=== PATIENT | female | born 1980 | race African-American/Black ===

== ENCOUNTER 2021-04-28 18:25 | Emergency (ER) | payer SELFPAY ==
[~2021-04-28] VITALS: Ht 170.1 cm; Wt 74.8 kg
[2021-04-28] MEDS ORDERED: LORazepam INJ 2 MG/ML (ATIVAN) VIAL IVP ONE (19:00)
[2021-04-28] MEDS ORDERED: ONDANSETRON 4 MG/2 ML (SDV) Z0FRAN IVP ONE (19:00)
[2021-04-28] MEDS ORDERED: LACTATED RINGERS 1,000 ML IV SCH (19:00)
[2021-04-28 19:06] LABS: BASOPHILS % (AUTO) 0 % (0-10); EOSINOPHILS % (AUTO) 0 % (0-10); HEMATOCRIT 36 % (35-52); HEMOGLOBIN 11.4 g/dL (11.5-16.0); LYMPHOCYTES # (AUTO) 1.5 10^3/uL (1.0-4.0); LYMPHOCYTES % (AUTO) 24 % (12-44); MEAN CORPUSCULAR HEMOGLOBIN 26 pg (25-34); MEAN CORPUSCULAR HGB CONC 32 g/dL (32-36); MEAN CORPUSCULAR VOLUME 81 fL (80-99); MEAN PLATELET VOLUME 10.2 fL (9.0-12.2); MONOCYTES # (AUTO) 0.5 10^3/uL (0.0-1.0); MONOCYTES % (AUTO) 7 % (0-12); NEUTROPHILS # (AUTO) 4.4 10^3/uL (1.8-7.8); NEUTROPHILS % (AUTO) 68 % (42-75); PLATELET COUNT 180 10^3/uL (130-400); WHITE BLOOD COUNT 6.5 10^3/uL (4.3-11.0)
--- NOTE | 2021-04-28 19:07 | ED General ---
General Chief Complaint: General Problems/Pain Stated Complaint: POTASSIUM LEVELS ARE LOW Source of Information: Patient Exam Limitations: No Limitations History of Present Illness Date Seen by Provider: Apr 28, 2021 Time Seen by Provider: 19:05 Initial Comments To ER with reports of low potassium at 2.7. She was seen at [facility] and had blood drawn yesterday and was called today with results and referred to the emergency room. She is also nauseated and jittery and anxious. She typically drinks 1/2 pint to a pint of frederick daily. She was seen at [facility] yesterday and diagnosed with urinary tract infection and given an antibiotic. Because of that she quit drinking alcohol yesterday. Timing/Duration: 1-2 Days Severity: Moderate Associated Systoms: Nausea/Vomiting Allergies and Home Medications Allergies Coded Allergies: No Known Drug Allergies (Unverified , 04/28/21) Patient Home Medication List Home Medication List Reviewed: Yes Review of Systems Review of Systems Constitutional: see HPI EENTM: see HPI Respiratory: no symptoms reported Cardiovascular: no symptoms reported Genitourinary: no symptoms reported Musculoskeletal: no symptoms reported Skin: no symptoms reported Psychiatric/Neurological: No Symptoms Reported Hematologic/Lymphatic: No Symptoms Reported Physical Exam Vital Signs Capillary Refill : Height, Weight, BMI Height: '" Weight: lbs. oz. kg; BMI Method: General Appearance: No Apparent Distress, WD/WN, Anxious Eyes: Bilateral Eye Normal Inspection, Bilateral Eye PERRL, Bilateral Eye EOMI Neck: Full Range of Motion, Normal Inspection Respiratory: No Accessory Muscle Use, No Respiratory Distress Cardiovascular: Normal Peripheral Pulses, Tachycardia Gastrointestinal: Normal Bowel Sounds, Non Tender, Soft Extremity: Normal Capillary Refill, Normal Inspection Neurologic/Psychiatric: Alert, Oriented x3 Skin: Normal Color, Warm/Dry Progress/Results/Core Measures Suspected Sepsis SIRS Temperature: Pulse: Respiratory Rate: Laboratory Tests 04/28/21 18:55: White Blood Count 6.5 Blood Pressure / Mean: Laboratory Tests 04/28/21 18:55: Creatinine 0.69, Platelet Count 180, Total Bilirubin 0.9 Results/Orders Lab Results Laboratory Tests Test 04/28/21 18:55 Range/Units White Blood Count 6.5 4.3-11.0 10^3/uL Red Blood Count 4.41 3.80-5.11 10^6/uL Hemoglobin 11.4 L 11.5-16.0 g/dL Hematocrit 36 35-52 % Mean Corpuscular Volume 81 80-99 fL Mean Corpuscular Hemoglobin 26 25-34 pg Mean Corpuscular Hemoglobin Concent 32 32-36 g/dL Red Cell Distribution Width 19.7 H 10.0-14.5 % Platelet Count 180 130-400 10^3/uL Mean Platelet Volume 10.2 9.0-12.2 fL Immature Granulocyte % (Auto) 1 % Neutrophils (%) (Auto) 68 42-75 % Lymphocytes (%) (Auto) 24 12-44 % Monocytes (%) (Auto) 7 0-12 % Eosinophils (%) (Auto) 0 0-10 % Basophils (%) (Auto) 0 0-10 % Neutrophils # (Auto) 4.4 1.8-7.8 10^3/uL Lymphocytes # (Auto) 1.5 1.0-4.0 10^3/uL Monocytes # (Auto) 0.5 0.0-1.0 10^3/uL Eosinophils # (Auto) 0.0 0.0-0.3 10^3/uL Basophils # (Auto) 0.0 0.0-0.1 10^3/uL Immature Granulocyte # (Auto) 0.0 0.0-0.1 10^3/uL Sodium Level 138 135-145 MMOL/L Potassium Level 2.7 L 3.6-5.0 MMOL/L Chloride Level 99 98-107 MMOL/L Carbon Dioxide Level 26 21-32 MMOL/L Anion Gap 13 5-14 MMOL/L Blood Urea Nitrogen 4 L 7-18 MG/DL Creatinine 0.69 0.60-1.30 MG/DL Estimat Glomerular Filtration Rate 113 BUN/Creatinine Ratio 6 Glucose Level 104 70-105 MG/DL Calcium Level 8.6 8.5-10.1 MG/DL Corrected Calcium 8.8 8.5-10.1 MG/DL Total Bilirubin 0.9 0.1-1.0 MG/DL Aspartate Amino Transf (AST/SGOT) 154 H 5-34 U/L Alanine Aminotransferase (ALT/SGPT) 63 H 0-55 U/L Alkaline Phosphatase 104 40-136 U/L Total Protein 7.8 6.4-8.2 GM/DL Albumin 3.8 3.2-4.5 GM/DL Serum Alcohol < 10 <10 MG/DL My Orders Orders - ELISABET MENDOZA APRN Cbc With Automated Diff (04/28/21 18:59) Comprehensive Metabolic Panel (04/28/21 18:59) Alcohol (04/28/21 18:59) Ed Iv/Invasive Line Start (04/28/21 18:59) Lactated Ringers (Lr 1000 Ml Iv Solution (04/28/21 19:00) Lorazepam Injection (Ativan Injection) (04/28/21 19:00) Ondansetron Injection (Zofran Injectio (04/28/21 19:00) Ekg Tracing (04/28/21 19:08) Potassium Cl 10meq/50ml Ivpb (Kcl 10 Meq (04/28/21 19:45) Potassium Chloride (Tablet) (Klor Con Ta (04/28/21 19:45) Ns (Ivpb) (Sodium Chloride 0.9%) (04/28/21 20:30) Medications Given in ED Current Medications Medications Dose Ordered Sig/Beti Route Start Time Stop Time Status Last Admin Dose Admin Lorazepam 2 mg ONCE ONCE IVP 04/28/21 19:00 04/28/21 19:01 DC 04/28/21 19:22 2 MG Ondansetron HCl 4 mg ONCE ONCE IVP 04/28/21 19:00 04/28/21 19:01 DC 04/28/21 19:21 4 MG Vital Signs/I&O Capillary Refill : Departure Communication (Admissions) 2030-feeling better, states that she is ready to quit drinking. I will pr escribe some Librium to help with that. Impression Primary Impression: Hypokalemia Additional Impression: Alcohol use disorder Disposition: HOME, SELF-CARE Condition: Stable Departure-Patient Inst. Decision time for Depature: 20:31 Patient Instructions: Alcohol Use Disorder ED, Hypokalemia (DC) Add. Discharge Instructions: 1. Medication as directed 2. Follow-up with your doctor next week. All discharge instructions reviewed with patient and/or family. Voiced understanding. Scripts Chlordiazepoxide HCl (Chlordiazepoxide HCl) 25 Mg Capsule 25 MG PO UD, #10 CAP Day one, 1 tablet every 6 hours Day two, 1 tablet every 8 hours Day three, 1 tablet every 12 hours Day four, 1 tablet at bedtime Prov: ELISABET MENDOZA APRN 04/28/21 Potassium Chloride (Potassium Chloride) 20 Meq Tablet.er 20 MEQ PO BID, #6 TAB Prov: ELISABET MENDOZA APRN 04/28/21 Work/School Note: Work Release Form Date Seen in the Emergency Department: Apr 28, 2021 Return to Work: May 01, 2021 LEISABET MENDOZA APRN Apr 28, 2021 19:07
[2021-04-28 19:24] LABS: ALANINE AMINOTRANSFERASE 63 U/L (0-55); ALBUMIN 3.8 GM/DL (3.2-4.5); ALKALINE PHOSPHATASE 104 U/L (40-136); BILIRUBIN,TOTAL 0.9 MG/DL (0.1-1.0); BUN/CREATININE RATIO 6; CALCIUM 8.6 MG/DL (8.5-10.1); CARBON DIOXIDE 26 MMOL/L (21-32); CHLORIDE 99 MMOL/L (98-107); CREATININE SERUM 0.69 MG/DL (0.60-1.30); GFR ESTIMATED 113; GLUCOSE 104 MG/DL (70-105); POTASSIUM 2.7 MMOL/L (3.6-5.0); SODIUM 138 MMOL/L (135-145); TOTAL PROTEIN 7.8 GM/DL (6.4-8.2)
[2021-04-28] MEDS ORDERED: POTASSIUM CL 10MEQ/50ML IVPB 50 ML IV ONE (19:45)
[2021-04-28] MEDS ORDERED: KCL 10 MEQ TAB (MICRO K) PO ONE (19:45)
[2021-04-28] MEDS ORDERED: NS (IVPB) 250 ML IV ONE (20:30)
[2021-04-28] MEDS ORDERED: CHLO25CA10 PO (20:34)
[2021-04-28] MEDS ORDERED: POTA-51 PO (20:34)
[2021-04-28] MEDS ORDERED: meTOprolol 5 MG/5 ML (LOPRESSOR) VIAL IV ONE (21:00)
[2021-04-28 21:48] VITALS: BP 149/117
== END 2021-04-28 21:49 | disposition home or self-care (01) ==
LOC: ER 18:30 → EDSEX 18:30 → ER 21:49
DX: E87.6 Hypokalemia (principal); F10.10 Alcohol abuse, uncomplicated
CPT/HCPCS: 80053; 85025; 93005; 99284; G0480; 36415; 80320

== ENCOUNTER 2021-05-01 11:21 | Observation (INO) | payer SELFPAY ==
[~2021-05-01] VITALS: Ht 170.2 cm; Wt 72.4 kg
[~2021-05-01 11:21] MED LIST: CHLO25CA10 PO; POTA-51 PO
--- NOTE | 2021-05-01 12:42 | ED General ---
General Chief Complaint: General Problems/Pain Stated Complaint: LOW K LEVELS Nursing Triage Note: PT AMBULATE TO TRIAGE WITH C/O LOW POTASSIUM. PT STATES THAT SHE HAD BLOOD DRAWN AT HER PCP AND WAS CONTACTED AND TOLD THAT HER POTASSIUM LEVEL WAS LOW AND THAT SHE NEEDED TO COME TO THE ED. PT REPORTS BEING SEEN IN THIS ED ON THURSDAY FOR SAME C/O. PT REPORTS BEING PRESCRIBED KCL PO AND HAS BEEN TAKING PRESCRIBED. PT REPORTS N/V. PT STATES THAT SHE DRINKS ETOH AND THAT SHE HAS ABSTAINED WHILE TAKING ABX FOR A UTI AND THAT SHE IS HAVING WITHDRAWL SYMPTOMS. Source of Information: Patient Exam Limitations: No Limitations History of Present Illness Date Seen by Provider: May 01, 2021 Time Seen by Provider: 12:40 Initial Comments To ER with low potassium. She had labs drawn by primary care told her potassium was 2.6 and that she should come to the emergency room. She has nausea. She was a daily drinker of about 1 pint of bourbon daily until a few days ago when she started an antibiotic for a bladder infection. I saw her in the emergency room at that time, we replaced some potassium orally and gave her a prescription for Librium for withdrawal symptoms. She states that the pharmacy was out of Librium. She has not yet filled it. She has taken the potassium. Timing/Duration: 1-2 Days Allergies and Home Medications Allergies Coded Allergies: No Known Drug Allergies (Unverified , 04/28/21) Home Medications Chlordiazepoxide HCl 25 Mg Capsule, 25 MG PO UD Day one, 1 tablet every 6 hours Day two, 1 tablet every 8 hours Day three, 1 tablet every 12 hours Day four, 1 tablet at bedtime Prescribed by: ELISABET MENDOZA on 04/28/212034 Potassium Chloride 20 Meq Tablet.er, 20 MEQ PO BID Prescribed by: ELISABET MENDOZA on 04/28/212033 Patient Home Medication List Home Medication List Reviewed: Yes Review of Systems Review of Systems Constitutional: see HPI EENTM: see HPI Respiratory: no symptoms reported Cardiovascular: no symptoms reported Genitourinary: no symptoms reported Musculoskeletal: no symptoms reported Skin: no symptoms reported Psychiatric/Neurological: No Symptoms Reported Hematologic/Lymphatic: No Symptoms Reported Past Updixpz-[id number] Hx Patient Social History Tobacco Use?: Yes Tobacco type used: Cigarettes Smoking Status: Current Everyday Smoker Substance use?: No Alcohol Use?: Yes Alcohol type: Hard Liquor Alcohol Frequency: Daily Pt feels they are or have been: No Immunizations Up To Date First/Initial COVID19 Vaccinat: DECEMBER 2020 Second COVID19 Vaccination Ramakrishna: JANUARY 2021 COVID19 Vaccine Manager Training And Development: EMMANUEL Physical Exam Vital Signs Vital Signs - First Documented 05/01/21 12:26 Temp 36.9 Pulse 108 Resp 17 B/P (MAP) 146/99 (115) O2 Delivery Room Air Capillary Refill : Less Than 3 Seconds Height, Weight, BMI Height: '" Weight: lbs. oz. kg; 25.00 BMI Method: General Appearance: No Apparent Distress, WD/WN Eyes: Bilateral Eye Normal Inspection, Bilateral Eye PERRL, Bilateral Eye EOMI Neck: Full Range of Motion, Normal Inspection Respiratory: No Accessory Muscle Use, No Respiratory Distress Cardiovascular: Regular Rate, Rhythm, Normal Peripheral Pulses Gastrointestinal: Normal Bowel Sounds, Non Tender, Soft Neurologic/Psychiatric: Alert, Oriented x3 Skin: Normal Color, Warm/Dry Progress/Results/Core Measures Suspected Sepsis SIRS Temperature: Pulse: 108 Respiratory Rate: 17 Laboratory Tests 05/01/21 12:46: White Blood Count 10.5 Blood Pressure 146 /99 Mean: 115 Laboratory Tests 05/01/21 12:46: Creatinine 0.69, Platelet Count 194 Results/Orders Lab Results Laboratory Tests Test 05/01/21 12:46 Range/Units White Blood Count 10.5 4.3-11.0 10^3/uL Red Blood Count 4.40 3.80-5.11 10^6/uL Hemoglobin 11.4 L 11.5-16.0 g/dL Hematocrit 36 35-52 % Mean Corpuscular Volume 82 80-99 fL Mean Corpuscular Hemoglobin 26 25-34 pg Mean Corpuscular Hemoglobin Concent 32 32-36 g/dL Red Cell Distribution Width 19.9 H 10.0-14.5 % Platelet Count 194 130-400 10^3/uL Mean Platelet Volume 10.6 9.0-12.2 fL Immature Granulocyte % (Auto) 0 % Neutrophils (%) (Auto) 74 42-75 % Lymphocytes (%) (Auto) 19 12-44 % Monocytes (%) (Auto) 6 0-12 % Eosinophils (%) (Auto) 0 0-10 % Basophils (%) (Auto) 0 0-10 % Neutrophils # (Auto) 7.8 1.8-7.8 10^3/uL Lymphocytes # (Auto) 2.0 1.0-4.0 10^3/uL Monocytes # (Auto) 0.6 0.0-1.0 10^3/uL Eosinophils # (Auto) 0.0 0.0-0.3 10^3/uL Basophils # (Auto) 0.0 0.0-0.1 10^3/uL Immature Granulocyte # (Auto) 0.0 0.0-0.1 10^3/uL Sodium Level 137 135-145 MMOL/L Potassium Level 2.6 L 3.6-5.0 MMOL/L Chloride Level 98 98-107 MMOL/L Carbon Dioxide Level 27 21-32 MMOL/L Anion Gap 12 5-14 MMOL/L Blood Urea Nitrogen 11 7-18 MG/DL Creatinine 0.69 0.60-1.30 MG/DL Estimat Glomerular Filtration Rate 113 BUN/Creatinine Ratio 16 Glucose Level 109 H 70-105 MG/DL Calcium Level 8.8 8.5-10.1 MG/DL Magnesium Level 1.3 L 1.6-2.4 MG/DL Serum Alcohol < 10 <10 MG/DL My Orders Orders - ELISABET MENDOZA APRN Alcohol (05/01/21 12:21) Cbc With Automated Diff (05/01/21 12:21) Basic Metabolic Panel (05/01/21 12:21) Ed Iv/Invasive Line Start (05/01/21 12:21) Lorazepam Injection (Ativan Injection) (05/01/21 12:45) Ns Iv 1000 Ml (Sodium Chloride 0.9%) (05/01/21 12:45) Ua Culture If Indicated (05/01/21 12:39) Magnesium (05/01/21 12:39) Ondansetron Injection (Zofran Injectio (05/01/21 12:45) Potassium Chloride (Tablet) (K Dur Table (05/01/21 12:45) Potassium Cl 10meq/50ml Ivpb (Kcl 10 Meq (05/01/21 12:45) Magnesium 1 Gm/100 Ml Ivpb (Magnesium Martin (05/01/21 13:45) Medications Given in ED Current Medications Medications Dose Ordered Sig/Beti Route Start Time Stop Time Status Last Admin Dose Admin Lorazepam 2 mg ONCE ONCE IVP 05/01/21 12:45 05/01/21 12:46 DC 05/01/21 13:04 2 MG Ondansetron HCl 8 mg ONCE ONCE IVP 05/01/21 12:45 05/01/21 12:46 DC 05/01/21 13:04 8 MG Potassium Chloride 40 meq ONCE ONCE PO 05/01/21 12:45 05/01/21 12:46 DC 05/01/21 13:04 40 MEQ Vital Signs/I&O 05/01/21 12:26 Temp 36.9 Pulse 108 Resp 17 B/P (MAP) 146/99 (115) O2 Delivery Room Air Capillary Refill : Less Than 3 Seconds Blood Pressure Mean: 115 Departure Impression Primary Impression: Hypokalemia Additional Impression: Hypomagnesemia Disposition: 01 HOME, SELF-CARE Condition: Stable Departure-Patient Inst. Decision time for Depature: 13:33 Referrals: [facility] (PCP) Primary Care Physician GIA DEMARCO (Family) Primary Care Physician Patient Instructions: Low Magnesium Level, Hypokalemia ELISABET MENDOZA BRAKE LINING FINISHER May 01, 2021 12:42
[2021-05-01] MEDS ORDERED: NS IV 1000 ML 1,000 ML IV SCH (12:45)
[2021-05-01] MEDS ORDERED: ONDANSETRON 4 MG/2 ML (SDV) Z0FRAN IVP ONE (12:45)
[2021-05-01] MEDS ORDERED: LORazepam INJ 2 MG/ML (ATIVAN) VIAL IVP ONE (12:45)
[2021-05-01] MEDS ORDERED: KCL 20 MEQ TAB (K-DUR) PO ONE (12:45)
[2021-05-01 12:51] LABS: BASOPHILS % (AUTO) 0 % (0-10); EOSINOPHILS % (AUTO) 0 % (0-10); HEMATOCRIT 36 % (35-52); HEMOGLOBIN 11.4 g/dL (11.5-16.0); LYMPHOCYTES % (AUTO) 19 % (12-44); MEAN CORPUSCULAR HEMOGLOBIN 26 pg (25-34); MEAN CORPUSCULAR HGB CONC 32 g/dL (32-36); MEAN CORPUSCULAR VOLUME 82 fL (80-99); MEAN PLATELET VOLUME 10.6 fL (9.0-12.2); MONOCYTES # (AUTO) 0.6 10^3/uL (0.0-1.0); MONOCYTES % (AUTO) 6 % (0-12); NEUTROPHILS # (AUTO) 7.8 10^3/uL (1.8-7.8); NEUTROPHILS % (AUTO) 74 % (42-75); PLATELET COUNT 194 10^3/uL (130-400); WHITE BLOOD COUNT 10.5 10^3/uL (4.3-11.0)
[2021-05-01] MEDS: POTASSIUM CL 10MEQ/50ML IVPB 50 ML IV SCH ×2 (13:03→22:03)
[2021-05-01 13:04] LABS: CHLORIDE 98 MMOL/L (98-107); POTASSIUM 2.6 MMOL/L (3.6-5.0); SODIUM 137 MMOL/L (135-145)
[2021-05-01 13:05] LABS: CALCIUM 8.8 MG/DL (8.5-10.1); GLUCOSE 109 MG/DL (70-105)
[2021-05-01 13:07] LABS: CARBON DIOXIDE 27 MMOL/L (21-32)
[2021-05-01 13:09] LABS: CREATININE SERUM 0.69 MG/DL (0.60-1.30); GFR ESTIMATED 113
[2021-05-01 13:10] LABS: BUN/CREATININE RATIO 16
[2021-05-01 13:12] LABS: MAGNESIUM 1.3 MG/DL (1.6-2.4)
[2021-05-01] MEDS: MAGNESIUM 1 GM/100 ML IVPB 100 ML IV SCH ×4 (15:14→18:32)
[2021-05-01 16:00] VITALS: BP 126/87
[2021-05-01] MEDS ORDERED: RT-ALBUINH IH (16:04)
[2021-05-01] MEDS ORDERED: NITR-65 PO (16:04)
[2021-05-01] MEDS ORDERED: AMLO-251 PO (16:04)
[2021-05-01] MEDS ORDERED: PANT40TA52 PO (16:04)
[2021-05-01] MEDS ORDERED: POTA-51 PO (16:04)
[2021-05-01] MEDS ORDERED: ONDA8TAB15 PO (16:04)
[2021-05-01] MEDS ORDERED: ONDANSETRON 4 MG (ZOFRAN) ORAL DISSOLVE TAB SL PRN (16:15)
[2021-05-01] MEDS ORDERED: LORazepam 1 MG (ATIVAN) TAB PO PRN (16:15)
[2021-05-01] MEDS ORDERED: 1/2 NS IV SOLUTION 1,000 ML IV PRN (16:15)
[2021-05-01] MEDS ORDERED: LORazepam INJ 2 MG/ML (ATIVAN) VIAL IM/IV PRN (16:15)
[2021-05-01] MEDS ORDERED: D5 1/2 NS 1000 ML IV SOLUTION 1,000 ML IV PRN (16:15)
[2021-05-01] MEDS ORDERED: SENNA W/DOCUSATE (SENOKOT S) TABLET PO PRN (16:15)
[2021-05-01] MEDS ORDERED: ANTACID SUSP 30 ML UDC (MYLANTA) PO PRN (16:15)
[2021-05-01] MEDS ORDERED: LORazepam INJ 2 MG/ML (ATIVAN) VIAL IV PRN (16:15)
[2021-05-01] MEDS ORDERED: ONDANSETRON 4 MG/2 ML (SDV) Z0FRAN IV PRN ×2 (16:15→17:15)
[2021-05-01] MEDS: KCL 20 MEQ TAB (K-DUR) PO SCH (17:17)
[2021-05-01 17:45] LABS: BILIRUBIN,URINE NEGATIVE (NEGATIVE); CLARITY,URINE CLEAR; COLOR,URINE YELLOW; GLUCOSE, URINE (UA) NEGATIVE (NEGATIVE); KETONES,URINE 2+ (NEGATIVE); LEUKOCYTE ESTERASE ,URINE NEGATIVE (NEGATIVE); NITRITE,URINE NEGATIVE (NEGATIVE); PH,URINE 6.5 (5-9); PROTEIN,URINE TRACE (NEGATIVE)
[2021-05-01] MEDS: NS IV 1000 ML 1,000 ML IV SCH (17:48)
[2021-05-01 17:57] LABS: BACTERIA,URINE NEGATIVE /HPF
[2021-05-01 17:59] LABS: ALBUMIN 3.9 GM/DL (3.2-4.5)
[2021-05-01 18:02] LABS: TOTAL PROTEIN 7.9 GM/DL (6.4-8.2)
[2021-05-01 18:04] LABS: BILIRUBIN,TOTAL 0.7 MG/DL (0.1-1.0)
[2021-05-01 18:08] LABS: BILIRUBIN,DIRECT 0.4 MG/DL (0.0-0.3); BILIRUBIN,INDIRECT 0.3 MG/DL
[2021-05-01 20:00] VITALS: BP 122/84
[2021-05-01] MEDS: POTASSIUM CL 10 MEQ/50 ML IVPB (PRE-MIX) IV SCH ×2 (20:14→21:13)
[2021-05-01] MEDS: MAGNESIUM OXIDE (MAG-OX)400 MG TAB PO SCH (21:13)
[2021-05-01 23:43] VITALS: BP 127/87
[2021-05-02 03:19] VITALS: BP 139/100
[2021-05-02 06:08] LABS: BASOPHILS % (AUTO) 0 % (0-10); EOSINOPHILS # (AUTO) 0.1 10^3/uL (0.0-0.3); EOSINOPHILS % (AUTO) 1 % (0-10); HEMATOCRIT 32 % (35-52); LYMPHOCYTES % (AUTO) 37 % (12-44); MEAN CORPUSCULAR HEMOGLOBIN 26 pg (25-34); MEAN CORPUSCULAR HGB CONC 31 g/dL (32-36); MEAN CORPUSCULAR VOLUME 84 fL (80-99); MEAN PLATELET VOLUME 10.7 fL (9.0-12.2); MONOCYTES # (AUTO) 0.4 10^3/uL (0.0-1.0); MONOCYTES % (AUTO) 8 % (0-12); NEUTROPHILS % (AUTO) 54 % (42-75); PLATELET COUNT 159 10^3/uL (130-400); WHITE BLOOD COUNT 5.6 10^3/uL (4.3-11.0)
[2021-05-02 06:27] LABS: ALBUMIN 3.3 GM/DL (3.2-4.5); CHLORIDE 105 MMOL/L (98-107); POTASSIUM 3.1 MMOL/L (3.6-5.0); SODIUM 138 MMOL/L (135-145)
[2021-05-02 06:28] LABS: CALCIUM 8.2 MG/DL (8.5-10.1)
[2021-05-02 06:29] LABS: GLUCOSE 92 MG/DL (70-105); TOTAL PROTEIN 6.5 GM/DL (6.4-8.2)
[2021-05-02 06:30] LABS: CARBON DIOXIDE 25 MMOL/L (21-32); INR 0.9 (0.8-1.4)
[2021-05-02 06:31] LABS: BILIRUBIN,TOTAL 0.7 MG/DL (0.1-1.0)
[2021-05-02 06:33] LABS: ALKALINE PHOSPHATASE 79 U/L (40-136); CREATININE SERUM 0.64 MG/DL (0.60-1.30); GFR ESTIMATED 123
[2021-05-02 06:34] LABS: BUN/CREATININE RATIO 9
[2021-05-02 06:35] LABS: MAGNESIUM 1.9 MG/DL (1.6-2.4)
[2021-05-02 06:36] LABS: ALANINE AMINOTRANSFERASE 48 U/L (0-55)
[2021-05-02] MEDS ORDERED: MULTIVIT W/MINERALS TAB (THERAGRAN M) PO SCH (07:00)
[2021-05-02] MEDS ORDERED: THIAMINE 100 MG (VITAMIN B-1) TAB PO SCH (07:00)
[2021-05-02 08:00] VITALS: BP 135/99
[2021-05-02] MEDS: NS IV 1000 ML 1,000 ML IV SCH (08:09)
[2021-05-02] MEDS: KCL 20 MEQ TAB (K-DUR) PO SCH ×2 (08:17→12:30)
[2021-05-02] MEDS: MAGNESIUM OXIDE (MAG-OX)400 MG TAB PO SCH (08:17)
[2021-05-02] MEDS ORDERED: FOLIC ACID 1 MG TAB PO SCH (09:00)
[2021-05-02] MEDS ORDERED: NICOTINE 21 MG (NICODERM) PATCH TD SCH (10:55)
[2021-05-02 11:16] VITALS: BP 127/86
--- NOTE | 2021-05-02 12:08 | Short Stay Summary-Hospitalist ---
REBECCA GUPTA MED STUDENT 05/02/21 1208: History of Present Illness HPI/Chief Complaint Felisha Lala is a 40 year old female who presented to the ED yesterday after being directed to do so by her PCP at [facility] for hypokalemia. She had been having extensive nausea and vomiting for 3-4 days prior to having labs drawn. The nausea has persisted but the vomiting has resolved. She had labs done approximately one week ago and was found to be hypokalemic, at that time she was directed to the ED on April 28 and received oral potassium supplements and a sc ript for librium. She again had repeat lab work and was found to be hypokalemic and was told to present to the ED yesterday. She states she was taking her potassium as prescribed but never filled her script for the librium at the pharmacy claiming they didn't have it in stock. She stopped drinking alcohol approximately 6-7 days ago as well as she was started on an antibiotic for a UTI at that time. She states she has been taking the antibiotic as prescribed but cannot recall any details of the medication in question. PMH is significant for alcohol use disorder, tobacoissm, HTN, and GERD. She has been drinking 1/2 to 1 pint of frederick a day for years. She has never had a alcohol withdrawal seizure. She has been fully vaccinated against COVID-19 but cannot recall which vaccine received. Currently she denies nausea, vomiting, diarrhea, fevers, chills, chest pain, and SOB. Denies abdominal pain. States is ready to go home and "doesn't want to take any more medicines." Source: patient, EMS notes reviewed Exam Limitations: no limitations Date Seen 05/02/21 Time Seen by a Provider: 08:00 Attending Physician Siri Carey DO [facility] Referring Physician Date of Admission May 01, 2021 at 13:38 Home Medications & Allergies Home Medications Reviewed patient Home Medication Reconciliation performed by pharmacy medication reconciliations hvac service technician and/or nursing. Patients Allergies have been reviewed. Allergies Allergies Coded Allergies No Known Drug Allergies (Unverified04/28/21) Past Medical/Social/Family Hx Patient Social History Marrital Status: single Employed/Student: employed Tobacco Use?: Yes Tobacco type used: Cigarettes Smoking Status: Current Everyday Smoker Use of E-Cig and/or Vaping dev: No E-Cig and/or Vaping Freq: Never a User Substance use?: No Substance frequency: Daily Alcohol Use?: Yes Alcohol type: Hard Liquor (1/2 to 1 pint frederick/day) Alcohol Frequency: Daily Pt stated abuse/neglect: No Immunizations Up To Date Influenza Vaccine Up-to-Date: No; Not Current First/Initial COVID19 Vaccinat: DECEMBER 2020 Second COVID19 Vaccination Ramakrishna: JANUARY 2021 Tetanus Booster (TDap): Unknown Hepatitis A: Yes Hepatitis B: Yes TB Skin Test: Negative Current Status status: No status: No Advance Directives: No Communicates: Verbally Primary Language: Faroese Preferred Spoken Language: Faroese Is interpretation needed?: No Sensory deficits: Vision impairment Implanted or Applied Medical D: None Past Medical History HTN GERD Alcohol Use Disorder Tobaccoism Review of Systems Constitutional: no symptoms reported; No chills, No diaphoresis, No fever, No malaise, No weight loss EENTM: No hearing loss, No blurred vision, No double vision, No vision loss Respiratory: No cough, No dyspnea on exertion, No hemoptysis, No short of breath Cardiovascular: No chest pain, No edema, No palpitations, No syncope Gastrointestinal: no symptoms reported; No abdominal pain, No constipation, No diarrhea; heartburn (chronic), nausea (Improved); No vomiting Genitourinary: No decreased output, No dysuria, No frequency, No hematuria, No hesitancy : No Musculoskeletal: No back pain, No joint pain, No muscle pain, No muscle stiffness, No muscle cramps Skin: No change in color, No change in hair/nails, No dryness, No lesions Psychiatric/Neurological: No Symptoms Reported; Denies Anxiety, Denies Depressed, Denies Headache, Denies Seizure, Denies Weakness All Other Systems Reviewed Negative Unless Noted: Yes Physical Exam Physical Exam Vital Signs Vital Signs - First Documented 05/01/21 05/01/21 12:26 15:34 Temp 36.9 Pulse 108 Resp 17 B/P (MAP) 146/99 (115) Pulse Ox 97 O2 Delivery Room Air Capillary Refill : Less Than 3 Seconds Height, Weight, BMI Height: '" Weight: lbs. oz. kg; 24.99 BMI Method: General Appearance: No Apparent Distress, WD/WN Eyes: Bilateral Eye Normal Inspection, Bilateral Eye PERRL, Bilateral Eye EOMI HEENT: PERRL/EOMI, Pharynx Normal, Moist Mucous Membranes Neck: Full Range of Motion, Normal Inspection, Non Tender, Supple Respiratory: Chest Non Tender, Lungs Clear, Normal Breath Sounds, No Accessory Muscle Use, No Respiratory Distress Cardiovascular: Regular Rate, Rhythm, No Edema, Normal Peripheral Pulses Gastrointestinal: Normal Bowel Sounds, Non Tender, Soft Rectal: Deferred Back: Normal Inspection, No CVA Tenderness, No Vertebral Tenderness Extremity: Normal Capillary Refill, Normal Inspection, Normal Range of Motion, Non Tender, No Calf Tenderness, No Pedal Edema Neurologic/Psychiatric: Alert, Oriented x3, No Motor/Sensory Deficits, Normal Mood/Affect Skin: Normal Color, Warm/Dry Lymphatic: No Adenopathy Results Results/Procedures Labs Laboratory Tests 05/01/21 12:46 05/02/21 05:48 Patient resulted labs reviewed. Short Stay Diagnosis Discharge Diagnosis-Short Stay Admission Diagnosis Nausea/vomiting Hypokalemia Hypomagnesemia Final Discharge Diagnosis Nausea/Vomiting Hypokalemia Hypomagnesemia Elevated LFT's Alcohol Use Disorder Tobaccoism Conclusion Plan Send patient home with script of oral potassium Encourage cessation of alcohol Encourage cessation of tobacco use Followup with PCP in 1-2 weeks Return to ED/Urgent care for worsening or recurrence of symptoms SIRI CAREY DO 05/03/21 0511: History of Present Illness HPI/Chief Complaint CC: Electrolyte abnormality HPI: This is a 40yo female who has a PMH of alcoholism, who presented to the ER with dry-heaves and severe hypokalemia at 2.6. She was admitted, placed on IV fluids, corrected the electrolyte abnormalities and currently she is doing much better. Source: patient Exam Limitations: no limitations Past Medical/Social/Family Hx Patient Social History Marrital Status: single Employed/Student: employed Substance frequency: Daily Alcohol type: Hard Liquor (1/2 to 1 pint frederick/day) Review of Systems Constitutional: see HPI, weakness Physical Exam Physical Exam General Appearance: No Apparent Distress, WD/WN, Chronically ill Respiratory: Lungs Clear, Normal Breath Sounds Cardiovascular: Regular Rate, Rhythm Neurologic/Psychiatric: Alert, Oriented x3 Short Stay Diagnosis Discharge Diagnosis-Short Stay Admission Diagnosis Nausea and vomiting Alcohol withdrawal Alcoholism Hypomagnesemia Final Discharge Diagnosis Nausea and vomiting Alcohol withdrawal Alcoholism Hypomagnesemia Conclusion Plan Discharge home Supervisory-Addendum Brief Verification & Attestation Participated in pt care: history, MDM, physical Personally performed: exam, history, MDM, supervision of care Care discussed with: Medical Student Procedures: n/a Results interpretation: Verified all documentation Verification and Attestation of Medical Student E/M Service A medical student performed and documented this service in my presence. I reviewed and verified all information documented by the medical student and made modifications to such information, when appropriate. I personally performed the physical exam and medical decision making. Siri Carey, May 03, 2021,05:09 REBECCA GUPTA MED STUDENT May 02, 2021 12:08 SIRI CAREY DO May 03, 2021 05:11
[2021-05-02 12:27] VITALS: BP 127/86
[2021-05-03] MEDS ORDERED: NICOTINE PATCH REMOVAL TP SCH (08:59)
== END 2021-05-02 12:03 | disposition home or self-care (01) ==
LOC: EDUNIT# 11:21 → ER 11:23 → UNDOADMOB 13:38 → 4TH 13:38 → UNDODISOB 05-02 12:37
PROVIDERS: ADMIT Internal Medicine; ATTEND Internal Medicine
DX: E87.6 Hypokalemia (principal); E83.42 Hypomagnesemia; F17.210 Nicotine dependence, cigarettes, uncomplicated; I10 Essential (primary) hypertension; K21.9 Gastro-esophageal reflux disease without esophagitis; F10.10 Alcohol abuse, uncomplicated; R79.89 Other specified abnormal findings of blood chemistry; Z79.899 Other long term (current) drug therapy
CPT/HCPCS: 80048; 80053; 80076; 81000; 82947 ×2; 83735 ×2; 85025 ×2; 85610; 85730; 86703; 87636; 99284; G0378; G0480 ×2; 36415; 80320

== ENCOUNTER 2021-08-01 17:38 | Inpatient (IN) | payer SELFPAY ==
[~2021-08-01] VITALS: Ht 170 cm; Wt 67.4 kg
[~2021-08-01 17:38] MED LIST changes: +AMLO-251 PO; +NITR-65 PO; +ONDA-106 PO; +PANT40TA52 PO; +RT-ALBUINH IH
--- NOTE | 2021-08-01 17:48 | ED Abdominal Pain ---
General Chief Complaint: Abdominal/GI Problems Stated Complaint: DEHYDRATED, VOMITING Source of Information: Patient Exam Limitations: No Limitations History of Present Illness Date Seen by Provider: Aug 01, 2021 Time Seen by Provider: 17:48 Initial Comments This is a 40-year-old female who presented to the ER via POV with complaints of nausea/vomiting x1 week. States that she attempted to get into see her primary care provider however was not able to make an appointment. States that this is happened in the past and she usually ends up hypokalemic with low magnesium. She admits to daily alcohol consumption however states that her last alcoholic drink was 2 days ago. No fever, chills, cough, shortness of breath, dysuria, or hematuria. Did not receive COVID vaccine. Has taken Zofran 4mg at home with no relief of symptoms. Allergies and Home Medications Allergies Coded Allergies: No Known Drug Allergies (Unverified , 04/28/21) Patient Home Medication List Home Medication List Reviewed: Yes Albuterol Sulfate (Proair Hfa) 1 Puff Puff, 2 PUFF IH Q4H PRN for SHORTNESS OF BREATH, (Reported) Entered as Reported by: IRMA MOORE on 05/01/21 160 Amlodipine Besylate (Amlodipine Besylate) 10 Mg Tablet, 10 MG PO DAILY, (Reported) Entered as Reported by: IRMA MOORE on 05/01/21 160 Nitrofurantoin Monohyd/M-Cryst (Macrobid 100 mg Capsule) 100 Mg Capsule, 1 TAB PO Q12H, (Reported) Entered as Reported by: IRMA MOORE on 05/01/21 160 Ondansetron HCl (Ondansetron HCl) 8 Mg Tablet, 8 MG PO Q8H PRN for NAUSEA/VOMITING-1ST LINE, (Reported) Entered as Reported by: IRMA MOORE on 05/01/21 160 Pantoprazole Sodium (Pantoprazole Sodium) 40 Mg Tablet.dr, 40 MG PO DAILY, (Reported) Entered as Reported by: IRMA MOORE on 05/01/21 160 Potassium Chloride (Potassium Chloride) 20 Meq Tablet.er, 20 MEQ PO DAILY, (Reported) Entered as Reported by: IRMA MOORE on 05/01/21 160 Review of Systems Review of Systems Constitutional: see HPI EENTM: No Symptoms Reported Respiratory: No Symptoms Reported Cardiovascular: No Symptoms Reported Gastrointestinal: See HPI; Denies Constipated, Denies Diarrhea; Nausea, Poor Fluid Intake, Vomiting Genitourinary: No Symptoms Reported Musculoskeletal: no symptoms reported Skin: no symptoms reported Psychiatric/Neurological: No Symptoms Reported Endocrine: No Symptoms Reported Hematologic/Lymphatic: No Symptoms Reported Physical Exam Vital Signs Vital Signs - First Documented 08/01/21 17:40 Temp 36.1 Pulse 125 Resp 20 B/P (MAP) 139/88 (105) Pulse Ox 98 O2 Delivery Room Air Capillary Refill : Height/Weight/BMI Height: '" Weight: lbs. oz. kg; 24.99 BMI Method: General Appearance: WD/WN, no apparent distress HEENT: PERRL/EOMI, normal ENT inspection, pharynx normal Neck: full range of motion, normal inspection Respiratory: lungs clear, normal breath sounds, no respiratory distress, no accessory muscle use Cardiovascular: regular rate, rhythm, no murmur Peripheral Pulses: 2+ Radial Pulses (R), 2+ Radial Pulses (L) Gastrointestinal: normal bowel sounds, soft, distended, tenderness (generalized upper abdominal tenderness. ) Extremities: normal range of motion, normal inspection, no pedal edema Back: normal inspection Neurologic/Psychiatric: no motor/sensory deficits, alert, normal mood/affect, oriented x 3 Progress/Results/Core Measures Results/Orders Lab Results Laboratory Tests Test 08/01/21 17:55 08/01/21 18:13 Range/Units White Blood Count 7.4 4.3-11.0 10^3/uL Red Blood Count 4.16 3.80-5.11 10^6/uL Hemoglobin 12.3 11.5-16.0 g/dL Hematocrit 37 35-52 % Mean Corpuscular Volume 88 80-99 fL Mean Corpuscular Hemoglobin 30 25-34 pg Mean Corpuscular Hemoglobin Concent 34 32-36 g/dL Red Cell Distribution Width 20.7 H 10.0-14.5 % Platelet Count 197 130-400 10^3/uL Mean Platelet Volume 11.5 9.0-12.2 fL Immature Granulocyte % (Auto) 1 % Neutrophils (%) (Auto) 76 H 42-75 % Lymphocytes (%) (Auto) 15 12-44 % Monocytes (%) (Auto) 6 0-12 % Eosinophils (%) (Auto) 2 0-10 % Basophils (%) (Auto) 0 0-10 % Neutrophils # (Auto) 5.6 1.8-7.8 10^3/uL Lymphocytes # (Auto) 1.1 1.0-4.0 10^3/uL Monocytes # (Auto) 0.4 0.0-1.0 10^3/uL Eosinophils # (Auto) 0.2 0.0-0.3 10^3/uL Basophils # (Auto) 0.0 0.0-0.1 10^3/uL Immature Granulocyte # (Auto) 0.1 0.0-0.1 10^3/uL Sodium Level 135 135-145 MMOL/L Potassium Level 2.7 L 3.6-5.0 MMOL/L Chloride Level 84 L 98-107 MMOL/L Carbon Dioxide Level 22 21-32 MMOL/L Anion Gap 29 H 5-14 MMOL/L Blood Urea Nitrogen 10 7-18 MG/DL Creatinine 0.80 0.60-1.30 MG/DL Estimat Glomerular Filtration Rate 95 BUN/Creatinine Ratio 13 Glucose Level 145 H 70-105 MG/DL Calcium Level 8.5 8.5-10.1 MG/DL Corrected Calcium 8.7 8.5-10.1 MG/DL Magnesium Level 1.8 1.6-2.4 MG/DL Total Bilirubin 2.4 H 0.1-1.0 MG/DL Aspartate Amino Transf (AST/SGOT) 324 H 5-34 U/L Alanine Aminotransferase (ALT/SGPT) 77 H 0-55 U/L Alkaline Phosphatase 202 H 40-136 U/L Total Protein 8.1 6.4-8.2 GM/DL Albumin 3.8 3.2-4.5 GM/DL Lipase 189 H 8-78 U/L Serum Alcohol 162 H <10 MG/DL Influenza Type A (RT-PCR) Not Detected Not Detecte Influenza Type B (RT-PCR) Not Detected Not Detecte SARS-CoV-2 RNA (RT-PCR) Not Detected Not Detecte Urine Color STANLEY H Urine Clarity CLOUDY Urine pH 6.0 5-9 Urine Specific [place] >=1.030 1.016-1.022 Urine Protein 1+ H NEGATIVE Urine Glucose (UA) TRACE H NEGATIVE Urine Ketones 1+ H NEGATIVE Urine Nitrite NEGATIVE NEGATIVE Urine Bilirubin 2+ H NEGATIVE Urine Urobilinogen 4.0 < = 1.0 MG/DL Urine Leukocyte Esterase 1+ H NEGATIVE Urine RBC (Auto) TRACE-I H NEGATIVE Urine RBC 0-2 /HPF Urine WBC 10-25 H /HPF Urine Squamous Epithelial Cells 5-10 /HPF Urine Crystals NONE /LPF Urine Bacteria LARGE H /HPF Urine Casts NONE /LPF Urine Mucus NEGATIVE /LPF Urine Culture Indicated YES Urine Opiates Screen NEGATIVE NEGATIVE Urine Oxycodone Screen NEGATIVE NEGATIVE Urine Methadone Screen NEGATIVE NEGATIVE Urine Propoxyphene Screen NEGATIVE NEGATIVE Urine Barbiturates Screen NEGATIVE NEGATIVE Ur Tricyclic Antidepressants Screen NN NEGATIVE Urine Phencyclidine Screen NEGATIVE NEGATIVE Urine Amphetamines Screen NEGATIVE NEGATIVE Urine Methamphetamines Screen NEGATIVE NEGATIVE Urine Benzodiazepines Screen NEGATIVE NEGATIVE Urine Cocaine Screen NEGATIVE NEGATIVE Urine Cannabinoids Screen NEGATIVE NEGATIVE My Orders Orders - TARA ACUNA ENGLISH COMPOSITION TEACHER Ua Culture If Indicated (08/01/21 17:47) Cbc With Automated Diff (08/01/21 17:47) Comprehensive Metabolic Panel (08/01/21 17:47) Lipase (08/01/21 17:47) Magnesium (08/01/21 17:50) Alcohol (08/01/21 17:50) Drug Screen Stat (Urine) (08/01/21 17:50) Ekg Tracing (08/01/21 17:58) Covid 19 Inhouse Test (08/01/21 17:58) Influenza A And B By Pcr (08/01/21 17:58) Ns Iv 1000 Ml (Sodium Chloride 0.9%) (08/01/21 18:00) Chest 1 View, Ap/Pa Only (08/01/21 17:59) Prochlorperazine Injection (Compazine In (08/01/21 18:00) Ketorolac Injection (Toradol Injection) (08/01/21 18:00) Ct Abdomen/Pelvis W (08/01/21 18:36) Urine Culture (08/01/21 18:13) Potassium Cl 10meq/50ml Ivpb (Kcl 10 Meq (08/01/21 18:45) Iohexol Injection (Omnipaque 350 Mg/Ml 1 (08/01/21 18:45) Received Contrast (Hold Metformin- Contr (08/01/21 18:45) Sodium Chloride Flush (Catheter Flush Sy (08/01/21 18:45) Ns (Ivpb) (Sodium Chloride 0.9% Ivpb Bag (08/01/21 18:45) Medications Given in ED Current Medications Medications Dose Ordered Sig/Beti Route Start Time Stop Time Status Last Admin Dose Admin Iohexol 100 ml ONCE ONCE IV 08/01/21 18:45 08/01/21 18:46 DC 08/01/21 19:36 92 ML Ketorolac Tromethamine 15 mg ONCE ONCE IVP 08/01/21 18:00 08/01/21 18:03 DC 08/01/21 18:21 15 MG Potassium Chloride 50 ml @ 50 mls/hr ONCE ONCE IV 08/01/21 18:45 08/01/21 21:19 DC 08/01/21 19:08 50 MLS/HR Prochlorperazine Edisylate 10 mg ONCE ONCE IV 08/01/21 18:00 08/01/21 18:03 DC 08/01/21 18:21 10 MG Sodium Chloride 10 ml NEEDED PRN IV 08/01/21 18:45 08/01/21 19:36 10 ML Sodium Chloride 100 ml ONCE ONCE IV 08/01/21 18:45 08/01/21 18:46 DC 08/01/21 19:36 80 ML Sodium Chloride 1,000 ml @ 999 mls/hr ONCE ONCE IV 08/01/21 18:00 08/01/21 19:00 DC 08/01/21 18:21 999 MLS/HR Vital Signs/I&O 08/01/21 08/01/21 08/01/21 08/01/21 17:40 19:53 20:10 20:22 Temp 36.1 Pulse 125 96 105 105 Resp 20 18 18 18 B/P (MAP) 139/88 (105) 128/93 138/94 128/100 Pulse Ox 98 95 97 97 O2 Delivery Room Air Room Air Room Air 08/01/21 20:31 Pulse 116 Resp 18 B/P (MAP) 126/100 Pulse Ox 98 O2 Delivery Room Air Progress Progress Note : Progress Note Patient examined and in no acute distress. She is tachycardic with a heart rate of 120s at this time. RN initiated IV access will give Zofran 4 mg IV push for nausea and a liter of saline for dehydration. Orders placed for basic labs, UA, chest x-ray. Diagnostic Imaging Diagonstic Imaging: Xray Plain Films/CT/US/NM/MRI: chest Comments [facility] [place], [place] NAME: CALVIN ESQUIVEL [facility] REC#: [id number] PT STATUS: REG ER : 1980 PHYSICIAN: TARA ACUNA APRN ADMIT DATE: 08/01/21/ER Signed Date of Exam:08/01/21 CHEST 1 VIEW, AP/PA ONLY HISTORY: Cough. COMPARISON: None. TECHNIQUE: Frontal view of the chest. FINDINGS: Lung volumes are normal. There is mild airspace opacity in the medial right lung base. There is no pleural effusion or pneumothorax. The cardiac silhouette is normal in size. IMPRESSION: Mild airspace opacity in the medial right lung base, may represent infection in the appropriate clinical setting. Dictated by: Dictated on workstation # [id number] Dict: 08/01/211916 Trans: 08/01/211945 [facility] [id number] Interpreted by: SOUTH HUNT MD Electronically signed by: SOUTH HUNT MD 08/01/211945 Reviewed: Reviewed by Md Diagonstic Imaging: CT Comments [facility] [employer] [place] NAME: CALVIN SEQUIVEL [facility] REC#: [id number] PT STATUS: REG ER : 1980 PHYSICIAN: TARA ACUNA APRN ADMIT DATE: 08/01/21/ER Signed Date of Exam:08/01/21 CT ABDOMEN/PELVIS W PROCEDURE: CT abdomen and pelvis with contrast. TECHNIQUE: Multiple contiguous axial images were obtained through the abdomen and pelvis after administration of intravenous contrast. Auto Exposure Controls were utilized during the CT exam to meet ALARA standards for radiation dose reduction. All CT scans use one or more of the following dose optimizing techniques: automated exposure control, MA and/or KvP adjustment based on patient size and exam type or iterative reconstruction. INDICATION: Abdominal pain, nausea and vomiting, elevated liver enzymes. COMPARISON: None. FINDINGS: Lung bases are clear. The heart is normal in size. There is a moderate hiatal hernia. There is marked fatty infiltration of the liver and the liver is markedly enlarged, measuring up to 22.3 cm in length. No focal hepatic lesion is seen. The spleen appears normal. The pancreas is normal. The adrenal glands appear normal. The kidneys are unremarkable. The bowel loops are nondistended without obstruction. The appendix is normal. There are diverticuli in the proximal colon without findings of diverticulitis. There are clips noted in the pelvis, bilaterally. The aorta demonstrates mild atherosclerosis but appears normal in caliber. No lymphadenopathy is seen. No acute osseous abnormality is seen. IMPRESSION: 1. Marked hepatic steatosis with hepatomegaly. No focal lesion is seen. 2. Moderate size hiatal hernia. There are multiple phleboliths. Dictated by: Dictated on workstation # [id number] Dict: 08/01/211937 Trans: 08/01/211945 [facility] [id number] Interpreted by: SOUTH HUNT MD Electronically signed by: SOUTH HUNT MD 08/01/211945 Departure Communication (Admissions) Time/Spoke to Admitting Phy: 19:[address] Garcia, accepted patient admission to medical unit. Impression Primary Impression: Hypokalemia Additional Impressions: Urinary tract infection Elevated LFTs Alcohol abuse Disposition: ADMITTED INPATIENT Condition: Stable Admissions Decision to Admit Reason: Admit from ER (General) Decision to Admit/Date: Aug 01, 2021 Time/Decision to Admit Time: 20:09 Departure-Patient Inst. Referrals: [facility] (PCP) Primary Care Physician GIA DEMARCO (Family) Primary Care Physician TARA ACUNA ENGLISH COMPOSITION TEACHER Aug 01, 2021 17:48
[2021-08-01] MEDS ORDERED: PROCHLORPERAZINE 10 MG/2ML INJ (COMPAZINE) IV ONE (18:00)
[2021-08-01] MEDS ORDERED: KETOROLAC 30 MG/ML VIAL IVP ONE (18:00)
[2021-08-01] MEDS ORDERED: NS IV 1000 ML 1,000 ML IV ONE (18:00)
[2021-08-01 18:09] LABS: BASOPHILS % (AUTO) 0 % (0-10); EOSINOPHILS # (AUTO) 0.2 10^3/uL (0.0-0.3); EOSINOPHILS % (AUTO) 2 % (0-10); HEMATOCRIT 37 % (35-52); HEMOGLOBIN 12.3 g/dL (11.5-16.0); LYMPHOCYTES # (AUTO) 1.1 10^3/uL (1.0-4.0); LYMPHOCYTES % (AUTO) 15 % (12-44); MEAN CORPUSCULAR HEMOGLOBIN 30 pg (25-34); MEAN CORPUSCULAR HGB CONC 34 g/dL (32-36); MEAN CORPUSCULAR VOLUME 88 fL (80-99); MEAN PLATELET VOLUME 11.5 fL (9.0-12.2); MONOCYTES # (AUTO) 0.4 10^3/uL (0.0-1.0); MONOCYTES % (AUTO) 6 % (0-12); NEUTROPHILS # (AUTO) 5.6 10^3/uL (1.8-7.8); NEUTROPHILS % (AUTO) 76 % (42-75); PLATELET COUNT 197 10^3/uL (130-400); WHITE BLOOD COUNT 7.4 10^3/uL (4.3-11.0)
[2021-08-01 18:20] LABS: BILIRUBIN,URINE 2+ (NEGATIVE); CLARITY,URINE CLOUDY; COLOR,URINE AMBER; GLUCOSE, URINE (UA) TRACE (NEGATIVE); KETONES,URINE 1+ (NEGATIVE); LEUKOCYTE ESTERASE ,URINE 1+ (NEGATIVE); NITRITE,URINE NEGATIVE (NEGATIVE); PROTEIN,URINE 1+ (NEGATIVE)
[2021-08-01 18:26] LABS: ALBUMIN 3.8 GM/DL (3.2-4.5); POTASSIUM 2.7 MMOL/L (3.6-5.0)
[2021-08-01 18:27] LABS: CALCIUM 8.5 MG/DL (8.5-10.1)
[2021-08-01 18:29] LABS: TOTAL PROTEIN 8.1 GM/DL (6.4-8.2)
[2021-08-01 18:30] LABS: BILIRUBIN,TOTAL 2.4 MG/DL (0.1-1.0)
[2021-08-01 18:32] LABS: CREATININE SERUM 0.8 MG/DL (0.60-1.30)
[2021-08-01 18:33] LABS: AMPHETAMINE SCREEN, URINE NEGATIVE (NEGATIVE); BARBITURATE SCREEN URINE NEGATIVE (NEGATIVE); BENZODIAZEPINES SCREEN URINE NEGATIVE (NEGATIVE); CANNABINOID SCREEN, URINE NEGATIVE (NEGATIVE); COCAINE SCREEN URINE NEGATIVE (NEGATIVE); METHADONE STAT NEGATIVE (NEGATIVE); METHAMPHETAMINE SCREEN URINE S NEGATIVE (NEGATIVE); OPIATE SCREEN URINE NEGATIVE (NEGATIVE); OXYCODONE STAT NEGATIVE (NEGATIVE); PROPOXYPHENE STAT NEGATIVE (NEGATIVE); TRICYCLIC ANTIDEPRESSANTS SCRE NN (NEGATIVE)
[2021-08-01 18:35] LABS: MAGNESIUM 1.8 MG/DL (1.6-2.4)
[2021-08-01 18:36] LABS: BACTERIA,URINE LARGE /HPF; RBC,URINE 0-2 /HPF
[2021-08-01] MEDS ORDERED: NS 100 ML (IVPB) BAG IV ONE (18:45)
[2021-08-01] MEDS ORDERED: POTASSIUM CL 10MEQ/50ML IVPB 50 ML IV ONE ×2 (18:45→19:04)
[2021-08-01] MEDS ORDERED: IOHEXOL 350 MG/ML 100 ML (OMNIPAQUE 350) VIAL IV ONE (18:45)
[2021-08-01] MEDS ORDERED: HOLD METFORMIN - RECEIVED CONTRAST 20 ML VIAL IV SCH (18:45)
[2021-08-01] MEDS ORDERED: CATHETER FLUSH 10 ML SYR IV PRN (18:45)
--- NOTE | 2021-08-01 19:21 | Diagnostic Imaging Report ---
HISTORY: Cough. COMPARISON: None. TECHNIQUE: Frontal view of the chest. FINDINGS: Lung volumes are normal. There is mild airspace opacity in the medial right lung base. There is no pleural effusion or pneumothorax. The cardiac silhouette is normal in size. IMPRESSION: Mild airspace opacity in the medial right lung base, may represent infection in the appropriate clinical setting. Dictated by: Dictated on workstation # [id number]
--- NOTE | 2021-08-01 19:42 | Diagnostic Imaging Report ---
PROCEDURE: CT abdomen and pelvis with contrast. TECHNIQUE: Multiple contiguous axial images were obtained through the abdomen and pelvis after administration of intravenous contrast. Auto Exposure Controls were utilized during the CT exam to meet ALARA standards for radiation dose reduction. All CT scans use one or more of the following dose optimizing techniques: automated exposure control, MA and/or KvP adjustment based on patient size and exam type or iterative reconstruction. INDICATION: Abdominal pain, nausea and vomiting, elevated liver enzymes. COMPARISON: None. FINDINGS: Lung bases are clear. The heart is normal in size. There is a moderate hiatal hernia. There is marked fatty infiltration of the liver and the liver is markedly enlarged, measuring up to 22.3 cm in length. No focal hepatic lesion is seen. The spleen appears normal. The pancreas is normal. The adrenal glands appear normal. The kidneys are unremarkable. The bowel loops are nondistended without obstruction. The appendix is normal. There are diverticuli in the proximal colon without findings of diverticulitis. There are clips noted in the pelvis, bilaterally. The aorta demonstrates mild atherosclerosis but appears normal in caliber. No lymphadenopathy is seen. No acute osseous abnormality is seen. IMPRESSION: 1. Marked hepatic steatosis with hepatomegaly. No focal lesion is seen. 2. Moderate size hiatal hernia. There are multiple phleboliths. Dictated by: Dictated on workstation # [id number]
[2021-08-01] MEDS ORDERED: fentaNYL INJ 100 MCG/2 ML AMP IV PRN (22:45)
[2021-08-01] MEDS ORDERED: D5 1/2 NS 1000 ML IV SOLUTION 1,000 ML IV PRN (22:45)
[2021-08-01 22:47] VITALS: BP 139/88
[2021-08-01 22:49] VITALS: BP 139/88
[2021-08-01] MEDS: NS W/KCL 20 MEQ/L 1,000 ML IV SCH (22:58)
[2021-08-01] MEDS: ONDANSETRON 4 MG/2 ML (SDV) Z0FRAN IV PRN (22:58)
[2021-08-01] MEDS ORDERED: RT-ALBUTEROL SULF 2.5 MG/3 ML PRE-MIX VIAL INH PRN (23:15)
[2021-08-01] MEDS: LORazepam 1 MG (ATIVAN) TAB PO PRN (23:16)
[2021-08-01] MEDS: cefTRIAXone 1 GM/50 ML (PRE-MIX) IV SCH (23:16)
[2021-08-02] VITALS (7 sets, daily range): BP systolic 113–137; BP diastolic 73–91
[2021-08-02] MEDS: LORazepam INJ 2 MG/ML (ATIVAN) VIAL IM/IV PRN ×2 (03:01→20:54)
[2021-08-02 05:41] LABS: BASOPHILS % (AUTO) 0 % (0-10); EOSINOPHILS % (AUTO) 0 % (0-10); HEMATOCRIT 30 % (35-52); HEMOGLOBIN 10.1 g/dL (11.5-16.0); LYMPHOCYTES # (AUTO) 1.8 10^3/uL (1.0-4.0); LYMPHOCYTES % (AUTO) 21 % (12-44); MEAN CORPUSCULAR HEMOGLOBIN 30 pg (25-34); MEAN CORPUSCULAR HGB CONC 34 g/dL (32-36); MEAN CORPUSCULAR VOLUME 88 fL (80-99); MEAN PLATELET VOLUME 11.4 fL (9.0-12.2); MONOCYTES # (AUTO) 0.5 10^3/uL (0.0-1.0); MONOCYTES % (AUTO) 6 % (0-12); NEUTROPHILS % (AUTO) 72 % (42-75); PLATELET COUNT 139 10^3/uL (130-400); WHITE BLOOD COUNT 8.4 10^3/uL (4.3-11.0)
[2021-08-02 05:49] LABS: CALCIUM 7.7 MG/DL (8.5-10.1)
[2021-08-02 05:51] LABS: POTASSIUM 2.5 MMOL/L (3.6-5.0)
[2021-08-02 05:53] LABS: CREATININE SERUM 0.81 MG/DL (0.60-1.30)
[2021-08-02] MEDS ORDERED: KCL 20 MEQ TAB (K-DUR) PO ONE (06:15)
[2021-08-02] MEDS: ONDANSETRON 4 MG/2 ML (SDV) Z0FRAN IV PRN ×2 (06:58→15:40)
[2021-08-02] MEDS: POTASSIUM CL 10MEQ/50ML IVPB 50 ML IV SCH ×5 (06:59→15:39)
[2021-08-02] MEDS: LORazepam INJ 2 MG/ML (ATIVAN) VIAL IV PRN ×3 (07:59→18:32)
--- NOTE | 2021-08-02 09:14 | Diagnostic Imaging Report ---
EXAMINATION: US Abdomen limited. TECHNIQUE: Multiple real-time grayscale images were obtained over the right upper quadrant in various projections. HISTORY: Abdominal pain, elevated LFTs COMPARISON: CT 08/01/2021 FINDINGS: Pancreas: The visualized portions of the pancreas are normal. Liver: Increased echogenicity of the liver and normal contour which can be seen with hepatic steatosis. No focal lesions are seen. The portal vein is patent with hepatopetal flow. Gallbladder and biliary tree: Gallbladder is normal without wall thickening, pericholecystic fluid, or sonographic Yusuf sign. There is no intrahepatic biliary ductal dilation. The common duct measures 0.8 cm. Right kidney: The right kidney is normal without hydronephrosis. Aorta and IVC: The visualized aorta and inferior vena cava are normal. Fluid: No ascites is seen. IMPRESSION: 1. Hepatic steatosis. 2. Mild dilatation of the common bile duct measuring up to 0.8 cm. Dictated by: Dictated on workstation # [id number]
--- NOTE | 2021-08-02 09:34 | History & Physical ---
HPI History of Present Illness: Nausea, vomiting for a month or so, worsening. Last week has only kept down ice. Having loose bowel movements that she wouldn't call diarrhea, but is unexpected and has had accidents. No blood in vomit or stool. When she first go sick, she was put on antibiotics about a month ago and stopped drinking then, but has been drinking every day again recently, states it is the only thing that settles her. Drinks about a pint of frederick per day. Last drink was the day before yesterday. She has never had seizures with alcohol withdrawal or been hospitalized for withdrawal. Denies history of liver problems. Source: patient Exam Limitations: clinical condition Date seen by provider: Aug 02, 2021 Time Seen by Provider: 09:30 Attending Physician Lit Garcia MD [facility] Consult Date of Admission Aug 01, 2021 at 20:43 Home Medications Home Medications Reviewed patient Home Medication Reconciliation performed by pharmacy medication reconciliations template reproduction technician and/or nursing. Patients Allergies have been reviewed. Allergies Coded Allergies: No Known Drug Allergies (Unverified , 04/28/21) JAG-Midhuz-Lcvpea Hx Patient Social History Smoking Status: Current Everyday Smoker Alcohol Use?: Yes (pint per day) Tobacco type used: Cigarettes Have you traveled recently?: No Past Medical History PMHx: HTN GERD Alcohol Use Disorder Tobaccoism SurgHx: Denies Review of Systems ([facility]) Constitutional: No fever Gastrointestinal: abdominal pain Psychiatric/Neurological: Anxiety, Depressed Reviewed Test Results Reviewed Test Results Lab Laboratory Tests Test 08/01/21 17:55 08/01/21 18:13 08/02/21 05:17 Range/Units White Blood Count 7.4 8.4 4.3-11.0 10^3/uL Red Blood Count 4.16 3.37 L 3.80-5.11 10^6/uL Hemoglobin 12.3 10.1 L 11.5-16.0 g/dL Hematocrit 37 30 L 35-52 % Mean Corpuscular Volume 88 88 80-99 fL Mean Corpuscular Hemoglobin 30 30 25-34 pg Mean Corpuscular Hemoglobin Concent 34 34 32-36 g/dL Red Cell Distribution Width 20.7 H 20.8 H 10.0-14.5 % Platelet Count 197 139 130-400 10^3/uL Mean Platelet Volume 11.5 11.4 9.0-12.2 fL Immature Granulocyte % (Auto) 1 1 % Neutrophils (%) (Auto) 76 H 72 42-75 % Lymphocytes (%) (Auto) 15 21 12-44 % Monocytes (%) (Auto) 6 6 0-12 % Eosinophils (%) (Auto) 2 0 0-10 % Basophils (%) (Auto) 0 0 0-10 % Neutrophils # (Auto) 5.6 6.0 1.8-7.8 10^3/uL Lymphocytes # (Auto) 1.1 1.8 1.0-4.0 10^3/uL Monocytes # (Auto) 0.4 0.5 0.0-1.0 10^3/uL Eosinophils # (Auto) 0.2 0.0 0.0-0.3 10^3/uL Basophils # (Auto) 0.0 0.0 0.0-0.1 10^3/uL Immature Granulocyte # (Auto) 0.1 0.1 0.0-0.1 10^3/uL Sodium Level 135 135 135-145 MMOL/L Potassium Level 2.7 L 2.5 *L 3.6-5.0 MMOL/L Chloride Level 84 L 91 L 98-107 MMOL/L Carbon Dioxide Level 22 22 21-32 MMOL/L Anion Gap 29 H 22 H 5-14 MMOL/L Blood Urea Nitrogen 10 9 7-18 MG/DL Creatinine 0.80 0.81 0.60-1.30 MG/DL Estimat Glomerular Filtration Rate 95 94 BUN/Creatinine Ratio 13 11 Glucose Level 145 H 81 70-105 MG/DL Calcium Level 8.5 7.7 L 8.5-10.1 MG/DL Corrected Calcium 8.7 8.5-10.1 MG/DL Magnesium Level 1.8 1.6-2.4 MG/DL Total Bilirubin 2.4 H 0.1-1.0 MG/DL Aspartate Amino Transf (AST/SGOT) 324 H 5-34 U/L Alanine Aminotransferase (ALT/SGPT) 77 H 0-55 U/L Alkaline Phosphatase 202 H 40-136 U/L Total Protein 8.1 6.4-8.2 GM/DL Albumin 3.8 3.2-4.5 GM/DL Lipase 189 H 8-78 U/L Serum Alcohol 162 H <10 MG/DL Influenza Type A (RT-PCR) Not Detected Not Detecte Influenza Type B (RT-PCR) Not Detected Not Detecte SARS-CoV-2 RNA (RT-PCR) Not Detected Not Detecte Urine Color STANLEY H Urine Clarity CLOUDY Urine pH 6.0 5-9 Urine Specific [place] >=1.030 1.016-1.022 Urine Protein 1+ H NEGATIVE Urine Glucose (UA) TRACE H NEGATIVE Urine Ketones 1+ H NEGATIVE Urine Nitrite NEGATIVE NEGATIVE Urine Bilirubin 2+ H NEGATIVE Urine Urobilinogen 4.0 < = 1.0 MG/DL Urine Leukocyte Esterase 1+ H NEGATIVE Urine RBC (Auto) TRACE-I H NEGATIVE Urine RBC 0-2 /HPF Urine WBC 10-25 H /HPF Urine Squamous Epithelial Cells 5-10 /HPF Urine Crystals NONE /LPF Urine Bacteria LARGE H /HPF Urine Casts NONE /LPF Urine Mucus NEGATIVE /LPF Urine Culture Indicated YES Urine Opiates Screen NEGATIVE NEGATIVE Urine Oxycodone Screen NEGATIVE NEGATIVE Urine Methadone Screen NEGATIVE NEGATIVE Urine Propoxyphene Screen NEGATIVE NEGATIVE Urine Barbiturates Screen NEGATIVE NEGATIVE Ur Tricyclic Antidepressants Screen NN NEGATIVE Urine Phencyclidine Screen NEGATIVE NEGATIVE Urine Amphetamines Screen NEGATIVE NEGATIVE Urine Methamphetamines Screen NEGATIVE NEGATIVE Urine Benzodiazepines Screen NEGATIVE NEGATIVE Urine Cocaine Screen NEGATIVE NEGATIVE Urine Cannabinoids Screen NEGATIVE NEGATIVE Radiology CXR 08/01: IMPRESSION: Mild airspace opacity in the medial right lung base, may represent infection in the appropriate clinical setting. CT abd/pelvis 08/01: IMPRESSION: 1. Marked hepatic steatosis with hepatomegaly. No focal lesion is seen. 2. Moderate size hiatal hernia. There are multiple phleboliths. Physical Exam-([facility]) Physical Exam Vital Signs VS - Last 72 Hours, by Label 08/01/21 08/01/21 08/01/21 08/01/21 17:40 19:53 20:10 20:22 Temp 36.1 Pulse 125 96 105 105 Resp 20 18 18 18 B/P (MAP) 139/88 (105) 128/93 138/94 128/100 Pulse Ox 98 95 97 97 O2 Delivery Room Air Room Air Room Air 08/01/21 08/01/21 08/01/21 08/02/21 20:31 22:47 22:49 00:01 Temp 36.1 36.1 37.0 Pulse 116 125 125 102 Resp 18 18 B/P (MAP) 126/100 132/91 (105) Pulse Ox 98 98 98 96 O2 Delivery Room Air Room Air FiO2 21 08/02/21 08/02/21 08/02/21 08/02/21 00:05 00:38 01:00 03:05 Temp 37.2 Pulse 100 124 132 Resp 18 B/P (MAP) 137/88 (104) Pulse Ox 96 O2 Delivery Room Air Room Air 08/02/21 08/02/21 08/02/21 08/02/21 07:00 07:59 08:00 08:04 Temp 37.1 37.2 Pulse 120 125 123 Resp 20 B/P (MAP) 135/84 (101) Pulse Ox 94 96 94 O2 Delivery Room Air Room Air FiO2 21 08/02/21 08:30 O2 Delivery Room Air Capillary Refill : General Appearance: WD/WN, no apparent distress Respiratory: lungs clear, normal breath sounds Cardiovascular: no edema, no murmur, tachycardia Gastrointestinal: normal bowel sounds, distended, tenderness Extremities: no pedal edema Neurologic/Psychiatric: alert, other (flat affect) Skin: normal color, warm/dry Assessment/Plan Assessment/Plan Admission Status: Observation (1) Alcohol use disorder Status: Chronic Assessment & Plan: CIWA, lorazepam per protocol. Desiring to quit, social work consulted. (2) Nausea & vomiting Status: Acute Assessment & Plan: Uncertain etiology, particularly given prolonged episode. Consider acute alcoholic hepatitis, repeat liver enzymes and hep panel pending. Lipase mildly elevated but no CT findings of pancreatitis. Supportive care with IVF and anti-emetics. (3) Hypomagnesemia Status: Acute Assessment & Plan: Replace and follow. (4) Hypokalemia Status: Acute Assessment & Plan: Replace and follow (5) Urinary tract infection Status: Acute Assessment & Plan: Ceftriaxone (6) Elevated LFTs Status: Acute Assessment & Plan: Check hepatitis panel and follow LFTs, consider acute alcoholic hepatitis. Liver US with no focal lesion and GB okay. (7) DVT prophylaxis Status: Acute Assessment & Plan: Enoxaparin LIT GARCIA MD Aug 02, 2021 09:34
[2021-08-02 09:58] LABS: ALBUMIN 3.1 GM/DL (3.2-4.5); BILIRUBIN,DIRECT 2.1 MG/DL (0.0-0.3); BILIRUBIN,INDIRECT 0.7 MG/DL; BILIRUBIN,TOTAL 2.8 MG/DL (0.1-1.0); TOTAL PROTEIN 6.3 GM/DL (6.4-8.2)
[2021-08-02 10:20] LABS: PROTHROMBIN TIME PATIENT 13.6 SEC (12.2-14.7)
[2021-08-02] MEDS: RT-ALBUTEROL SULF 2.5 MG/3 ML PRE-MIX VIAL INH SCH ×4 (10:39→21:33)
[2021-08-02] MEDS ORDERED: PANTOPRAZOLE 40 MG (PROTONIX) VIAL IV ONE (10:45)
[2021-08-02] MEDS ORDERED: POTA99TA18 PO (11:40)
[2021-08-02] MEDS ORDERED: RT-ALBUTEROL SULF 2.5 MG/3 ML PRE-MIX VIAL INH PRN (12:00)
[2021-08-02] MEDS: ENOXAPARIN 40 MG/0.4 ML (LOVENOX) SYR SC SCH (12:25)
[2021-08-02] MEDS: FAMOTIDINE 20 MG (PEPCID) TABLET PO SCH ×2 (12:26→20:54)
[2021-08-02] MEDS ORDERED: KCL 20 MEQ TAB (K-DUR) PO NR (12:45)
[2021-08-02] MEDS: NS W/KCL 20 MEQ/L 1,000 ML IV SCH ×3 (14:01→20:55)
[2021-08-02 16:19] LABS: POTASSIUM 2.8 MMOL/L (3.6-5.0)
[2021-08-02 16:20] LABS: CALCIUM 7.9 MG/DL (8.5-10.1)
[2021-08-02 16:24] LABS: CREATININE SERUM 0.84 MG/DL (0.60-1.30)
[2021-08-02 16:49] LABS: MAGNESIUM 1.1 MG/DL (1.6-2.4)
[2021-08-02] MEDS: NICOTINE 21 MG (NICODERM) PATCH TD SCH (20:54)
[2021-08-02] MEDS: cefTRIAXone 1 GM/50 ML (PRE-MIX) IV SCH (20:55)
[2021-08-02] MEDS: MAGNESIUM 1 GM/100 ML IVPB 100 ML IV SCH ×2 (20:55→22:17)
[2021-08-02 21:30] LABS: HEPATITIS C ANTIBODY C Non-Reactive (Non-Reactive)
[2021-08-03] VITALS (7 sets, daily range): BP systolic 113–130; BP diastolic 76–97
[2021-08-03] MEDS: RT-ALBUTEROL SULF 2.5 MG/3 ML PRE-MIX VIAL INH SCH ×6 (02:45→22:27)
[2021-08-03] MEDS: NS W/KCL 20 MEQ/L 1,000 ML IV SCH ×4 (04:36→23:03)
[2021-08-03 06:32] LABS: HEMOGLOBIN 10.1 g/dL (11.5-16.0); MEAN PLATELET VOLUME 11.3 fL (9.0-12.2); WHITE BLOOD COUNT 8.9 10^3/uL (4.3-11.0)
[2021-08-03 06:44] LABS: ALBUMIN 3.1 GM/DL (3.2-4.5)
--- NOTE | 2021-08-03 06:45 | Progress Note - Hospitalist ---
Subjective HPI/CC On Admission Date Seen by Provider: Aug 03, 2021 Time Seen by Provider: 10:30 Subjective/Events-last exam Patient seen and examined Patient complaining of abdominal pain Pain medication will be ordered Check meds and labs Potassium supplement required Significant other at the bedside Nausea and vomiting noted Review of Systems General: Fatigue, Malaise Gastrointestinal: Nausea, Vomiting, Abdominal Pain Objective Exam Vital Signs Vital Signs Date Time Temp Pulse Resp B/P (MAP) Pulse Ox O2 Delivery O2 Flow Rate FiO2 08/04/21 04:07 36.6 107 18 123/91 (102) 96 Room Air 08/02/21 08:04 21 Capillary Refill : General Appearance: WD/WN, Anxious, Chronically ill, Mild Distress Respiratory: No Accessory Muscle Use, No Respiratory Distress, Decreased Breath Sounds Cardiovascular: Tachycardia Neurologic/Psychiatric: Alert, Oriented x3, No Motor/Sensory Deficits, Normal Mood/Affect Results/Procedures Lab Laboratory Tests 08/03/21 06:24 08/04/21 05:23 Patient resulted labs reviewed. Assessment/Plan Assessment and Plan Assess & Plan/Chief Complaint Assessment: Profound dehydration Alcohol withdrawal acute Hypokalemia UTI Alcoholism Nausea vomiting Plan: IV fluids Potassium supplement Monitor magnesium Antibiotic Await urine culture KARLI GIRARD DO Aug 03, 2021 06:45
[2021-08-03 06:46] LABS: CALCIUM 7.8 MG/DL (8.5-10.1)
[2021-08-03 06:47] LABS: TOTAL PROTEIN 6.3 GM/DL (6.4-8.2)
[2021-08-03 06:49] LABS: BILIRUBIN,TOTAL 4.1 MG/DL (0.1-1.0)
[2021-08-03 06:50] LABS: CREATININE SERUM 0.81 MG/DL (0.60-1.30)
[2021-08-03 06:53] LABS: MAGNESIUM 2.6 MG/DL (1.6-2.4)
[2021-08-03] MEDS: ENOXAPARIN 40 MG/0.4 ML (LOVENOX) SYR SC SCH (08:23)
[2021-08-03] MEDS: FAMOTIDINE 20 MG (PEPCID) TABLET PO SCH ×2 (08:23→20:56)
[2021-08-03] MEDS: ACETAMINOPHEN 325 MG TABLET PO PRN (08:24)
[2021-08-03] MEDS: PANTOPRAZOLE 40 MG (PROTONIX) TAB PO SCH (08:24)
[2021-08-03] MEDS: NICOTINE 21 MG (NICODERM) PATCH TD SCH (08:24)
[2021-08-03] MEDS: NICOTINE PATCH REMOVAL TP SCH (08:24)
[2021-08-03] MEDS: ONDANSETRON 4 MG/2 ML (SDV) Z0FRAN IV PRN ×2 (09:36→15:49)
[2021-08-03] MEDS: LORazepam 1 MG (ATIVAN) TAB PO PRN (12:39)
[2021-08-03] MEDS ORDERED: morphine INJ 10 MG/ML 1ML (SYR OR VIAL) IVP PRN (13:00)
[2021-08-03] MEDS: cefTRIAXone 1 GM/50 ML (PRE-MIX) IV SCH (20:57)
[2021-08-03] MEDS: LORazepam INJ 2 MG/ML (ATIVAN) VIAL IM/IV PRN (21:06)
[2021-08-04] MEDS: RT-ALBUTEROL SULF 2.5 MG/3 ML PRE-MIX VIAL INH SCH ×5 (02:35→21:06)
[2021-08-04 04:07] VITALS: BP 123/91
[2021-08-04 05:35] LABS: BASOPHILS % (AUTO) 0 % (0-10); EOSINOPHILS % (AUTO) 0 % (0-10); HEMATOCRIT 27 % (35-52); HEMOGLOBIN 8.8 g/dL (11.5-16.0); LYMPHOCYTES # (AUTO) 1.6 10^3/uL (1.0-4.0); LYMPHOCYTES % (AUTO) 22 % (12-44); MEAN CORPUSCULAR HEMOGLOBIN 30 pg (25-34); MEAN CORPUSCULAR HGB CONC 33 g/dL (32-36); MEAN CORPUSCULAR VOLUME 92 fL (80-99); MEAN PLATELET VOLUME 11.5 fL (9.0-12.2); MONOCYTES # (AUTO) 0.4 10^3/uL (0.0-1.0); MONOCYTES % (AUTO) 5 % (0-12); NEUTROPHILS # (AUTO) 5.4 10^3/uL (1.8-7.8); NEUTROPHILS % (AUTO) 72 % (42-75); PLATELET COUNT 133 10^3/uL (130-400); WHITE BLOOD COUNT 7.5 10^3/uL (4.3-11.0)
[2021-08-04] MEDS: NS W/KCL 20 MEQ/L 1,000 ML IV SCH ×3 (05:43→19:48)
[2021-08-04 05:45] LABS: ALBUMIN 2.6 GM/DL (3.2-4.5)
[2021-08-04 05:46] LABS: CHLORIDE 103 MMOL/L (98-107); POTASSIUM 3.1 MMOL/L (3.6-5.0); SODIUM 135 MMOL/L (135-145)
[2021-08-04 05:47] LABS: CALCIUM 7.3 MG/DL (8.5-10.1)
[2021-08-04 05:48] LABS: GLUCOSE 97 MG/DL (70-105); TOTAL PROTEIN 5.2 GM/DL (6.4-8.2)
[2021-08-04 05:49] LABS: CARBON DIOXIDE 18 MMOL/L (21-32)
[2021-08-04 05:50] LABS: BILIRUBIN,TOTAL 3.8 MG/DL (0.1-1.0)
[2021-08-04 05:51] LABS: ALKALINE PHOSPHATASE 147 U/L (40-136)
[2021-08-04 05:52] LABS: CREATININE SERUM 0.69 MG/DL (0.60-1.30); GFR ESTIMATED 113
[2021-08-04 05:53] LABS: BUN/CREATININE RATIO 3
[2021-08-04 05:54] LABS: ALANINE AMINOTRANSFERASE 61 U/L (0-55); MAGNESIUM 1.9 MG/DL (1.6-2.4)
[2021-08-04] MEDS: POTASSIUM CL 10MEQ/50ML IVPB 50 ML IV SCH ×8 (06:49→18:22)
[2021-08-04 08:00] VITALS: BP 138/94
[2021-08-04] MEDS: ENOXAPARIN 40 MG/0.4 ML (LOVENOX) SYR SC SCH (08:29)
[2021-08-04] MEDS: NICOTINE PATCH REMOVAL TP SCH (08:29)
[2021-08-04] MEDS: NICOTINE 21 MG (NICODERM) PATCH TD SCH (08:29)
[2021-08-04] MEDS: FAMOTIDINE 20 MG (PEPCID) TABLET PO SCH ×2 (08:29→20:33)
[2021-08-04] MEDS: ACETAMINOPHEN 325 MG TABLET PO PRN (08:29)
[2021-08-04] MEDS: PANTOPRAZOLE 40 MG (PROTONIX) TAB PO SCH (08:29)
[2021-08-04 12:00] VITALS: BP 126/97
--- NOTE | 2021-08-04 12:24 | Progress Note - Hospitalist ---
Subjective HPI/CC On Admission Date Seen by Provider: Aug 04, 2021 Time Seen by Provider: 12:20 Subjective/Events-last exam Patient doing a little better Less abdominal pain Able to eat a little bit Partner at the bedside IV fluids continue Review of Systems Gastrointestinal: Nausea, Vomiting, Abdominal Pain Objective Exam Vital Signs Vital Signs Date Time Temp Pulse Resp B/P (MAP) Pulse Ox O2 Delivery O2 Flow Rate FiO2 08/05/21 04:00 37.0 109 20 117/85 (96) 96 Room Air 08/04/21 13:33 21 Capillary Refill : General Appearance: No Apparent Distress, WD/WN, Chronically ill Respiratory: Lungs Clear, Normal Breath Sounds Cardiovascular: Regular Rate, Rhythm Neurologic/Psychiatric: Alert, Oriented x3, No Motor/Sensory Deficits, Normal Mood/Affect Results/Procedures Lab Patient resulted labs reviewed. Assessment/Plan Assessment and Plan Assess & Plan/Chief Complaint Assessment: Profound dehydration Alcohol withdrawal acute Hypokalemia UTI Alcoholism Nausea vomiting Plan: IV fluids Potassium supplement Monitor magnesium Antibiotic Await urine culture 08/04/2021: Continue supportive care Slow recovery Lovenox for DVT prophylaxis Supplement potassium KARLI GIRARD DO Aug 04, 2021 12:24
[2021-08-04 15:46] VITALS: BP 124/78
[2021-08-04 19:36] VITALS: BP 118/81
[2021-08-04] MEDS: cefTRIAXone 1 GM/50 ML (PRE-MIX) IV SCH (20:32)
[2021-08-05 00:20] VITALS: BP 132/95
[2021-08-05] MEDS: RT-ALBUTEROL SULF 2.5 MG/3 ML PRE-MIX VIAL INH SCH ×4 (03:09→21:09)
[2021-08-05 04:00] VITALS: BP 117/85
[2021-08-05] MEDS: NS W/KCL 20 MEQ/L 1,000 ML IV SCH ×2 (06:22→18:03)
[2021-08-05 06:30] LABS: BASOPHILS % (AUTO) 0 % (0-10); EOSINOPHILS % (AUTO) 1 % (0-10); HEMATOCRIT 28 % (35-52); HEMOGLOBIN 9.1 g/dL (11.5-16.0); LYMPHOCYTES # (AUTO) 1.6 10^3/uL (1.0-4.0); LYMPHOCYTES % (AUTO) 20 % (12-44); MEAN CORPUSCULAR HEMOGLOBIN 30 pg (25-34); MEAN CORPUSCULAR HGB CONC 33 g/dL (32-36); MEAN CORPUSCULAR VOLUME 91 fL (80-99); MEAN PLATELET VOLUME 11.5 fL (9.0-12.2); MONOCYTES # (AUTO) 0.5 10^3/uL (0.0-1.0); MONOCYTES % (AUTO) 6 % (0-12); NEUTROPHILS # (AUTO) 5.8 10^3/uL (1.8-7.8); NEUTROPHILS % (AUTO) 71 % (42-75); PLATELET COUNT 154 10^3/uL (130-400); WHITE BLOOD COUNT 8.2 10^3/uL (4.3-11.0)
[2021-08-05 06:49] LABS: ALANINE AMINOTRANSFERASE 65 U/L (0-55); ALBUMIN 2.6 GM/DL (3.2-4.5); ALKALINE PHOSPHATASE 154 U/L (40-136); BILIRUBIN,TOTAL 4.2 MG/DL (0.1-1.0); BUN/CREATININE RATIO 3; CALCIUM 7.8 MG/DL (8.5-10.1); CARBON DIOXIDE 17 MMOL/L (21-32); CHLORIDE 107 MMOL/L (98-107); CREATININE SERUM 0.68 MG/DL (0.60-1.30); GFR ESTIMATED 115; GLUCOSE 96 MG/DL (70-105); MAGNESIUM 1.6 MG/DL (1.6-2.4); POTASSIUM 4.5 MMOL/L (3.6-5.0); SODIUM 134 MMOL/L (135-145); TOTAL PROTEIN 5.6 GM/DL (6.4-8.2)
[2021-08-05 08:00] VITALS: BP 110/78
[2021-08-05] MEDS: NICOTINE 21 MG (NICODERM) PATCH TD SCH (08:53)
[2021-08-05] MEDS: FAMOTIDINE 20 MG (PEPCID) TABLET PO SCH ×2 (08:53→20:26)
[2021-08-05] MEDS: PANTOPRAZOLE 40 MG (PROTONIX) TAB PO SCH (08:53)
[2021-08-05] MEDS: ENOXAPARIN 40 MG/0.4 ML (LOVENOX) SYR SC SCH (08:54)
[2021-08-05] MEDS: ONDANSETRON 4 MG/2 ML (SDV) Z0FRAN IV PRN (08:56)
[2021-08-05] MEDS: NICOTINE PATCH REMOVAL TP SCH (09:00)
--- NOTE | 2021-08-05 11:15 | Progress Note - Hospitalist ---
BALAJI YOUNG 08/05/21 1115: Subjective HPI/CC On Admission Date Seen by Provider: Aug 05, 2021 Time Seen by Provider: 08:01 CC: Elevated LFTs, UTI, hypokalemia, alcohol abuse Subjective/Events-last exam Ms. Lala reports a large amount of coughing, vomiting, abdominal pain, and rib pain overnight. She reports she was not able to get any rest d/t her symptoms. She also reports being very anxious this morning. She reports that oxycodone is too strong and makes her feel disoriented and tylenol is not strong enough so she asked for something in between for the pain. She has been walking around on the floor. Her UTI symptoms are still present. Review of Systems General: No Chills; Fatigue Pulmonary: No Dyspnea; Cough Cardiovascular: Chest Pain (Patient reports pain in her chest 2/2 her cough, not cardiac in nature), Palpitations Gastrointestinal: Nausea, Vomiting, Abdominal Pain Genitourinary: No Dysuria; Frequency Focused Exam Capillary Refill: Less Than 3 Seconds Peripheral Pulses: 2+ Radial Pulses (R), 2+ Radial Pulses (L) Objective Exam Vital Signs Vital Signs Date Time Temp Pulse Resp B/P (MAP) Pulse Ox O2 Delivery O2 Flow Rate FiO2 08/05/21 09:01 98 Room Air 08/05/21 08:00 36.5 101 20 110/78 (89) 08/04/21 13:33 21 Capillary Refill : General Appearance: WD/WN, Anxious HEENT: PERRL/EOMI, Moist Mucous Membranes, Scleral Icterus (L), Scleral Icterus (R) Neck: Normal Inspection, Non Tender; No Lymphadenopathy (L), No Lymphadenopathy (R) Respiratory: Chest Non Tender, No Accessory Muscle Use, No Respiratory Distress, Wheezing (Minor B/L wheezes) Cardiovascular: No Murmur, Normal Peripheral Pulses, Tachycardia Gastrointestinal: Normal Bowel Sounds, Soft, Tenderness (Diffuse) Extremity: Normal Capillary Refill, Normal Inspection, Pedal Edema (Minor B/L) Neurologic/Psychiatric: Alert, Oriented x3, No Motor/Sensory Deficits, Normal Mood/Affect, supervisor powder and primer canning II-XII Norm as Tested Skin: Normal Color, Warm/Dry Lymphatic: No Adenopathy (Head and neck) Results/Procedures Lab Laboratory Tests 08/05/21 06:10 Patient resulted labs reviewed. Assessment/Plan Assessment and Plan Assess & Plan/Chief Complaint Assessment Alcohol withdrawal Hypokalemia - Corrected UTI - Symptoms still present - E. coli Alcohol use disorder Nause and vomiting Dehydration Plan IV fluids and IV ceftriaxone for UTI Monitor potassium and magnesium Encourage ambulation Order PT Change oxycodone to hydrocodone for pain PRN SIRI GIRARD DO 08/06/21 0542: Subjective Subjective/Events-last exam Pt has slow recovery Decreasing IV fluid Oxycodone is too much for her so will do Hydrocodone one to two Still vomiting Walking around a little bit Urine culture shows E.coli sensitive to Rocephin Now in alcohol withdrawal Review of Systems General: Fatigue Objective Exam General Appearance: No Apparent Distress, WD/WN, Anxious, Chronically ill Respiratory: Lungs Clear Cardiovascular: Regular Rate, Rhythm Assessment/Plan Assessment and Plan Assess & Plan/Chief Complaint PT and OT IV fluid decrease Supervisory-Addendum Brief Verification & Attestation Participated in pt care: history, MDM, physical Personally performed: exam, history, MDM, supervision of care Care discussed with: Medical Student Procedures: n/a Results interpretation: Verified all documentation Verification and Attestation of Medical Student E/M Service A medical student performed and documented this service in my presence. I reviewed and verified all information documented by the medical student and made modifications to such information, when appropriate. I personally performed the physical exam and medical decision making. Siri Girard, Aug 06, 2021,05:40 BALAJI YOUNG Aug 05, 2021 11:15 SIRI GIRARD DO Aug 06, 2021 05:42
--- NOTE | 2021-08-05 11:41 | Physical Therapy Evaluation ---
PT Evaluation-General Medical Diagnosis Admission Date Aug 01, 2021 at 20:43 Medical Diagnosis: elevated LFT, UTI/hypokalemia/alcohol abuse Onset Date: Aug 01, 2021 Therapy Diagnosis Therapy Diagnosis: debility Precautions Precautions/Isolations: Standard Precautions Referral Physician: Aurelio Reason for Referral: Evaluation/Treatment Medical History Pertinent Medical History: Alcoholism Current History ER secondary to N&V x 1 week Reviewed History: Yes Social History Home: Single Level Current Living Status: Other Family Prior Prior Level of Function SCALE: Activities may be completed with or without assistive devices. 1-Lymtscvadl-trnwchc completes the activity by him/herself with no assistance from a helper. 5-Set-up or Clean-up Assistance-helper sets up or cleans up; patient completes activity. [place] assists only prior to or following the activity. 4-Supervision or Touching Assistance-helper provides verbal cues and/or touching/steadying and/or contact guard assistance as patient completes a ctivity. Assistance may be provided throughout the activity or intermittently. 3-Partial/Moderate Assistance-helper does LESS THAN HALF the effort. [place] lifts, holds or supports trunk or limbs, but provides less than half the effort. 2-Substantial/Maximal Assistance-helper does MORE THAN HALF the effort. [place] lifts or holds trunk or limbs and provides more than half the effort. 6-Nhbgxsjdf-nkosnc does ALL the effort. Patient does none of the effort to complete the activity. Or, the assistance of 2 or more helpers is required for the patient to complete the activity. If activity was not attempted, code reason: 7-Patient Refused. 9-Not Applicable-not attempted and the patient did not perform the activity before the current illness, exacerbation or injury. 10-Not Attempted due to Environmental Limitations-(lack of equipment, weather restraints, etc.). 88-Not Attempted due to Medical Conditions or Safety Concerns. Bed Mobility: 6 Transfers (B,C,W/C): 6 Gait: 6 Stairs: 6 Indoor Mobility (Ambulation): Independent Stairs: Independent Prior Devices Use: None PT Evaluation-Current Subjective Patient agrees to PT. Objective Patient Orientation: Normal For Age Attachments: IV ROM/Strength ROM Lower Extremities bilateral LE WFL Strength Lower Extremities 4/5 grossly bilateral LE Integumentary/Posture Bowel Incontinence: No Bladder Incontinence: No Posture WFL Neuromuscular (Tone, Coordination, Reflexes) grossly intact Sensory Vision: Wears Glasses Hearing: Functional Transfers Roll Left to Right (QC): 6 Sit to Lying (QC): 6 Lying to Sitting/Side of Bed(Q: 6 Sit to Stand (QC): 6 Gait Does the Patient Walk?: Yes Mode of Locomotion: Walk Anticipated Mode of Locomotion: Walk Walk 10 feet (QC): 6 Walk 50 ft with 2 Turns(QC): 6 Walk 150 ft (QC): 6 Distance: 500' Gait Assistive Device: None Comments/Gait Description safe and functional with no deviation Balance Sitting Static: Normal Sitting Dynamic: Normal Standing Static: Normal Standing Dynamic: Normal Picking up an Object (QC): 6 Assessment/Needs 40 y.o. female, is currently at [facility] with all gross motor skills safely and does not require skilled PT intervention. Rehab Potential: Fair PT Plan Treatment/Plan Treatment Plan: Discontinue PT, goals met Treatment Duration: Aug 05, 2021 Frequency: 1 time per week Estimated Hrs Per Day: .25 hour per day Patient and/or Family Agrees t: Yes Time/GCodes Time In: 1104 Time Out: 1113 Total Billed Treatment Time: 9 Total Billed Treatment 1 visit EVLowC 9 min PETER MAHAJAN PT Aug 05, 2021 11:41
[2021-08-05 12:00] VITALS: BP 130/91
[2021-08-05] MEDS: HYDROcodone/APAP 5 MG/325 MG (LORTAB) TAB PO PRN (13:09)
[2021-08-05] MEDS: PROMETHAZINE INJ 25 MG/ML (PHENERGAN) AMP IM PRN (13:14)
[2021-08-05 16:04] VITALS: BP 117/83
[2021-08-05 19:55] VITALS: BP 130/95
[2021-08-05] MEDS ORDERED: CHLORASEPTIC LOZENGE MM PRN (20:15)
[2021-08-05] MEDS: cefTRIAXone 1 GM/50 ML (PRE-MIX) IV SCH (20:27)
[2021-08-06 00:28] VITALS: BP 127/87
[2021-08-06] MEDS: RT-ALBUTEROL SULF 2.5 MG/3 ML PRE-MIX VIAL INH SCH ×2 (02:17→09:08)
[2021-08-06 04:32] VITALS: BP 131/92
[2021-08-06 06:08] LABS: BASOPHILS % (AUTO) 0 % (0-10); EOSINOPHILS # (AUTO) 0.1 10^3/uL (0.0-0.3); EOSINOPHILS % (AUTO) 1 % (0-10); HEMATOCRIT 29 % (35-52); HEMOGLOBIN 9.8 g/dL (11.5-16.0); LYMPHOCYTES # (AUTO) 2.1 10^3/uL (1.0-4.0); LYMPHOCYTES % (AUTO) 19 % (12-44); MEAN CORPUSCULAR HEMOGLOBIN 31 pg (25-34); MEAN CORPUSCULAR HGB CONC 34 g/dL (32-36); MEAN CORPUSCULAR VOLUME 92 fL (80-99); MEAN PLATELET VOLUME 10.9 fL (9.0-12.2); MONOCYTES # (AUTO) 0.8 10^3/uL (0.0-1.0); MONOCYTES % (AUTO) 8 % (0-12); NEUTROPHILS # (AUTO) 7.4 10^3/uL (1.8-7.8); NEUTROPHILS % (AUTO) 69 % (42-75); PLATELET COUNT 184 10^3/uL (130-400); WHITE BLOOD COUNT 10.7 10^3/uL (4.3-11.0)
[2021-08-06 06:23] LABS: ALBUMIN 2.7 GM/DL (3.2-4.5); CHLORIDE 107 MMOL/L (98-107); POTASSIUM 4.4 MMOL/L (3.6-5.0); SODIUM 134 MMOL/L (135-145)
[2021-08-06 06:25] LABS: GLUCOSE 99 MG/DL (70-105); TOTAL PROTEIN 5.7 GM/DL (6.4-8.2)
[2021-08-06 06:26] LABS: CARBON DIOXIDE 18 MMOL/L (21-32)
[2021-08-06 06:27] LABS: BILIRUBIN,TOTAL 4.3 MG/DL (0.1-1.0)
[2021-08-06 06:29] LABS: ALKALINE PHOSPHATASE 161 U/L (40-136); CREATININE SERUM 0.67 MG/DL (0.60-1.30); GFR ESTIMATED 117
[2021-08-06 06:30] LABS: BUN/CREATININE RATIO 3
[2021-08-06 06:32] LABS: ALANINE AMINOTRANSFERASE 65 U/L (0-55)
--- NOTE | 2021-08-06 07:00 | Progress Note - Hospitalist ---
Subjective HPI/CC On Admission Date Seen by Provider: Aug 06, 2021 Time Seen by Provider: 10:30 CC: Elevated LFTs, UTI, hypokalemia, alcohol abuse Subjective/Events-last exam Decision was made to discharge Objective Exam Vital Signs Vital Signs Date Time Temp Pulse Resp B/P (MAP) Pulse Ox O2 Delivery O2 Flow Rate FiO2 08/06/21 12:27 36.6 105 20 114/90 100 Room Air 08/04/21 13:33 21 Capillary Refill : Less Than 3 Seconds General Appearance: No Apparent Distress, WD/WN, Chronically ill Results/Procedures Lab Laboratory Tests 08/06/21 05:58 Patient resulted labs reviewed. Assessment/Plan Assessment and Plan Assess & Plan/Chief Complaint PT and OT IV fluid decrease Discharge KARLI GIRARD DO Aug 06, 2021 07:00
[2021-08-06] MEDS: NICOTINE 21 MG (NICODERM) PATCH TD SCH (08:27)
[2021-08-06] MEDS: ENOXAPARIN 40 MG/0.4 ML (LOVENOX) SYR SC SCH (08:27)
[2021-08-06] MEDS: NICOTINE PATCH REMOVAL TP SCH (08:27)
[2021-08-06] MEDS: PANTOPRAZOLE 40 MG (PROTONIX) TAB PO SCH (08:28)
[2021-08-06] MEDS: FAMOTIDINE 20 MG (PEPCID) TABLET PO SCH (08:28)
[2021-08-06] MEDS: HYDROcodone/APAP 5 MG/325 MG (LORTAB) TAB PO PRN (08:28)
[2021-08-06] MEDS: PROMETHAZINE INJ 25 MG/ML (PHENERGAN) AMP IM PRN (08:35)
[2021-08-06 08:48] VITALS: BP 123/89
[2021-08-06] MEDS ORDERED: ACHD5005 PO (10:46)
--- NOTE | 2021-08-06 10:48 | Discharge Summary ---
Discharge Summary Hospital Course Was the Problem List Reviewed?: Yes Problems/Dx: (1) Alcohol use disorder Status: Chronic (2) Urinary tract infection Status: Acute (3) Hypokalemia Status: Acute (4) Hypomagnesemia Status: Acute (5) Nausea & vomiting Status: Acute (6) DVT prophylaxis Status: Acute Hospital Course Date of Admission: Aug 05, 2021 at 14:20 Admission Diagnosis : Family Physician/Provider: Wilson Pozo Date of Discharge: 08/06/21 Discharge Diagnosis: Profound dehydration, acute kidney injury, UTI, alcohol withdrawal, alcoholism Hospital Course: Hospital course: Pt had a lengthy hospital course after she was admitted for alcohol withdrawal and profound dehydration with acute kidney injury. Pt was given aggressive IV fluids along with the alcohol withdrawal protocol and Pt ultimately returned back to normal, was able to eat and drink and had progressed passed the alcohol withdrawal status so she was deemed stable for discharge. She was up Ad-Adela and eating and drinking. Labs and Pending Lab Test: Laboratory Tests 08/06/21 05:58: White Blood Count 10.7, Red Blood Count 3.16L, Hemoglobin 9.8L, Hematocrit 29L, Mean Corpuscular Volume 92, Mean Corpuscular Hemoglobin 31, Mean Corpuscular Hemoglobin Concent 34, Red Cell Distribution Width 22.7H, Platelet Count 184, Mean Platelet Volume 10.9, Immature Granulocyte % (Auto) 3, Neutrophils (%) (Auto) 69, Lymphocytes (%) (Auto) 19, Monocytes (%) (Auto) 8, Eosinophils (%) (Auto) 1, Basophils (%) (Auto) 0, Neutrophils # (Auto) 7.4, Lymphocytes # (Auto) 2.1, Monocytes # (Auto) 0.8, Eosinophils # (Auto) 0.1, Basophils # (Auto) 0.0, Immature Granulocyte # (Auto) 0.4H, Sodium Level 134L, Potassium Level 4.4, Chloride Level 107, Carbon Dioxide Level 18L, Anion Gap 9, Blood Urea Nitrogen < 2L, Creatinine 0.67, Estimat Glomerular Filtration Rate 117, BUN/Creatinine Ratio 3, Glucose Level 99, Calcium Level 8.0L, Corrected Calcium 9.0, Total Bilirubin 4.3H, Aspartate Amino Transf (AST/SGOT) 208H, Alanine Aminotransferase (ALT/SGPT) 65H, Alkaline Phosphatase 161H, Total Protein 5.7L, Albumin 2.7L Microbiology 08/01/21 Urine Culture - Final, Complete Escherichia coli Mixed Bacterial Inna Home Meds Active Reported Potassium Gluconate 99 Mg Tablet.er 99 Mg PO DAILY LAST FILLED 05-09-2021 # DAY SUPPLY Amlodipine Besylate 10 Mg Tablet 10 Mg PO DAILY LAST FILLED 03-13-2021 # DAY SUPPLY Pantoprazole Sodium 40 Mg Tablet.dr 40 Mg PO DAILY LAST FILLED 03-13-2021 # DAY SUPPLY Proair Hfa (Albuterol Sulfate) 1 Puff Puff 2 Puff IH Q4H PRN Ondansetron HCl 8 Mg Tablet 8 Mg PO Q8H PRN Assessment/Pt Instructions PCP in 1 week Discharge Planning: <30 minutes discharge planning Discharge Instructions Discharge Diet: No Restrictions Discharge Physical Examination Vital Signs Vital Signs Date Time Temp Pulse Resp B/P (MAP) Pulse Ox O2 Delivery O2 Flow Rate FiO2 08/06/21 09:08 99 Room Air 08/06/21 08:48 37.0 109 18 123/89 (100) 08/04/21 13:33 21 General Appearance: No Apparent Distress, WD/WN, Chronically ill Allergies: Coded Allergies: No Known Drug Allergies (Unverified , 04/28/21) Discharge Summary Date of Admission Aug 05, 2021 at 14:20 Date of Discharge Discharge Date: Aug 06, 2021 Discharge Diagnosis PT and OT IV fluid decrease KARLI GIRARD DO Aug 06, 2021 10:48
[2021-08-06 12:08] VITALS: BP 114/90
[2021-08-06 12:27] VITALS: BP 114/90
== END 2021-08-06 12:38 | disposition home or self-care (01) | DRG 683 ==
LOC: EDUNIT# 17:38 → ER 17:40 → 4TH 20:43 → OBSVTOIN 08-05 14:20
PROVIDERS: ADMIT Family Medicine; ATTEND Internal Medicine
DX: N17.9 Acute kidney failure, unspecified (principal); F10.239 Alcohol dependence with withdrawal, unspecified; N39.0 Urinary tract infection, site not specified; E86.0 Dehydration; E87.6 Hypokalemia; R79.89 Other specified abnormal findings of blood chemistry; E83.42 Hypomagnesemia; F17.210 Nicotine dependence, cigarettes, uncomplicated; I10 Essential (primary) hypertension; K21.9 Gastro-esophageal reflux disease without esophagitis; B96.20 Unspecified Escherichia coli [E. coli] as the cause of diseases classified elsewhere; Z20.822 Contact with and (suspected) exposure to COVID-19; Z79.899 Other long term (current) drug therapy
CPT/HCPCS: 36415; 71045; 74177; 76705; 80048; 80053; 80074; 80076; 80306; 80320; 81000; 82728; 83540; 83550; 83690; 83735; 85025; 85027; 85610; 87077; 87088; 87186; 87636; 93005; 94640; 94760; G0378

== ENCOUNTER 2021-08-08 05:33 | Emergency (ER) | payer SELFPAY ==
[~2021-08-08] VITALS: Ht 170 cm; Wt 72.6 kg
[~2021-08-08 05:33] MED LIST changes: +ACHD5005 PO; +POTA99TA18 PO
[2021-08-08] MEDS ORDERED: FAMOTIDINE 20MG/2ML IV (PEPCID) IV STA (06:01)
[2021-08-08 06:15] LABS: BASOPHILS # (AUTO) 0.1 10^3/uL (0.0-0.1); BASOPHILS % (AUTO) 1 % (0-10); EOSINOPHILS # (AUTO) 0.1 10^3/uL (0.0-0.3); EOSINOPHILS % (AUTO) 0 % (0-10); HEMATOCRIT 32 % (35-52); HEMOGLOBIN 10.9 g/dL (11.5-16.0); LYMPHOCYTES # (AUTO) 2.7 10^3/uL (1.0-4.0); LYMPHOCYTES % (AUTO) 24 % (12-44); MEAN CORPUSCULAR HEMOGLOBIN 31 pg (25-34); MEAN CORPUSCULAR HGB CONC 34 g/dL (32-36); MEAN CORPUSCULAR VOLUME 93 fL (80-99); MEAN PLATELET VOLUME 11.2 fL (9.0-12.2); MONOCYTES # (AUTO) 1.2 10^3/uL (0.0-1.0); MONOCYTES % (AUTO) 11 % (0-12); NEUTROPHILS # (AUTO) 6.5 10^3/uL (1.8-7.8); NEUTROPHILS % (AUTO) 57 % (42-75); PLATELET COUNT 262 10^3/uL (130-400); WHITE BLOOD COUNT 11.3 10^3/uL (4.3-11.0)
[2021-08-08] MEDS ORDERED: ANTACID SUSP 30 ML UDC (MYLANTA) PO ONE (06:15)
[2021-08-08] MEDS ORDERED: ONDANSETRON 4 MG/2 ML (SDV) Z0FRAN IVP ONE (06:15)
[2021-08-08] MEDS ORDERED: LIDOCAINE 2% VISCOUS 15 ML UDC PO ONE (06:15)
[2021-08-08] MEDS ORDERED: LACTATED RINGERS 1,000 ML IV ONE (06:15)
--- NOTE | 2021-08-08 06:23 | ED GI ---
General Stated Complaint: NAUSEA,VOMITING Source of Information: Patient Exam Limitations: No Limitations History of Present Illness Date Seen by Provider: Aug 08, 2021 Time Seen by Provider: 05:55 Initial Comments 40yoF with PMH of GERD and chronic nausea and vomiting coming in from home due to continued vomiting. The patient was admitted to the hospital for similar episode just last week. The vomiting is constant, severe, nothing seems to make it better or worse, and ongoing for months. She chronically has low potassium and now has been taking potassium supplementation. She says she unrelenting when he vomits starting in the morning and continues throughout the day. This is been ongoing for months. She saw GI doctor in 2018 for chronic abdominal issues such as bowel changes, had an upper and lower GI scope, and she says the only thing they saw were some polyps. She does have alcohol use disorder, but has not had alcohol now in a couple weeks she says. She denies any type of m arijuana use or THC. She is having bowel movements and passing flatus. Otherwise denying any cough, fever, chest pain, shortness of breath, focal weakness or numbness, rash, diarrhea, dysuria, headache, vision changes, or any other concerns. Of note, she has had a tubal ligation. Allergies and Home Medications Allergies Coded Allergies: No Known Drug Allergies (Unverified , 04/28/21) Patient Home Medication List Home Medication List Reviewed: Yes Albuterol Sulfate (Proair Hfa) 1 Puff Puff, 2 PUFF IH Q4H PRN for SHORTNESS OF B REATH, (Reported) Entered as Reported by: IRMA MOORE on 05/01/21 1604 Hydrocodone Bit/Acetaminophen (HYDROcodone/APAP 5 MG/325 MG TAB) 1 Tab Tab, 1-2 EA PO Q4H PRN for PAIN-MODERATE (5-7) Prescribed by: KARLI GIRARD on 08/06/21 1047 Ondansetron HCl (Ondansetron HCl) 8 Mg Tablet, 8 MG PO Q8H PRN for NAUSEA/VO MITING-1ST LINE, (Reported) Entered as Reported by: IRMA MOORE on 05/01/21 1604 Pantoprazole Sodium (Pantoprazole Sodium) 40 Mg Tablet.dr, 40 MG PO DAILY, (Reported) Entered as Reported by: IRMA MOORE on 05/01/21 1604 Potassium Gluconate (Potassium Gluconate) 99 Mg Tablet.er, 99 MG PO DAILY, (Reported) Entered as Reported by: IRMA MOORE on 08/02/21 1140 Discontinued Medications Amlodipine Besylate (Amlodipine Besylate) 10 Mg Tablet, 10 MG PO DAILY, (Reported) Entered as Reported by: IRMA MOORE on 05/01/21 160 Nitrofurantoin Monohyd/M-Cryst (Macrobid 100 mg Capsule) 100 Mg Capsule, 1 TAB PO Q12H, (Reported) Entered as Reported by: IRMA MOORE on 05/01/21 160 Potassium Chloride (Potassium Chloride) 20 Meq Tablet.er, 20 MEQ PO DAILY, (Reported) Discontinued Reason: Duplicate Order Entered as Reported by: IRMA MOORE on 05/01/211603 Review of Systems Review of Systems Constitutional: No chills, No fever EENTM: No Blurred Vision Respiratory: Denies Cough, Denies Shortness of Air Cardiovascular: Denies Chest Pain Gastrointestinal: Denies Abdominal Pain, Denies Diarrhea; Nausea, Vomiting Genitourinary: Denies Burning Musculoskeletal: No back pain Skin: no symptoms reported Psychiatric/Neurological: No Symptoms Reported Endocrine: No Symptoms Reported Hematologic/Lymphatic: No Symptoms Reported All Other Systems Reviewed Negative Unless Noted: Yes Past Jbwlngt-Mtvxfm-Tadibj Hx Patient Social History Tobacco Use?: Yes Substance use?: No Alcohol Use?: Yes Alcohol Frequency: Daily (but has not had now in couple weeks) Immunizations Up To Date First/Initial COVID19 Vaccinat: february 2021 Second COVID19 Vaccination Ramakrishna: march 2021 Past Medical History Surgeries: Yes Tubal Ligation Physical Exam Vital Signs Vital Signs - First Documented 08/08/21 05:43 Temp 36.1 Pulse 110 Resp 16 B/P (MAP) 121/99 (106) Pulse Ox 100 O2 Delivery Room Air Capillary Refill : Height/Weight/BMI Height: '" Weight: lbs. oz. kg; 23.32 BMI Method: General Appearance: WD/WN, no apparent distress HEENT: PERRL/EOMI, normal ENT inspection, pharynx normal Neck: non-tender, full range of motion, supple, normal inspection Respiratory: chest non-tender, lungs clear, normal breath sounds, no respiratory distress, no accessory muscle use Cardiovascular: regular rate, rhythm, no edema, no murmur Gastrointestinal: normal bowel sounds, non tender, soft; No distended, No guarding, No rebound Extremities: normal range of motion, non-tender, normal inspection, no pedal edema, no calf tenderness, normal capillary refill Back: normal inspection, no CVA tenderness, no vertebral tenderness Neurologic/Psychiatric: no motor/sensory deficits, alert, normal mood/affect Skin: normal color, warm/dry Lymphatic: no adenopathy Progress/Results/Core Measures Results/Orders Lab Results Laboratory Tests Test 08/08/21 06:05 Range/Units White Blood Count 11.3 H 4.3-11.0 10^3/uL Red Blood Count 3.49 L 3.80-5.11 10^6/uL Hemoglobin 10.9 L 11.5-16.0 g/dL Hematocrit 32 L 35-52 % Mean Corpuscular Volume 93 80-99 fL Mean Corpuscular Hemoglobin 31 25-34 pg Mean Corpuscular Hemoglobin Concent 34 32-36 g/dL Red Cell Distribution Width 23.4 H 10.0-14.5 % Platelet Count 262 130-400 10^3/uL Mean Platelet Volume 11.2 9.0-12.2 fL Immature Granulocyte % (Auto) 7 % Neutrophils (%) (Auto) 57 42-75 % Lymphocytes (%) (Auto) 24 12-44 % Monocytes (%) (Auto) 11 0-12 % Eosinophils (%) (Auto) 0 0-10 % Basophils (%) (Auto) 1 0-10 % Neutrophils # (Auto) 6.5 1.8-7.8 10^3/uL Lymphocytes # (Auto) 2.7 1.0-4.0 10^3/uL Monocytes # (Auto) 1.2 H 0.0-1.0 10^3/uL Eosinophils # (Auto) 0.1 0.0-0.3 10^3/uL Basophils # (Auto) 0.1 0.0-0.1 10^3/uL Immature Granulocyte # (Auto) 0.8 H 0.0-0.1 10^3/uL Prothrombin Time 13.6 12.2-14.7 SEC INR Comment 1.0 0.8-1.4 Sodium Level 134 L 135-145 MMOL/L Potassium Level 3.8 3.6-5.0 MMOL/L Chloride Level 101 98-107 MMOL/L Carbon Dioxide Level 17 L 21-32 MMOL/L Anion Gap 16 H 5-14 MMOL/L Blood Urea Nitrogen 3 L 7-18 MG/DL Creatinine 0.62 0.60-1.30 MG/DL Estimat Glomerular Filtration Rate 128 BUN/Creatinine Ratio 5 Glucose Level 82 70-105 MG/DL Calcium Level 8.4 L 8.5-10.1 MG/DL Corrected Calcium 9.1 8.5-10.1 MG/DL Magnesium Level 1.7 1.6-2.4 MG/DL Total Bilirubin 4.8 H 0.1-1.0 MG/DL Aspartate Amino Transf (AST/SGOT) 204 H 5-34 U/L Alanine Aminotransferase (ALT/SGPT) 63 H 0-55 U/L Alkaline Phosphatase 195 H 40-136 U/L C-Reactive Protein High Sensitivity 5.82 H 0.00-0.50 MG/DL Total Protein 6.7 6.4-8.2 GM/DL Albumin 3.1 L 3.2-4.5 GM/DL Lipase 96 H 8-78 U/L My Orders Orders - KYLE ROMERO MD Protime With Inr (08/08/21 06:17) Medications Given in ED Current Medications Medications Dose Ordered Sig/Beti Route Start Time Stop Time Status Last Admin Dose Admin Al Hydrox/Mg Hydrox/Simethicone 30 ml ONCE ONCE PO 08/08/21 06:15 08/08/21 06:16 DC 08/08/21 06:16 30 ML Lactated Ringer's 1,000 ml @ 0 mls/hr Q0M ONCE IV 08/08/21 06:15 08/08/21 06:16 DC 08/08/21 06:16 0 MLS/HR Lidocaine HCl 15 ml ONCE ONCE PO 08/08/21 06:15 08/08/21 06:16 DC 08/08/21 06:17 15 ML Ondansetron HCl 8 mg ONCE ONCE IVP 08/08/21 06:15 08/08/21 06:16 DC 08/08/21 06:17 8 MG Vital Signs/I&O 08/08/21 05:43 Temp 36.1 Pulse 110 Resp 16 B/P (MAP) 121/99 (106) Pulse Ox 100 O2 Delivery Room Air Progress Progress Note : Progress Note 40yoF with above history coming in due to vomiting. ABCs intact and VSS on presentation although mildly tachycardic. An IV was placed and she was given zofran for nausea and 1 L of IV fluids. Basic labs obtained including LFTs were significant for a white blood cell count of 11 which is similar to her was a couple days ago, sodium 134, creatinine 0.62, total bilirubin 4.8, AST and ALT elevated but near her baseline, INR 1. I reviewed the CT scan and abdominal ultrasound from last week, and she does have marked hepatic steatosis, no gallstones or any type of obstruction. Her bilirubin continues to just slowly trend up. I suspect this is primary liver disease from her alcohol use. Review of the chart shows negative Hepatitis A, B, C, and HIV labs from about a week ago. At this point she does need to follow- up with a manufacturing engineering manager. MELD score is 17 today. Potassium is 3.8 which is significantly better than she typically is when she comes in, and likely due to her now starting potassium supplementation. On reassessment, the patient says she feels better, and has not vomited since being in the emergency department. She is tolerating water. Overall, I believe she is stable for discharge with outpatient follow-up. She was sent home with strict return precautions. Departure Impression Primary Impression: Nausea and vomiting Qualified Codes: R11.2 - Nausea with vomiting, unspecified Additional Impressions: Hyperbilirubinemia Hepatic steatosis Disposition: HOME, SELF-CARE Condition: Stable Departure-Patient Inst. Decision time for Depature: 07:21 [address]errals: [facility] (PCP) Primary Care Physician GIA DEMARCO (Family) Primary Care Physician Patient Instructions: Alcohol Use Disorder ED, Nausea and Vomiting, Adult ED Add. Discharge Instructions: You were seen in the emergency department for chronic vomiting. Your labs are more reassuring today and that your potassium is normal and your kidney function is normal. However, your bilirubin is elevated at 4.8 and your other liver enzymes are also elevated showing you have an inflamed liver. I want you to follow-up with a liver specialist called a manufacturing engineering manager. You can either google and find one that you would like to go to, or you can call the numbers listed below to try to get an appointment. This most certainly is because from your alcohol use, and if you can continue to stop drinking alcohol, that would only benefit you. I sent nausea medicines to the pharmacy, but if you have vomiting that will not stop, or you have any concerns then please call your doctor or come back to the ER. I do recommend you continue to take your potassium supplement but also add in a magnesium supplement that you can buy [id number]. Magnesium can cause loose stools, just so you know. [facility] specialist- number [phone] [facility]- [address], [address]. Number [phone] Scripts Ondansetron (Ondansetron Odt) 4 Mg Tab.rapdis 4 MG PO Q6H PRN for NAUSEA/VOMITING-1ST LINE for 10 Days, #40 TAB Prov: KYLE ROMERO MD 08/08/21 KYLE ROMERO MD Aug 08, 2021 06:23
[2021-08-08 06:32] LABS: ALBUMIN 3.1 GM/DL (3.2-4.5); POTASSIUM 3.8 MMOL/L (3.6-5.0)
[2021-08-08 06:34] LABS: CALCIUM 8.4 MG/DL (8.5-10.1)
[2021-08-08 06:35] LABS: TOTAL PROTEIN 6.7 GM/DL (6.4-8.2)
[2021-08-08 06:37] LABS: BILIRUBIN,TOTAL 4.8 MG/DL (0.1-1.0)
[2021-08-08 06:38] LABS: CREATININE SERUM 0.62 MG/DL (0.60-1.30)
[2021-08-08 06:41] LABS: MAGNESIUM 1.7 MG/DL (1.6-2.4)
[2021-08-08 06:43] LABS: PROTHROMBIN TIME PATIENT 13.6 SEC (12.2-14.7)
[2021-08-08] MEDS ORDERED: ONDA4TAB11 PO (07:24)
[2021-08-08 07:34] VITALS: BP 135/101
== END 2021-08-08 07:34 | disposition home or self-care (01) ==
LOC: EDUNIT# 05:33 → ER 05:36
DX: E80.6 Other disorders of bilirubin metabolism (principal); K76.0 Fatty (change of) liver, not elsewhere classified; Z72.0 Tobacco use
CPT/HCPCS: 36415; 80053; 83690; 83735; 85025; 85027; 85610; 86141; 99283

== ENCOUNTER 2022-12-12 06:00 | Inpatient (IN) | payer MEDICAID ==
[~2022-12-12] VITALS: Ht 170.2 cm; Wt 68.0 kg
[~2022-12-12 06:00] MED LIST changes: +ALBU8.5H6 IH; +ONDA4TAB11 PO; -RT-ALBUINH IH
[2022-12-12] MEDS ORDERED: AMLO-251 PO (06:21)
--- NOTE | 2022-12-12 06:25 | ED General ---
General Chief Complaint: Detox Stated Complaint: NAUSEA,VOMITING,CABRERA,BODY ACHE,DEHYDRATED Source of Information: Patient, Family () Exam Limitations: No Limitations History of Present Illness Date Seen by Provider: Dec 12, 2022 Time Seen by Provider: 06:12 Initial Comments 42-year-old female presents to the emergency department today for what she believes to be alcohol withdrawal. She states symptoms started yesterday. She is unsure when she had her last drink of alcohol but states she did not have anything to drink yesterday. She has a longstanding history of alcohol use disorder, drinking frederick. She drinks up to 1 pint daily. She has had several detox attempts that have yet to be successful. She states about a month ago she was in a detox facility and discharged to a couple of AA meetings but stopped going. She denies any fevers or chills. Emesis is nonbloody nonbilious. She does not really have any abdominal pain, just nausea. She had diarrhea a couple of days ago but states her stools are normal now. No vaginal symptoms and denies that she could be . All other systems reviewed and negative except documented per HPI. Voice recognition software was used to help create this chart Allergies and Home Medications Allergies Coded Allergies: No Known Drug Allergies (Unverified , 04/28/21) Patient Home Medication List Home Medication List Reviewed: Yes Amlodipine Besylate (Amlodipine Besylate) 10 Mg Tablet, (Reported) Entered as Reported by: CHEO OCHOA on 12/12/22 0621 Last Action: New Order Discontinued Medications Albuterol Sulfate (Ventolin Hfa) 1 Puff Puff, 2 PUFF IH Q4H PRN for SHORTNESS OF BREATH, (Reported) Discontinued Reason: No Longer Taking Entered as Reported by: IRMA MOORE on 05/01/21 1604 Last Action: Discontinued Hydrocodone Bit/Acetaminophen (HYDROcodone/APAP 5 MG/325 MG TAB) 1 Tab Tab, 1-2 EA PO Q4H PRN for PAIN-MODERATE (5-7) Discontinued Reason: No Longer Taking Prescribed by: KARLI GIRARD on 08/06/21 1047 Last Action: Discontinued Ondansetron (Ondansetron Odt) 4 Mg Tab.rapdis, 4 MG PO Q6H PRN for NAUSEA/VOMITING-1ST LINE Discontinued Reason: No Longer Taking Prescribed by: KYLE ROMERO on 08/08/21 0724 Last Action: Discontinued Ondansetron HCl (Ondansetron HCl) 8 Mg Tablet, 8 MG PO Q8H PRN for NAUSEA/VOMITING-1ST LINE, (Reported) Discontinued Reason: No Longer Taking Entered as Reported by: IRMA MOORE on 05/01/21 1604 Last Action: Discontinued Pantoprazole Sodium (Pantoprazole Sodium) 40 Mg Tablet.dr, 40 MG PO DAILY, (Reported) Discontinued Reason: No Longer Taking Entered as Reported by: IRMA MOORE on 05/01/21 1604 Last Action: Discontinued Potassium Gluconate (Potassium Gluconate) 99 Mg Tablet.er, 99 MG PO DAILY, (Reported) Discontinued Reason: No Longer Taking Entered as Reported by: IRMA MOORE on 08/02/21 1140 Last Action: Discontinued Review of Systems Review of Systems Constitutional: see HPI Past Ezjhvef-Unzchu-Szxznv Hx Immunizations Up To Date First/Initial COVID19 Vaccinat: FEBRUARY 2021 Second COVID19 Vaccination Ramakrishna: MARCH 2021 Past Medical History Surgery/Hospitalization HX: Hypertension, alcohol use disorder Surgeries: Yes Tubal Ligation Family Medical History Reviewed Nursing Family Hx No Pertinent Family Hx Physical Exam Vital Signs Vital Signs - First Documented 12/12/22 06:12 Temp 37.3 Pulse 153 Resp 18 B/P (MAP) 128/104 (112) Pulse Ox 99 O2 Delivery Room Air Capillary Refill : Height, Weight, BMI Height: '" Weight: lbs. oz. kg; 25.00 BMI Method: General Appearance: No Apparent Distress, WD/WN Eyes: Bilateral Eye Normal Inspection, Bilateral Eye PERRL, Bilateral Eye EOMI HEENT: Normal ENT Inspection, Pharynx Normal Neck: Normal Inspection, Non Tender, Supple Respiratory: Chest Non Tender, Lungs Clear, Normal Breath Sounds, No Accessory Muscle Use, No Respiratory Distress Cardiovascular: Tachycardia Gastrointestinal: Normal Bowel Sounds, No Organomegaly, No Pulsatile Mass, Non Tender, Soft Back: Normal Inspection, No Vertebral Tenderness Extremity: Normal Capillary Refill, Normal Inspection, Normal Range of Motion, Non Tender, No Calf Tenderness Skin: Normal Color, Warm/Dry Lymphatic: No Adenopathy Focused Exam Lactate Level 12/12/22 07:20: Lactic Acid Level Laboratory Tests Test 12/12/22 07:20 Progress/Results/Core Measures Suspected Sepsis SIRS Temperature: Pulse: Respiratory Rate: Laboratory Tests 12/12/22 06:30: White Blood Count 8.7 Blood Pressure / Mean: 12/12/22 07:20: Laboratory Tests 12/12/22 06:30: Creatinine 0.77, Platelet Count 149, Total Bilirubin 0.6 Results/Orders Lab Results Laboratory Tests Test 12/12/22 06:25 12/12/22 06:30 12/12/22 07:20 Range/Units Urine Color YELLOW Urine Clarity TURBID Urine pH 7.0 5-9 Urine Specific Wrights 1.020 1.016-1.022 Urine Protein 2+ H NEGATIVE Urine Glucose (UA) NEGATIVE NEGATIVE Urine Ketones 1+ H NEGATIVE Urine Nitrite POSITIVE H NEGATIVE Urine Bilirubin NEGATIVE NEGATIVE Urine Urobilinogen 1.0 < = 1.0 MG/DL Urine Leukocyte Esterase 1+ H NEGATIVE Urine RBC (Auto) 1+ H NEGATIVE Urine RBC 2-5 H /HPF Urine WBC 10-25 H /HPF Urine Squamous Epithelial Cells 5-10 /HPF Urine Crystals NONE /LPF Urine Bacteria LARGE H /HPF Urine Casts NONE /LPF Urine Mucus SMALL H /LPF Urine Culture Indicated YES White Blood Count 8.7 4.3-11.0 10^3/uL Red Blood Count 4.35 3.80-5.11 10^6/uL Hemoglobin 13.5 11.5-16.0 g/dL Hematocrit 38 35-52 % Mean Corpuscular Volume 88 80-99 fL Mean Corpuscular Hemoglobin 31 25-34 pg Mean Corpuscular Hemoglobin Concent 35 32-36 g/dL Red Cell Distribution Width 20.8 H 10.0-14.5 % Platelet Count 149 130-400 10^3/uL Mean Platelet Volume 10.6 9.0-12.2 fL Immature Granulocyte % (Auto) 1 % Neutrophils (%) (Auto) 62 42-75 % Lymphocytes (%) (Auto) 26 12-44 % Monocytes (%) (Auto) 11 0-12 % Eosinophils (%) (Auto) 0 0-10 % Basophils (%) (Auto) 1 0-10 % Neutrophils # (Auto) 5.4 1.8-7.8 10^3/uL Lymphocytes # (Auto) 2.2 1.0-4.0 10^3/uL Monocytes # (Auto) 1.0 0.0-1.0 10^3/uL Eosinophils # (Auto) 0.0 0.0-0.3 10^3/uL Basophils # (Auto) 0.0 0.0-0.1 10^3/uL Immature Granulocyte # (Auto) 0.0 0.0-0.1 10^3/uL Sodium Level 140 135-145 MMOL/L Potassium Level 2.7 L 3.6-5.0 MMOL/L Chloride Level 93 L 98-107 MMOL/L Carbon Dioxide Level 21 21-32 MMOL/L Anion Gap 26 H 5-14 MMOL/L Blood Urea Nitrogen 7 7-18 MG/DL Creatinine 0.77 0.60-1.30 MG/DL Estimat Glomerular Filtration Rate 97 BUN/Creatinine Ratio 9 Glucose Level 136 H 70-105 MG/DL Calcium Level 8.2 L 8.5-10.1 MG/DL Corrected Calcium 8.4 L 8.5-10.1 MG/DL Magnesium Level 1.4 L 1.6-2.4 MG/DL Total Bilirubin 0.6 0.1-1.0 MG/DL Aspartate Amino Transf (AST/SGOT) 130 H 5-34 U/L Alanine Aminotransferase (ALT/SGPT) 47 0-55 U/L Alkaline Phosphatase 141 H 40-136 U/L Total Protein 8.3 H 6.4-8.2 GM/DL Albumin 3.8 3.2-4.5 GM/DL Lipase 162 H 8-78 U/L My Orders Orders - TIMOTEOLATA DO Lipase (12/12/22 06:20) Comprehensive Metabolic Panel (12/12/22 06:20) Cbc With Automated Diff (12/12/22 06:20) Urine Bedside (12/12/22 06:20) Ua Culture If Indicated (12/12/22 06:20) Ns Iv 1000 Ml (Sodium Chloride 0.9%) (12/12/22 06:30) Ondansetron Injection (Zofran Injectio (12/12/22 06:30) Diphenhydramine Injection (Benadryl Inje (12/12/22 06:30) Acetaminophen Tablet (Tylenol Tablet) (12/12/22 06:30) Iv/Invasive Line Insertion .IV INSERT (12/12/22 06:22) Ekg Tracing (12/12/22 06:21) Magnesium (12/12/22 06:21) Urine Culture (12/12/22 06:25) Ceftriaxone 1 Gm Pre-Mix (Rocephin 1 Gm (12/12/22 07:15) Lactic Acid Analyzer (12/12/22 07:14) Blood Culture (12/12/22 07:14) Vital Signs Adult Sepsis Patie Q15M (12/12/22 07:14) Potassium Cl 10meq/50ml Ivpb (Kcl 10 Meq (12/12/22 07:15) Ed Admission (Communication) (12/12/22 07:26) Medications Given in ED Current Medications Medications Dose Ordered Sig/Beti Route Start Time Stop Time Status Last Admin Dose Admin Acetaminophen 1,000 mg ONCE ONCE PO 12/12/22 06:30 12/12/22 06:31 DC 12/12/22 06:32 1,000 MG Diphenhydramine HCl 50 mg ONCE ONCE IVP 12/12/22 06:30 12/12/22 06:31 DC 12/12/22 06:32 50 MG Ondansetron HCl 8 mg ONCE ONCE IVP 12/12/22 06:30 12/12/22 06:31 DC 12/12/22 06:32 8 MG Vital Signs/I&O 12/12/22 12/12/22 06:12 06:32 Temp 37.3 37.3 Pulse 153 Resp 18 B/P (MAP) 128/104 (112) Pulse Ox 99 O2 Delivery Room Air Capillary Refill : ECG Comment EKG shows sinus rhythm with a rate of 137 bpm. Normal intervals. Normal axis. No ST or T wave abnormalities. No ectopy. Departure Communication (Admissions) Patient is tachycardic with some active vomiting in the room. Patient is likely related to alcohol withdrawal. She is afebrile and has no other acute symptoms out of those associated with withdrawal. She has had this happen several times "tried to withdrawal." I do not think an infectious work-up is necessary at this time. She does have a history of profound hypokalemia and SAMMY with alcohol withdrawal and vomiting. We will go ahead and check CBC CMP, lipase. I will give her IV fluids, Benadryl and Zofran as well as some Tylenol as she is complaining of diffuse headache. She will be placed on telemetry and EKG obtained due to her history of hypokalemia and current tachycardia. Patient does have a urinary tract infection. Given her tachycardia, had no other lactate and blood cultures once this identified however I doubt that there is an infectious source for her tachycardia I think this is more related to alcohol withdrawal and a urinary tract infection as an incidental finding. Regardless her blood pressures are stable. No evidence for septic type infection. I spoke to Dr. Girard who agrees to admit the patient. Request observation to the fourth floor. She will write acute care orders. Impression Primary Impression: Alcohol use disorder Additional Impressions: Nausea & vomiting Qualified Codes: R11.2 - Nausea with vomiting, unspecified Hypokalemia UTI (urinary tract infection) Qualified Codes: N30.00 - Acute cystitis without hematuria Disposition: ADMITTED INPATIENT Condition: Stable Departure-Patient Inst. Referrals: [facility] (PCP) Primary Care Physician GIA DEMARCO (Family) Primary Care Physician LATA MAHMOOD DO Dec 12, 2022 06:25
[2022-12-12] MEDS ORDERED: ACETAMINOPHEN 500 MG TAB (TYLENOL) PO ONE (06:30)
[2022-12-12] MEDS ORDERED: diphenhydrAMINE 50 MG/ML INJ (BENADRYL) IVP ONE (06:30)
[2022-12-12] MEDS ORDERED: ONDANSETRON 4 MG/2 ML (SDV) Z0FRAN IVP ONE (06:30)
[2022-12-12] MEDS ORDERED: NS IV 1000 ML 1,000 ML IV SCH ×2 (06:30→07:30)
[2022-12-12 06:43] LABS: BILIRUBIN,URINE NEGATIVE (NEGATIVE); CLARITY,URINE TURBID; COLOR,URINE YELLOW; GLUCOSE, URINE (UA) NEGATIVE (NEGATIVE); KETONES,URINE 1+ (NEGATIVE); LEUKOCYTE ESTERASE ,URINE 1+ (NEGATIVE); NITRITE,URINE POSITIVE (NEGATIVE); PROTEIN,URINE 2+ (NEGATIVE)
[2022-12-12 06:47] LABS: BASOPHILS % (AUTO) 1 % (0-10); EOSINOPHILS % (AUTO) 0 % (0-10); HEMATOCRIT 38 % (35-52); HEMOGLOBIN 13.5 g/dL (11.5-16.0); LYMPHOCYTES # (AUTO) 2.2 10^3/uL (1.0-4.0); LYMPHOCYTES % (AUTO) 26 % (12-44); MEAN CORPUSCULAR HEMOGLOBIN 31 pg (25-34); MEAN CORPUSCULAR HGB CONC 35 g/dL (32-36); MEAN CORPUSCULAR VOLUME 88 fL (80-99); MEAN PLATELET VOLUME 10.6 fL (9.0-12.2); MONOCYTES % (AUTO) 11 % (0-12); NEUTROPHILS # (AUTO) 5.4 10^3/uL (1.8-7.8); NEUTROPHILS % (AUTO) 62 % (42-75); PLATELET COUNT 149 10^3/uL (130-400); WHITE BLOOD COUNT 8.7 10^3/uL (4.3-11.0)
[2022-12-12 06:52] LABS: BACTERIA,URINE LARGE /HPF
[2022-12-12 06:57] LABS: ALBUMIN 3.8 GM/DL (3.2-4.5); POTASSIUM 2.7 MMOL/L (3.6-5.0)
[2022-12-12 06:58] LABS: CALCIUM 8.2 MG/DL (8.5-10.1)
[2022-12-12 07:00] LABS: TOTAL PROTEIN 8.3 GM/DL (6.4-8.2)
[2022-12-12 07:01] LABS: BILIRUBIN,TOTAL 0.6 MG/DL (0.1-1.0)
[2022-12-12 07:03] LABS: CREATININE SERUM 0.77 MG/DL (0.60-1.30)
[2022-12-12 07:07] LABS: MAGNESIUM 1.4 MG/DL (1.6-2.4)
[2022-12-12] MEDS ORDERED: cefTRIAXone PRE-MIX 50 ML IV ONE (07:15)
[2022-12-12] MEDS: POTASSIUM CL 10MEQ/50ML IVPB 50 ML IV SCH ×7 (07:38→15:35)
[2022-12-12 08:30] VITALS: BP 118/86
[2022-12-12] MEDS ORDERED: diphenhydrAMINE 50 MG/ML INJ (BENADRYL) IVP PRN (09:15)
[2022-12-12] MEDS ORDERED: SENNA W/DOCUSATE (SENOKOT S) TABLET PO PRN (09:15)
[2022-12-12] MEDS ORDERED: polyethylene glycoL POWDER 17 GM (MIRALAX) PACK PO PRN (09:15)
[2022-12-12] MEDS ORDERED: HYDROmorphone 2 MG/ML VIAL (DILAUDID) IV PRN (09:15)
[2022-12-12] MEDS ORDERED: D5 1/2 NS 1000 ML IV SOLUTION 1,000 ML IV PRN (09:15)
[2022-12-12] MEDS ORDERED: ONDANSETRON 4 MG (ZOFRAN) ORAL DISSOLVE TAB PO PRN (09:15)
[2022-12-12] MEDS ORDERED: MILK OF MAGNESIA 400 MG/5 ML 30 ML UDC PO PRN (09:15)
[2022-12-12] MEDS ORDERED: ONDANSETRON 4 MG (ZOFRAN) ORAL DISSOLVE TAB SL PRN (09:15)
[2022-12-12] MEDS ORDERED: 1/2 NS IV SOLUTION 1,000 ML IV PRN (09:15)
[2022-12-12] MEDS ORDERED: BISACODYL 10 MG SUPP (DULCOLAX) PR PRN (09:15)
[2022-12-12] MEDS ORDERED: ONDANSETRON 4 MG/2 ML (SDV) Z0FRAN IV PRN ×2 (09:15)
[2022-12-12] MEDS ORDERED: CALCIUM CARBONATE 500 MG (TUMS) TAB.CHEW PO PRN (09:15)
[2022-12-12] MEDS ORDERED: LACTULOSE SYRUP 10GM/15ML (ENULOSE) 30ML UDC PO PRN (09:15)
[2022-12-12] MEDS ORDERED: diphenhydrAMINE 25 MG TAB (BENADRYL) PO PRN (09:15)
[2022-12-12] MEDS ORDERED: ANTACID SUSP 30 ML UDC (MYLANTA) PO PRN ×2 (09:15)
[2022-12-12] MEDS ORDERED: LORazepam INJ 2 MG/ML (ATIVAN) VIAL IM/IV PRN (09:15)
[2022-12-12] MEDS: NS IV 1000 ML 1,000 ML IV SCH ×2 (09:45→17:35)
[2022-12-12] MEDS: MAGNESIUM 1 GM/100 ML IVPB 100 ML IV SCH ×2 (09:45→11:47)
[2022-12-12] MEDS: THIAMINE INJECTION 100 MG, FOLIC ACID INJECTION 1 MG, MAGNESIUM SULFATE 2 GM, VITAMIN M... IV SCH ×5 (10:32)
--- NOTE | 2022-12-12 11:00 | History & Physical-Hospitalist ---
History of Present Illness HPI/Chief Complaint CC: Alcohol withdrawal HPI: This is a 42yoWWF w/h/o alcoholism who presented to the ER with alcohol withdrawal and dx with UTI. When I assessed her she was in major tremors so I moved her urgently to ICU. Ativan ordered per protocol and may need Precedex. Partner concerned about her level of "fatty liver" which I believe is alcoholic liver disease so will need to stabilize before evaluating that component. Source: patient, family Exam Limitations: clinical condition Date Seen 12/12/22 Time Seen by a Provider: 11:00 Attending Physician [place] PCP Admitting Physician: Siri Carey DO Attending Physician: Siri Carey DO Referring Physician Date of Admission Dec 12, 2022 at 08:51 Home Medications & Allergies Home Medications Reviewed patient Home Medication Reconciliation performed by pharmacy medication reconciliations tool repair technician and/or nursing. Patients Allergies have been reviewed. Allergies Allergies Coded Allergies No Known Drug Allergies (Unverified04/28/21) Past Jviptlr-Zrfcwa-Rpsocf Hx Patient Social History Marrital Status: cohabiting Employed/Student: unemployed Tobacco Use?: Yes Tobacco type used: Cigarettes Smoking Status: Current Everyday Smoker Use of E-Cig and/or Vaping dev: No Substance use?: No Alcohol Use?: Yes Alcohol type: Hard Liquor Alcohol Frequency: Daily Pt feels they are or have been: No Immunizations Up To Date First/Initial COVID19 Vaccinat: x1 Second COVID19 Vaccination Ramakrishna: MARCH 2021 Tetanus Booster (TDap): Less Than 5 Years Hepatitis A: Yes Hepatitis B: Yes Current Status status: No status: No Advance Directives: No Communicates: Verbally Primary Language: Burkinan Preferred Spoken Language: Burkinan Is interpretation needed?: No Sensory deficits: Vision impairment Implanted or Applied Medical D: None Past Medical History Surgeries: Tubal Ligation PMHx: HTN GERD Alcohol Use Disorder Tobaccoism SurgHx: Denies Family Medical History Reviewed Nursing Family Hx No Pertinent Family Hx Review of Systems Constitutional: see HPI Psychiatric/Neurological: Tremors Physical Exam Physical Exam Vital Signs Vital Signs - First Documented 12/12/22 06:12 Temp 37.3 Pulse 153 Resp 18 B/P (MAP) 128/104 (112) Pulse Ox 99 O2 Delivery Room Air Capillary Refill : Less Than 3 Seconds Height, Weight, BMI Height: '" Weight: lbs. oz. kg; 22.30 BMI Method: General Appearance: Anxious, Chronically ill, Moderate Distress Respiratory: Lungs Clear, Normal Breath Sounds Cardiovascular: Tachycardia Neurologic/Psychiatric: Alert, Oriented x3 Results Results/Procedures Labs Laboratory Tests 12/12/22 06:30 12/12/22 19:22 12/13/22 04:07 Patient resulted labs reviewed. Assessment/Plan Admission Diagnosis Assessment: Alcohol withdrawal with severe tremors requiring ICU transfer since increased seizure risk Alcoholic liver disease Elevated lactic acid not due to sepsis but from liver disease Smoker Plan: ICU transfer [facility] IV Monitor for seizures Admission Status: Observation SIRI CAREY DO Dec 12, 2022 11:00
--- NOTE | 2022-12-12 11:01 | Consultation - Surgery ---
WERNER SANDOVAL 12/12/22 1101: History of Present Illness History of Present Illness Patient Consulted On(kari/time) 12/12/22 10:50 Date Seen by Provider: Dec 12, 2022 Time Seen by Provider: 10:45 Reason for Visit: Nausea, Vomiting History of Present Illness This is a 42yo female with PMH of alcoholism that presented to the ER with CC of alcohol withdrawal, nausea, vomiting. She started vomiting yesterday and has had several episodes since then that have been a mixture of bilious and coffee-ground emesis, she has not seen any bright red blood. She claimed this has happened to her in the past, the last occurrence was 2 or 3 years ago. She underwent an EGD and colonoscopy in [place], she could not remember if they found anything. She endorses diffuse abdominal pain worse in epigastrium and RUQ rated 8/10. Nothing has helped with the abdominal pain or nausea. Additionally she has had diarrhea over the past couple of weeks, some of which she noticed may have been darker than normal for her or black. She has not had a BM in several days. Allergies and Home Medications Allergies Coded Allergies: No Known Drug Allergies (Unverified , 04/28/21) Patient Home Medication List Amlodipine Besylate (Amlodipine Besylate) 10 Mg Tablet, 10 MG PO DAILY, (Reported) Entered as Reported by: CHEO OCHOA on 12/12/22 0621 Last Action: Reviewed Mirtazapine (Mirtazapine) 15 Mg Tablet, 15 MG PO HS, (Reported) Entered as Reported by: IRMA MOORE on 12/12/22 1555 Last Action: Reviewed Discontinued Medications Albuterol Sulfate (Ventolin Hfa) 1 Puff Puff, 2 PUFF IH Q4H PRN for SHORTNESS OF BREATH, (Reported) Discontinued Reason: No Longer Taking Entered as Reported by: IRMA MOORE on 05/01/21 1604 Last Action: Discontinued Hydrocodone Bit/Acetaminophen (HYDROcodone/APAP 5 MG/325 MG TAB) 1 Tab Tab, 1-2 EA PO Q4H PRN for PAIN-MODERATE (5-7) Discontinued Reason: No Longer Taking Prescribed by: KARLI GIRARD on 08/06/21 1047 Last Action: Discontinued Ondansetron (Ondansetron Odt) 4 Mg Tab.rapdis, 4 MG PO Q6H PRN for NAUSEA/VOMITING-1ST LINE Discontinued Reason: No Longer Taking Prescribed by: KYLE ROMERO on 08/08/21 0724 Last Action: Discontinued Ondansetron HCl (Ondansetron HCl) 8 Mg Tablet, 8 MG PO Q8H PRN for NAUSEA/VOMITING-1ST LINE, (Reported) Discontinued Reason: No Longer Taking Entered as Reported by: IRMA MOORE on 05/01/21 1604 Last Action: Discontinued Pantoprazole Sodium (Pantoprazole Sodium) 40 Mg Tablet.dr, 40 MG PO DAILY, (Reported) Discontinued Reason: No Longer Taking Entered as Reported by: IRMA MOORE on 05/01/21 1604 Last Action: Discontinued Potassium Gluconate (Potassium Gluconate) 99 Mg Tablet.er, 99 MG PO DAILY, (Reported) Discontinued Reason: No Longer Taking Entered as Reported by: IRMA MOORE on 08/02/21 1140 Last Action: Discontinued Past Cksgwvn-Fzhtgm-Gpzjyj Hx Patient Social History Smoking Status: Current Everyday Smoker Alcohol Use?: Yes Have you traveled recently?: No Surgeries History of Surgeries: Yes Surgeries: Tubal Ligation Cardiovascular Cardiac Disorders: Hypertension Gastrointestinal Gastrointestinal Disorders: Liver Disease/Jaundice (fatty liver) Review of Systems-General Constitutional: chills, diaphoresis, fever (subjective), malaise EENTM: throat pain (from vomiting); No blurred vision, No double vision Respiratory: No cough; dyspnea on exertion; No hemoptysis Cardiovascular: No chest pain, No palpitations Gastrointestinal: abdominal pain (diffuse, worse in epigastrium and RUQ), nausea, vomiting Genitourinary: No dysuria, No frequency, No hematuria, No pain Musculoskeletal: No back pain, No joint pain, No muscle pain, No muscle cramps Skin: No pruritus, No rash Psychiatric/Neurological: Headache, Tremors Physical Exam-General Problems Physical Exam Vital Signs Vital Signs - First Documented 12/12/22 06:12 Temp 37.3 Pulse 153 Resp 18 B/P (MAP) 128/104 (112) Pulse Ox 99 O2 Delivery Room Air Capillary Refill : Less Than 3 Seconds General Appearance: mild distress, thin, other (chronically ill) HEENT: PERRL/EOMI, pharynx normal Neck: non-tender, supple Respiratory: lungs clear, normal breath sounds, no respiratory distress, no accessory muscle use Cardiovascular: regular rate, rhythm, no murmur Gastrointestinal: normal bowel sounds, soft, guarding (voluntary guarding upon palpation to RUQ and epigastrium), tenderness (diffuse, constant) Back: no CVA tenderness, no vertebral tenderness Extremities: non-tender, no calf tenderness, normal capillary refill Neurologic/Psychiatric: alert, oriented x 3 Skin: normal color, warm/dry Lymphatic: no adenopathy Data Review Labs Laboratory Tests 12/12/22 06:25: Urine Color YELLOW, Urine Clarity TURBID, Urine pH 7.0, Urine Specific [place] 1.020, Urine Protein 2+H, Urine Glucose (UA) NEGATIVE, Urine Ketones 1+H, Urine Nitrite POSITIVEH, Urine Bilirubin NEGATIVE, Urine Urobilinogen 1.0, Urine Leukocyte Esterase 1+H, Urine RBC (Auto) 1+H, Urine RBC 2-5H, Urine WBC 10-25H, Urine Squamous Epithelial Cells 5-10, Urine Crystals NONE, Urine Bacteria LARGEH , Urine Casts NONE, Urine Mucus SMALLH, Urine Culture Indicated YES 12/12/22 06:30: White Blood Count 8.7, Red Blood Count 4.35, Hemoglobin 13.5, Hematocrit 38, Mean Corpuscular Volume 88, Mean Corpuscular Hemoglobin 31, Mean Corpuscular Hemoglobin Concent 35, Red Cell Distribution Width 20.8H, Platelet Count 149, Mean Platelet Volume 10.6, Immature Granulocyte % (Auto) 1, Neutrophils (%) (Auto) 62, Lymphocytes (%) (Auto) 26, Monocytes (%) (Auto) 11, Eosinophils (%) (Auto) 0, Basophils (%) (Auto) 1, Neutrophils # (Auto) 5.4, Lymphocytes # (Auto) 2.2, Monocytes # (Auto) 1.0, Eosinophils # (Auto) 0.0, Basophils # (Auto) 0.0, Immature Granulocyte # (Auto) 0.0, Sodium Level 140, Potassium Level 2.7L, Chloride Level 93L, Carbon Dioxide Level 21, Anion Gap 26H, Blood Urea Nitrogen 7, Creatinine 0.77, Estimat Glomerular Filtration Rate 97, BUN/Creatinine Ratio 9, Glucose Level 136H, Calcium Level 8.2L, Corrected Calcium 8.4L, Magnesium Level 1.4L, Total Bilirubin 0.6, Aspartate Amino Transf (AST/SGOT) 130H, Alanine Aminotransferase (ALT/SGPT) 47, Alkaline Phosphatase 141H, Total Protein 8.3H, Albumin 3.8, Lipase 162H, Serum Test, Qualitative NEGATIVE 12/12/22 07:20: Lactic Acid Level 5.02*H 12/12/22 09:35: Lactic Acid Level 3.65*H Assessment/Plan Assessment/Plan Assessment/Plan Abdominal Pain Nausea Vomiting coffee-ground emesis Elevated AST, ALP, Lipase Alcohol withdrawal Zofran and reglan for nausea Octreotide and protonix for GI bleed prophylaxis Pain control Monitor LFTs and lipase with routine labs Keep patient NPO, will likely do EGD and colonoscopy this admission to rule out upper and lower GI bleed Hgb currently 13.5, will monitor with AM labs Electrolyte abnormalities, alcohol withdrawal, UTI being managed by MARIE Arnold DO 12/12/22 2100: History of Present Illness History of Present Illness History of Present Illness Consult requested by Dr. Girard for coffee ground emesis. Patient is a 42 year old female who started vomiting yesterday. Multiple episodes of coffee-ground appearing emesis. Not seen any bright red blood. Having epigastric/ruq abdominal pain. No radiation. Moderate type pain that rates at 8/10. She admits to drinking a pint of Yue a day. She did quid for a short period of time. SHe was being seen previously at where she had an EGD and colonoscopy when she had previous episode 2-3 years ago. Patient family member at bedside. She had Ct scan showing 1. Marked hepatic steatosis with hepatomegaly. No focal lesion is seen. 2. Moderate size hiatal hernia. There are multiple phleboliths. U/s demonstrates: 1. Hepatic steatosis. 2. Mild dilatation of the common bile duct measuring up to 0.8 cm. Allergies and Home Medications Allergies Coded Allergies: No Known Drug Allergies (Unverified , 04/28/21) Patient Home Medication List Home Medication List Reviewed: Yes Amlodipine Besylate (Amlodipine Besylate) 10 Mg Tablet, 10 MG PO DAILY, (Reported) Entered as Reported by: CHEO OCHOA on 12/12/22 0621 Last Action: Reviewed Mirtazapine (Mirtazapine) 15 Mg Tablet, 15 MG PO HS, (Reported) Entered as Reported by: IRMA MOORE on 12/12/22 1555 Last Action: Reviewed Discontinued Medications Albuterol Sulfate (Ventolin Hfa) 1 Puff Puff, 2 PUFF IH Q4H PRN for SHORTNESS OF BREATH, (Reported) Discontinued Reason: No Longer Taking Entered as Reported by: IRMA MOORE on 05/01/21 1604 Last Action: Discontinued Hydrocodone Bit/Acetaminophen (HYDROcodone/APAP 5 MG/325 MG TAB) 1 Tab Tab, 1-2 EA PO Q4H PRN for PAIN-MODERATE (5-7) Discontinued Reason: No Longer Taking Prescribed by: KARLI GIRARD on 08/06/21 1047 Last Action: Discontinued Ondansetron (Ondansetron Odt) 4 Mg Tab.rapdis, 4 MG PO Q6H PRN for N AUSEA/VOMITING-1ST LINE Discontinued Reason: No Longer Taking Prescribed by: KYLE ROMERO on 08/08/21 0724 Last Action: Discontinued Ondansetron HCl (Ondansetron HCl) 8 Mg Tablet, 8 MG PO Q8H PRN for NAUSEA/VOM ITING-1ST LINE, (Reported) Discontinued Reason: No Longer Taking Entered as Reported by: IRMA MOORE on 05/01/21 160 Last Action: Discontinued Pantoprazole Sodium (Pantoprazole Sodium) 40 Mg Tablet.dr, 40 MG PO DAILY, (Reported) Discontinued Reason: No Longer Taking Entered as Reported by: IRMA MOORE on 05/01/21 1604 Last Action: Discontinued Potassium Gluconate (Potassium Gluconate) 99 Mg Tablet.er, 99 MG PO DAILY, (Reported) Discontinued Reason: No Longer Taking Entered as Reported by: IRMA MOORE on 08/02/21 1140 Last Action: Discontinued Past Zmnvrkj-Kjusez-Wdhkzb Hx Surgeries History of Surgeries: Yes (tubal ligation) Respiratory History of Respiratory Disorde: No Cardiovascular History of Cardiac Disorders: Yes Cardiac Disorders: Hypertension Neurological History of Neurological Disord: No Genitourinary History of Genitourinary Disor: No Gastrointestinal Gastrointestinal Disorders: Liver Disease/Jaundice (fatty liver) Musculoskeletal History of Musculoskeletal Dis: No Endocrine History of Endocrine Disorders: No HEENT History of HEENT Disorders: No Cancer History of Cancer: No Psychosocial History of Psychiatric Problem: No Integumentary History of Skin or Integumenta: No Reviewed Nursing Assessment Reviewed/Agree w Nursing PMH: Yes Family Medical History Significant Family History: No Pertinent Family Hx Review of Systems-General Constitutional: chills, diaphoresis, fever (subjective), malaise EENTM: throat pain (from vomiting); No blurred vision, No double vision Respiratory: No cough; dyspnea on exertion; No hemoptysis Gastrointestinal: abdominal pain (RUQ), nausea, vomiting Genitourinary: No dysuria, No frequency, No hematuria, No pain Musculoskeletal: No back pain, No joint pain, No muscle pain, No muscle cramps Skin: No pruritus, No rash Psychiatric/Neurological: Headache, Tremors All Other Systems Reviewed Negative Unless Noted: Yes (Negative excepted noted.) Physical Exam-General Problems Physical Exam General Appearance: mild distress, thin, other (chronically ill) HEENT: PERRL/EOMI, normal ENT inspection Neck: non-tender, supple Respiratory: chest non-tender, no respiratory distress, no accessory muscle use Cardiovascular: no JVD, tachycardia Gastrointestinal: soft, guarding (voluntary guarding upon palpation to RUQ and epigastrium), tenderness (epigastric ruq) Rectal: deferred Back: no CVA tenderness, no vertebral tenderness Extremities: non-tender, no calf tenderness Neurologic/Psychiatric: alert, oriented x 3 Skin: normal color, warm/dry Lymphatic: no adenopathy Assessment/Plan Assessment/Plan Assessment/Plan Abdominal Pain-ruq/epigastric Nausea/Vomiting coffee-ground emesis (upper gi bleed) Elevated AST, ALP, Lipase, Alcohol withdrawal Hepatic steatosis Hiatal hernia Zofran and reglan for nausea protonix for GI bleed prophylaxis Pain control Monitor LFTs and lipase, Lactic with routine labs Clear liquids as tolerates. EGD if hgb doesn't stabilize Hgb currently 13.5, will monitor with evening and AM labs Electrolyte abnormalities, alcohol withdrawal, UTI being managed by medicine Supervisory-Addendum Brief Verification & Attestation Participated in pt care: history, MDM, physical Personally performed: exam, history, MDM, supervision of care Care discussed with: Medical Student Procedures: n/a Results interpretation: Verified all documentation Verification and Attestation of Medical Student E/M Service A medical student performed and documented this service in my presence. I reviewed and verified all information documented by the medical student and made modifications to such information, when appropriate. I personally performed the physical exam and medical decision making. Marie Worrell Dec 12, 2022,21:07 WERNER SANDOVAL Dec 12, 2022 11:01 MARIE WORRELL DO Dec 12, 2022 21:00
[2022-12-12] MEDS ORDERED: NS IV 500 ML 500 ML IV PRN (11:15)
[2022-12-12] MEDS ORDERED: DexMEDEtomidine 250 ML DRIP 250 ML IV SCH (11:15)
[2022-12-12] MEDS: cefTRIAXone PRE-MIX 50 ML IV SCH (11:31)
[2022-12-12] MEDS ORDERED: PANTOPRAZOLE 40 MG (PROTONIX) VIAL IV NR (12:15)
[2022-12-12] MEDS: LORazepam INJ 2 MG/ML (ATIVAN) VIAL IV PRN ×3 (12:30→17:35)
[2022-12-12] MEDS: ENOXAPARIN 40 MG/0.4 ML (LOVENOX) SYR SC SCH (13:08)
[2022-12-12] MEDS ORDERED: MIRT-68 PO (15:55)
--- NOTE | 2022-12-12 17:20 | Tele-ICU Consult ---
History of Present Illness History of Present Illness Date Seen by Provider: Dec 12, 2022 Time Seen by Provider: 13:21 Reason for Visit: Nausea, Vomiting History of Present Illness (Tele-ICU Physician , consultation as per request of PCP Service provided via interactive audio and video telecommunVidtel E-CARE system to a patient admitted to ICU bed in [facility]. Available chart/ vitals / labs / Images reviewed H&P is from ER notes Patient's information available about PMH, Shx, Fhx allergy reviewed inEMR. ROS as per chart and RN report Now in ICU, hemodynamically stable Video assessment done using teleICU camera, rest of exam as per RN Discussed with RN. Hospital course: A/P ETOH withdrawal - CIWA , prn precedex - vitamins monitor for sx , monitor lytes Possible UGIB ( coffee-ground emesis) with Hb 13 - PPI IV - sx consulted Syspected UTI - cx pending , abx started Abdominal Pain N/V - elev lipase - ? pancreatiits vs cholesystitis - as per sx assessment Elevated LFTs - eton related most likley Alcohol withdrawal - longstanding history of alcohol use disorder, drinking 1 pint [place] daily -CIWA , thiamine/folate Elevated lactate - etiology [place] , ? ETON related sz? -Type-B ? ( liver disease, thiamine deficiency ? ) - witth abd pain one might be conserned for ischemic bowels - as per sx assessment Lines : , (Central Line Necessity Reviewed) Hill: OG: Nutrition: Analgesia: Anxiety/ delirium VTE Prophylaxis: rosy 40 Stress Ulcer Prophylaxis: ppi Glycemic Control: Plans in collaboration with bedside consultants and IM MDs. Discussed with RN to reach out if any questions or concerns A total of 25 minutes of critical care time was devoted to this patient today, required to treat and/or prevent further deterioration of critical care condition ( as above ) . I am remotely monitoring this patient from another state. I am unable to do the bedside exam, and history/physical and pertinent information is taken from other notes in the computer and bedside staff. . Allergies and Home Medications Allergies Coded Allergies: No Known Drug Allergies (Unverified , 04/28/21) Home Medications Amlodipine Besylate 10 Mg Tablet, 10 MG PO DAILY, (Reported) LAST FILLED 06-30-2022 #90/90 DAY SUPPLY Mirtazapine 15 Mg Tablet, 15 MG PO HS, (Reported) LAST FILLED 09-29-2022 #30/30 DAY SUPPLY Past Medical/Social/Family Hx Patient Social History Tobacco Use?: Yes Tobacco type used: Cigarettes Smoking Status: Current Everyday Smoker Use of E-Cig and/or Vaping dev: No Substance use?: No Alcohol Use?: Yes Alcohol type: Hard Liquor Alcohol Frequency: Daily Pt stated abuse/neglect: No Immunizations Up To Date Influenza Vaccine Up-to-Date: No; Not Current First/Initial COVID19 Vaccinat: x1 Second COVID19 Vaccination Ramakrishna: MARCH 2021 Tetanus Booster (TDap): Less Than 5 Years Hepatitis A: Yes Hepatitis B: Yes TB Skin Test: None Current Status status: No status: No Advance Directives: No Communicates: Verbally Primary Language: Kyrgyz Preferred Spoken Language: Kyrgyz Is interpretation needed?: No Sensory deficits: Vision impairment Implanted or Applied Medical D: None Past Medical History PMHx: HTN GERD Alcohol Use Disorder Tobaccoism SurgHx: Denies Review of Systems Constitutional: see HPI Focused Exam Lactate Level 12/12/22 09:35: Lactic Acid Level 3.65*H 12/12/22 11:40: Lactic Acid Level 4.12*H 12/12/22 13:50: Lactic Acid Level 2.39*H Height, Weight, BMI Height: '" Weight: lbs. oz. kg; 22.30 BMI Method: Lactic Acid Level Laboratory Tests Test 12/12/22 13:50 Lactic Acid Level 2.39 MMOL/L (0.50-2.00) *H Exam Exam Patient acknowledged, consented, and participated in this virtual visit which was conducted using real time audio/video Vital Signs Date Time Temp Pulse Resp B/P (MAP) Pulse Ox O2 Delivery O2 Flow Rate FiO2 12/12/22 15:00 128 24 122/87 (96) 100 Room Air 12/12/22 14:00 124 21 128/84 (100) 100 Room Air 12/12/22 13:58 121 12/12/22 13:00 116 38 128/86 (100) 100 Room Air 12/12/22 12:45 116 25 118/91 (103) 99 Room Air 12/12/22 09:54 Room Air 12/12/22 08:30 36.8 128 14 118/86 (97) 95 Room Air 12/12/22 06:32 37.3 12/12/22 06:12 37.3 153 18 128/104 (112) 99 Room Air Height & Weight Height: '" Weight: lbs. oz. kg; 22.30 BMI Method: General Appearance: No Apparent Distress, WD/WN, Other HEENT: Normal ENT Inspection, Pharynx Normal Neck: Normal Inspection, Non Tender, Supple Respiratory: Chest Non Tender, Lungs Clear, Normal Breath Sounds, No Accessory Muscle Use, No Respiratory Distress Cardiovascular: Tachycardia Capillary Refill: Less Than 3 Seconds Gastrointestinal: normal bowel sounds, soft, guarding (voluntary guarding upon palpation to RUQ and epigastrium), tenderness (diffuse, constant) Extremity: Normal Capillary Refill, Normal Inspection, Normal Range of Motion, Non Tender, No Calf Tenderness Skin: Normal Color, Warm/Dry Lymphatic: No Adenopathy Results Lab Laboratory Tests 12/12/22 06:30 Assessment/Plan Assessment/Plan (Tele-ICU Physician , consultation as per request of PCP Service provided via interactive audio and video telecommunications E-CARE system to a patient admitted to ICU bed in [facility]. Available chart/ vitals / labs / Images reviewed H&P is from ER notes Patient's information available about PMH, Shx, Fhx allergy reviewed inEMR. ROS as per chart and RN report Now in ICU, hemodynamically stable Video assessment done using teleICU camera, rest of exam as per RN Discussed with RN. Hospital course: A/P ETOH withdrawal - CIWA , prn precedex - vitamins monitor for sx , monitor lytes Possible UGIB ( coffee-ground emesis) with Hb 13 - PPI IV - sx consulted Syspected UTI - cx pending , abx started Abdominal Pain N/V - elev lipase - ? pancreatiits vs cholesystitis - as per sx assessment Elevated LFTs - eton related most likley Alcohol withdrawal - longstanding history of alcohol use disorder, drinking 1 pint [place] daily -CIWA , thiamine/folate Elevated lactate - etiology [place] , ? ETON related sz? -Type-B ? ( liver disease, thiamine deficiency ? ) - witth abd pain one might be conserned for ischemic bowels - as per sx assessment Lines : , (Central Line Necessity Reviewed) Hill: OG: Nutrition: Analgesia: Anxiety/ delirium VTE Prophylaxis: rosy 40 Stress Ulcer Prophylaxis: ppi Glycemic Control: Plans in collaboration with bedside consultants and IM MDs. Discussed with RN to reach out if any questions or concerns A total of 25 minutes of critical care time was devoted to this patient today, required to treat and/or prevent further deterioration of critical care condition ( as above ) . I am remotely monitoring this patient from another state. I am unable to do the bedside exam, and history/physical and pertinent information is taken from other notes in the computer and bedside staff. . NAIDA MCDONOUGH MD Dec 12, 2022 17:20
[2022-12-12 19:37] LABS: HEMOGLOBIN 10.3 g/dL (11.5-16.0)
[2022-12-12 19:39] LABS: WHITE BLOOD COUNT 8.7 10^3/uL (4.3-11.0)
[2022-12-12] MEDS: SENNOSIDES 8.6 MG (SENOKOT) TAB PO SCH (21:00)
[2022-12-12] MEDS: DOCUSATE SODIUM 100 MG (COLACE) CAP PO SCH (21:00)
[2022-12-12] MEDS: LORazepam 1 MG (ATIVAN) TAB PO PRN (22:18)
[2022-12-13] MEDS: NS IV 1000 ML 1,000 ML IV SCH ×2 (01:39→09:22)
[2022-12-13] MEDS: LORazepam 1 MG (ATIVAN) TAB PO PRN ×3 (01:46→20:28)
[2022-12-13] MEDS: ACETAMINOPHEN 325 MG TABLET PO PRN (04:07)
[2022-12-13 04:48] LABS: BASOPHILS % (AUTO) 0 % (0-10); EOSINOPHILS % (AUTO) 0 % (0-10); NEUTROPHILS % (AUTO) 52 % (42-75); PLATELET COUNT 93 10^3/uL (130-400)
[2022-12-13 04:50] LABS: HEMATOCRIT 28 % (35-52); HEMOGLOBIN 9.8 g/dL (11.5-16.0); LYMPHOCYTES # (AUTO) 2.4 10^3/uL (1.0-4.0); LYMPHOCYTES % (AUTO) 36 % (12-44); MEAN CORPUSCULAR HEMOGLOBIN 31 pg (25-34); MEAN CORPUSCULAR HGB CONC 35 g/dL (32-36); MEAN CORPUSCULAR VOLUME 90 fL (80-99); MEAN PLATELET VOLUME 11.5 fL (9.0-12.2); MONOCYTES # (AUTO) 0.7 10^3/uL (0.0-1.0); MONOCYTES % (AUTO) 11 % (0-12); NEUTROPHILS # (AUTO) 3.4 10^3/uL (1.8-7.8); WHITE BLOOD COUNT 6.5 10^3/uL (4.3-11.0)
[2022-12-13 05:07] LABS: ALBUMIN 2.7 GM/DL (3.2-4.5); CALCIUM 6.9 MG/DL (8.5-10.1); CREATININE SERUM 0.64 MG/DL (0.60-1.30); MAGNESIUM 1.5 MG/DL (1.6-2.4); POTASSIUM 2.6 MMOL/L (3.6-5.0)
[2022-12-13 05:11] LABS: PHOSPHORUS 0.9 MG/DL (2.3-4.7)
[2022-12-13] MEDS ORDERED: KCL 20 MEQ TAB (K-DUR) PO SCH (06:00)
[2022-12-13] MEDS ORDERED: POTASSIUM CL 10MEQ/50ML IVPB 50 ML IV SCH (06:00)
[2022-12-13] MEDS ORDERED: MAGNESIUM 1 GM/100 ML IVPB 100 ML IV SCH (06:00)
[2022-12-13] MEDS: POTASSIUM CL 10MEQ/50ML IVPB 50 ML IV SCH ×5 (06:26→12:12)
[2022-12-13] MEDS ORDERED: POTASSIUM PHOSPHATE INJ 30 MM in NS (IVPB) 250 ML IV ONE (07:00)
--- NOTE | 2022-12-13 07:22 | Progress Note - Hospitalist ---
Subjective HPI/CC On Admission Date Seen by Provider: Dec 13, 2022 Time Seen by Provider: 11:00 CC: Alcohol withdrawal HPI: This is a 42yoWWF w/h/o alcoholism who presented to the ER with alcohol withdrawal and dx with UTI. When I assessed her she was in major tremors so I moved her urgently to ICU. Ativan ordered per protocol and may need Precedex. Partner concerned about her level of "fatty liver" which I believe is alcoholic liver disease so will need to stabilize before evaluating that component. Subjective/Events-last exam Much improved status Moving to 4th floor Monitoring closely Review of Systems General: Fatigue, Malaise Focused Exam Lactate Level 12/12/22 09:35: Lactic Acid Level 3.65*H 12/12/22 11:40: Lactic Acid Level 4.12*H 12/12/22 13:50: Lactic Acid Level 2.39*H Objective Exam Vital Signs Vital Signs Date Time Temp Pulse Resp B/P (MAP) Pulse Ox O2 Delivery O2 Flow Rate FiO2 12/13/22 20:01 111 12/13/22 11:56 36.7 12/13/22 11:00 115/91 (100) Room Air 12/13/22 09:00 100 12/13/22 08:00 24 Capillary Refill : Less Than 3 Seconds General Appearance: No Apparent Distress, WD/WN, Chronically ill Respiratory: Lungs Clear, Normal Breath Sounds Cardiovascular: Regular Rate, Rhythm Neurologic/Psychiatric: Alert, Oriented x3 Results/Procedures Lab Laboratory Tests 12/13/22 04:07 Patient resulted labs reviewed. Assessment/Plan Assessment and Plan Assess & Plan/Chief Complaint Assessment: Alcohol withdrawal Alcoholic liver disease Plan: Move to 4th floor KARLI GIRARD DO Dec 13, 2022 07:22
--- NOTE | 2022-12-13 07:32 | Diagnostic Imaging Report ---
PATIENT HISTORY: Dyspnea. TECHNIQUE: Frontal view of the chest. COMPARISON: 08/01/2021 FINDINGS: The lung volumes are normal. No focal consolidation is seen. No large pleural effusion or pneumothorax is seen. The cardiomediastinal silhouette is normal in size and contour. No acute osseous abnormality is seen. IMPRESSION: No acute pulmonary abnormality seen. Dictated by: Dictated on workstation # [id number]
--- NOTE | 2022-12-13 07:36 | Progress Note - Surgery ---
WERNER SANDOVAL 12/13/22 0736: Subjective Date Seen by a Provider: Dec 13, 2022 Time Seen by a Provider: 07:00 Subjective/Events-last exam Patient claims she feels about the same as yesterday. Abdominal pain remains at an 7-8/10 at rest and with palpation. She has not had an episode of emesis since yesterday on the floor. She has not had a BM, she is not ambulating. Tolerating clears well. Her main complaint now is that she cannot seem to get warm and has constant chills. Review of Systems General: Chills, Night Sweats, Fatigue, Malaise HEENT: Head Aches, Sore Throat Pulmonary: No Dyspnea, No Cough Cardiovascular: Lt Headedness; No: Chest Pain, Palpitations Gastrointestinal: Nausea (improved), Abdominal Pain (epigastric, RUQ); No: Vomiting Genitourinary: No Dysuria, No Frequency Focused Exam Lactate Level 12/12/22 09:35: Lactic Acid Level 3.65*H 12/12/22 11:40: Lactic Acid Level 4.12*H 12/12/22 13:50: Lactic Acid Level 2.39*H Objective Exam Vital Signs Date Time Temp Pulse Resp B/P (MAP) Pulse Ox O2 Delivery O2 Flow Rate FiO2 12/13/22 06:00 107 19 134/96 (109) 97 Room Air 12/13/22 05:29 36.2 12/13/22 05:00 114 25 129/93 (105) 98 Room Air 12/13/22 04:27 36.6 12/13/22 04:00 Room Air 12/13/22 04:00 111 28 133/97 (109) 97 Room Air 12/13/22 03:30 37.1 12/13/22 03:00 114 28 130/93 (105) 99 Room Air 12/13/22 02:00 114 25 134/96 (109) 99 Room Air 12/13/22 01:00 115 12/13/22 01:00 104 28 133/97 (109) 96 Room Air 12/13/22 00:00 Room Air 12/13/22 00:00 113 21 124/102 (109) 97 Room Air 12/12/22 23:38 37.1 12/12/22 23:00 108 29 124/95 (105) 97 Room Air 12/12/22 22:00 110 27 127/85 (99) 99 Room Air 12/12/22 21:00 112 27 119/83 (95) 98 Room Air 12/12/22 20:00 114 15 128/81 (97) 99 Room Air 12/12/22 20:00 Room Air 12/12/22 19:00 123 20 110/93 (99) 99 Room Air 12/12/22 19:00 123 12/12/22 18:00 128 18 115/87 (96) 96 Room Air 12/12/22 17:00 123 19 128/98 (109) 100 Room Air 12/12/22 16:00 123 18 131/88 (100) 96 Room Air 12/12/22 16:00 Room Air 12/12/22 15:00 128 24 122/87 (96) 100 Room Air 12/12/22 14:00 124 21 128/84 (100) 100 Room Air 12/12/22 13:58 121 12/12/22 13:00 116 38 128/86 (100) 100 Room Air 12/12/22 12:45 116 25 118/91 (103) 99 Room Air 12/12/22 09:54 Room Air 12/12/22 08:30 36.8 128 14 118/86 (97) 95 Room Air I & O 12/13/22 06:59 Intake Total 4875 ml Output Total 250 ml Balance 4625 ml Capillary Refill : Less Than 3 Seconds General Appearance: Anxious, Chronically ill, Moderate Distress HEENT: Pharynx Normal, Other (dry mucous membranes) Neck: Non Tender, Supple Respiratory: Lungs Clear, Normal Breath Sounds Cardiovascular: No Murmur, Tachycardia Gastrointestinal: soft, distended, guarding (voluntary guarding upon palpation to RUQ and epigastrium), tenderness (epigastric ruq) Extremity: Normal Capillary Refill, Non Tender, No Calf Tenderness, No Pedal Edema Neurologic/Psychiatric: Alert, Oriented x3 Skin: Normal Color, Warm/Dry Lymphatic: No Adenopathy Results Lab Laboratory Tests 12/12/22 09:35: Lactic Acid Level 3.65*H 12/12/22 11:40: Lactic Acid Level 4.12*H 12/12/22 13:50: Lactic Acid Level 2.39*H 12/12/22 19:22: White Blood Count 8.7, Red Blood Count 3.37L, Hemoglobin 10.3#L, Hematocrit 30L, Mean Corpuscular Volume 89, Mean Corpuscular Hemoglobin 31, Mean Corpuscular Hemoglobin Concent 34, Red Cell Distribution Width 20.7H, Platelet Count 103L, Mean Platelet Volume 11.0, Percent Immature Platelet Fraction 7.6 12/13/22 04:07: White Blood Count 6.5, Red Blood Count 3.13L, Hemoglobin 9.8L, Hematocrit 28L, Mean Corpuscular Volume 90, Mean Corpuscular Hemoglobin 31, Mean Corpuscular Hemoglobin Concent 35, Red Cell Distribution Width 20.8H, Platelet Count 93L, Mean Platelet Volume 11.5, Immature Granulocyte % (Auto) 1, Neutrophils (%) (Auto) 52, Lymphocytes (%) (Auto) 36, Monocytes (%) (Auto) 11, Eosinophils (%) (Auto) 0, Basophils (%) (Auto) 0, Neutrophils # (Auto) 3.4, Lymphocytes # (Auto) 2.4, Monocytes # (Auto) 0.7, Eosinophils # (Auto) 0.0, Basophils # (Auto) 0.0, Immature Granulocyte # (Auto) 0.0, Percent Immature Platelet Fraction 8.6H, Sodium Level 135, Potassium Level 2.6L, Chloride Level 99, Carbon Dioxide Level 24, Anion Gap 12, Blood Urea Nitrogen 5L, Creatinine 0.64, Estimat Glomerular Filtration Rate 112, BUN/Creatinine Ratio 8, Glucose Level 90, Calcium Level 6.9L, Corrected Calcium 7.9L, Phosphorus Level 0.9*L, Magnesium Level 1.5L, Total Bilirubin 1.0, Aspartate Amino Transf (AST/SGOT) 95H, Alanine Aminotransferase (ALT/SGPT) 32, Alkaline Phosphatase 107, Total Protein 6.0L, Albumin 2.7L Assessment/Plan Assessment/Plan Assessment/Plan Abdominal Pain-ruq/epigastric Nausea/Vomiting coffee-ground emesis (upper gi bleed) Elevated AST, ALP, Lipase, Alcohol withdrawal Hepatic steatosis Hiatal hernia Zofran and reglan for nausea protonix for GI bleed prophylaxis Pain control Monitor LFTs and lipase, Lactic with routine labs- LFTs and lactate improved Clear liquids as tolerates. EGD if hgb doesn't stabilize Hgb currently 9.8 from 13.5 on admission, will monitor with evening and AM labs Electrolyte abnormalities, alcohol withdrawal, UTI being managed by medicine MARIE PICKARD DO 12/13/22 1335: Subjective Subjective/Events-last exam Feels the same as yesterday. Not had any further coffee ground emesis. Still with epigastric pain about the same as yesterday. Hgb slightly down from last night. Tolerating clears. Lactic decreasing. Having chills. Denies fever sweats, shortness of breath or chest pain. Objective Exam General Appearance: Anxious, Chronically ill HEENT: PERRL/EOMI, Other (dry mucous membranes) Neck: Non Tender, Supple Respiratory: Chest Non Tender, No Accessory Muscle Use, No Respiratory Distress Cardiovascular: No JVD, Tachycardia Gastrointestinal: soft, guarding (voluntary guarding upon palpation to RUQ and epigastrium), tenderness (epigastric ruq) Extremity: Normal Capillary Refill, Non Tender, No Calf Tenderness Neurologic/Psychiatric: Alert, Oriented x3 Skin: Normal Color, Warm/Dry Assessment/Plan Assessment/Plan Assessment/Plan Abdominal Pain-ruq/epigastric Nausea/Vomiting coffee-ground emesis (upper gi bleed) Elevated AST, ALP, Lipase, Alcohol withdrawal Hepatic steatosis Hiatal hernia Zofran and reglan for nausea protonix for GI bleed Pain control Monitor LFTs and lipase, Lactic with routine labs- LFTs and lactate improved Clear liquids as tolerates. EGD if hgb doesn't stabilize Hgb currently 9.8 from 13.5 on admission continue to follow Electrolyte abnormalities, alcohol withdrawal, UTI being managed by medicine Supervisory-Addendum Brief Verification & Attestation Participated in pt care: history, MDM, physical Personally performed: exam, history, MDM, supervision of care Care discussed with: Medical Student Procedures: n/a Results interpretation: Verified all documentation Verification and Attestation of Medical Student E/M Service A medical student performed and documented this service in my presence. I reviewed and verified all information documented by the medical student and made modifications to such information, when appropriate. I personally performed the physical exam and medical decision making. Marie Pickard, Dec 13, 2022,13:35 WERNER SANDOVAL Dec 13, 2022 07:36 MARIE PICKARD DO Dec 13, 2022 13:35
[2022-12-13] MEDS: THIAMINE INJECTION 100 MG, FOLIC ACID INJECTION 1 MG, MAGNESIUM SULFATE 2 GM, VITAMIN M... IV SCH ×5 (09:03)
[2022-12-13] MEDS: SENNOSIDES 8.6 MG (SENOKOT) TAB PO SCH ×2 (09:05→20:19)
[2022-12-13] MEDS: PANTOPRAZOLE 40 MG (PROTONIX) VIAL IV SCH (09:05)
[2022-12-13] MEDS: DOCUSATE SODIUM 100 MG (COLACE) CAP PO SCH ×2 (09:05→20:19)
--- NOTE | 2022-12-13 09:48 | Tele-ICU Progress Note ---
Progress Note 42 y/o female admitted with ETOH withdrawl On predex, CIWA and thiamine PE: sleeping comfortably, not aggitated Pulse: - 100s BP: 122/103 IMP: ETOH withdrawl Hemodynamically normal except mild tavhy PLAN: continue thiamine and CIWA and precedex ! am remotely monitoring this patient from another state. I am unable to do the bedside exam, and history/physical and pertinent information is taken from other notes in the computer and bedside staff. Time spent in eval: 15 min Focused Exam Lactate Level 12/12/22 09:35: Lactic Acid Level 3.65*H 12/12/22 11:40: Lactic Acid Level 4.12*H 12/12/22 13:50: Lactic Acid Level 2.39*H Height, Weight, BMI Height: '" Weight: lbs. oz. kg; 23.71 BMI Method: Labs Laboratory Tests 12/12/22 19:22 12/13/22 04:07 Results Results/Procedures Labs Laboratory Tests 12/12/22 06:30 12/12/22 19:22 12/13/22 04:07 Patient resulted labs reviewed. Results Labs Labs Laboratory Tests 12/12/22 11:40: Lactic Acid Level 4.12*H 12/12/22 13:50: Lactic Acid Level 2.39*H 12/12/22 19:22: White Blood Count 8.7, Red Blood Count 3.37L, Hemoglobin 10.3#L, Hematocrit 30L, Mean Corpuscular Volume 89, Mean Corpuscular Hemoglobin 31, Mean Corpuscular H emoglobin Concent 34, Red Cell Distribution Width 20.7H, Platelet Count 103L, Mean Platelet Volume 11.0, Percent Immature Platelet Fraction 7.6 12/13/22 04:07: White Blood Count 6.5, Red Blood Count 3.13L, Hemoglobin 9.8L, Hematocrit 28L, Mean Corpuscular Volume 90, Mean Corpuscular Hemoglobin 31, Mean Corpuscular Hemoglobin Concent 35, Red Cell Distribution Width 20.8H, Platelet Count 93L, Mean Platelet Volume 11.5, Percent Immature Platelet Fraction 8.6H, Immature Granulocyte % (Auto) 1, Neutrophils (%) (Auto) 52, Lymphocytes (%) (Auto) 36, Monocytes (%) (Auto) 11, Eosinophils (%) (Auto) 0, Basophils (%) (Auto) 0, Neutrophils # (Auto) 3.4, Lymphocytes # (Auto) 2.4, Monocytes # (Auto) 0.7, Eosinophils # (Auto) 0.0, Basophils # (Auto) 0.0, Immature Granulocyte # (Auto) 0.0, Sodium Level 135, Potassium Level 2.6L, Chloride Level 99, Carbon Dioxide Level 24, Anion Gap 12, Blood Urea Nitrogen 5L, Creatinine 0.64, Estimat Glomerular Filtration Rate 112, BUN/Creatinine Ratio 8, Glucose Level 90, Calcium Level 6.9L, Corrected Calcium 7.9L, Phosphorus Level 0.9*L, Magnesium Level 1.5L, Total Bilirubin 1.0, Aspartate Amino Transf (AST/SGOT) 95H, Alanine Aminotransferase (ALT/SGPT) 32, Alkaline Phosphatase 107, Total Protein 6.0L, Albumin 2.7L Microbiology 12/12/22 Urine Culture - Preliminary, Resulted Gram Negative Bacillus 1 Mixed Bacterial Inna SEBAS ANAYA MD Dec 13, 2022 09:48
--- NOTE | 2022-12-13 09:56 | Tele-ICU Progress Note ---
Progress Note 42 y/o female admited for pyschosis RN reports to me that she is refusing her BP and most meds and to put a gown on. Occ yells out, but otherwise sedated and restful PE:lying bed sleeping, no gown on Pulse 60 NSR BP n/a IMP: non commbative pyschosis currently stable refusing meds and treatment PLAN: continue supportive care I am remotely monitoring this patient from another state. I am unable to do the bedside exam, and history/physical and pertinent information is taken from other notes in the computer and bedside staff. . Time spent in eval 15 min Focused Exam Lactate Level 12/12/22 09:35: Lactic Acid Level 3.65*H 12/12/22 11:40: Lactic Acid Level 4.12*H 12/12/22 13:50: Lactic Acid Level 2.39*H Height, Weight, BMI Height: '" Weight: lbs. oz. kg; 23.71 BMI Method: Labs Laboratory Tests 12/12/22 19:22 12/13/22 04:07 Results Results/Procedures Lab Laboratory Tests 12/12/22 06:30 12/12/22 19:22 12/13/22 04:07 Results Labs Labs Laboratory Tests 12/12/22 11:40: Lactic Acid Level 4.12*H 12/12/22 13:50: Lactic Acid Level 2.39*H 12/12/22 19:22: White Blood Count 8.7, Red Blood Count 3.37L, Hemoglobin 10.3#L, Hematocrit 30L, Mean Corpuscular Volume 89, Mean Corpuscular Hemoglobin 31, Mean Corpuscular Hemoglobin Concent 34, Red Cell Distribution Width 20.7H, Platelet Count 103L, Mean Platelet Volume 11.0, Percent Immature Platelet Fraction 7.6 12/13/22 04:07: White Blood Count 6.5, Red Blood Count 3.13L, Hemoglobin 9.8L, Hematocrit 28L, Mean Corpuscular Volume 90, Mean Corpuscular Hemoglobin 31, Mean Corpuscular Hemoglobin Concent 35, Red Cell Distribution Width 20.8H, Platelet Count 93L, Mean Platelet Volume 11.5, Percent Immature Platelet Fraction 8.6H, Immature Granulocyte % (Auto) 1, Neutrophils (%) (Auto) 52, Lymphocytes (%) (Auto) 36, Monocytes (%) (Auto) 11, Eosinophils (%) (Auto) 0, Basophils (%) (Auto) 0, Neutrophils # (Auto) 3.4, Lymphocytes # (Auto) 2.4, Monocytes # (Auto) 0.7, Eosinophils # (Auto) 0.0, Basophils # (Auto) 0.0, Immature Granulocyte # (Auto) 0.0, Sodium Level 135, Potassium Level 2.6L, Chloride Level 99, Carbon Dioxide Level 24, Anion Gap 12, Blood Urea Nitrogen 5L, Creatinine 0.64, Estimat Glom erular Filtration Rate 112, BUN/Creatinine Ratio 8, Glucose Level 90, Calcium Level 6.9L, Corrected Calcium 7.9L, Phosphorus Level 0.9*L, Magnesium Level 1.5L , Total Bilirubin 1.0, Aspartate Amino Transf (AST/SGOT) 95H, Alanine Aminotransferase (ALT/SGPT) 32, Alkaline Phosphatase 107, Total Protein 6.0L, Albumin 2.7L Microbiology 12/12/22 Urine Culture - Preliminary, Resulted Gram Negative Bacillus 1 Mixed Bacterial Inna SEBAS ANAYA MD Dec 13, 2022 09:56
[2022-12-13] MEDS: cefTRIAXone PRE-MIX 50 ML IV SCH (12:12)
[2022-12-13] MEDS: ENOXAPARIN 40 MG/0.4 ML (LOVENOX) SYR SC SCH (12:34)
[2022-12-13] MEDS: MIRTAZAPINE 15 MG (REMERON) TAB PO SCH (20:21)
[2022-12-13] MEDS: MELATONIN 3 MG TABLET PO PRN (20:28)
[2022-12-14 00:13] VITALS: BP 128/88
[2022-12-14 04:00] VITALS: BP 134/87
[2022-12-14 05:58] LABS: EOSINOPHILS # (AUTO) 0.1 10^3/uL (0.0-0.3); EOSINOPHILS % (AUTO) 1 % (0-10); HEMOGLOBIN 9.8 g/dL (11.5-16.0)
[2022-12-14 06:00] LABS: ALBUMIN 2.8 GM/DL (3.2-4.5); BASOPHILS % (AUTO) 0 % (0-10); CHLORIDE 106 MMOL/L (98-107); HEMATOCRIT 29 % (35-52); LYMPHOCYTES # (AUTO) 2.6 10^3/uL (1.0-4.0); LYMPHOCYTES % (AUTO) 46 % (12-44); MEAN CORPUSCULAR HEMOGLOBIN 31 pg (25-34); MEAN CORPUSCULAR HGB CONC 34 g/dL (32-36); MEAN CORPUSCULAR VOLUME 92 fL (80-99); MONOCYTES # (AUTO) 0.4 10^3/uL (0.0-1.0); MONOCYTES % (AUTO) 7 % (0-12); NEUTROPHILS # (AUTO) 2.6 10^3/uL (1.8-7.8); NEUTROPHILS % (AUTO) 46 % (42-75); PLATELET COUNT 103 10^3/uL (130-400); POTASSIUM 3.2 MMOL/L (3.6-5.0); SODIUM 141 MMOL/L (135-145); WHITE BLOOD COUNT 5.6 10^3/uL (4.3-11.0)
[2022-12-14 06:02] LABS: CALCIUM 7.2 MG/DL (8.5-10.1)
[2022-12-14 06:03] LABS: GLUCOSE 75 MG/DL (70-105); TOTAL PROTEIN 6.1 GM/DL (6.4-8.2)
--- NOTE | 2022-12-14 06:03 | Progress Note - Hospitalist ---
Subjective HPI/CC On Admission Date Seen by Provider: Dec 14, 2022 Time Seen by Provider: 09:00 CC: Alcohol withdrawal HPI: This is a 42yoWWF w/h/o alcoholism who presented to the ER with alcohol withdrawal and dx with UTI. When I assessed her she was in major tremors so I moved her urgently to ICU. Ativan ordered per protocol and may need Precedex. Partner concerned about her level of "fatty liver" which I believe is alcoholic liver disease so will need to stabilize before evaluating that component. Subjective/Events-last exam Improved overall Weak Ambulate in halls today Partner at bedside Labs reviewed Review of Systems General: Fatigue, Malaise Focused Exam Lactate Level 12/12/22 09:35: Lactic Acid Level 3.65*H 12/12/22 11:40: Lactic Acid Level 4.12*H 12/12/22 13:50: Lactic Acid Level 2.39*H Objective Exam Vital Signs Vital Signs Date Time Temp Pulse Resp B/P (MAP) Pulse Ox O2 Delivery O2 Flow Rate FiO2 12/14/22 13:00 102 12/14/22 11:28 36.5 20 120/87 (98) 96 Room Air Capillary Refill : Less Than 3 Seconds General Appearance: No Apparent Distress, WD/WN, Chronically ill Respiratory: Lungs Clear, Normal Breath Sounds Cardiovascular: Regular Rate, Rhythm Neurologic/Psychiatric: Alert, Oriented x3, No Motor/Sensory Deficits, Normal Mood/Affect Results/Procedures Lab Laboratory Tests 12/14/22 05:45 Patient resulted labs reviewed. Assessment/Plan Assessment and Plan Assess & Plan/Chief Complaint ]Assessment: Alcohol withdrawal Alcoholic liver disease Elevated LA due to liver disease UTI Plan: Move to 4th floor Ambulate KARLI GIRARD DO Dec 14, 2022 06:03
[2022-12-14 06:04] LABS: CARBON DIOXIDE 25 MMOL/L (21-32)
[2022-12-14 06:06] LABS: ALKALINE PHOSPHATASE 106 U/L (40-136); CREATININE SERUM 0.63 MG/DL (0.60-1.30); GFR ESTIMATED 112
[2022-12-14 06:07] LABS: BUN/CREATININE RATIO 3
[2022-12-14 06:09] LABS: ALANINE AMINOTRANSFERASE 42 U/L (0-55); MAGNESIUM 1.6 MG/DL (1.6-2.4)
--- NOTE | 2022-12-14 07:47 | Progress Note - Surgery ---
ZOHREHALEXEISARAH Heart 12/14/22 0747: Subjective Date Seen by a Provider: Dec 14, 2022 Time Seen by a Provider: 07:10 Subjective/Events-last exam Pt is sleeping comfortably in bed. Pt reports no pain today. Has been tolerating diet without issue. Pt denies BM but has been voiding but notes that she has had trouble making it to the bedside commode in time due to her feeling unsteady on her feet and wet the bed last night. Pt also states that she has not been ambulating due to unsteadiness and states that she feels shaky on her feet. Pt notes some increased anxiety overnight, nurse states that pt was given 1mg Ativan which seemed to help. Pt has no other complaints at this time. Pt denies nausea, vomiting, CP, SOB, change in cough, abd pain, chills, and sweats. Review of Systems General: No Chills, No Night Sweats HEENT: No Head Aches, No Eye Pain Pulmonary: No Dyspnea; Cough (chronic;unchanged) Cardiovascular: No: Chest Pain, Palpitations Gastrointestinal: No: Nausea, Vomiting, Abdominal Pain Genitourinary: No Dysuria, No Hematuria Musculoskeletal: No: neck pain, shoulder pain Neurological: No: Weakness, Numbness Focused Exam Lactate Level 12/12/22 09:35: Lactic Acid Level 3.65*H 12/12/22 11:40: Lactic Acid Level 4.12*H 12/12/22 13:50: Lactic Acid Level 2.39*H Objective Exam Vital Signs Date Time Temp Pulse Resp B/P (MAP) Pulse Ox O2 Delivery O2 Flow Rate FiO2 12/14/22 04:00 36.2 69 18 134/87 (103) 97 Room Air 12/14/22 01:22 110 12/14/22 00:13 36.2 68 18 128/88 (101) 97 Room Air 12/13/22 20:01 111 12/13/22 20:00 Room Air 12/13/22 13:00 117 12/13/22 11:56 36.7 12/13/22 11:00 103 115/91 (100) Room Air 12/13/22 10:00 101 139/109 (120) Room Air 12/13/22 09:00 123 122/103 (110) 100 Room Air 12/13/22 08:00 107 24 127/106 (113) 100 Room Air 12/13/22 08:00 Room Air 12/13/22 08:00 36.9 I & O 12/14/22 07:00 Intake Total 1140 ml Output Total 300 ml Balance 840 ml Capillary Refill : Less Than 3 Seconds General Appearance: No Apparent Distress, WD/WN, Chronically ill HEENT: PERRL/EOMI, Moist Mucous Membranes, Other (dry mucous membranes) Neck: Non Tender, Supple Respiratory: Lungs Clear, Normal Breath Sounds, No Accessory Muscle Use, No Respiratory Distress Cardiovascular: Regular Rate, Rhythm, No Gallop, No Murmur Peripheral Pulses: 2+ Dorsalis Pedis (R), 2+ Left Dors-Pedis (L) Gastrointestinal: soft, tenderness (epigastric ruq) Extremity: Non Tender, No Calf Tenderness Neurologic/Psychiatric: Alert, Oriented x3 Skin: Normal Color, Warm/Dry Lymphatic: No Adenopathy Results Lab Laboratory Tests 12/14/22 05:45: White Blood Count 5.6, Red Blood Count 3.17L, Hemoglobin 9.8L, Hematocrit 29L, Mean Corpuscular Volume 92, Mean Corpuscular Hemoglobin 31, Mean Corpuscular Hemoglobin Concent 34, Red Cell Distribution Width 20.9H, Platelet Count 103L, Mean Platelet Volume 12.0, Immature Granulocyte % (Auto) 1, Neutrophils (%) (A uto) 46, Lymphocytes (%) (Auto) 46H, Monocytes (%) (Auto) 7, Eosinophils (%) (Auto) 1, Basophils (%) (Auto) 0, Neutrophils # (Auto) 2.6, Lymphocytes # (Auto) 2.6, Monocytes # (Auto) 0.4, Eosinophils # (Auto) 0.1, Basophils # (Auto) 0.0, Immature Granulocyte # (Auto) 0.0, Percent Immature Platelet Fraction 11.0H, Sodium Level 141, Potassium Level 3.2L, Chloride Level 106, Carbon Dioxide Level 25, Anion Gap 10, Blood Urea Nitrogen < 2L, Creatinine 0.63, Estimat Glomerular Filtration Rate 112, BUN/Creatinine Ratio 3, Glucose Level 75, Calcium Level 7.2L, Corrected Calcium 8.2L, Magnesium Level 1.6, Total Bilirubin 1.0, Asparta te Amino Transf (AST/SGOT) 168H, Alanine Aminotransferase (ALT/SGPT) 42, Alkaline Phosphatase 106, Total Protein 6.1L, Albumin 2.8L Microbiology 12/12/22 Blood Culture - Preliminary, Resulted No growth 12/12/22 Urine Culture - Preliminary, Resulted Escherichia coli Mixed Bacterial Inna Assessment/Plan Assessment/Plan Assessment/Plan Abdominal Pain-ruq/epigastric Nausea/Vomiting coffee-ground emesis (upper gi bleed)-resolved Elevated AST, ALP, Lipase - improved Alcohol withdrawal Hepatic steatosis Hiatal hernia Zofran for nausea prn protonix for GI bleed Pain control Anxiolytics prn ALP increased from yesterday at 168 from 95. Continue to monitor LFTs Hgb continues to be stable at 9.8, no indication for inpatient EGD at this time. Continue to monitor Hgb, transfuse <7 Progress to regular diet Electrolyte abnormalities, alcohol withdrawal, UTI being managed by medicine PT/OT MARIE PICKARD DO 12/14/223: Subjective Subjective/Events-last exam Patient resting better. Tolerating clears, wanting more food. Hgb stable. Hoping to go home soon. Still with epigastric pain but improving. Denies n/v fever sweats chills shortness of breath or chest pain at this time. Objective Exam General Appearance: WD/WN, Chronically ill HEENT: PERRL/EOMI, Moist Mucous Membranes Neck: Non Tender, Supple Respiratory: Chest Non Tender, No Accessory Muscle Use, No Respiratory Distress Cardiovascular: Regular Rate, Rhythm, No JVD Gastrointestinal: soft, tenderness (epigastric ruq- slightly improved from yesterday) Extremity: Non Tender, No Calf Tenderness Neurologic/Psychiatric: Alert, Oriented x3 Skin: Normal Color, Warm/Dry Lymphatic: No Adenopathy Assessment/Plan Assessment/Plan Assessment/Plan Abdominal Pain-ruq/epigastric Nausea/Vomiting coffee-ground emesis (upper gi bleed) Elevated AST, ALP, Lipase Alcohol withdrawal Hepatic steatosis Hiatal hernia Zofran for nausea prn protonix for GI bleed Pain control Anxiolytics prn Hgb continues to be stable at 9.8, no indication for inpatient EGD at this time. Continue to monitor Hgb, transfuse <7 Progress to regular diet Electrolyte abnormalities, alcohol withdrawal, UTI being managed by medicine PT/OT Supervisory-Addendum Brief Verification & Attestation Participated in pt care: history, MDM, physical Personally performed: exam, history, MDM, supervision of care Care discussed with: Medical Student Procedures: n/a Results interpretation: Verified all documentation Verification and Attestation of Medical Student E/M Service A medical student performed and documented this service in my presence. I reviewed and verified all information documented by the medical student and made modifications to such information, when appropriate. I personally performed the physical exam and medical decision making. Marie Pickard, Dec 14, 2022,22:33 SARAH DOYLE Dec 14, 2022 07:47 MARIE PICKARD DO Dec 14, 2022 22:33
[2022-12-14 08:16] VITALS: BP 131/84
[2022-12-14] MEDS: PANTOPRAZOLE 40 MG (PROTONIX) VIAL IV SCH (08:53)
[2022-12-14] MEDS: amLODIPine 10 MG (NORVASC) TAB PO SCH (08:53)
[2022-12-14] MEDS: cefTRIAXone PRE-MIX 50 ML IV SCH (08:53)
[2022-12-14] MEDS: DOCUSATE SODIUM 100 MG (COLACE) CAP PO SCH ×2 (08:54→20:36)
[2022-12-14] MEDS: THIAMINE INJECTION 100 MG, FOLIC ACID INJECTION 1 MG, MAGNESIUM SULFATE 2 GM, VITAMIN M... IV SCH ×5 (09:31)
[2022-12-14] MEDS: SENNOSIDES 8.6 MG (SENOKOT) TAB PO SCH ×2 (09:34→20:36)
[2022-12-14] MEDS: ENOXAPARIN 40 MG/0.4 ML (LOVENOX) SYR SC SCH (11:19)
[2022-12-14 11:28] VITALS: BP 120/87
[2022-12-14] MEDS: LORazepam 1 MG (ATIVAN) TAB PO PRN ×2 (14:52→18:56)
[2022-12-14] MEDS: ACETAMINOPHEN 325 MG TABLET PO PRN (14:53)
[2022-12-14 16:50] VITALS: BP 147/95
[2022-12-14] MEDS ORDERED: OXYMETAZOLINE (AFRIN) 0.05% NA 30 ML BTL ONE (17:29)
[2022-12-14] MEDS ORDERED: SALINE NASAL SPRAY (OCEAN) 45 ML BTL PRN (19:00)
--- NOTE | 2022-12-14 19:01 | Progress Note ---
Standard Progress Note Progress Notes/Assess & Plan Date Seen by a Provider: Dec 14, 2022 Time Seen by a Provider: 19:00 Progress/Assessment & Plan ENT-Rai Called to see patietn with ongoing nosebleed stqarted earlier this af ternoon and has been persistent most recently treated with afrin and nose clamp initially started onthe left side anteriorly but then became bilateral and both anterior and posterior in for alc detox and GI bleed HGB has gone from 13 to 9.8-no Gi bleeding today-Platelet count at around 100 no prior history of nosebleeds Exam Nose-old blood suctioned form the left side of nose-long term back on the left side in the midseptal region there was a bleeding site seen Nose anesthestized with afrin and 4% xylocaine on a cotton pledget two sticks of siver nitrate was used to cauterize thye area. A small piece of surgicel soaked in afrin was then p-laced. Patient observed with no further bleeding seen IMP: Left Epistaxis Rec: 1. Nose cauterized as above. ocean nasal spray to bedside used multipel times /day to keep moist 2. RT to place cool mist face t esnt either room air or 1 liter/minute- whichever is possible 3. No nose blowing sneeze with mouth open 4. Please call if she has further significant bleeding 5. Yuridia want ot consider a PT/PTT given her significant alcohol and probably liver issues Final Diagnosis Left Epistaxis Focused Exam Lactate Level 12/12/22 09:35: Lactic Acid Level 3.65*H 12/12/22 11:40: Lactic Acid Level 4.12*H 12/12/22 13:50: Lactic Acid Level 2.39*H BLADIMIR BARLOW MD Dec 14, 2022 19:01
[2022-12-14 20:05] VITALS: BP 131/96
[2022-12-14] MEDS: MIRTAZAPINE 15 MG (REMERON) TAB PO SCH (20:30)
[2022-12-14] MEDS: OXYMETAZOLINE (AFRIN) 0.05% NA 30 ML BTL SCH (21:14)
[2022-12-15] VITALS (7 sets, daily range): BP systolic 124–148; BP diastolic 62–99
[2022-12-15 05:48] LABS: BASOPHILS % (AUTO) 0 % (0-10); MEAN CORPUSCULAR HEMOGLOBIN 31 pg (25-34)
[2022-12-15 05:50] LABS: EOSINOPHILS # (AUTO) 0.1 10^3/uL (0.0-0.3); EOSINOPHILS % (AUTO) 1 % (0-10); HEMATOCRIT 27 % (35-52); HEMOGLOBIN 9.2 g/dL (11.5-16.0); LYMPHOCYTES % (AUTO) 45 % (12-44); MEAN CORPUSCULAR HGB CONC 34 g/dL (32-36); MEAN CORPUSCULAR VOLUME 92 fL (80-99); MEAN PLATELET VOLUME 11.7 fL (9.0-12.2); MONOCYTES # (AUTO) 0.4 10^3/uL (0.0-1.0); MONOCYTES % (AUTO) 6 % (0-12); NEUTROPHILS # (AUTO) 3.1 10^3/uL (1.8-7.8); NEUTROPHILS % (AUTO) 48 % (42-75); PLATELET COUNT 125 10^3/uL (130-400); WHITE BLOOD COUNT 6.6 10^3/uL (4.3-11.0)
[2022-12-15 06:07] LABS: ALBUMIN 2.8 GM/DL (3.2-4.5)
[2022-12-15 06:08] LABS: POTASSIUM 2.9 MMOL/L (3.6-5.0)
[2022-12-15 06:09] LABS: CALCIUM 7.8 MG/DL (8.5-10.1)
[2022-12-15 06:10] LABS: TOTAL PROTEIN 6.2 GM/DL (6.4-8.2)
[2022-12-15 06:12] LABS: BILIRUBIN,TOTAL 0.7 MG/DL (0.1-1.0)
[2022-12-15 06:14] LABS: CREATININE SERUM 0.61 MG/DL (0.60-1.30)
[2022-12-15 06:16] LABS: MAGNESIUM 1.4 MG/DL (1.6-2.4)
[2022-12-15 06:34] LABS: SMEAR SCAN COMMENT YES
--- NOTE | 2022-12-15 07:15 | Progress Note - Surgery ---
WERNER SANDOVAL 12/15/22 0715: Subjective Date Seen by a Provider: Dec 15, 2022 Time Seen by a Provider: 07:05 Subjective/Events-last exam Patient says she is feeling better today. Her nausea has improved, her abdominal pain has improved and she rates it 5-6/10 in the epigastrium and RUQ. She had a BM yesterday afternoon and she is passing gas, she is voiding by herself with no issues. She has not vomited in two days. She had a nose bleed yesterday that lasted for over an hour, this has never happened to her before. She is ambulating independently to use the restroom. She tolerated her normal diet well. Review of Systems General: No Chills, No Night Sweats HEENT: Head Aches; No Visual Changes Pulmonary: No Dyspnea, No Cough Cardiovascular: Lt Headedness (on standing); No: Chest Pain, Palpitations Gastrointestinal: Nausea, Abdominal Pain; No: Vomiting, Diarrhea, Melena, Hematochezia Genitourinary: No Dysuria, No Incontinence, No Hematuria Musculoskeletal: back pain, leg pain (her left leg was in pain yesterday when she flexed her hip) Neurological: No: Change in speech, Confusion Focused Exam Lactate Level 12/12/22 09:35: Lactic Acid Level 3.65*H 12/12/22 11:40: Lactic Acid Level 4.12*H 12/12/22 13:50: Lactic Acid Level 2.39*H Objective Exam Vital Signs Date Time Temp Pulse Resp B/P (MAP) Pulse Ox O2 Delivery O2 Flow Rate FiO2 12/15/22 04:15 36.5 106 20 134/96 (109) 97 Room Air 12/15/22 00:40 36.9 105 18 148/99 (115) 96 Room Air 12/15/22 00:36 97 12/14/22 21:00 Room Air 12/14/22 20:05 36.9 115 18 131/96 (108) 96 OxyMask 7.00 12/14/22 19:00 124 12/14/22 16:50 37.3 104 18 147/95 (112) 92 Room Air 12/14/22 13:00 102 12/14/22 11:28 36.5 101 20 120/87 (98) 96 Room Air 12/14/22 08:16 36.7 97 20 131/84 (100) 96 Room Air 12/14/22 08:00 Room Air I & O 12/15/22 07:00 Intake Total 2232 ml Balance 2232 ml Capillary Refill : Less Than 3 Seconds General Appearance: WD/WN, Chronically ill HEENT: PERRL/EOMI, Moist Mucous Membranes Neck: Non Tender, Supple Respiratory: Lungs Clear, Normal Breath Sounds, No Accessory Muscle Use, No Respiratory Distress Cardiovascular: No Murmur, Normal Peripheral Pulses, Tachycardia Peripheral Pulses: 2+ Dorsalis Pedis (R), 2+ Left Dors-Pedis (L) Gastrointestinal: soft, tenderness (epigastric ruq- slightly improved from yesterday) Extremity: Non Tender, No Calf Tenderness, No Pedal Edema, Other (no discrepency in calf size) Neurologic/Psychiatric: Alert, Oriented x3 Skin: Normal Color, Warm/Dry Lymphatic: No Adenopathy Results Lab Laboratory Tests 12/15/22 05:38: White Blood Count 6.6, Red Blood Count 2.97L, Hemoglobin 9.2L, Hematocrit 27L, Mean Corpuscular Volume 92, Mean Corpuscular Hemoglobin 31, Mean Corpuscular Hemoglobin Concent 34, Red Cell Distribution Width 21.2H, Platelet Count 125L, Mean Platelet Volume 11.7, Immature Granulocyte % (Auto) 1, Neutrophils (%) (Auto) 48, Lymphocytes (%) (Auto) 45H, Monocytes (%) (Auto) 6, Eosinophils (%) (Auto) 1, Basophils (%) (Auto) 0, Neutrophils # (Auto) 3.1, Lymphocytes # (Auto) 3.0, Monocytes # (Auto) 0.4, Eosinophils # (Auto) 0.1, Basophils # (Auto) 0.0, Immature Granulocyte # (Auto) 0.0, Percent Immature Platelet Fraction 10.2H, Sodium Level 139, Potassium Level 2.9L, Chloride Level 103, Carbon Dioxide Level 26, Anion Gap 10, Blood Urea Nitrogen 4L, Creatinine 0.61, Estimat Glomerular Filtration Rate 113, BUN/Creatinine Ratio 7, Glucose Level 91, Calcium Level 7.8L, Corrected Calcium 8.8, Magnesium Level 1.4L, Total Bilirubin 0.7, Aspartate Amino Transf (AST/SGOT) 155H, Alanine Aminotransferase (ALT/SGPT) 47, Alkaline Phosphatase 102, Total Protein 6.2L, Albumin 2.8L, Smear Scan YES Microbiology 12/12/22 Blood Culture - Preliminary, Resulted No growth 12/12/22 Urine Culture - Final, Complete Escherichia coli Mixed Bacterial Inna Assessment/Plan Assessment/Plan Assessment/Plan Abdominal Pain-ruq/epigastric Nausea/Vomiting coffee-ground emesis (upper gi bleed) Elevated AST, ALP, Lipase Alcohol withdrawal Hepatic steatosis Hiatal hernia Zofran for nausea prn protonix for GI bleed Pain control Anxiolytics prn Hgb continues to be stable at 9.2, no indication for inpatient EGD at this time. Continue to monitor Hgb, transfuse <7 Continue regular diet Electrolyte abnormalities, alcohol withdrawal, UTI being managed by medicine PT/OT MARIE PICKARD DO 12/15/22 0904: Subjective Subjective/Events-last exam Patient with nose bleed last night. Abdominal pain improving still no 5/10 in the epigastric region. No nausea or emesis. Hgb minimal drop. Denies fever sweats chills shortness of breath or chest pain. Objective Exam General Appearance: No Apparent Distress, WD/WN, Chronically ill HEENT: PERRL/EOMI, Normal ENT Inspection Neck: Non Tender, Supple Respiratory: Chest Non Tender, No Accessory Muscle Use, No Respiratory Distress Cardiovascular: No JVD, Tachycardia Gastrointestinal: soft, tenderness (epigastric ruq-) Extremity: Non Tender, No Calf Tenderness Neurologic/Psychiatric: Alert, Oriented x3 Skin: Normal Color, Warm/Dry Lymphatic: No Adenopathy Assessment/Plan Assessment/Plan Assessment/Plan Abdominal Pain-ruq/epigastric Nausea/Vomiting coffee-ground emesis (upper gi bleed) Elevated AST, ALP, Lipase Alcohol withdrawal Hepatic steatosis Hiatal hernia Nose bleed Zofran for nausea prn protonix for GI bleed Pain control Anxiolytics prn Hgb continues to be stable at 9.2, no indication for inpatient EGD at this time. Continue to monitor Hgb, transfuse <7 Continue regular diet Electrolyte abnormalities, alcohol withdrawal, UTI being managed by medicine PT/OT Nose cauterized by Dr. Atwood. Supervisory-Addendum Brief Verification & Attestation Participated in pt care: history, MDM, physical Personally performed: exam, history, MDM, supervision of care Care discussed with: Medical Student Procedures: n/a Results interpretation: Verified all documentation Verification and Attestation of Medical Student E/M Service A medical student performed and documented this service in my presence. I reviewed and verified all information documented by the medical student and made modifications to such information, when appropriate. I personally performed the physical exam and medical decision making. Marie Pickard, Dec 15, 2022,09:04 WERNER SANDOVAL Dec 15, 2022 07:15 MARIE PICKARD DO Dec 15, 2022 09:04
[2022-12-15] MEDS: PANTOPRAZOLE 40 MG (PROTONIX) VIAL IV SCH (08:24)
[2022-12-15] MEDS: amLODIPine 10 MG (NORVASC) TAB PO SCH (08:25)
[2022-12-15] MEDS: SENNOSIDES 8.6 MG (SENOKOT) TAB PO SCH ×2 (08:26→20:33)
[2022-12-15] MEDS: DOCUSATE SODIUM 100 MG (COLACE) CAP PO SCH ×2 (08:26→20:33)
[2022-12-15] MEDS: OXYMETAZOLINE (AFRIN) 0.05% NA 30 ML BTL SCH ×2 (08:26→20:33)
[2022-12-15] MEDS: cefTRIAXone PRE-MIX 50 ML IV SCH (08:26)
--- NOTE | 2022-12-15 15:34 | Progress Note ---
Subjective Subjective/Events-last exam Patient states that she is feeling better. unsteady on her feet and would desire at walker to use when in the hospital. ON had a nose bleed that required cauterization. Tolerating PO diet and ambulation Review of Systems General: Fatigue Pulmonary: No Dyspnea, No Cough Cardiovascular: No: Chest Pain, Palpitations, Edema Gastrointestinal: No: Nausea, Vomiting, Abdominal Pain, Diarrhea, Constipation Neurological: Weakness Objective Exam Last Set of Vital Signs Vital Signs Date Time Temp Pulse Resp B/P (MAP) Pulse Ox O2 Delivery O2 Flow Rate FiO2 12/15/22 15:23 37.0 104 18 132/94 (107) 96 Room Air 12/14/22 20:05 7.00 Capillary Refill : Less Than 3 Seconds I&O Intake and Output 12/15/22 00:00 Intake Total 2032 ml Balance 2032 ml Intake Oral 2032 ml # Voids 11 # Bowel Movements 1 General: Alert, Oriented X3, No Acute Distress Lungs: Clear to Auscultation, Normal Air Movement Heart: Regular Rate, No Murmurs Abdomen: Soft, No Tenderness Neuro: Normal Speech Psych/Mental Status: Mental Status NL, Mood NL Results/Procedures Lab Laboratory Tests 12/15/22 05:38: White Blood Count 6.6, Red Blood Count 2.97L, Hemoglobin 9.2L, Hematocrit 27L, Mean Corpuscular Volume 92, Mean Corpuscular Hemoglobin 31, Mean Corpuscular Hem oglobin Concent 34, Red Cell Distribution Width 21.2H, Platelet Count 125L, Mean Platelet Volume 11.7, Immature Granulocyte % (Auto) 1, Neutrophils (%) (Auto) 48, Lymphocytes (%) (Auto) 45H, Monocytes (%) (Auto) 6, Eosinophils (%) (Auto) 1, Basophils (%) (Auto) 0, Neutrophils # (Auto) 3.1, Lymphocytes # (Auto) 3.0, Monocytes # (Auto) 0.4, Eosinophils # (Auto) 0.1, Basophils # (Auto) 0.0, Immature Granulocyte # (Auto) 0.0, Percent Immature Platelet Fraction 10.2H, Sodium Level 139, Potassium Level 2.9L, Chloride Level 103, Carbon Dioxide Level 26, Anion Gap 10, Blood Urea Nitrogen 4L, Creatinine 0.61, Estimat Glomerular Filtration Rate 113, BUN/Creatinine Ratio 7, Glucose Level 91, Calcium Level 7.8L, Corrected Calcium 8.8, Magnesium Level 1.4L, Total Bilirubin 0.7, Aspartate Amino Transf (AST/SGOT) 155H, Alanine Aminotransferase (ALT/SGPT) 47, Alkaline Phosphatase 102, Total Protein 6.2L, Albumin 2.8L, Smear Scan YES Microbiology 12/12/22 Blood Culture - Preliminary, Resulted No growth 12/12/22 Urine Culture - Final, Complete Escherichia coli Mixed Bacterial Inna Assessment/Plan Assessment/Plan (1) Alcohol abuse with withdrawal Status: Acute Assessment & Plan: 12/15: Much improved, stable on PO, CIWS scoring, discussed outpatient f.u and treatment plans (2) UTI (urinary tract infection) Status: Acute Assessment & Plan: 12/15: Should complete antibiotics tomorrow Qualifiers: Qualified Codes: N30.00 - Acute cystitis without hematuria (3) Alcoholic liver disease Status: Chronic (4) Normocytic anemia Status: Acute Assessment & Plan: 12/15: anemia of acute blood loss 2/2 to nose bleed (5) Hemorrhage from nose Status: Acute Assessment & Plan: 12/15: Dr Atwood consulted [place] for cauterization (6) Hypokalemia Status: Acute Assessment & Plan: 12/15: Replaced and repeat level in AM KURTIS ASHTON MD Dec 15, 2022 15:34
[2022-12-15] MEDS: KCL 20 MEQ TAB (K-DUR) PO SCH ×2 (15:47→17:00)
[2022-12-15] MEDS: MIRTAZAPINE 15 MG (REMERON) TAB PO SCH (20:32)
[2022-12-15] MEDS: MELATONIN 3 MG TABLET PO PRN (20:32)
[2022-12-16 04:07] VITALS: BP 124/84
[2022-12-16 05:43] LABS: BASOPHILS % (AUTO) 0 % (0-10); EOSINOPHILS # (AUTO) 0.1 10^3/uL (0.0-0.3); EOSINOPHILS % (AUTO) 1 % (0-10); HEMATOCRIT 26 % (35-52); HEMOGLOBIN 8.9 g/dL (11.5-16.0); LYMPHOCYTES # (AUTO) 2.7 10^3/uL (1.0-4.0); LYMPHOCYTES % (AUTO) 38 % (12-44); MEAN CORPUSCULAR HEMOGLOBIN 31 pg (25-34); MEAN CORPUSCULAR HGB CONC 34 g/dL (32-36); MEAN CORPUSCULAR VOLUME 92 fL (80-99); MEAN PLATELET VOLUME 11.4 fL (9.0-12.2); MONOCYTES # (AUTO) 0.6 10^3/uL (0.0-1.0); MONOCYTES % (AUTO) 8 % (0-12); NEUTROPHILS # (AUTO) 3.7 10^3/uL (1.8-7.8); NEUTROPHILS % (AUTO) 52 % (42-75); PLATELET COUNT 152 10^3/uL (130-400); WHITE BLOOD COUNT 7.2 10^3/uL (4.3-11.0)
[2022-12-16 05:58] LABS: ALBUMIN 2.9 GM/DL (3.2-4.5)
[2022-12-16 05:59] LABS: POTASSIUM 2.8 MMOL/L (3.6-5.0)
[2022-12-16 06:00] LABS: CALCIUM 8.4 MG/DL (8.5-10.1)
[2022-12-16 06:01] LABS: TOTAL PROTEIN 6.2 GM/DL (6.4-8.2)
[2022-12-16 06:03] LABS: BILIRUBIN,TOTAL 0.7 MG/DL (0.1-1.0)
[2022-12-16 06:05] LABS: CREATININE SERUM 0.6 MG/DL (0.60-1.30)
[2022-12-16 06:18] LABS: MAGNESIUM 1.1 MG/DL (1.6-2.4)
[2022-12-16] MEDS: MAGNESIUM 1 GM/100 ML IVPB 100 ML IV SCH ×2 (06:42→06:43)
[2022-12-16] MEDS: DOCUSATE SODIUM 100 MG (COLACE) CAP PO SCH (07:33)
[2022-12-16] MEDS: SENNOSIDES 8.6 MG (SENOKOT) TAB PO SCH (07:33)
--- NOTE | 2022-12-16 07:47 | Progress Note - Surgery ---
WERNER SANDOVAL 12/16/22 0747: Subjective Date Seen by a Provider: Dec 16, 2022 Time Seen by a Provider: 07:30 Subjective/Events-last exam Patient is feeling better today. Her abdominal pain is rated 2/10 and is much improved. She is ambulating to use the restroom, voiding normally and had a BM yesterday. She has no nausea, she has not vomited in several days. She is tolerating her diet well. Hgb took a small drop from 9.2 to 8.9 today. Review of Systems General: Fatigue, Malaise HEENT: Head Aches; No Visual Changes; Dysphasia, Sore Throat Pulmonary: No Dyspnea, No Cough Cardiovascular: Lt Headedness (upon standing); No: Chest Pain, Palpitations Gastrointestinal: Abdominal Pain; No: Nausea, Vomiting, Melena, Hematochezia Genitourinary: No Dysuria, No Frequency, No Incontinence, No Hematuria Musculoskeletal: back pain Neurological: No: Numbness, Change in speech Objective Exam Vital Signs Date Time Temp Pulse Resp B/P (MAP) Pulse Ox O2 Delivery O2 Flow Rate FiO2 12/16/22 04:07 37.0 95 18 124/84 (97) 96 Room Air 12/16/22 01:00 92 12/15/22 23:34 36.9 102 18 142/98 (113) 98 Room Air 12/15/22 20:35 Room Air 12/15/22 20:19 103 12/15/22 19:13 36.6 111 18 128/62 (84) 97 Room Air 12/15/22 19:00 131 12/15/22 15:23 37.0 104 18 132/94 (107) 96 Room Air 12/15/22 13:53 107 12/15/22 11:39 36.2 111 20 124/82 (96) 96 Room Air 12/15/22 08:04 36.7 111 20 143/97 (112) 98 Room Air 12/15/22 08:00 Room Air I & O 12/16/22 07:00 Intake Total 2100 ml Output Total 1 ml Balance 2099 ml Capillary Refill : Less Than 3 Seconds General Appearance: No Apparent Distress, Chronically ill HEENT: PERRL/EOMI, Moist Mucous Membranes Neck: Non Tender, Supple Respiratory: Lungs Clear, Normal Breath Sounds, No Accessory Muscle Use, No Respiratory Distress Cardiovascular: No Murmur, Normal Peripheral Pulses, Tachycardia Peripheral Pulses: 2+ Dorsalis Pedis (R), 2+ Left Dors-Pedis (L) Gastrointestinal: normal bowel sounds, soft, tenderness (epigastric ruq, much improved) Extremity: Non Tender, No Calf Tenderness, No Pedal Edema Neurologic/Psychiatric: Alert, Oriented x3 Skin: Normal Color, Warm/Dry Lymphatic: No Adenopathy Results Lab Laboratory Tests 12/16/22 05:30: White Blood Count 7.2, Red Blood Count 2.85L, Hemoglobin 8.9L, Hematocrit 26L, Mean Corpuscular Volume 92, Mean Corpuscular Hemoglobin 31, Mean Corpuscular Hemoglobin Concent 34, Red Cell Distribution Width 22.1H, Platelet Count 152, Mean Platelet Volume 11.4, Immature Granulocyte % (Auto) 1, Neutrophils (%) (Auto) 52, Lymphocytes (%) (Auto) 38, Monocytes (%) (Auto) 8, Eosinophils (%) (Auto) 1, Basophils (%) (Auto) 0, Neutrophils # (Auto) 3.7, Lymphocytes # (Auto) 2.7, Monocytes # (Auto) 0.6, Eosinophils # (Auto) 0.1, Basophils # (Auto) 0.0, Immature Granulocyte # (Auto) 0.1, Sodium Level 138, Potassium Level 2.8L, Chloride Level 102, Carbon Dioxide Level 25, Anion Gap 11, Blood Urea Nitrogen 3L, Creatinine 0.60, Estimat Glomerular Filtration Rate 113, BUN/Creatinine Ratio 5, Glucose Level 97, Calcium Level 8.4L, Corrected Calcium 9.3, Magnesium Level 1.1*L, Total Bilirubin 0.7, Aspartate Amino Transf (AST/SGOT) 129H, Alanine Aminotransferase (ALT/SGPT) 46, Alkaline Phosphatase 92, Total Protein 6.2L, Albumin 2.9L Microbiology 12/12/22 Blood Culture - Preliminary, Resulted No growth 12/12/22 Urine Culture - Final, Complete Escherichia coli Mixed Bacterial Inna Assessment/Plan Assessment/Plan Assessment/Plan Abdominal Pain-ruq/epigastric Nausea/Vomiting coffee-ground emesis (upper gi bleed) Elevated AST, ALP, Lipase Alcohol withdrawal Hepatic steatosis Hiatal hernia Nose bleed Zofran for nausea prn protonix for GI bleed Pain control Anxiolytics prn Hgb continues to be stable at 8.9, no indication for inpatient EGD at this time. Continue to monitor Hgb, transfuse <7 Continue regular diet Electrolyte abnormalities, alcohol withdrawal, UTI being managed by medicine PT/OT Nose cauterized by Dr. Atwood. MARIE WORRELL DO 12/18/22 1431: Supervisory-Addendum Brief Verification & Attestation Participated in pt care: other (Patient discharged prior to me seeing.) Personally performed: other (Patient discharged prior to me seeing.) Care discussed with: other (Patient discharged prior to me seeing.) Procedures: other (Patient discharged prior to me seeing.) Patient discharged prior to me seeing. WERNER SANDOVAL Dec 16, 2022 07:47 MARIE WORRELL DO Dec 18, 2022 14:31
[2022-12-16 08:04] VITALS: BP 121/94
[2022-12-16] MEDS: KCL 20 MEQ TAB (K-DUR) PO SCH (08:52)
[2022-12-16] MEDS: amLODIPine 10 MG (NORVASC) TAB PO SCH (08:52)
[2022-12-16] MEDS: PANTOPRAZOLE 40 MG (PROTONIX) VIAL IV SCH (08:52)
[2022-12-16] MEDS: OXYMETAZOLINE (AFRIN) 0.05% NA 30 ML BTL SCH (08:52)
[2022-12-16] MEDS: cefTRIAXone PRE-MIX 50 ML IV SCH (08:52)
[2022-12-16] MEDS ORDERED: KCL 20 MEQ TAB (K-DUR) PO NR (09:00)
--- NOTE | 2022-12-16 11:33 | Discharge Summary ---
Diagnosis/Chief Complaint Date of Admission Dec 12, 2022 at 14:45 Date of Discharge Discharge Diagnosis Problems/Diagnosis: (1) Alcohol abuse with withdrawal Assessment & Plan: 12/15: Much improved, stable on PO, CIWS scoring, discussed outpatient f.u and treatment plans Status: Acute (2) UTI (urinary tract infection) Assessment & Plan: 12/15: Should complete antibiotics tomorrow Qualifiers: Qualified Codes: N30.00 - Acute cystitis without hematuria Status: Acute (3) Alcoholic liver disease Status: Chronic (4) Normocytic anemia Assessment & Plan: 12/15: anemia of acute blood loss 2/2 to nose bleed Status: Acute (5) Hemorrhage from nose Assessment & Plan: 12/15: Dr Atwood consulted [place] for cauterization Status: Acute (6) Hypokalemia Assessment & Plan: 12/15: Replaced and repeat level in AM Status: Acute Discharge Summary-Simple/Stand Consultations Discharge Physical Examination Allergies: Coded Allergies: No Known Drug Allergies (Unverified , 04/28/21) Vitals & I&Os Vital Sign - Last 12Hours Date Time Temp Pulse Resp B/P (MAP) Pulse Ox O2 Delivery O2 Flow Rate FiO2 12/16/22 08:04 36.7 108 18 121/94 (103) 97 Room Air 12/14/22 20:05 7.00 Intake and Output 12/15/22 23:59 Intake Total 1800 ml Output Total 1 ml Balance 1799 ml Hospital Course See final discharge diagnosis. Discharge Instructions to patient/family Please see electronic discharge instructions given to patient. Discharge Medications Reviewed and agree with Discharge Medication list on patient's Discharge Instruction sheet KURTIS ASHTON MD Dec 16, 2022 11:33
[2022-12-16] MEDS ORDERED: POTA-169 PO (11:38)
--- NOTE | 2022-12-16 11:39 | Discharge Summary ---
Discharge [facility] Reconcile Patient Problems Problems Reviewed?: Yes Discharge Medications New, Converted or Re-Newed RX: Transmitted to Pharmacy New Medications: Potassium Chloride (Klor-Con M20) 20 Meq Tab.er.prt 20 MEQ PO BID WITH MEALS, #14 Continued Medications: Amlodipine Besylate (Amlodipine Besylate) 10 Mg Tablet 10 MG PO DAILY, TAB LAST FILLED 06-30-2022 #90/ DAY SUPPLY Mirtazapine (Mirtazapine) 15 Mg Tablet 15 MG PO HS, TAB LAST FILLED 09-29-2022 #30/ DAY SUPPLY Patient Instructions Goal/Follow Up Appt: F.u Thursday with ATS Activity & Diet Discharge Diet: No Restrictions Activity as Tolerated: Yes Orders-Post D/C & Referrals - Will need outpatient Liver US if not already completed KURTIS ASHTON MD Dec 16, 2022 11:39
[2022-12-16 11:55] VITALS: BP 117/69
[2022-12-16 13:10] VITALS: BP 117/69
== END 2022-12-16 13:10 | disposition home or self-care (01) | DRG 897 ==
LOC: EDUNIT# 06:00 → ER 06:04 → 4TH 08:51 → ICU 12:02 → OBSVTOIN 14:45 → 4TH 12-13 13:13
PROVIDERS: ADMIT Internal Medicine; ATTEND Family Medicine
PROC: 093K7ZZ Control Bleeding in Nasal Mucosa and Soft Tissue, Via Natural or Artificial Opening (ICD-10-PCS; principal; 2022-12-14)
PROC: HZ2ZZZZ Detoxification Services for Substance Abuse Treatment (ICD-10-PCS; 2022-12-14)
DX: F10.239 Alcohol dependence with withdrawal, unspecified (principal); N39.0 Urinary tract infection, site not specified; K92.2 Gastrointestinal hemorrhage, unspecified; E87.6 Hypokalemia; K70.9 Alcoholic liver disease, unspecified; R04.0 Epistaxis; F17.210 Nicotine dependence, cigarettes, uncomplicated; I10 Essential (primary) hypertension; K21.9 Gastro-esophageal reflux disease without esophagitis; K76.0 Fatty (change of) liver, not elsewhere classified; K44.9 Diaphragmatic hernia without obstruction or gangrene; D64.9 Anemia, unspecified
CPT/HCPCS: 36415; 71045; 80053; 81000; 83605; 83690; 83735; 84100; 84703; 85025; 85027; 87040; 87077; 87088; 87186; 93005; G0378

== ENCOUNTER 2023-01-09 08:23 | Inpatient (IN) | payer MEDICAID, OTHER ==
[~2023-01-09] VITALS: Ht 170.2 cm; Wt 67.5 kg
[~2023-01-09 08:23] MED LIST changes: +MIRT-68 PO; +POTA-169 PO
[2023-01-09] MEDS ORDERED: ONDANSETRON 4 MG/2 ML (SDV) Z0FRAN IVP ONE (08:45)
[2023-01-09] MEDS ORDERED: fentaNYL INJ 100 MCG/2 ML AMP IVP ONE (08:45)
[2023-01-09] MEDS ORDERED: LACTATED RINGERS 1,000 ML IV ONE (08:45)
[2023-01-09] MEDS ORDERED: PANTOPRAZOLE 40 MG (PROTONIX) VIAL IV ONE (08:45)
[2023-01-09] MEDS ORDERED: LORazepam INJ 2 MG/ML (ATIVAN) VIAL IVP ONE ×2 (08:45→09:30)
--- NOTE | 2023-01-09 08:47 | ED Abdominal Pain ---
General Chief Complaint: Abdominal/GI Problems Stated Complaint: NAUSEA | VOMITING | COUGH Nursing Triage Note: ARRIVED VIA AMB TO ROOM 07 WITH COMPLAINTS OF N/V AND UPPER ABD PAIN STARTING YESTERDAY. PT STATES SHE DRINKS REGULARY AND HAS NOT DRANK FOR TWO DAYS. Source of Information: Patient, Old Records Exam Limitations: No Limitations History of Present Illness Date Seen by Provider: January 09, 2023 Time Seen by Provider: 08:30 Initial Comments This 42-year-old woman presents to the emergency room with complaints of nausea, vomiting, and upper abdominal pain since last night. She also has a cough. She drinks a pint of frederick daily but has not had any alcohol yet today. She has signs of withdrawal including tachycardia, hypertension, and tremors. She has tenderness across her upper abdomen. She denies fever, constipation, or diarrhea. She denies any drug use. She is begging for a drink of water, ice, or a popsicle. Her primary care is provided at [facility]. Patient reports having problems with anxiety and insomnia but she is not compliant with the medications prescribed for those conditions. She was admitted to the ICU about 1 month ago for alcohol withdrawal, UTI, and hypokalemia. Allergies and Home Medications Allergies Coded Allergies: No Known Drug Allergies (Unverified , 04/28/21) Patient Home Medication List Home Medication List Reviewed: Yes Amlodipine Besylate (Amlodipine Besylate) 10 Mg Tablet, 10 MG PO DAILY, (Reported) Entered as Reported by: CHEO OCHOA on 12/12/22 0621 Last Action: Last Taken Edited Mirtazapine (Mirtazapine) 15 Mg Tablet, 15 MG PO HS, (Reported) Entered as Reported by: IRMA MOORE on 12/12/22 1555 Last Action: Last Taken Edited Potassium Chloride (Klor-Con M20) 20 Meq Tab.er.prt, 20 MEQ PO BID WITH MEALS Prescribed by: KURTIS ASHTON on 12/16/22 1138 Review of Systems Review of Systems Constitutional: see HPI EENTM: No Symptoms Reported Respiratory: No Symptoms Reported Cardiovascular: See HPI Gastrointestinal: See HPI Genitourinary: No Symptoms Reported Musculoskeletal: no symptoms reported Skin: no symptoms reported Psychiatric/Neurological: See HPI Endocrine: No Symptoms Reported Hematologic/Lymphatic: No Symptoms Reported Past Mxedvhd-Ieomwg-Iqlxgs Hx Patient Social History Tobacco Use?: Yes Tobacco type used: Cigarettes Smoking Status: Current Everyday Smoker Substance use?: No Alcohol Use?: Yes Alcohol type: Hard Liquor Alcohol Frequency: Daily Immunizations Up To Date First/Initial COVID19 Vaccinat: x1 Second COVID19 Vaccination Ramakrishna: MARCH 2021 Past Medical History Surgery/Hospitalization HX: TUBES TIED; HTN Surgeries: Yes (tubal ligation) Tubal Ligation Respiratory: No Cardiac: Yes Hypertension Neurological: No : No Last Menstrual Period: January 08, 2023 Genitourinary: No Gastrointestinal: Yes Liver Disease/Jaundice Musculoskeletal: No Endocrine: No HEENT: No Cancer: No Psychosocial: Yes (Alcohol dependence) Anxiety Integumentary: No Family Medical History No Pertinent Family Hx Physical Exam Vital Signs Vital Signs - First Documented 01/09/23 08:25 Temp 36.4 Pulse 148 Resp 16 B/P (MAP) 146/113 (124) Pulse Ox 99 O2 Delivery Room Air Capillary Refill : Less Than 3 Seconds Height/Weight/BMI Height: '" Weight: lbs. oz. kg; 23.00 BMI Method: General Appearance: WD/WN, moderate distress HEENT: PERRL/EOMI, normal ENT inspection, other (Oropharynx dry) Neck: normal inspection Respiratory: lungs clear, normal breath sounds, no respiratory distress Cardiovascular: no edema, no murmur, tachycardia Gastrointestinal: normal bowel sounds, soft, tenderness (Across the upper abdomen) Extremities: normal inspection, no pedal edema Neurologic/Psychiatric: no motor/sensory deficits, alert, oriented x 3, other (Anxious, tremor) Skin: normal color, warm/dry Focused Exam Lactate Level 01/09/23 09:30: Lactic Acid Level 5.71*H 01/09/23 11:33: Lactic Acid Level 2.38*H Lactic Acid Level Laboratory Tests Test 01/09/23 09:30 01/09/23 11:33 Lactic Acid Level 5.71 MMOL/L (0.50-2.00) *H 2.38 MMOL/L (0.50-2.00) *H Progress/Results/Core Measures Results/Orders Lab Results Laboratory Tests Test 01/09/23 08:36 01/09/23 08:42 01/09/23 08:48 01/09/23 09:30 Range/Units White Blood Count 5.2 4.3-11.0 10^3/uL Red Blood Count 3.96 3.80-5.11 10^6/uL Hemoglobin 12.2 11.5-16.0 g/dL Hematocrit 36 35-52 % Mean Corpuscular Volume 90 80-99 fL Mean Corpuscular Hemoglobin 31 25-34 pg Mean Corpuscular Hemoglobin Concent 34 32-36 g/dL Red Cell Distribution Width 20.9 H 10.0-14.5 % Platelet Count 126 L 130-400 10^3/uL Mean Platelet Volume 10.3 9.0-12.2 fL Immature Granulocyte % (Auto) 0 % Neutrophils (%) (Auto) 49 42-75 % Lymphocytes (%) (Auto) 42 12-44 % Monocytes (%) (Auto) 8 0-12 % Eosinophils (%) (Auto) 1 0-10 % Basophils (%) (Auto) 1 0-10 % Neutrophils # (Auto) 2.5 1.8-7.8 10^3/uL Lymphocytes # (Auto) 2.2 1.0-4.0 10^3/uL Monocytes # (Auto) 0.4 0.0-1.0 10^3/uL Eosinophils # (Auto) 0.0 0.0-0.3 10^3/uL Basophils # (Auto) 0.0 0.0-0.1 10^3/uL Immature Granulocyte # (Auto) 0.0 0.0-0.1 10^3/uL Percent Immature Platelet Fraction 4.8 0.0-7.6 % Prothrombin Time 14.0 12.2-14.7 SEC INR Comment 1.0 0.8-1.4 Activated Partial Thromboplast Time 30 24-35 SEC Sodium Level 143 135-145 MMOL/L Potassium Level 2.8 L 3.6-5.0 MMOL/L Chloride Level 99 98-107 MMOL/L Carbon Dioxide Level 24 21-32 MMOL/L Anion Gap 20 H 5-14 MMOL/L Blood Urea Nitrogen 6 L 7-18 MG/DL Creatinine 0.81 0.60-1.30 MG/DL Estimat Glomerular Filtration Rate 92 BUN/Creatinine Ratio 7 Glucose Level 165 H 70-105 MG/DL Calcium Level 8.3 L 8.5-10.1 MG/DL Corrected Calcium 8.4 L 8.5-10.1 MG/DL Magnesium Level 1.3 L 1.6-2.4 MG/DL Total Bilirubin 0.6 0.1-1.0 MG/DL Aspartate Amino Transf (AST/SGOT) 136 H 5-34 U/L Alanine Aminotransferase (ALT/SGPT) 34 0-55 U/L Alkaline Phosphatase 137 H 40-136 U/L C-Reactive Protein High Sensitivity 0.28 0.00-0.50 MG/DL Total Protein 9.3 H 6.4-8.2 GM/DL Albumin 3.9 3.2-4.5 GM/DL Lipase 151 H 8-78 U/L Serum Test, Qualitative NEGATIVE NEGATIVE Serum Alcohol 70 H <10 MG/DL Smear Scan YES Influenza Type A (RT-PCR) Not Detected Not Detecte Influenza Type B (RT-PCR) Not Detected Not Detecte SARS-CoV-2 RNA (RT-PCR) Not Detected Not Detecte Urine Color YELLOW Urine Clarity CLEAR Urine pH 6.0 5-9 Urine Specific [place] >=1.030 1.016-1.022 Urine Protein 2+ H NEGATIVE Urine Glucose (UA) NEGATIVE NEGATIVE Urine Ketones NEGATIVE NEGATIVE Urine Nitrite POSITIVE H NEGATIVE Urine Bilirubin 1+ H NEGATIVE Urine Urobilinogen 2.0 < = 1.0 MG/DL Urine Leukocyte Esterase TRACE H NEGATIVE Urine RBC (Auto) 3+ H NEGATIVE Urine RBC 50-100 H /HPF Urine WBC 25-50 H /HPF Urine Squamous Epithelial Cells 5-10 /HPF Urine Crystals NONE /LPF Urine Bacteria LARGE H /HPF Urine Casts NONE /LPF Urine Mucus NEGATIVE /LPF Urine Culture Indicated YES Urine Opiates Screen NEGATIVE NEGATIVE Urine Oxycodone Screen NEGATIVE NEGATIVE Urine Methadone Screen NEGATIVE NEGATIVE Urine Propoxyphene Screen NEGATIVE NEGATIVE Urine Barbiturates Screen NEGATIVE NEGATIVE Ur Tricyclic Antidepressants Screen NEGATIVE NEGATIVE Urine Phencyclidine Screen NEGATIVE NEGATIVE Urine Amphetamines Screen NEGATIVE NEGATIVE Urine Methamphetamines Screen NEGATIVE NEGATIVE Urine Benzodiazepines Screen NEGATIVE NEGATIVE Urine Cocaine Screen NEGATIVE NEGATIVE Urine Cannabinoids Screen POSITIVE H NEGATIVE Lactic Acid Level 5.71 *H 0.50-2.00 MMOL/L Test 01/09/23 11:33 Range/Units Lactic Acid Level 2.38 *H 0.50-2.00 MMOL/L Micro Results Microbiology 01/09/23 Blood Culture - Preliminary, Resulted No growth 01/09/23 Blood Culture - Preliminary, Resulted No growth My Orders Orders - BRANDIE MACKENZIE MD Covid 19 Inhouse Test (01/09/23 08:31) Influenza A And B By Pcr (01/09/23 08:31) Lorazepam Injection (Ativan Injection) (01/09/23 08:45) Pantoprazole Injection (Protonix Injecti (01/09/23 08:45) Fentanyl Inj (Sublimaze Injection) (01/09/23 08:45) Ondansetron Injection (Zofran Injectio (01/09/23 08:45) Ed Iv/Invasive Line Start (01/09/23 08:39) Lactated Ringers (Lr 1000 Ml Iv Solution (01/09/23 08:45) Alcohol (01/09/23 08:40) Cbc With Automated Diff (01/09/23 08:40) Comprehensive Metabolic Panel (01/09/23 08:40) Hs C Reactive Protein (01/09/23 08:40) Drug Screen Stat (Urine) (01/09/23 08:40) Hcg,Qualitative Serum (01/09/23 08:40) Lipase (01/09/23 08:40) Magnesium (01/09/23 08:40) Ua Culture If Indicated (01/09/23 08:40) Urine Culture (01/09/23 08:48) Blood Culture (01/09/23 09:11) Protime With Inr (01/09/23 09:11) Partial Thromboplastin Time (01/09/23 09:11) Chest 1 View, Ap/Pa Only (01/09/23 09:11) Ekg Tracing (01/09/23 09:11) Vital Signs Adult Sepsis Patie Q15M (01/09/23 09:11) Remove Rings In Anticipation O (01/09/23 09:11) Lactic Acid Analyzer (01/09/23 09:11) Ceftriaxone Iv/Im (Rocephin Iv/Im) (01/09/23 09:11) Potassium Cl 10meq/50ml Ivpb (Kcl 10 Meq (01/09/23 09:15) Magnesium 1 Gm/100 Ml Ivpb (Magnesium Martin (01/09/23 09:15) Ns Iv 1000 Ml (Sodium Chloride 0.9%) (01/09/23 09:15) Ct Abdomen/Pelvis W (01/09/23 09:14) Lorazepam Injection (Ativan Injection) (01/09/23 09:30) Iohexol Injection (Omnipaque 350 Mg/Ml 1 (01/09/23 09:30) Ns (Ivpb) (Sodium Chloride 0.9% Ivpb Bag (01/09/23 09:30) Ns Iv 500 Ml (Sodium Chloride 0.9%) (01/09/23 11:00) Lorazepam Tablet (Ativan Tablet) (01/09/23 10:59) Ed Admission (Communication) (01/09/23 12:05) Medications Given in ED Vital Signs/I&O 01/09/23 01/09/23 08:25 11:45 Temp 36.4 Pulse 148 109 Resp 16 16 B/P (MAP) 146/113 (124) 145/108 Pulse Ox 99 96 O2 Delivery Room Air Room Air Blood Pressure Mean: 124 Progress Progress Note #1: Time: 08:45 Progress Note Patient was promptly interviewed and examined. She is being treated with Zofran for nausea, Protonix for GI prophylaxis, fentanyl for pain, and Ativan for anxiety and probable alcohol withdrawal. She is being hydrated with a LR 1 L bolus. Labs including CBC, CMP, alcohol, lipase, drug screen, urinalysis, and serum test are all pending. Influenza and COVID swab will be obtained due to the cough. Further work-up and treatment will be based on results of these tests and her response to treatment. Progress Note #2: Time: 09:31 Progress Note After treatment, patient is feeling much improved in regards to abdominal pain and nausea. She still has significant tremors and appears to continue having withdrawal symptoms. An additional Ativan 1 mg IV has been ordered. Labs have been reviewed and interpreted by me in their entirety including CBC, CMP, lipase, CRP, magnesium, urinalysis, alcohol, urine toxicology screen, and serum test. Additionally influenza and COVID swabs were obtained and were negative. CBC was unremarkable except for mild thrombocytopenia. CMP was remarkable for hypokalemia of 2.8 and hypomagnesemia of 1.3. Lipase was also mildly elevated indicating some degree of pancreatitis. Renal function was normal based on creatinine and BUN. Toxicology screen was positive for alcohol of 70 and cannabinoids. EKG was obtained due to the tachycardia and electrolyte abnormalities. Heart rate has improved significantly but there is a QT prolongation. No further Zofran will be given until this corrects. We will use alternative antiemetics if necessary. Blood cultures are being obtained, and Rocephin is being given for initial treatment of UTI. Urine cultures from prior visit were reviewed. Urine culture grew an E. coli strain broadly sensitive to antibiotics including Rocephin. Admission is anticipated but further evaluation with CT of the abdomen and pelvis will be obtained first. Chest x-ray is also pending. I have discussed these results with the patient and advised her to anticipate admission. Progress Note #3: Time: 10:[address] scan was viewed by me. By my interpretation steatosis was observed without any acute inflammatory processes. Radiologist's report was also reviewed as noted below. Chest x-ray was viewed by me and no acute abnormalities were appreciated on my interpretation. Radiologist's report was also reviewed as below. Patient had a markedly elevated lactic acid greater than 5. We will provide further IV fluids with another 500 mL normal saline bolus. This will exceed 30 mL/kg in boluses sufficient for initial high-volume fluid treatment for possible severe sepsis. Patient will be admitted for further treatment. Initial ECG Impression Date: January 09, 2023 Initial ECG Impression Time: 09:22 Initial ECG Rate: 84 Initial ECG Rhythm: Normal Sinus Initial ECG Intervals QTc prolonged at 561 ms. Comment Sinus rhythm with no ST elevation or depression. No significant axis deviation. QTc prolongation noted. Diagnostic Imaging Diagonstic Imaging: CT Plain Films/CT/US/NM/MRI: abdomen, pelvis Comments CT abdomen pelvis viewed by me and report reviewed. See report below: NAME: [facility] REC#: [id number] PT STATUS: REG ER : 1980 PHYSICIAN: BRANDIE AMCKENZIE MD ADMIT DATE: 01/09/23/ER Draft Date of Exam:01/09/23 CT ABDOMEN/PELVIS W PROCEDURE: CT abdomen and pelvis with contrast. TECHNIQUE: Multiple contiguous axial images were obtained through the abdomen and pelvis after administration of intravenous contrast. Auto Exposure Controls were utilized during the CT exam to meet ALARA standards for radiation dose reduction. All CT scans use one or more of the following dose optimizing techniques: automated exposure control, MA and/or KvP adjustment based on patient size and exam type or iterative reconstruction. INDICATION: Nausea. Abdominal pain. Pancreatitis. COMPARISON: 08/01/2021 FINDINGS: Included portions lung bases are clear. Note is made of mild hiatal hernia, which appears to be paraesophageal. CT ABDOMEN: Normal appendix is identified. Small bowel loops are nondilated. Liver is diffusely hypodense on this postcontrast exam consistent with hepatic steatosis. Liver is also enlarged. It measures 21 cm in length. Punctate enhancing appearing focus is noted near the junction of segments 5 and 6 and measures 6 mm on (image 67, series 2). Although incompletely characterized on this exam, this is stable compared to 08/01/2021. No other suspicious hepatic masses are identified. The kidneys, adrenal glands, spleen, and pancreas have a normal CT appearance. There is no loculated fluid collection, free fluid or free air within the abdomen. No abnormal mesenteric or retroperitoneal adenopathy is seen. Osseous structures show no acute abnormalities. Note is made of mild scattered calcified and noncalcified aortic atherosclerosis. CT PELVIS: Urinary bladder is unopacified. No calculi are seen within the urinary bladder. There is bladder wall thickening. Bladder wall measures 8 mm. Bladder is only mildly distended. Left adnexal cystic lesion measures 3.4 x 3.8 cm. This is new when compared to prior exam and is presumed ovarian. There is no loculated fluid collection, free fluid, nor free air. No abnormal pelvic adenopathy is seen. Osseous structures show no acute abnormalities. IMPRESSION: 1. Mildly thickened appearance of the urinary bladder wall. This may be exaggerated by under distention, but may also be seen with cystitis. Clinical correlation is advised. 2. Left adnexal cyst; presumably ovarian. 3. Hepatic steatosis with hepatomegaly. 4. Mild paraesophageal hiatal hernia. Dictated on workstation # [id number] Dict: 01/09/23 1000 Trans: 01/09/[address] [place] [address] [id number] Interpreted by: MONICA MARKS MD Diagonstic Imaging: Xray Plain Films/CT/US/NM/MRI: chest Comments Chest x-ray viewed by me and report reviewed. See report below: NAME: [facility] REC#: [id number] PT STATUS: REG ER : 1980 PHYSICIAN: BRANDIE MACKENZIE MD ADMIT DATE: 01/09/23/ER Draft Date of Exam:01/09/23 CHEST 1 VIEW, AP/PA ONLY INDICATION: Nausea, vomiting, upper abdominal pain. EXAMINATION: Chest 01/09/2023 COMPARISON: 12/13/2022 FINDINGS: The cardiomediastinal silhouette is unremarkable. The pulmonary vasculature is within normal limits. The lungs and pleural spaces are clear. IMPRESSION: No evidence of an acute cardiopulmonary process. Dictated on workstation # [id number] Dict: 01/09/23 0954 Trans: 01/09/23 0958 [facility] [id number] Interpreted by: MAURO CULLEN MD Departure Communication (Admissions) Time/Spoke to Admitting Phy: 12:06 Dr. Carey Impression Primary Impression: Alcohol abuse with withdrawal Additional Impressions: UTI (urinary tract infection) Qualified Codes: N39.0 - Urinary tract infection, site not specified; R31.9 - Hematuria, unspecified Hypokalemia Hypomagnesemia Alcohol dependence Qualified Codes: F10.29 - Alcohol dependence with unspecified alcohol- induced disorder Upper abdominal pain Pancreatitis Qualified Codes: K85.20 - Alcohol induced acute pancreatitis without necrosis or infection Vomiting Qualified Codes: R11.2 - Nausea with vomiting, unspecified Disposition: ADMITTED INPATIENT Condition: Improved Admissions Decision to Admit Reason: Admit from ER (General) Decision to Admit/Date: January 09, 2023 Time/Decision to Admit Time: 12:06 Departure-Patient Inst. Referrals: [facility] (PCP/Family) Primary Care Physician Copy Copies To 1: [facility]/BRANDIE PICHARDO MD January 09, 2023 08:47
[2023-01-09 08:56] LABS: CLARITY,URINE CLEAR; COLOR,URINE YELLOW; GLUCOSE, URINE (UA) NEGATIVE (NEGATIVE); KETONES,URINE NEGATIVE (NEGATIVE); LEUKOCYTE ESTERASE ,URINE TRACE (NEGATIVE); NITRITE,URINE POSITIVE (NEGATIVE); PROTEIN,URINE 2+ (NEGATIVE)
[2023-01-09 09:00] LABS: BASOPHILS % (AUTO) 1 % (0-10); HEMOGLOBIN 12.2 g/dL (11.5-16.0); PLATELET COUNT 126 10^3/uL (130-400)
[2023-01-09 09:02] LABS: EOSINOPHILS % (AUTO) 1 % (0-10); HEMATOCRIT 36 % (35-52); LYMPHOCYTES # (AUTO) 2.2 10^3/uL (1.0-4.0); LYMPHOCYTES % (AUTO) 42 % (12-44); MEAN CORPUSCULAR HEMOGLOBIN 31 pg (25-34); MEAN CORPUSCULAR HGB CONC 34 g/dL (32-36); MEAN CORPUSCULAR VOLUME 90 fL (80-99); MEAN PLATELET VOLUME 10.3 fL (9.0-12.2); MONOCYTES # (AUTO) 0.4 10^3/uL (0.0-1.0); MONOCYTES % (AUTO) 8 % (0-12); NEUTROPHILS # (AUTO) 2.5 10^3/uL (1.8-7.8); NEUTROPHILS % (AUTO) 49 % (42-75); WHITE BLOOD COUNT 5.2 10^3/uL (4.3-11.0)
[2023-01-09 09:04] LABS: SMEAR SCAN COMMENT YES
[2023-01-09 09:06] LABS: BACTERIA,URINE LARGE /HPF; BILIRUBIN,URINE 1+ (NEGATIVE); RBC,URINE 50-100 /HPF; WBC,URINE 25-50 /HPF
[2023-01-09 09:10] LABS: ALBUMIN 3.9 GM/DL (3.2-4.5); BILIRUBIN,TOTAL 0.6 MG/DL (0.1-1.0); CALCIUM 8.3 MG/DL (8.5-10.1); CREATININE SERUM 0.81 MG/DL (0.60-1.30); MAGNESIUM 1.3 MG/DL (1.6-2.4); POTASSIUM 2.8 MMOL/L (3.6-5.0); TOTAL PROTEIN 9.3 GM/DL (6.4-8.2)
[2023-01-09] MEDS ORDERED: cefTRIAXone IV/IM 1,000 MG in NS (IVPB) 50 ML IV STA (09:11)
[2023-01-09] MEDS ORDERED: POTASSIUM CL 10MEQ/50ML IVPB 50 ML IV ONE (09:15)
[2023-01-09] MEDS ORDERED: NS IV 1000 ML 1,000 ML IV SCH (09:15)
[2023-01-09] MEDS ORDERED: MAGNESIUM 1 GM/100 ML IVPB 100 ML IV ONE (09:15)
[2023-01-09 09:19] LABS: AMPHETAMINE SCREEN, URINE NEGATIVE (NEGATIVE); BARBITURATE SCREEN URINE NEGATIVE (NEGATIVE); BENZODIAZEPINES SCREEN URINE NEGATIVE (NEGATIVE); CANNABINOID SCREEN, URINE POSITIVE (NEGATIVE); COCAINE SCREEN URINE NEGATIVE (NEGATIVE); METHADONE STAT NEGATIVE (NEGATIVE); OPIATE SCREEN URINE NEGATIVE (NEGATIVE); OXYCODONE STAT NEGATIVE (NEGATIVE); PROPOXYPHENE STAT NEGATIVE (NEGATIVE); TRICYCLIC ANTIDEPRESSANTS SCRE NEGATIVE (NEGATIVE)
[2023-01-09] MEDS ORDERED: NS 100 ML (IVPB) BAG IV ONE (09:30)
[2023-01-09] MEDS ORDERED: IOHEXOL 350 MG/ML 100 ML (OMNIPAQUE 350) VIAL IV ONE (09:30)
--- NOTE | 2023-01-09 09:59 | Diagnostic Imaging Report ---
INDICATION: Nausea, vomiting, upper abdominal pain. EXAMINATION: Chest 01/09/2023 COMPARISON: 12/13/2022 FINDINGS: The cardiomediastinal silhouette is unremarkable. The pulmonary vasculature is within normal limits. The lungs and pleural spaces are clear. IMPRESSION: No evidence of an acute cardiopulmonary process. Dictated by: Dictated on workstation # [id number]
--- NOTE | 2023-01-09 10:09 | Diagnostic Imaging Report ---
PROCEDURE: CT abdomen and pelvis with contrast. TECHNIQUE: Multiple contiguous axial images were obtained through the abdomen and pelvis after administration of intravenous contrast. Auto Exposure Controls were utilized during the CT exam to meet ALARA standards for radiation dose reduction. All CT scans use one or more of the following dose optimizing techniques: automated exposure control, MA and/or KvP adjustment based on patient size and exam type or iterative reconstruction. INDICATION: Nausea. Abdominal pain. Pancreatitis. COMPARISON: 08/01/2021 FINDINGS: Included portions lung bases are clear. Note is made of mild hiatal hernia, which appears to be paraesophageal. CT ABDOMEN: Normal appendix is identified. Small bowel loops are nondilated. Liver is diffusely hypodense on this postcontrast exam consistent with hepatic steatosis. Liver is also enlarged. It measures 21 cm in length. Punctate enhancing appearing focus is noted near the junction of segments 5 and 6 and measures 6 mm on (image 67, series 2). Although incompletely characterized on this exam, this is stable compared to 08/01/2021. No other suspicious hepatic masses are identified. The kidneys, adrenal glands, spleen, and pancreas have a normal CT appearance. There is no loculated fluid collection, free fluid or free air within the abdomen. No abnormal mesenteric or retroperitoneal adenopathy is seen. Osseous structures show no acute abnormalities. Note is made of mild scattered calcified and noncalcified aortic atherosclerosis. CT PELVIS: Urinary bladder is unopacified. No calculi are seen within the urinary bladder. There is bladder wall thickening. Bladder wall measures 8 mm. Bladder is only mildly distended. Left adnexal cystic lesion measures 3.4 x 3.8 cm. This is new when compared to prior exam and is presumed ovarian. There is no loculated fluid collection, free fluid, nor free air. No abnormal pelvic adenopathy is seen. Osseous structures show no acute abnormalities. IMPRESSION: 1. Mildly thickened appearance of the urinary bladder wall. This may be exaggerated by under distention, but may also be seen with cystitis. Clinical correlation is advised. 2. Left adnexal cyst; presumably ovarian. 3. Hepatic steatosis with hepatomegaly. 4. Mild paraesophageal hiatal hernia. Dictated by: Dictated on workstation # [id number]
[2023-01-09] MEDS ORDERED: LORazepam 0.5 MG (ATIVAN) TABLET BC STA (10:59)
[2023-01-09] MEDS ORDERED: NS IV 500 ML 500 ML IV ONE (11:00)
--- NOTE | 2023-01-09 12:33 | History & Physical-Hospitalist ---
History of Present Illness HPI/Chief Complaint CC: Alcohol withdrawal with UTI HPI: This is a 42yoF of [facility] known to me from prior admit for the same above issues. Patient sleepy and declines to provide any other details. Alcohol withdrawal protocol started along with Rocephin. Source: patient, RN/MD, old records Exam Limitations: clinical condition Date Seen 01/09/23 Time Seen by a Provider: 18:00 Attending Physician [place]/[facility] PCP Admitting Physician: Attending Physician: Referring Physician Date of Admission Home Medications & Allergies Home Medications Reviewed patient Home Medication Reconciliation performed by pharmacy medication reconciliations industrial engineering technician and/or nursing. Patients Allergies have been reviewed. Allergies Allergies Coded Allergies No Known Drug Allergies (Unverified04/28/21) Past Tunujud-Hdqwbs-Glpryj Hx Patient Social History Marrital Status: single Employed/Student: unemployed Tobacco Use?: Yes Tobacco type used: Cigarettes Smoking Status: Current Everyday Smoker Substance use?: No Alcohol Use?: Yes Alcohol type: Hard Liquor Alcohol Frequency: Daily Immunizations Up To Date First/Initial COVID19 Vaccinat: x1 Second COVID19 Vaccination Ramakrishna: MARCH 2021 Tetanus Booster (TDap): Less Than 5 Years Hepatitis A: Yes Hepatitis B: Yes Current Status Advance Directives: No Primary Language: Citizen Of [place] Preferred Spoken Language: Citizen [place] Past Medical History Surgeries: Tubal Ligation Hypertension Bladder Infection Liver Disease/Jaundice Anxiety PMHx: HTN GERD Alcohol Use Disorder Tobaccoism SurgHx: Denies Family Medical History No Pertinent Family Hx Review of Systems Constitutional: see HPI Physical Exam Physical Exam Vital Signs Vital Signs - First Documented 01/09/23 08:25 Temp 36.4 Pulse 148 Resp 16 B/P (MAP) 146/113 (124) Pulse Ox 99 O2 Delivery Room Air Capillary Refill : Less Than 3 Seconds Height, Weight, BMI Height: '" Weight: lbs. oz. kg; 23.00 BMI Method: General Appearance: No Apparent Distress Respiratory: Chest Non Tender, Lungs Clear, Normal Breath Sounds, No Accessory Muscle Use, No Respiratory Distress Cardiovascular: Regular Rate, Rhythm, No Edema, No Gallop, No JVD, No Murmur, Normal Peripheral Pulses Neurologic/Psychiatric: Alert, Disoriented Results Results/Procedures Labs Laboratory Tests 01/09/23 08:36 01/09/23 14:05 01/10/23 03:53 Patient resulted labs reviewed. Assessment/Plan Admission Diagnosis (1) Alcohol abuse with withdrawal Status: Acute Assessment & Plan: 12/15: Much improved, stable on PO, CIWS scoring, discussed outpatient f.u and treatment plans (2) UTI (urinary tract infection) Status: Acute Assessment & Plan: 12/15: Should complete antibiotics tomorrow Qualifiers: Qualified Codes: N30.00 - Acute cystitis without hematuria (3) Alcoholic liver disease Admission Status: Inpatient Order (span 2 midnights) Reason for Inpatient Admission: alcohol withdrawal KARLI GIRARD DO January 09, 2023 12:33
[2023-01-09] MEDS ORDERED: NS IV 500 ML 500 ML IV PRN (13:30)
[2023-01-09] MEDS ORDERED: ANTACID SUSP 30 ML UDC (MYLANTA) PO PRN ×3 (13:30)
[2023-01-09] MEDS ORDERED: MELATONIN 3 MG TABLET PO PRN ×2 (13:30)
[2023-01-09] MEDS ORDERED: MILK OF MAGNESIA 400 MG/5 ML 30 ML UDC PO PRN ×2 (13:30)
[2023-01-09] MEDS ORDERED: SENNA W/DOCUSATE (SENOKOT S) TABLET PO PRN (13:30)
[2023-01-09] MEDS ORDERED: LACTULOSE SYRUP 10GM/15ML (ENULOSE) 30ML UDC PO PRN ×2 (13:30)
[2023-01-09] MEDS ORDERED: CALCIUM CARBONATE 500 MG (TUMS) TAB.CHEW PO PRN ×2 (13:30)
[2023-01-09] MEDS ORDERED: BISACODYL 10 MG SUPP (DULCOLAX) PR PRN ×2 (13:30)
[2023-01-09] MEDS ORDERED: diphenhydrAMINE 50 MG/ML INJ (BENADRYL) IVP PRN ×2 (13:30)
[2023-01-09] MEDS ORDERED: 1/2 NS IV SOLUTION 1,000 ML IV PRN (13:30)
[2023-01-09] MEDS ORDERED: diphenhydrAMINE 25 MG TAB (BENADRYL) PO PRN ×2 (13:30)
[2023-01-09] MEDS ORDERED: PROMETHAZINE INJ 25 MG/ML (PHENERGAN) AMP IM PRN (13:30)
[2023-01-09] MEDS ORDERED: ONDANSETRON 4 MG (ZOFRAN) ORAL DISSOLVE TAB PO PRN ×2 (13:30)
[2023-01-09] MEDS ORDERED: D5 1/2 NS 1000 ML IV SOLUTION 1,000 ML IV PRN (13:30)
[2023-01-09] MEDS ORDERED: polyethylene glycoL POWDER 17 GM (MIRALAX) PACK PO PRN ×2 (13:30)
[2023-01-09] MEDS ORDERED: ACETAMINOPHEN 325 MG TABLET PO PRN (13:30)
[2023-01-09] MEDS ORDERED: ONDANSETRON 4 MG/2 ML (SDV) Z0FRAN IV PRN (13:30)
[2023-01-09] MEDS ORDERED: LORazepam INJ 2 MG/ML (ATIVAN) VIAL IM/IV PRN (13:30)
[2023-01-09] MEDS ORDERED: NALOXONE 0.4 MG/ML 1 ML (NARCAN) VIAL IV PRN (13:30)
[2023-01-09 14:33] LABS: ALBUMIN 3.1 GM/DL (3.2-4.5); BILIRUBIN,TOTAL 0.6 MG/DL (0.1-1.0); CALCIUM 7.2 MG/DL (8.5-10.1); CREATININE SERUM 0.69 MG/DL (0.60-1.30); POTASSIUM 3.1 MMOL/L (3.6-5.0); TOTAL PROTEIN 7.4 GM/DL (6.4-8.2)
[2023-01-09] MEDS: MAGNESIUM 1 GM/100 ML IVPB 100 ML IV SCH ×2 (15:46→15:55)
[2023-01-09] MEDS: POTASSIUM CL 10MEQ/50ML IVPB 50 ML IV SCH ×2 (15:46→15:54)
[2023-01-09] MEDS: ENOXAPARIN 40 MG/0.4 ML (LOVENOX) SYR SC SCH ×2 (15:47→15:55)
[2023-01-09] MEDS: NS IV 1000 ML 1,000 ML IV SCH (15:54)
[2023-01-09] MEDS: ACETAMINOPHEN 325 MG TABLET PO PRN ×2 (16:02→20:53)
--- NOTE | 2023-01-09 18:26 | Tele-ICU Consult ---
History of Present Illness History of Present Illness Date Seen by Provider: January 09, 2023 Time Seen by Provider: 18:25 Date of Admission History of Present Illness (Tele-ICU Physician , consultation as per request of PCP Service provided via interactive audio and video telecommunications E-CARE system to a patient admitted to ICU bed in [facility]. Available chart/ vitals / labs / Images reviewed H&P is from ER notes Patient's information available about PMH, Shx, Fhx allergy reviewed inEMR. ROS as per chart and RN report Now in ICU, hemodynamically stable Video assessment done using teleICU camera, rest of exam as per RN Discussed with RN. Hospital course: (01/09) 42 y/o female with etoh withdrawal, UTI A/P ETOH abuse / intoxication / pending withdrawal syndrome - longstanding history of alcohol use disorder -No hallucinations. No seizures - monitor -Continue supportive care on CIWA protocol- cont benzo, prn precedex -monitor vitals -follow lytes -Thiamine and folate UTI - cx pending , abx started Abdominal Pain N/V - elev lipase - CHRONIC ? pancreatiits QTc PROLONGATION - monitor , Elevated LFTs - eton related most likley - BETTER then earlier admissions - CT with Hepatic steatosis with hepatomegaly. Elevated lactate - etiology [place] , ? ETON related sz? BUT WAS NOTED ON PREVIOUS ADMISSIONS , SAME W/UP DONE - WAS STILL ELEVATED DESPITE HYDRATIONS -Type-B ? ( liver disease, thiamine deficiency ? ) - ct - NO ischemic bowels Lines : , (Central Line Necessity Reviewed) Hill: OG: Nutrition: Analgesia: Anxiety/ delirium VTE Prophylaxis: rosy 40 Stress Ulcer Prophylaxis: Glycemic Control: Plans in collaboration with bedside consultants and IM MDs. Discussed with RN to reach out if any questions or concerns A total of 31 minutes of critical care time was devoted to this patient today, required to treat and/or prevent further deterioration of critical care condition ( as above ) . I am remotely monitoring this patient from another [place]. I am unable to do the bedside exam, and history/physical and pertinent information is taken from other notes in the computer and bedside staff. . Allergies and Home Medications Allergies Coded Allergies: No Known Drug Allergies (Unverified , 04/28/21) Home Medications Amlodipine Besylate 10 Mg Tablet, 10 MG PO DAILY, (Reported) LAST FILLED 06-30-2022 #90/90 DAY SUPPLY Mirtazapine 15 Mg Tablet, 15 MG PO HS, (Reported) LAST FILLED 09-29-2022 #30/30 DAY SUPPLY Potassium Chloride 20 Meq Tab.er.prt, 20 MEQ PO BID WITH MEALS Prescribed by: KURTIS ASHTON on 12/16/22 1138 Past Medical/Social/Family Hx Patient Social History Tobacco Use?: No Tobacco type used: Cigarettes Smoking Status: Never a Smoker Use of E-Cig and/or Vaping dev: No Substance use?: No Alcohol Use?: Yes Alcohol type: Other Alcohol Frequency: Daily Pt stated abuse/neglect: No Immunizations Up To Date Influenza Vaccine Up-to-Date: No; Not Current First/Initial COVID19 Vaccinat: x1 Second COVID19 Vaccination Ramakrishna: MARCH 2021 Tetanus Booster (TDap): Unknown Hepatitis A: No Hepatitis B: No TB Skin Test: None Current Status status: No status: No Advance Directives: No Advance Directive Location: Home Communicates: Verbally Primary Language: Lebanese Preferred Spoken Language: Lebanese Is interpretation needed?: No Sensory deficits: Vision impairment Additional sensory deficits: glasses Implanted or Applied Medical D: None Past Medical History PMHx: HTN GERD Alcohol Use Disorder Tobaccoism SurgHx: Denies Review of Systems Constitutional: see HPI Focused Exam Lactate Level 01/09/23 09:30: Lactic Acid Level 5.71*H 01/09/23 11:33: Lactic Acid Level 2.38*H 01/09/23 13:43: Lactic Acid Level 3.94*H Height, Weight, BMI Height: '" Weight: lbs. oz. kg; 7.83 BMI Method: Exam Exam Patient acknowledged, consented, and participated in this virtual visit which was conducted using real time audio/video Vital Signs Date Time Temp Pulse Resp B/P (MAP) Pulse Ox O2 Delivery O2 Flow Rate FiO2 01/09/23 18:00 98 27 132/93 (106) 99 Room Air 01/09/23 17:00 105 17 138/98 (111) 99 Room Air 01/09/23 15:45 36.6 01/09/23 15:00 99 16 142/101 (115) 97 Room Air 01/09/23 14:41 Room Air 01/09/23 14:00 37.4 104 16 130/100 (110) 97 Room Air 01/09/23 13:40 111 01/09/23 11:45 109 16 145/108 96 Room Air 01/09/23 08:25 36.4 148 16 146/113 (124) 99 Room Air Height & Weight Height: '" Weight: lbs. oz. kg; 7.83 BMI Method: General Appearance: Other Capillary Refill: Less Than 3 Seconds Gastrointestinal: normal bowel sounds, soft, tenderness (Across the upper a bdomen) Results Lab Laboratory Tests 01/09/23 08:36 01/09/23 14:05 Assessment/Plan Assessment/Plan 1 NAIDA MCDONOUGH MD January 09, 2023 18:26
[2023-01-09] MEDS ORDERED: DOCUSATE SODIUM 100 MG (COLACE) CAP PO SCH (21:00)
[2023-01-09] MEDS ORDERED: SENNOSIDES 8.6 MG (SENOKOT) TAB PO SCH (21:00)
[2023-01-09] MEDS: DOCUSATE SODIUM 100 MG (COLACE) CAP PO SCH (21:59)
[2023-01-09] MEDS: SENNOSIDES 8.6 MG (SENOKOT) TAB PO SCH (21:59)
[2023-01-09] MEDS: HYDROmorphone 2 MG/ML VIAL (DILAUDID) IV PRN (22:41)
[2023-01-10] MEDS: NS IV 1000 ML 1,000 ML IV SCH ×2 (00:01→10:21)
[2023-01-10 04:19] LABS: BASOPHILS % (AUTO) 0 % (0-10); EOSINOPHILS % (AUTO) 1 % (0-10); HEMATOCRIT 28 % (35-52); HEMOGLOBIN 9.2 g/dL (11.5-16.0); LYMPHOCYTES # (AUTO) 2.6 10^3/uL (1.0-4.0); LYMPHOCYTES % (AUTO) 35 % (12-44); MEAN CORPUSCULAR HEMOGLOBIN 30 pg (25-34); MEAN CORPUSCULAR HGB CONC 33 g/dL (32-36); MEAN CORPUSCULAR VOLUME 92 fL (80-99); MEAN PLATELET VOLUME 11.2 fL (9.0-12.2); MONOCYTES # (AUTO) 0.4 10^3/uL (0.0-1.0); MONOCYTES % (AUTO) 5 % (0-12); NEUTROPHILS # (AUTO) 4.3 10^3/uL (1.8-7.8); NEUTROPHILS % (AUTO) 59 % (42-75); PLATELET COUNT 82 10^3/uL (130-400); WHITE BLOOD COUNT 7.4 10^3/uL (4.3-11.0)
[2023-01-10] MEDS: POTASSIUM CL 10MEQ/50ML IVPB 50 ML IV SCH ×3 (04:28→06:00)
[2023-01-10 04:37] LABS: ALBUMIN 2.8 GM/DL (3.2-4.5); POTASSIUM 3.1 MMOL/L (3.6-5.0)
[2023-01-10 04:38] LABS: CALCIUM 6.9 MG/DL (8.5-10.1)
[2023-01-10 04:39] LABS: TOTAL PROTEIN 6.3 GM/DL (6.4-8.2)
[2023-01-10 04:41] LABS: BILIRUBIN,TOTAL 0.7 MG/DL (0.1-1.0)
[2023-01-10 04:42] LABS: PHOSPHORUS 2.4 MG/DL (2.3-4.7)
[2023-01-10 04:43] LABS: CREATININE SERUM 0.65 MG/DL (0.60-1.30)
[2023-01-10 04:46] LABS: MAGNESIUM 1.3 MG/DL (1.6-2.4)
[2023-01-10] MEDS: MAGNESIUM 1 GM/100 ML IVPB 100 ML IV SCH ×7 (06:00→11:28)
[2023-01-10] MEDS ORDERED: KCL 20 MEQ TAB (K-DUR) PO ONE ×2 (06:00→08:00)
[2023-01-10] MEDS: KCL 20 MEQ TAB (K-DUR) PO SCH (06:01)
[2023-01-10] MEDS ORDERED: MAGNESIUM 1 GM/100 ML IVPB 600 ML IV ONE (06:15)
[2023-01-10] MEDS: HYDROmorphone 2 MG/ML VIAL (DILAUDID) IV PRN (06:25)
--- NOTE | 2023-01-10 06:55 | Progress Note - Hospitalist ---
Subjective HPI/CC On Admission Date Seen by Provider: January 10, 2023 Time Seen by Provider: 11:00 CC: Alcohol withdrawal with UTI HPI: This is a 42yoF of [facility] known to me from prior admit for the same above issues. Patient sleepy and declines to provide any other details. Alcohol withdrawal protocol started along with Rocephin. Subjective/Events-last exam Overall improved No pain reported No nausea Moving to 4th Focused Exam Lactate Level 01/09/23 09:30: Lactic Acid Level 5.71*H 01/09/23 11:33: Lactic Acid Level 2.38*H 01/09/23 13:43: Lactic Acid Level 3.94*H Objective Exam Vital Signs Vital Signs Date Time Temp Pulse Resp B/P (MAP) Pulse Ox O2 Delivery O2 Flow Rate FiO2 01/10/23 11:52 36.2 01/10/23 11:00 82 9 Room Air 01/10/23 09:00 97 Capillary Refill : Less Than 3 Seconds General Appearance: No Apparent Distress, WD/WN Respiratory: Lungs Clear, Normal Breath Sounds Cardiovascular: Regular Rate, Rhythm Neurologic/Psychiatric: Alert, Oriented x3, Depressed Affect Results/Procedures Lab Laboratory Tests 01/10/23 03:53 Patient resulted labs reviewed. Assessment/Plan Assessment and Plan Assess & Plan/Chief Complaint Assessment: Alcohol withdrawal UTI Plan: IV abx Move to 4th KARLI GIRARD DO January 10, 2023 06:55
[2023-01-10] MEDS: LORazepam INJ 2 MG/ML (ATIVAN) VIAL IV PRN ×2 (08:09→20:21)
[2023-01-10] MEDS: PANTOPRAZOLE 40 MG (PROTONIX) VIAL IV SCH (08:09)
--- NOTE | 2023-01-10 08:24 | Diagnostic Imaging Report ---
EXAMINATION: Chest 1 view HISTORY: Hypoxia. COMPARISON: 01/09/2023. FINDINGS: The lung volumes are normal. No focal consolidation is seen. No large pleural effusion or pneumothorax is seen. The cardiomediastinal silhouette is normal in size and contour. No acute osseous abnormality is seen. IMPRESSION: 1. No acute pleuroparenchymal process. Dictated by: Dictated on workstation # [id number]
[2023-01-10] MEDS: DOCUSATE SODIUM 100 MG (COLACE) CAP PO SCH ×2 (09:27→20:20)
[2023-01-10] MEDS: SENNOSIDES 8.6 MG (SENOKOT) TAB PO SCH ×2 (09:27→20:20)
[2023-01-10] MEDS: THIAMINE INJECTION 100 MG, FOLIC ACID INJECTION 1 MG, MAGNESIUM SULFATE 2 GM, VITAMIN M... IV SCH ×5 (09:27)
[2023-01-10] MEDS: cefTRIAXone IV/IM 1,000 MG in NS (IVPB) 50 ML IV SCH (12:22)
[2023-01-10] MEDS: ACETAMINOPHEN 325 MG TABLET PO PRN ×2 (15:41→20:21)
[2023-01-10 16:12] VITALS: BP 117/85
[2023-01-10 19:49] VITALS: BP 134/99
[2023-01-10] MEDS: ONDANSETRON 4 MG/2 ML (SDV) Z0FRAN IV PRN (20:21)
[2023-01-11 00:35] VITALS: BP 137/88
[2023-01-11 04:17] VITALS: BP 143/87
[2023-01-11 05:19] LABS: EOSINOPHILS # (AUTO) 0.1 10^3/uL (0.0-0.3)
[2023-01-11 05:21] LABS: BASOPHILS % (AUTO) 1 % (0-10); EOSINOPHILS % (AUTO) 2 % (0-10); HEMATOCRIT 28 % (35-52); HEMOGLOBIN 9.4 g/dL (11.5-16.0); LYMPHOCYTES # (AUTO) 1.7 10^3/uL (1.0-4.0); LYMPHOCYTES % (AUTO) 41 % (12-44); MEAN CORPUSCULAR HEMOGLOBIN 31 pg (25-34); MEAN CORPUSCULAR HGB CONC 34 g/dL (32-36); MEAN CORPUSCULAR VOLUME 93 fL (80-99); MONOCYTES # (AUTO) 0.3 10^3/uL (0.0-1.0); MONOCYTES % (AUTO) 7 % (0-12); NEUTROPHILS # (AUTO) 2.1 10^3/uL (1.8-7.8); NEUTROPHILS % (AUTO) 50 % (42-75); PLATELET COUNT 76 10^3/uL (130-400); WHITE BLOOD COUNT 4.2 10^3/uL (4.3-11.0)
[2023-01-11 05:25] LABS: ALBUMIN 2.9 GM/DL (3.2-4.5)
[2023-01-11 05:26] LABS: CHLORIDE 108 MMOL/L (98-107); POTASSIUM 3.5 MMOL/L (3.6-5.0); SODIUM 139 MMOL/L (135-145)
[2023-01-11 05:27] LABS: CALCIUM 7.5 MG/DL (8.5-10.1)
[2023-01-11 05:28] LABS: GLUCOSE 83 MG/DL (70-105); TOTAL PROTEIN 6.5 GM/DL (6.4-8.2)
[2023-01-11 05:29] LABS: CARBON DIOXIDE 20 MMOL/L (21-32)
[2023-01-11 05:30] LABS: BILIRUBIN,TOTAL 0.7 MG/DL (0.1-1.0)
[2023-01-11 05:31] LABS: ALKALINE PHOSPHATASE 98 U/L (40-136)
[2023-01-11 05:32] LABS: CREATININE SERUM 0.65 MG/DL (0.60-1.30); GFR ESTIMATED 111
[2023-01-11 05:33] LABS: BUN/CREATININE RATIO 3
[2023-01-11 05:34] LABS: ALANINE AMINOTRANSFERASE 21 U/L (0-55)
[2023-01-11] MEDS: MAGNESIUM 1 GM/100 ML IVPB 100 ML IV SCH (06:00)
[2023-01-11] MEDS: KCL 20 MEQ TAB (K-DUR) PO SCH (06:01)
[2023-01-11] MEDS: POTASSIUM CL 10MEQ/50ML IVPB 50 ML IV SCH (06:01)
--- NOTE | 2023-01-11 07:02 | Progress Note - Hospitalist ---
Subjective HPI/CC On Admission Date Seen by Provider: January 11, 2023 Time Seen by Provider: 11:00 CC: Alcohol withdrawal with UTI HPI: This is a 42yoF of [facility] known to me from prior admit for the same above issues. Patient sleepy and declines to provide any other details. Alcohol withdrawal protocol started along with Rocephin. Subjective/Events-last exam No major issues Still very anxious from etoh withdrawal No pain reported UCx pending Review of Systems General: Fatigue, Malaise Focused Exam Lactate Level 01/09/23 09:30: Lactic Acid Level 5.71*H 01/09/23 11:33: Lactic Acid Level 2.38*H 01/09/23 13:43: Lactic Acid Level 3.94*H Objective Exam Vital Signs Vital Signs Date Time Temp Pulse Resp B/P (MAP) Pulse Ox O2 Delivery O2 Flow Rate FiO2 01/11/23 11:20 36.4 121 18 136/94 (108) 96 Room Air Capillary Refill : Less Than 3 Seconds General Appearance: No Apparent Distress, WD/WN, Chronically ill Respiratory: Lungs Clear, Normal Breath Sounds Cardiovascular: Regular Rate, Rhythm Neurologic/Psychiatric: Alert, Oriented x3 Results/Procedures Lab Laboratory Tests 01/11/23 05:12 Patient resulted labs reviewed. Assessment/Plan Assessment and Plan Assess & Plan/Chief Complaint Assessment: Alcohol withdrawal UTI Plan: IV abx Await Ucx KARLI GIRARD DO January 11, 2023 06:55
[2023-01-11 07:31] VITALS: BP 145/103
[2023-01-11] MEDS ORDERED: KCL 20 MEQ TAB (K-DUR) PO ONE (08:00)
[2023-01-11] MEDS: SENNOSIDES 8.6 MG (SENOKOT) TAB PO SCH ×2 (08:24→20:47)
[2023-01-11] MEDS: PANTOPRAZOLE 40 MG (PROTONIX) VIAL IV SCH (08:24)
[2023-01-11] MEDS: DOCUSATE SODIUM 100 MG (COLACE) CAP PO SCH ×2 (08:24→20:47)
[2023-01-11] MEDS: THIAMINE INJECTION 100 MG, FOLIC ACID INJECTION 1 MG, MAGNESIUM SULFATE 2 GM, VITAMIN M... IV SCH ×5 (11:13)
[2023-01-11] MEDS: cefTRIAXone IV/IM 1,000 MG in NS (IVPB) 50 ML IV SCH (11:13)
[2023-01-11] MEDS: LORazepam 1 MG (ATIVAN) TAB PO PRN (11:13)
[2023-01-11 11:20] VITALS: BP 136/94
[2023-01-11] MEDS: ACETAMINOPHEN 325 MG TABLET PO PRN (11:25)
[2023-01-11 16:10] VITALS: BP 148/98
[2023-01-11] MEDS: ENOXAPARIN 40 MG/0.4 ML (LOVENOX) SYR SC SCH (16:15)
[2023-01-11] MEDS: HYDROmorphone 2 MG/ML VIAL (DILAUDID) IV PRN (18:47)
[2023-01-11] MEDS: ONDANSETRON 4 MG/2 ML (SDV) Z0FRAN IV PRN (18:47)
[2023-01-11] MEDS: LORazepam INJ 2 MG/ML (ATIVAN) VIAL IV PRN ×2 (18:59→23:30)
[2023-01-11 20:48] VITALS: BP 140/98
[2023-01-12] VITALS (7 sets, daily range): BP systolic 129–164; BP diastolic 68–104
[2023-01-12] MEDS: LORazepam 1 MG (ATIVAN) TAB PO PRN ×4 (00:40→22:03)
[2023-01-12 05:50] LABS: BASOPHILS % (AUTO) 0 % (0-10); MEAN CORPUSCULAR HEMOGLOBIN 30 pg (25-34); MEAN CORPUSCULAR HGB CONC 33 g/dL (32-36); MEAN CORPUSCULAR VOLUME 94 fL (80-99); MEAN PLATELET VOLUME 12.2 fL (9.0-12.2)
[2023-01-12 05:52] LABS: EOSINOPHILS # (AUTO) 0.1 10^3/uL (0.0-0.3); EOSINOPHILS % (AUTO) 2 % (0-10); HEMATOCRIT 28 % (35-52); LYMPHOCYTES # (AUTO) 2.1 10^3/uL (1.0-4.0); LYMPHOCYTES % (AUTO) 42 % (12-44); MONOCYTES # (AUTO) 0.4 10^3/uL (0.0-1.0); MONOCYTES % (AUTO) 7 % (0-12); NEUTROPHILS # (AUTO) 2.4 10^3/uL (1.8-7.8); NEUTROPHILS % (AUTO) 49 % (42-75); PLATELET COUNT 94 10^3/uL (130-400)
[2023-01-12] MEDS: POTASSIUM CL 10MEQ/50ML IVPB 50 ML IV SCH (06:00)
[2023-01-12] MEDS: MAGNESIUM 1 GM/100 ML IVPB 100 ML IV SCH ×4 (06:00→09:03)
[2023-01-12] MEDS: KCL 20 MEQ TAB (K-DUR) PO SCH ×3 (06:00→10:35)
[2023-01-12 06:01] LABS: ALBUMIN 3.1 GM/DL (3.2-4.5)
[2023-01-12 06:02] LABS: POTASSIUM 3.2 MMOL/L (3.6-5.0)
[2023-01-12 06:03] LABS: CALCIUM 8.4 MG/DL (8.5-10.1)
[2023-01-12 06:04] LABS: TOTAL PROTEIN 6.9 GM/DL (6.4-8.2)
[2023-01-12 06:06] LABS: BILIRUBIN,TOTAL 0.5 MG/DL (0.1-1.0)
[2023-01-12 06:08] LABS: CREATININE SERUM 0.65 MG/DL (0.60-1.30)
[2023-01-12 06:11] LABS: MAGNESIUM 1.6 MG/DL (1.6-2.4)
[2023-01-12] MEDS: PANTOPRAZOLE 40 MG (PROTONIX) VIAL IV SCH (08:14)
[2023-01-12] MEDS: HYDROmorphone 2 MG/ML VIAL (DILAUDID) IV PRN ×3 (08:14→22:03)
[2023-01-12] MEDS: THIAMINE INJECTION 100 MG, FOLIC ACID INJECTION 1 MG, MAGNESIUM SULFATE 2 GM, VITAMIN M... IV SCH ×5 (08:14)
[2023-01-12] MEDS: SENNOSIDES 8.6 MG (SENOKOT) TAB PO SCH ×2 (08:19→19:45)
[2023-01-12] MEDS: DOCUSATE SODIUM 100 MG (COLACE) CAP PO SCH ×2 (08:19→19:45)
[2023-01-12] MEDS ORDERED: POTA99TA26 PO (09:47)
[2023-01-12] MEDS ORDERED: MAGN400T39 PO (09:47)
[2023-01-12] MEDS ORDERED: PANT40TA52 PO (09:48)
[2023-01-12] MEDS: cefTRIAXone IV/IM 1,000 MG in NS (IVPB) 50 ML IV SCH (10:35)
[2023-01-12] MEDS: ENOXAPARIN 40 MG/0.4 ML (LOVENOX) SYR SC SCH (14:49)
[2023-01-12] MEDS: lisINopril 10 MG (PRINIVIL) TABLET PO SCH (14:49)
--- NOTE | 2023-01-12 14:59 | Progress Note ---
Subjective Subjective/Events-last exam Patient states that she is feeling better. Tolerating PO diet. Ambulating around room. Review of Systems General: Fatigue Pulmonary: No Dyspnea, No Cough Cardiovascular: No: Chest Pain, Palpitations, Edema Gastrointestinal: No: Nausea, Vomiting, Abdominal Pain, Diarrhea, Constipation Genitourinary: Frequency Neurological: No: Weakness, Incoordination Objective Exam Last Set of Vital Signs Vital Signs Date Time Temp Pulse Resp B/P (MAP) Pulse Ox O2 Delivery O2 Flow Rate FiO2 01/12/23 11:22 36.4 98 18 153/103 (120) 98 Room Air Capillary Refill : Less Than 3 Seconds I&O Intake and Output 01/12/23 00:00 Intake Total 2320 ml Balance 2320 ml Intake Oral 2320 ml # Voids 10 # Bowel Movements 2 General: Alert, Oriented X3, No Acute Distress Lungs: Clear to Auscultation, Normal Air Movement Heart: Regular Rate, No Murmurs Abdomen: Normal Bowel Sounds, Soft, No Tenderness Extremities: No Edema, No Tenderness/Swelling Neuro: Normal Speech Results/Procedures Lab Laboratory Tests 01/12/23 05:18: White Blood Count 5.0, Red Blood Count 2.96L, Hemoglobin 9.0L, Hematocrit 28L, Mean Corpuscular Volume 94, Mean Corpuscular Hemoglobin 30, Mean Corpuscular Hemoglobin Concent 33, Red Cell Distribution Width 21.2H, Platelet Count 94L, Mean Platelet Volume 12.2, Immature Granulocyte % (Auto) 0, Neutrophils (%) (Auto) 49, Lymphocytes (%) (Auto) 42, Monocytes (%) (Auto) 7, Eosinophils (%) (Auto) 2, Basophils (%) (Auto) 0, Neutrophils # (Auto) 2.4, Lymphocytes # (Auto) 2.1, Monocytes # (Auto) 0.4, Eosinophils # (Auto) 0.1, Basophils # (Auto) 0.0, Immature Granulocyte # (Auto) 0.0, Percent Immature Platelet Fraction 11.2H, Sodium Level 137, Potassium Level 3.2L, Chloride Level 107, Carbon Dioxide Level 21, Anion Gap 9, Blood Urea Nitrogen 2L, Creatinine 0.65, Estimat Glomerular Filtration Rate 111, BUN/Creatinine Ratio 3, Glucose Level 82, Calcium Level 8.4L, Corrected Calcium 9.1, Magnesium Level 1.6, Total Bilirubin 0.5, Aspartate Amino Transf (AST/SGOT) 73H, Alanine Aminotransferase (ALT/SGPT) 21, Alkaline Phosphatase 94, Total Protein 6.9, Albumin 3.1L Microbiology 01/09/23 Blood Culture - Preliminary, Resulted No growth 01/09/23 Urine Culture - Final, Complete Mixed Bacterial Inna Escherichia coli Assessment/Plan Assessment/Plan (1) Alcohol abuse with withdrawal Status: Acute Assessment & Plan: 01/12: CIWS, ativan need is decreasing, patient states that she has intake appts coming up (2) Alcoholic liver disease Status: Chronic (3) UTI (urinary tract infection) Status: Acute Assessment & Plan: 01/12: Continue antibiotics Qualifiers: Qualified Codes: N39.0 - Urinary tract infection, site not specified; R31.9 - Hematuria, unspecified (4) Normocytic anemia Status: Acute (5) Hypokalemia Status: Acute Assessment & Plan: 01/12: Replace and repeat level in am KURTIS ASHTON MD January 12, 2023 14:59
[2023-01-12] MEDS ORDERED: KCL 20 MEQ TAB (K-DUR) PO NR (15:00)
[2023-01-13 04:55] VITALS: BP 129/82
[2023-01-13 05:30] LABS: HEMOGLOBIN 8.6 g/dL (11.5-16.0); MEAN CORPUSCULAR VOLUME 95 fL (80-99); MEAN PLATELET VOLUME 12.1 fL (9.0-12.2)
[2023-01-13 05:32] LABS: BASOPHILS % (AUTO) 0 % (0-10); EOSINOPHILS # (AUTO) 0.1 10^3/uL (0.0-0.3); EOSINOPHILS % (AUTO) 2 % (0-10); HEMATOCRIT 27 % (35-52); LYMPHOCYTES # (AUTO) 1.9 10^3/uL (1.0-4.0); LYMPHOCYTES % (AUTO) 38 % (12-44); MEAN CORPUSCULAR HEMOGLOBIN 31 pg (25-34); MEAN CORPUSCULAR HGB CONC 33 g/dL (32-36); MONOCYTES # (AUTO) 0.4 10^3/uL (0.0-1.0); MONOCYTES % (AUTO) 7 % (0-12); NEUTROPHILS # (AUTO) 2.6 10^3/uL (1.8-7.8); NEUTROPHILS % (AUTO) 52 % (42-75); PLATELET COUNT 104 10^3/uL (130-400)
[2023-01-13 05:41] LABS: ALBUMIN 2.9 GM/DL (3.2-4.5)
[2023-01-13 05:43] LABS: CALCIUM 8.2 MG/DL (8.5-10.1)
[2023-01-13 05:44] LABS: TOTAL PROTEIN 6.4 GM/DL (6.4-8.2)
[2023-01-13 05:46] LABS: BILIRUBIN,TOTAL 0.4 MG/DL (0.1-1.0)
[2023-01-13 05:48] LABS: CREATININE SERUM 0.65 MG/DL (0.60-1.30)
[2023-01-13 05:50] LABS: MAGNESIUM 1.6 MG/DL (1.6-2.4)
[2023-01-13] MEDS: POTASSIUM CL 10MEQ/50ML IVPB 50 ML IV SCH (05:52)
[2023-01-13] MEDS: KCL 20 MEQ TAB (K-DUR) PO SCH (05:52)
[2023-01-13] MEDS: MAGNESIUM 1 GM/100 ML IVPB 100 ML IV SCH ×5 (06:02→08:58)
[2023-01-13 08:00] VITALS: BP 149/81
[2023-01-13] MEDS: PANTOPRAZOLE 40 MG (PROTONIX) VIAL IV SCH (08:58)
[2023-01-13] MEDS: DOCUSATE SODIUM 100 MG (COLACE) CAP PO SCH (08:58)
[2023-01-13] MEDS: SENNOSIDES 8.6 MG (SENOKOT) TAB PO SCH (08:58)
[2023-01-13] MEDS: lisINopril 10 MG (PRINIVIL) TABLET PO SCH (08:58)
[2023-01-13] MEDS: HYDROmorphone 2 MG/ML VIAL (DILAUDID) IV PRN (08:59)
[2023-01-13] MEDS: LORazepam 1 MG (ATIVAN) TAB PO PRN (09:36)
[2023-01-13] MEDS: cefTRIAXone IV/IM 1,000 MG in NS (IVPB) 50 ML IV SCH (10:57)
[2023-01-13 12:00] VITALS: BP 140/92
--- NOTE | 2023-01-13 12:08 | Discharge Summary ---
Diagnosis/Chief Complaint Date of Admission January 09, 2023 at 12:45 Date of Discharge 01/13/23 Admission Diagnosis Admission Diagnosis See problem list Discharge Diagnosis See below Problems/Diagnosis: (1) Alcohol abuse with withdrawal Assessment & Plan: 01/12: FELIBERTO ativan need is decreasing, patient states that she has intake appts coming up Status: Acute (2) Alcoholic liver disease Status: Chronic (3) UTI (urinary tract infection) Assessment & Plan: 01/12: Continue antibiotics Qualifiers: Qualified Codes: N39.0 - Urinary tract infection, site not specified; R31.9 - Hematuria, unspecified Status: Acute (4) Normocytic anemia Status: Acute (5) Hypokalemia Assessment & Plan: 01/12: Replace and repeat level in am Status: Acute Discharge Summary-Simple/Stand Consultations Discharge Physical Examination Allergies: Coded Allergies: No Known Drug Allergies (Unverified , 04/28/21) Vitals & I&Os Vital Sign - Last 12Hours Date Time Temp Pulse Resp B/P (MAP) Pulse Ox O2 Delivery O2 Flow Rate FiO2 01/13/23 12:00 35.8 71 18 140/92 (108) 98 Room Air Intake and Output 01/13/23 00:00 Intake Total 2965.2 ml Balance 2965.2 ml Hospital Course See final discharge diagnosis. Discharge Instructions to patient/family Please see electronic discharge instructions given to patient. Discharge Medications Reviewed and agree with Discharge Medication list on patient's Discharge Instruction sheet KURTIS ASHTON MD January 13, 2023 12:08
[2023-01-13] MEDS ORDERED: POTA-169 PO (12:11)
[2023-01-13] MEDS ORDERED: CEFD300C3 PO (12:11)
--- NOTE | 2023-01-13 12:11 | Discharge Summary ---
Discharge [facility] Reconcile Patient Problems Problems Reviewed?: Yes Discharge Medications New, Converted or Re-Newed RX: Transmitted to Pharmacy New Medications: Cefdinir (Cefdinir) 300 Mg Capsule 300 MG PO BID for 3 Days, #6 CAP Potassium Chloride (Klor-Con M20) 20 Meq Tab.er.prt 40 MEQ PO DAILY@0600, #30 TAB Continued Medications: Amlodipine Besylate (Amlodipine Besylate) 10 Mg Tablet 10 MG PO HS, TAB LAST FILLED 06-30-2022 #90/90 DAY SUPPLY Magnesium Oxide (Magnesium) 400 Mg Magnesium Tablet 400 MG PO DAILY, TAB Pantoprazole Sodium (Pantoprazole Sodium) 40 Mg Tablet.dr 40 MG PO DAILY, TAB LAST FILLED 06-30-2022 #90/90 DAY SUPPLY Discontinued Medications: Potassium Gluconate (Potassium) 595 Mg (99 Mg) Tablet 99 MG PO DAILY, TAB Patient Instructions Goal/Follow Up Appt: Keep your appt on at [facility] Activity & Diet Discharge Diet: Cardiac Diet Activity as Tolerated: Yes KURTIS ASHTON MD January 13, 2023 12:11
== END 2023-01-13 14:50 | disposition home or self-care (01) | DRG 896 ==
LOC: EDUNIT# 08:23 → ER 08:25 → ICU 12:45 → 4TH 01-10 13:27
PROVIDERS: ADMIT Internal Medicine; ATTEND Family Medicine
DX: F10.239 Alcohol dependence with withdrawal, unspecified (principal); K85.90 Acute pancreatitis without necrosis or infection, unspecified; N39.0 Urinary tract infection, site not specified; F10.280 Alcohol dependence with alcohol-induced anxiety disorder; K70.9 Alcoholic liver disease, unspecified; E87.6 Hypokalemia; E83.42 Hypomagnesemia; D64.9 Anemia, unspecified; Z20.822 Contact with and (suspected) exposure to COVID-19; I10 Essential (primary) hypertension; F41.9 Anxiety disorder, unspecified; G47.00 Insomnia, unspecified; F17.210 Nicotine dependence, cigarettes, uncomplicated; K21.9 Gastro-esophageal reflux disease without esophagitis; B96.20 Unspecified Escherichia coli [E. coli] as the cause of diseases classified elsewhere; Y90.3 Blood alcohol level of 60-79 mg/100 ml
CPT/HCPCS: 36415; 71045; 74177; 80053; 80306; 80320; 81000; 83605; 83690; 83735; 84100; 84703; 85025; 85027; 85610; 85730; 86141; 87040; 87077; 87088; 87186; 87636; 93005

== ENCOUNTER 2023-01-15 19:44 | Emergency (ER) | payer MEDICAID ==
[~2023-01-15] VITALS: Ht 170.2 cm; Wt 67.5 kg
[~2023-01-15 19:44] MED LIST changes: +CEFD300C3 PO; +MAGN400T39 PO; +POTA99TA26 PO
[2023-01-15] MEDS ORDERED: POTA-179 (19:56)
--- NOTE | 2023-01-15 20:13 | ED GI ---
General Chief Complaint: Abdominal/GI Problems Stated Complaint: ABD PAIN/NAUSEA Nursing Triage Note: C/O EPIGASTRIC PAIN FOR A "FEW WEEKS" REPORTS DC'D FROM HOSPITAL 01/13/23 FOR ALCOHOL WITHDRAWL. Source of Information: Patient History of Present Illness Date Seen by Provider: January 15, 2023 Time Seen by Provider: 20:00 Initial Comments PT ARRIVES VIA POV FROM HOME WITH SON, WANTS WHEELCHAIR ON ARRIVAL C/O NAUSEA/VOMITING AND UPPER ABDOMINAL PAIN PT WAS JUST HOSPITALIZED, AND WAS DISMISSED 01/13/23 FOR ALCOHOL ABUSE / ALCOHOL WITHDRAWL AND WAS HAVING THESE SAME SYMPTOMS AT THE TIME OF ADMIT ON 01/09/23 SHE HAD AN APPOINTMENT TODAY FOR FOLLOW UP , BUT DID NOT GO SHE HAS NOT TAKEN ANY MEDICATIONS OF ANY KIND SINCE SHE WAS DISMISSED FROM THE HOSPITAL SHE CLAIMS SHE HAS NOT HAD ANY ALCOHOL SINCE SHE WAS DISMISSED FROM THE HOSPITAL STATES SHE HAS BEEN HAVING EPIGASTRIC / UPPER ABDOMINAL PAIN "FOR A FEW WEEKS" PT VERY DRAMATIC, WITH CONSTANT LOUD HARSH, FORCED RETCHING ON ARRIVAL AND DURING MY EXAM NO OTHER INFORMATION IS OBTAINABLE ON ARRIVAL PT WAS ALSO ADMITTED 12/12-12/16/22 FOR ALCOHOL ABUSE AND WITHDRAWL. PCP: CECIL Allergies and Home Medications Allergies Coded Allergies: No Known Drug Allergies (Unverified , 04/28/21) Patient Home Medication List Home Medication List Reviewed: Yes Amlodipine Besylate (Amlodipine Besylate) 10 Mg Tablet, 10 MG PO HS, (Reported) Entered as Reported by: CHEO OCHOA on 12/12/22 0621 Magnesium Oxide (Magnesium) 400 Mg Magnesium Tablet, 400 MG PO DAILY, (Reported) Entered as Reported by: IRMA MOORE on 01/12/23 0947 Ondansetron (Ondansetron Odt) 8 Mg Tab.rapdis, 8 MG PO Q6H Prescribed by: AIDAN JOLLEY on 01/15/23 2228 Pantoprazole Sodium (Pantoprazole Sodium) 40 Mg Tablet.dr, 40 MG PO DAILY, (Reported) Entered as Reported by: IRMA MOORE on 01/12/23 0948 Potassium Chloride (Klor-Con M20) 20 Meq Tab.er.prt, 40 MEQ PO DAILY@0600 Prescribed by: KURTIS ASHTON on 01/13/23 1211 Potassium Chloride (Potassium Chloride) 20 Meq Tab.er.prt, (Reported) Entered as Reported by: CHEO OCHOA on 01/15/231955 Last Action: New Order Discontinued Medications Cefdinir (Cefdinir) 300 Mg Capsule, 300 MG PO BID Discontinued Reason: No Longer Taking Prescribed by: KURTIS ASHTON on 01/13/23 1211 Last Action: Discontinued Mirtazapine (Mirtazapine) 15 Mg Tablet, 15 MG PO HS, (Reported) Discontinued Reason: No Longer Taking Entered as Reported by: IRMA MOORE on 12/12/22 1555 Potassium Chloride (Klor-Con M20) 20 Meq Tab.er.prt, 20 MEQ PO BID WITH MEALS Discontinued Reason: No Longer Taking Prescribed by: KURTIS ASHTON on 12/16/22 1138 Potassium Gluconate (Potassium) 595 Mg (99 Mg) Tablet, 99 MG PO DAILY, (Reported) Entered as Reported by: IRMA MOORE on 01/12/23 0947 Review of Systems Review of Systems Constitutional: no symptoms reported Respiratory: No Symptoms Reported Cardiovascular: No Symptoms Reported Gastrointestinal: See HPI, Abdominal Pain, Nausea, Vomiting Genitourinary: No Symptoms Reported Musculoskeletal: no symptoms reported Skin: no symptoms reported Psychiatric/Neurological: Anxiety Endocrine: No Symptoms Reported Hematologic/Lymphatic: No Symptoms Reported Past Abnqtoo-Hjzyfx-Bxhxfo Hx Patient Social History Tobacco Use?: Yes Tobacco type used: Cigarettes Smoking Status: Current Everyday Smoker Substance use?: No Alcohol Use?: Yes Alcohol type: Hard Liquor Alcohol Frequency: Daily Pt feels they are or have been: No Immunizations Up To Date First/Initial COVID19 Vaccinat: X2 Second COVID19 Vaccination Ramakrishna: MARCH 2021 Past Medical History Surgery/Hospitalization HX: TUBAL, HTN, LIVER DISEASE, ALCOHOL ABUSE, JAUNDICE, ANXIETY, GERD Surgeries: Yes (tubal ligation) Tubal Ligation Respiratory: No Cardiac: Yes Hypertension Neurological: No Genitourinary: Yes Bladder Infection Gastrointestinal: Yes (ALCOHOLIC LIVER DISEASE) Liver Disease/Jaundice Musculoskeletal: No Endocrine: No HEENT: No Cancer: No Psychosocial: Yes (Alcohol dependence) Anxiety Integumentary: No Family Medical History No Pertinent Family Hx Physical Exam Vital Signs Vital Signs - First Documented 01/15/23 19:50 Temp 36.5 Pulse 127 Resp 22 B/P (MAP) 145/98 (114) Pulse Ox 100 O2 Delivery Room Air Capillary Refill : Less Than 3 Seconds Height/Weight/BMI Height: '" Weight: lbs. oz. kg; 23.00 BMI Method: General Appearance: other ( ABOVE. REEKS OF ETOH. PT IS VOMITING UP CLEAR LIQUID WITH CONSISTENCY OF WATER OR OTHER CLEAR LIQUID) Respiratory: normal breath sounds, no respiratory distress, no accessory muscle use Cardiovascular: regular rate, rhythm, no murmur Gastrointestinal: soft, tenderness (DIFFUSE UPPER ABDOMINAL TENDERNESS--LIMITED EXAM PT REPEATEDLY GRABS MY HAND AND PUSHES IT AWAY WHEN I AM TRYING TO EXAMINE HER) Extremities: normal inspection, normal capillary refill Neurologic/Psychiatric: no motor/sensory deficits, alert, oriented x 3 Skin: normal color (PT IS BLACK), warm/dry Progress/Results/Core Measures Results/Orders Lab Results Laboratory Tests Test 01/15/23 20:17 01/15/23 20:24 Range/Units White Blood Count 7.7 4.3-11.0 10^3/uL Red Blood Count 3.65 L 3.80-5.11 10^6/uL Hemoglobin 11.1 #L 11.5-16.0 g/dL Hematocrit 34 L 35-52 % Mean Corpuscular Volume 94 80-99 fL Mean Corpuscular Hemoglobin 30 25-34 pg Mean Corpuscular Hemoglobin Concent 32 32-36 g/dL Red Cell Distribution Width 22.5 H 10.0-14.5 % Platelet Count 383 130-400 10^3/uL Mean Platelet Volume 9.8 9.0-12.2 fL Immature Granulocyte % (Auto) 0 % Neutrophils (%) (Auto) 33 L 42-75 % Lymphocytes (%) (Auto) 53 H 12-44 % Monocytes (%) (Auto) 12 0-12 % Eosinophils (%) (Auto) 1 0-10 % Basophils (%) (Auto) 1 0-10 % Neutrophils # (Auto) 2.6 1.8-7.8 10^3/uL Lymphocytes # (Auto) 4.1 H 1.0-4.0 10^3/uL Monocytes # (Auto) 0.9 0.0-1.0 10^3/uL Eosinophils # (Auto) 0.1 0.0-0.3 10^3/uL Basophils # (Auto) 0.1 0.0-0.1 10^3/uL Immature Granulocyte # (Auto) 0.0 0.0-0.1 10^3/uL Prothrombin Time 13.2 12.2-14.7 SEC INR Comment 1.0 0.8-1.4 Activated Partial Thromboplast Time 29 24-35 SEC Sodium Level 147 H 135-145 MMOL/L Potassium Level 3.4 L 3.6-5.0 MMOL/L Chloride Level 108 H 98-107 MMOL/L Carbon Dioxide Level 24 21-32 MMOL/L Anion Gap 15 H 5-14 MMOL/L Blood Urea Nitrogen 4 L 7-18 MG/DL Creatinine 0.80 0.60-1.30 MG/DL Estimat Glomerular Filtration Rate 93 BUN/Creatinine Ratio 5 Glucose Level 100 70-105 MG/DL Calcium Level 8.9 8.5-10.1 MG/DL Corrected Calcium 8.9 8.5-10.1 MG/DL Magnesium Level 1.6 1.6-2.4 MG/DL Total Bilirubin 0.4 0.1-1.0 MG/DL Aspartate Amino Transf (AST/SGOT) 209 H 5-34 U/L Alanine Aminotransferase (ALT/SGPT) 71 H 0-55 U/L Alkaline Phosphatase 99 40-136 U/L Ammonia 47 H 11-32 UMOL/L Total Protein 8.6 H 6.4-8.2 GM/DL Albumin 4.0 3.2-4.5 GM/DL Amylase Level 143 H 25-125 U/L Lipase 116 H 8-78 U/L Serum Test, Qualitative NEGATIVE NEGATIVE Acetaminophen Level < 10 L 10-30 UG/ML Serum Alcohol 241 H <10 MG/DL Urine Color YELLOW Urine Clarity CLEAR Urine pH 6.0 5-9 Urine Specific [place] 1.020 1.016-1.022 Urine Protein TRACE H NEGATIVE Urine Glucose (UA) NEGATIVE NEGATIVE Urine Ketones NEGATIVE NEGATIVE Urine Nitrite NEGATIVE NEGATIVE Urine Bilirubin NEGATIVE NEGATIVE Urine Urobilinogen 0.2 < = 1.0 MG/DL Urine Leukocyte Esterase NEGATIVE NEGATIVE Urine RBC (Auto) NEGATIVE NEGATIVE Urine RBC 0-2 /HPF Urine WBC 0-2 /HPF Urine Squamous Epithelial Cells >50 H /HPF Urine Crystals PRESENT H /LPF Urine Amorphous Sediment FEW AVIVA URATES H /LPF Urine Bacteria MODERATE H /HPF Urine Casts NONE /LPF Urine Mucus NEGATIVE /LPF Urine Culture Indicated NO Urine Opiates Screen NEGATIVE NEGATIVE Urine Oxycodone Screen NEGATIVE NEGATIVE Urine Methadone Screen NEGATIVE NEGATIVE Urine Propoxyphene Screen NEGATIVE NEGATIVE Urine Barbiturates Screen NEGATIVE NEGATIVE Ur Tricyclic Antidepressants Screen NEGATIVE NEGATIVE Urine Phencyclidine Screen NEGATIVE NEGATIVE Urine Amphetamines Screen NEGATIVE NEGATIVE Urine Methamphetamines Screen NEGATIVE NEGATIVE Urine Benzodiazepines Screen POSITIVE H NEGATIVE Urine Cocaine Screen NEGATIVE NEGATIVE Urine Cannabinoids Screen NEGATIVE NEGATIVE My Orders Orders - AIDAN JOLLEY DO Monitor-Rhythm Ecg Trace Only (01/15/23 20:05) Alcohol (01/15/23 20:05) Ammonia (01/15/23 20:05) Amylase (01/15/23 20:05) Cbc With Automated Diff (01/15/23 20:05) Comprehensive Metabolic Panel (01/15/23 20:05) Drug Screen Stat (Urine) (01/15/23 20:05) Hcg,Qualitative Serum (01/15/23 20:05) Lipase (01/15/23 20:05) Magnesium (01/15/23 20:05) Protime With Inr (01/15/23 20:05) Partial Thromboplastin Time (01/15/23 20:05) Ua Culture If Indicated (01/15/23 20:05) Ed Iv/Invasive Line Start (01/15/23 20:05) Lactated Ringers (Lr 1000 Ml Iv Solution (01/15/23 20:15) Ondansetron Injection (Zofran Injectio (01/15/23 20:15) Pantoprazole Injection (Protonix Injecti (01/15/23 20:15) Acetaminophen (01/15/23 20:17) Ct Abdomen/Pelvis W (01/15/23 21:00) Iohexol Injection (Omnipaque 350 Mg/Ml 1 (01/15/23 21:15) Received Contrast (Hold Metformin- Contr (01/15/23 21:15) Ns (Ivpb) (Sodium Chloride 0.9% Ivpb Bag (01/15/23 21:15) Iohexol Injection (Omnipaque 350 Mg/Ml 1 (01/15/23 22:15) Received Contrast (Hold Metformin- Contr (01/15/23 22:15) Ns (Ivpb) (Sodium Chloride 0.9% Ivpb Bag (01/15/23 22:15) Medications Given in ED Current Medications Medications Dose Ordered Sig/Beti Route Start Time Stop Time Status Last Admin Dose Admin Iohexol 100 ml ONCE ONCE IV 01/15/23 21:15 01/15/23 21:16 DC 01/15/23 22:07 78 ML Lactated Ringer's 1,000 ml @ 0 mls/hr Q0M ONCE IV 01/15/23 20:15 01/15/23 20:16 DC 01/15/23 20:18 0 MLS/HR Ondansetron HCl 8 mg ONCE ONCE IVP 01/15/23 20:15 01/15/23 20:16 DC 01/15/23 20:18 8 MG Pantoprazole 40 mg ONCE ONCE IV 01/15/23 20:15 01/15/23 20:16 DC 01/15/23 20:18 40 MG Sodium Chloride 100 ml ONCE ONCE IV 01/15/23 21:15 01/15/23 21:16 DC 01/15/23 22:07 80 ML Vital Signs/I&O 01/15/23 01/15/23 19:50 22:33 Temp 36.5 36.2 Pulse 127 97 Resp 22 16 B/P (MAP) 145/98 (114) 132/78 Pulse Ox 100 99 O2 Delivery Room Air Room Air 01/16/23 00:00 Intake Total 1000 ml Balance 1000 ml Blood Pressure Mean: 114 Progress Progress Note : Progress Note GIVEN: -IV FLUIDS -ZOFRAN -PROTONIX ALL SYMPTOMS RESOLVED WITH THE ABOVE. SPEECH IS CLEAR AND GAIT IS STEADY PT NOW C/O BEING ANXIOUS, BECAUSE HER SON HAS LEFT--SON LEFT SHORTLY AFTER ARRIVAL. PT CONTINUES TO STATE SHE HAS NOT HAD ANY ALCOHOL SINCE SHE WAS DISMISSED FROM THE HOSPITAL, EVEN AFTER DISCUSSING HER ALCOHOL LEVEL. UNEVENTFUL ER STAY REVIEWED PRIOR RECORDS--ER VISITS AND ADMITS, NEARLY ALL RELATED TO CHRONIC ALCOHOL ABUSE. DISCUSSED TEST RESULTS, ANTICIPATED COURSE, SYMPTOMATIC TREATMENT, DIET, MEDICATIONS, IMPORTANCE OF ABSTAINING FROM ALCOHOL AND IMPORTANCE OF TAKING HER MEDICATIONS PRESCRIBED, AND IMPORTANCE OF FOLLOWING UP WITH HER DR INSTRUCTED, WELL RETURN PRECAUTIONS Diagnostic Imaging Comments CT SCAN --PER RADIOLOGIST REPORT AT 2225 FINDINGS: The visualized portions of the lung bases are clear. There is no pleural fluid collection. There is no free intraperitoneal air. There is a moderate to large hiatal hernia. The liver is enlarged and shows diffuse extensive fatty infiltration, without focal lesion. Gallbladder appears normal. The spleen and adrenals and kidneys appear normal. The pancreas appears unremarkable with no overt pancreatitis. There is no retroperitoneal mass or adenopathy. There is no ascites or abnormal fluid collection. Visualized bowel loops are unremarkable. There are postop changes in the adnexa. The left adnexal cyst is significantly smaller compared to the prior study, it was previously measured at 3.8 cm and now measures about 2.4 cm. IMPRESSION: Hepatomegaly with diffuse fatty infiltration of the liver again noted. No change in hiatal hernia. No CT evidence of pancreatitis or abnormal fluid collection. The adnexal cyst on the left side, seen on the previous study of 01/09/2023, has shown significant decrease in size. There is no new finding otherwise seen. Reviewed: Reviewed by Me Departure Impression Primary Impression: Alcohol intoxication in active alcoholic Additional Impressions: Nausea & vomiting Alcoholic liver disease ELEVATED PANCREATIC ENZYMES Disposition: 01 HOME, SELF-CARE Condition: Improved Departure-Patient Inst. Decision time for Depature: 22:26 Referrals: [facility] (PCP/Family) Primary Care Physician Patient Instructions: Alcohol Use Disorder (DC), Nausea and Vomiting, Adult ED Add. Discharge Instructions: NO ALCOHOL TAKE YOUR REGULAR MEDICATIONS PRESCRIBED FOLLOW UP WITH YOUR DR FOR FURTHER CARE--CALL IN THE MORNING TO RESCHEDULE YOUR APPOINTMENT All discharge instructions reviewed with patient and/or family. Voiced understanding. Scripts Ondansetron (Ondansetron Odt) 8 Mg Tab.rapdis 8 MG PO Q6H, #10 TAB Prov: AIDAN JOLLEY DO 01/15/23 AIDAN JOLLEY DO January 15, 2023 20:13
[2023-01-15] MEDS ORDERED: LACTATED RINGERS 1,000 ML IV ONE (20:15)
[2023-01-15] MEDS ORDERED: PANTOPRAZOLE 40 MG (PROTONIX) VIAL IV ONE (20:15)
[2023-01-15] MEDS ORDERED: ONDANSETRON 4 MG/2 ML (SDV) Z0FRAN IVP ONE (20:15)
[2023-01-15 20:25] LABS: BASOPHILS # (AUTO) 0.1 10^3/uL (0.0-0.1); BASOPHILS % (AUTO) 1 % (0-10); EOSINOPHILS # (AUTO) 0.1 10^3/uL (0.0-0.3); EOSINOPHILS % (AUTO) 1 % (0-10); HEMATOCRIT 34 % (35-52); HEMOGLOBIN 11.1 g/dL (11.5-16.0); LYMPHOCYTES # (AUTO) 4.1 10^3/uL (1.0-4.0); LYMPHOCYTES % (AUTO) 53 % (12-44); MEAN CORPUSCULAR HEMOGLOBIN 30 pg (25-34); MEAN CORPUSCULAR HGB CONC 32 g/dL (32-36); MEAN CORPUSCULAR VOLUME 94 fL (80-99); MEAN PLATELET VOLUME 9.8 fL (9.0-12.2); MONOCYTES # (AUTO) 0.9 10^3/uL (0.0-1.0); MONOCYTES % (AUTO) 12 % (0-12); NEUTROPHILS # (AUTO) 2.6 10^3/uL (1.8-7.8); NEUTROPHILS % (AUTO) 33 % (42-75); PLATELET COUNT 383 10^3/uL (130-400); WHITE BLOOD COUNT 7.7 10^3/uL (4.3-11.0)
[2023-01-15 20:33] LABS: BILIRUBIN,URINE NEGATIVE (NEGATIVE); CLARITY,URINE CLEAR; COLOR,URINE YELLOW; GLUCOSE, URINE (UA) NEGATIVE (NEGATIVE); KETONES,URINE NEGATIVE (NEGATIVE); LEUKOCYTE ESTERASE ,URINE NEGATIVE (NEGATIVE); NITRITE,URINE NEGATIVE (NEGATIVE); PROTEIN,URINE TRACE (NEGATIVE)
[2023-01-15 20:41] LABS: AMORPHOUS SEDIMENT,UR FEW AMOR URATES /LPF; BACTERIA,URINE MODERATE /HPF; RBC,URINE 0-2 /HPF; SQUAMOUS EPITHELIAL CELL,UR >50 /HPF; WBC,URINE 0-2 /HPF
[2023-01-15 20:44] LABS: PROTHROMBIN TIME PATIENT 13.2 SEC (12.2-14.7)
[2023-01-15 20:48] LABS: AMPHETAMINE SCREEN, URINE NEGATIVE (NEGATIVE); BARBITURATE SCREEN URINE NEGATIVE (NEGATIVE); BENZODIAZEPINES SCREEN URINE POSITIVE (NEGATIVE); CANNABINOID SCREEN, URINE NEGATIVE (NEGATIVE); COCAINE SCREEN URINE NEGATIVE (NEGATIVE); METHADONE STAT NEGATIVE (NEGATIVE); OPIATE SCREEN URINE NEGATIVE (NEGATIVE); OXYCODONE STAT NEGATIVE (NEGATIVE); PROPOXYPHENE STAT NEGATIVE (NEGATIVE); TRICYCLIC ANTIDEPRESSANTS SCRE NEGATIVE (NEGATIVE)
[2023-01-15 20:53] LABS: ALANINE AMINOTRANSFERASE 71 U/L (0-55); ALKALINE PHOSPHATASE 99 U/L (40-136); AMMONIA 47 UMOL/L (11-32); AMYLASE 143 U/L (25-125); BILIRUBIN,TOTAL 0.4 MG/DL (0.1-1.0); BUN/CREATININE RATIO 5; CALCIUM 8.9 MG/DL (8.5-10.1); CARBON DIOXIDE 24 MMOL/L (21-32); CHLORIDE 108 MMOL/L (98-107); GFR ESTIMATED 93; GLUCOSE 100 MG/DL (70-105); LIPASE 116 U/L (8-78); MAGNESIUM 1.6 MG/DL (1.6-2.4); POTASSIUM 3.4 MMOL/L (3.6-5.0); SODIUM 147 MMOL/L (135-145); TOTAL PROTEIN 8.6 GM/DL (6.4-8.2)
[2023-01-15 21:04] LABS: ACETAMINOPHEN < 10 UG/ML (10-30)
[2023-01-15] MEDS ORDERED: NS 100 ML (IVPB) BAG IV ONE ×2 (21:15→22:15)
[2023-01-15] MEDS ORDERED: IOHEXOL 350 MG/ML 100 ML (OMNIPAQUE 350) VIAL IV ONE ×2 (21:15→22:15)
[2023-01-15] MEDS ORDERED: HOLD METFORMIN - RECEIVED CONTRAST 20 ML VIAL IV SCH ×2 (21:15→22:15)
--- NOTE | 2023-01-15 22:22 | Diagnostic Imaging Report ---
INDICATION: Abdominal pain and nausea and vomiting. Abnormal pancreatic enzymes. TECHNIQUE: Multiple contiguous axial images were obtained through the abdomen and pelvis after administration of intravenous contrast. Auto Exposure Controls were utilized during the CT exam to meet ALARA standards for radiation dose reduction. All CT scans use one or more of the following dose optimizing techniques: automated exposure control, MA and/or KvP adjustment based on patient size and exam type or iterative reconstruction. COMPARISON: 01/09/2023. FINDINGS: The visualized portions of the lung bases are clear. There is no pleural fluid collection. There is no free intraperitoneal air. There is a moderate to large hiatal hernia. The liver is enlarged and shows diffuse extensive fatty infiltration, without focal lesion. Gallbladder appears normal. The spleen and adrenals and kidneys appear normal. The pancreas appears unremarkable with no overt pancreatitis. There is no retroperitoneal mass or adenopathy. There is no ascites or abnormal fluid collection. Visualized bowel loops are unremarkable. There are postop changes in the adnexa. The left adnexal cyst is significantly smaller compared to the prior study, it was previously measured at 3.8 cm and now measures about 2.4 cm. IMPRESSION: Hepatomegaly with diffuse fatty infiltration of the liver again noted. No change in hiatal hernia. No CT evidence of pancreatitis or abnormal fluid collection. The adnexal cyst on the left side, seen on the previous study of 01/09/2023, has shown significant decrease in size. There is no new finding otherwise seen. Dictated by: Dictated on workstation # [id number]
[2023-01-15] MEDS ORDERED: ONDA8TAB13 PO (22:28)
[2023-01-15 22:33] VITALS: BP 132/78
== END 2023-01-15 22:35 | disposition home or self-care (01) ==
LOC: EDUNIT# 19:44 → ER 19:46
DX: K70.0 Alcoholic fatty liver (principal); F10.129 Alcohol abuse with intoxication, unspecified; R74.8 Abnormal levels of other serum enzymes; F17.210 Nicotine dependence, cigarettes, uncomplicated; Z87.19 Personal history of other diseases of the digestive system
CPT/HCPCS: 36415; 74177; 80053; 80306; 80320; 80329; 81000; 82140; 82150; 83690; 83735; 84703; 85025; 85610; 85730

== ENCOUNTER 2023-01-24 12:25 | Inpatient (IN) | payer MEDICAID ==
[~2023-01-24] VITALS: Ht 170.2 cm; Wt 69.1 kg
[~2023-01-24 12:25] MED LIST changes: +ONDA8TAB13 PO; +POTA-179
--- NOTE | 2023-01-24 13:36 | ED General ---
General Chief Complaint: Detox Stated Complaint: ALCOHOLISM WITHDRAWN Nursing Triage Note: PT AMBULATORY TO ROOM WITH PT SISTER. PT STATES SHE HAS BEEN DETOXING ETOH AT HOME STARTING 1-2 WEEKS AGO. STATES SHE HAS HAD EXTREME NAUSEA AND VOMITING SINCE THEN. STATES SHE HAS ABDOMINAL PAIN AND TENDERNESS. STATES SHE WAS SOBER APPROX 1 WEEK UNTIL LAST NIGHT. PT STATES SHE IS SEEKING LOCAL DETOX TREATMENT Source of Information: Patient, Old Records Exam Limitations: No Limitations History of Present Illness Date Seen by Provider: January 24, 2023 Time Seen by Provider: 12:31 Initial Comments This 42-year-old woman presents to the emergency room with complaints of abdominal pain and nausea. She reports attempting to detox from alcohol at home for 1 to 2 weeks after her last hospital admission. She has had extreme nausea and vomiting since then. She has significant muscle aching due to the repeated vomiting. She was struggling with the symptoms and therefore decided to drink alcohol last night in an attempt to abort the symptoms. However, drinking alcohol seem to make it worse. She denies any hematemesis or melena. She has not been taking any medications for nausea, vomiting, or withdraw. Allergies and Home Medications Allergies Coded Allergies: No Known Drug Allergies (Unverified , 04/28/21) Patient Home Medication List Home Medication List Reviewed: Yes Amlodipine Besylate (Amlodipine Besylate) 10 Mg Tablet, 10 MG PO HS Prescribed by: LIT GOOD on 01/27/23 154 Hydrocodone/Acetaminophen (Hydrocodone-Acetamin 5-325 mg) 5 Mg-325 Mg Tablet, 1 TAB PO Q4H PRN for PAIN-MODERATE (5-7) Prescribed by: LIT GOOD on 01/28/23 0822 Magnesium Oxide (Magnesium) 400 Mg Magnesium Tablet, 400 MG PO DAILY, (Reported) Entered as Reported by: IRMA MOORE on 01/12/23 0947 Last Action: Reviewed Ondansetron (Ondansetron Odt) 4 Mg Tab.rapdis, 4 MG SL Q4H PRN for NAUSEA/VOMI TING-1ST LINE Prescribed by: LIT GOOD on 01/27/23 154 Pantoprazole Sodium (Pantoprazole Sodium) 40 Mg Tablet.dr, 40 MG PO DAILY Prescribed by: LIT GOOD on 01/27/23 154 Potassium Chloride (Potassium Chloride) 20 Meq Tablet.er, 40 MEQ PO DAILY, (Reported) Entered as Reported by: IRMA MOORE on 01/26/23 0937 Last Action: Reviewed Discontinued Medications Ondansetron (Ondansetron Odt) 8 Mg Tab.rapdis, 8 MG PO Q6H Discontinued Reason: No Longer Taking Prescribed by: AIDAN JOLLEY on 01/15/23 2228 Last Action: Discontinued Potassium Chloride (Klor-Con M20) 20 Meq Tab.er.prt, 40 MEQ PO DAILY@0600 Discontinued Reason: Duplicate Order Prescribed by: KURTIS ASHTON on 01/13/23 1211 Last Action: Discontinued Potassium Chloride (Potassium Chloride) 20 Meq Tab.er.prt, (Reported) Discontinued Reason: Duplicate Order Entered as Reported by: CHEO OCHOA on 01/15/231955 Last Action: Discontinued Review of Systems Review of Systems Constitutional: no symptoms reported EENTM: no symptoms reported Respiratory: no symptoms reported Cardiovascular: no symptoms reported Gastrointestinal: see HPI Genitourinary: no symptoms reported : No Musculoskeletal: see HPI Skin: no symptoms reported Psychiatric/Neurological: See HPI Hematologic/Lymphatic: No Symptoms Reported Immunological/Allergic: no symptoms reported Past Oeyxmcg-Fzvnvb-Facezn Hx Patient Social History Tobacco Use?: Yes Tobacco type used: Cigarettes Substance use?: No Alcohol Use?: Yes Alcohol type: Hard Liquor Alcohol Frequency: Daily Immunizations Up To Date First/Initial COVID19 Vaccinat: X2 Second COVID19 Vaccination Ramakrishna: MARCH 2021 Past Medical History Surgery/Hospitalization HX: TUBAL, HTN, LIVER DISEASE, ALCOHOL ABUSE, JAUNDICE, ANXIETY, GERD Surgeries: Yes (tubal ligation) Tubal Ligation Respiratory: No Cardiac: Yes Hypertension Neurological: No Genitourinary: Yes Bladder Infection Gastrointestinal: Yes (ALCOHOLIC LIVER DISEASE) Liver Disease/Jaundice Musculoskeletal: No Endocrine: No HEENT: No Cancer: No Psychosocial: Yes (Alcohol dependence) Anxiety Integumentary: No Family Medical History No Pertinent Family Hx Physical Exam Vital Signs Vital Signs - First Documented 01/24/23 13:10 Temp 36.4 Pulse 110 Resp 24 B/P (MAP) 108/95 (99) Pulse Ox 98 Capillary Refill : Height, Weight, BMI Height: '" Weight: lbs. oz. kg; 23.00 BMI Method: General Appearance: WD/WN, Mild Distress HEENT: PERRL/EOMI, Normal ENT Inspection Neck: Normal Inspection Respiratory: Lungs Clear, Normal Breath Sounds, No Accessory Muscle Use Cardiovascular: No Edema, No Murmur, Tachycardia (Regular) Gastrointestinal: Normal Bowel Sounds, Soft; No Distended; Tenderness (Significant and generalized) Extremity: Normal Inspection, No Pedal Edema Neurologic/Psychiatric: Alert, Oriented x3, relief charge nurse II-XII Norm as Tested, Other (Depressed mood, later becoming slightly agitated) Skin: Normal Color, Warm/Dry Progress/Results/Core Measures Suspected Sepsis SIRS Temperature: Pulse: 110 Respiratory Rate: 24 Blood Pressure 108 /95 Mean: 99 Results/Orders Lab Results Laboratory Tests Test 01/24/23 13:28 01/24/23 13:53 01/24/23 15:09 Range/Units White Blood Count 8.3 4.3-11.0 10^3/uL Red Blood Count 3.70 L 3.80-5.11 10^6/uL Hemoglobin 11.3 L 11.5-16.0 g/dL Hematocrit 33 L 35-52 % Mean Corpuscular Volume 90 80-99 fL Mean Corpuscular Hemoglobin 31 25-34 pg Mean Corpuscular Hemoglobin Concent 34 32-36 g/dL Red Cell Distribution Width 20.5 H 10.0-14.5 % Platelet Count 357 130-400 10^3/uL Mean Platelet Volume 10.6 9.0-12.2 fL Immature Granulocyte % (Auto) 1 % Neutrophils (%) (Auto) 54 42-75 % Lymphocytes (%) (Auto) 39 12-44 % Monocytes (%) (Auto) 5 0-12 % Eosinophils (%) (Auto) 0 0-10 % Basophils (%) (Auto) 1 0-10 % Neutrophils # (Auto) 4.5 1.8-7.8 10^3/uL Lymphocytes # (Auto) 3.3 1.0-4.0 10^3/uL Monocytes # (Auto) 0.4 0.0-1.0 10^3/uL Eosinophils # (Auto) 0.0 0.0-0.3 10^3/uL Basophils # (Auto) 0.0 0.0-0.1 10^3/uL Immature Granulocyte # (Auto) 0.0 0.0-0.1 10^3/uL Sodium Level 142 135-145 MMOL/L Potassium Level 3.4 L 3.6-5.0 MMOL/L Chloride Level 92 L 98-107 MMOL/L Carbon Dioxide Level 22 21-32 MMOL/L Anion Gap 28 H 5-14 MMOL/L Blood Urea Nitrogen 8 7-18 MG/DL Creatinine 0.78 0.60-1.30 MG/DL Estimat Glomerular Filtration Rate 96 BUN/Creatinine Ratio 10 Glucose Level 97 70-105 MG/DL Calcium Level 10.1 8.5-10.1 MG/DL Corrected Calcium 10.1 8.5-10.1 MG/DL Magnesium Level 1.5 L 1.6-2.4 MG/DL Total Bilirubin 0.6 0.1-1.0 MG/DL Aspartate Amino Transf (AST/SGOT) 208 H 5-34 U/L Alanine Aminotransferase (ALT/SGPT) 65 H 0-55 U/L Alkaline Phosphatase 109 40-136 U/L C-Reactive Protein High Sensitivity 0.22 0.00-0.50 MG/DL Total Protein 9.1 H 6.4-8.2 GM/DL Albumin 4.0 3.2-4.5 GM/DL Lipase 183 H 8-78 U/L Salicylates Level < 5.0 L 5.0-20.0 MG/DL Acetaminophen Level < 10 L 10-30 UG/ML Serum Alcohol 262 H <10 MG/DL Serum Test, Qualitative NEGATIVE NEGATIVE Urine Color YELLOW Urine Clarity CLEAR Urine pH 7.0 5-9 Urine Specific [place] 1.010 L 1.016-1.022 Urine Protein 1+ H NEGATIVE Urine Glucose (UA) NEGATIVE NEGATIVE Urine Ketones 1+ H NEGATIVE Urine Nitrite NEGATIVE NEGATIVE Urine Bilirubin NEGATIVE NEGATIVE Urine Urobilinogen 1.0 < = 1.0 MG/DL Urine Leukocyte Esterase NEGATIVE NEGATIVE Urine RBC (Auto) NEGATIVE NEGATIVE Urine RBC RARE /HPF Urine WBC RARE /HPF Urine Squamous Epithelial Cells TNTC H /HPF Urine Crystals PRESENT H /LPF Urine Amorphous Sediment LARGE AVIVA PHOSPHATE H /LPF Urine Bacteria FEW H /HPF Urine Casts PRESENT /LPF Urine Hyaline Casts 0-2 H /LPF Urine Mucus MODERATE H /LPF Urine Culture Indicated NO Urine Opiates Screen NEGATIVE NEGATIVE Urine Oxycodone Screen NEGATIVE NEGATIVE Urine Methadone Screen NEGATIVE NEGATIVE Urine Propoxyphene Screen NEGATIVE NEGATIVE Urine Barbiturates Screen NEGATIVE NEGATIVE Ur Tricyclic Antidepressants Screen NEGATIVE NEGATIVE Urine Phencyclidine Screen NEGATIVE NEGATIVE Urine Amphetamines Screen NEGATIVE NEGATIVE Urine Methamphetamines Screen NEGATIVE NEGATIVE Urine Benzodiazepines Screen NEGATIVE NEGATIVE Urine Cocaine Screen NEGATIVE NEGATIVE Urine Cannabinoids Screen POSITIVE H NEGATIVE My Orders Orders - BRANDIE MACKENZIE MD Acetaminophen (01/24/23 12:31) Alcohol (01/24/23 12:31) Cbc With Automated Diff (01/24/23 12:31) Comprehensive Metabolic Panel (01/24/23 12:31) Drug Screen Stat (Urine) (01/24/23 12:31) Magnesium (01/24/23 12:31) Salicylate (01/24/23 12:31) Ua Culture If Indicated (01/24/23 12:31) Ed Iv/Invasive Line Start (01/24/23 12:31) Hcg,Qualitative Serum (01/24/23 13:33) Pantoprazole Injection (Protonix Injecti (01/24/23 13:45) Ondansetron Injection (Zofran Injectio (01/24/23 13:45) Lactated Ringers (Lr 1000 Ml Iv Solution (01/24/23 13:45) Fentanyl Inj (Sublimaze Injection) (01/24/23 13:45) Hs C Reactive Protein (01/24/23 12:31) Lipase (01/24/23 12:31) Magnesium 1 Gm/100 Ml Ivpb (Magnesium Martin (01/24/23 15:15) Lorazepam Injection (Ativan Injection) (01/24/23 15:45) Fentanyl Inj (Sublimaze Injection) (01/24/23 15:45) Medications Given in ED Vital Signs/I&O 01/24/23 13:10 Temp 36.4 Pulse 110 Resp 24 B/P (MAP) 108/95 (99) Pulse Ox 98 Capillary Refill : Blood Pressure Mean: 99 Progress Note : Progress Note Patient was treated with fentanyl for pain, Zofran for nausea, Protonix for GI prophylaxis, and IV fluids. Ativan was given for agitation. Labs were obtained. Labs were reviewed and interpreted by me in their entirety. CBC was relatively unremarkable. CMP was remarkable for mild elevation in transaminases and an alcoholic pattern. Magnesium was 1.5 and magnesium replacement was ordered in the ER. CMP was otherwise relatively unremarkable. Urinalysis revealed no acute abnormalities requiring treatment. Blood alcohol level was elevated at 262 and UDS was positive for marijuana. Lipase was elevated at 186. Patient seems to not be tolerating her symptoms at home well. It seems unlikely that she will be able to improve this pancreatitis and GI syndrome at home, especially if she develops withdraw. Admission was advised. I discussed admission with Dr. Longoria, hospitalist on duty, who accepts admission. See admission orders for further details. Departure Communication (Admissions) Time/Spoke to Admitting Phy: 15:47 Dr. Longoria Impression Primary Impression: Pancreatitis Qualified Codes: K85.20 - Alcohol induced acute pancreatitis without necrosis or infection Additional Impressions: Alcohol dependence Qualified Codes: F10.29 - Alcohol dependence with unspecified alcohol- induced disorder Hypomagnesemia Nausea & vomiting Qualified Codes: R11.2 - Nausea with vomiting, unspecified Upper abdominal pain Disposition: ADMITTED INPATIENT Condition: Stable Admissions Decision to Admit Reason: Admit from ER (General) Decision to Admit/Date: January 24, 2023 Time/Decision to Admit Time: 15:47 Departure-Patient Inst. Referrals: [facility] [place] Primary Care Physician Scripts Hydrocodone/Acetaminophen (Hydrocodone-Acetamin 5-325 mg) 5 Mg-325 Mg Tablet 1 TAB PO Q4H PRN for PAIN-MODERATE (5-7), #10 TAB 0 Refills Prov: LIT GOOD MD 01/28/23 Ondansetron (Ondansetron Odt) 4 Mg Tab.rapdis 4 MG SL Q4H PRN for NAUSEA/VOMITING-1ST LINE, #30 TAB 0 Refills Prov: LIT GOOD MD 01/27/23 Pantoprazole Sodium (Pantoprazole Sodium) 40 Mg Tablet.dr 40 MG PO DAILY, #30 TAB 0 Refills LAST FILLED 06-30-2022 #90/90 DAY SUPPLY Prov: LIT GOOD MD 01/27/23 Amlodipine Besylate (Amlodipine Besylate) 10 Mg Tablet 10 MG PO HS, #30 TAB 0 Refills LAST FILLED 06-30-2022 #90/90 DAY SUPPLY Prov: LIT GOOD MD 01/27/23 Copy Copies To 1: [facility]/BRANDIE PICHARDO MD January 24, 2023 13:36
[2023-01-24 13:43] LABS: BASOPHILS % (AUTO) 1 % (0-10); EOSINOPHILS % (AUTO) 0 % (0-10); HEMATOCRIT 33 % (35-52); HEMOGLOBIN 11.3 g/dL (11.5-16.0); LYMPHOCYTES # (AUTO) 3.3 10^3/uL (1.0-4.0); LYMPHOCYTES % (AUTO) 39 % (12-44); MEAN CORPUSCULAR HEMOGLOBIN 31 pg (25-34); MEAN CORPUSCULAR HGB CONC 34 g/dL (32-36); MEAN CORPUSCULAR VOLUME 90 fL (80-99); MEAN PLATELET VOLUME 10.6 fL (9.0-12.2); MONOCYTES # (AUTO) 0.4 10^3/uL (0.0-1.0); MONOCYTES % (AUTO) 5 % (0-12); NEUTROPHILS # (AUTO) 4.5 10^3/uL (1.8-7.8); NEUTROPHILS % (AUTO) 54 % (42-75); PLATELET COUNT 357 10^3/uL (130-400); WHITE BLOOD COUNT 8.3 10^3/uL (4.3-11.0)
[2023-01-24] MEDS ORDERED: ONDANSETRON 4 MG/2 ML (SDV) Z0FRAN IVP ONE (13:45)
[2023-01-24] MEDS ORDERED: fentaNYL INJ 100 MCG/2 ML AMP IVP ONE ×2 (13:45→15:45)
[2023-01-24] MEDS ORDERED: PANTOPRAZOLE 40 MG (PROTONIX) VIAL IV ONE (13:45)
[2023-01-24] MEDS ORDERED: LACTATED RINGERS 1,000 ML IV ONE (13:45)
[2023-01-24 13:56] LABS: CHLORIDE 92 MMOL/L (98-107); POTASSIUM 3.4 MMOL/L (3.6-5.0); SODIUM 142 MMOL/L (135-145)
[2023-01-24 13:58] LABS: CALCIUM 10.1 MG/DL (8.5-10.1)
[2023-01-24 13:59] LABS: GLUCOSE 97 MG/DL (70-105); TOTAL PROTEIN 9.1 GM/DL (6.4-8.2)
[2023-01-24 14:00] LABS: CARBON DIOXIDE 22 MMOL/L (21-32)
[2023-01-24 14:01] LABS: BILIRUBIN,TOTAL 0.6 MG/DL (0.1-1.0)
[2023-01-24 14:03] LABS: ALKALINE PHOSPHATASE 109 U/L (40-136); CREATININE SERUM 0.78 MG/DL (0.60-1.30); GFR ESTIMATED 96
[2023-01-24 14:04] LABS: BUN/CREATININE RATIO 10
[2023-01-24 14:05] LABS: ACETAMINOPHEN < 10 UG/ML (10-30)
[2023-01-24 14:06] LABS: ALANINE AMINOTRANSFERASE 65 U/L (0-55); SALICYLATE < 5.0 MG/DL (5.0-20.0)
[2023-01-24 14:07] LABS: MAGNESIUM 1.5 MG/DL (1.6-2.4)
[2023-01-24 14:08] LABS: LIPASE 183 U/L (8-78)
[2023-01-24] MEDS ORDERED: MAGNESIUM 1 GM/100 ML IVPB 100 ML IV ONE (15:15)
[2023-01-24 15:30] LABS: BILIRUBIN,URINE NEGATIVE (NEGATIVE); CLARITY,URINE CLEAR; COLOR,URINE YELLOW; GLUCOSE, URINE (UA) NEGATIVE (NEGATIVE); KETONES,URINE 1+ (NEGATIVE); LEUKOCYTE ESTERASE ,URINE NEGATIVE (NEGATIVE); NITRITE,URINE NEGATIVE (NEGATIVE); PROTEIN,URINE 1+ (NEGATIVE)
[2023-01-24 15:39] LABS: AMPHETAMINE SCREEN, URINE NEGATIVE (NEGATIVE); BARBITURATE SCREEN URINE NEGATIVE (NEGATIVE); BENZODIAZEPINES SCREEN URINE NEGATIVE (NEGATIVE); CANNABINOID SCREEN, URINE POSITIVE (NEGATIVE); COCAINE SCREEN URINE NEGATIVE (NEGATIVE); METHADONE STAT NEGATIVE (NEGATIVE); OPIATE SCREEN URINE NEGATIVE (NEGATIVE); OXYCODONE STAT NEGATIVE (NEGATIVE); PROPOXYPHENE STAT NEGATIVE (NEGATIVE); TRICYCLIC ANTIDEPRESSANTS SCRE NEGATIVE (NEGATIVE)
[2023-01-24] MEDS ORDERED: LORazepam INJ 2 MG/ML (ATIVAN) VIAL IVP ONE (15:45)
[2023-01-24 15:59] LABS: AMORPHOUS SEDIMENT,UR LARGE AMOR PHOSPHATE /LPF; BACTERIA,URINE FEW /HPF; HYALINE CASTS, URINE 0-2 /LPF; RBC,URINE RARE /HPF; SQUAMOUS EPITHELIAL CELL,UR TNTC /HPF; WBC,URINE RARE /HPF
[2023-01-24] MEDS ORDERED: D5 1/2 NS 1000 ML IV SOLUTION 1,000 ML IV PRN (17:00)
[2023-01-24] MEDS ORDERED: ANTACID SUSP 30 ML UDC (MYLANTA) PO PRN (17:00)
[2023-01-24] MEDS: D5 1/2 NS W/KCL 20 MEQ/L 1,000 ML IV SCH (17:00)
[2023-01-24] MEDS ORDERED: LORazepam INJ 2 MG/ML (ATIVAN) VIAL IM/IV PRN (17:00)
[2023-01-24] MEDS ORDERED: ONDANSETRON 4 MG (ZOFRAN) ORAL DISSOLVE TAB SL PRN (17:00)
[2023-01-24] MEDS ORDERED: SENNA W/DOCUSATE (SENOKOT S) TABLET PO PRN (17:00)
[2023-01-24] MEDS: MAGNESIUM 1 GM/D5W 100 ML IVPB IV SCH ×2 (17:00→17:09)
[2023-01-24] MEDS: LORazepam INJ 2 MG/ML (ATIVAN) VIAL IV PRN ×2 (17:33→20:07)
[2023-01-24] MEDS: PANTOPRAZOLE 40 MG (PROTONIX) VIAL IV SCH (19:00)
[2023-01-25] MEDS: LORazepam INJ 2 MG/ML (ATIVAN) VIAL IV PRN ×7 (00:08→19:05)
[2023-01-25] MEDS: D5 1/2 NS W/KCL 20 MEQ/L 1,000 ML IV SCH ×3 (00:08→14:18)
[2023-01-25] MEDS: PANTOPRAZOLE 40 MG (PROTONIX) VIAL IV SCH (02:06)
[2023-01-25 04:47] LABS: HEMATOCRIT 28 % (35-52); HEMOGLOBIN 9.4 g/dL (11.5-16.0); MEAN CORPUSCULAR HEMOGLOBIN 30 pg (25-34); MEAN CORPUSCULAR HGB CONC 34 g/dL (32-36); MEAN CORPUSCULAR VOLUME 91 fL (80-99); MEAN PLATELET VOLUME 10.7 fL (9.0-12.2); PLATELET COUNT 203 10^3/uL (130-400); WHITE BLOOD COUNT 5.7 10^3/uL (4.3-11.0)
[2023-01-25 04:59] LABS: ALBUMIN 3.3 GM/DL (3.2-4.5); POTASSIUM 3.3 MMOL/L (3.6-5.0)
[2023-01-25 05:00] LABS: CALCIUM 8.4 MG/DL (8.5-10.1)
[2023-01-25 05:03] LABS: BILIRUBIN,TOTAL 0.9 MG/DL (0.1-1.0)
[2023-01-25 05:05] LABS: CREATININE SERUM 0.8 MG/DL (0.60-1.30)
[2023-01-25] MEDS: THIAMINE INJECTION 100 MG, FOLIC ACID INJECTION 1 MG, MAGNESIUM SULFATE 2 GM, VITAMIN M... IV SCH ×5 (08:25)
[2023-01-25] MEDS: ONDANSETRON 4 MG/2 ML (SDV) Z0FRAN IV PRN (08:44)
--- NOTE | 2023-01-25 08:52 | Tele-ICU Progress Note ---
Progress Note video rounds completed 42 y/o female admitted with ahx of alchol abuse and detox, having nausea, vomiting and abd pain Lipase mildly elevated with transaminitis noted May have mild pancreatitis. Overall looks comfortable being started on clear liquids Covered with thiamine and folic acid\\and anxiolitics IMP alcohol withdrawl PLAN: watch for DTs Focused Exam Height, Weight, BMI Height: '" Weight: lbs. oz. kg; 23.75 BMI Method: Labs Laboratory Tests 01/24/23 13:28 01/25/23 04:16 Results Results/Procedures Labs Laboratory Tests 01/24/23 13:28 01/25/23 04:16 Patient resulted labs reviewed. Results Labs Labs Laboratory Tests 01/24/23 13:28: White Blood Count 8.3, Red Blood Count 3.70L, Hemoglobin 11.3L, Hematocrit 33L, Mean Corpuscular Volume 90, Mean Corpuscular Hemoglobin 31, Mean Corpuscular Hemoglobin Concent 34, Red Cell Distribution Width 20.5H, Platelet Count 357, Mean Platelet Volume 10.6, Immature Granulocyte % (Auto) 1, Neutrophils (%) (Auto) 54, Lymphocytes (%) (Auto) 39, Monocytes (%) (Auto) 5, Eosinophils (%) (Auto) 0, Basophils (%) (Auto) 1, Neutrophils # (Auto) 4.5, Lymphocytes # (Auto) 3.3, Monocytes # (Auto) 0.4, Eosinophils # (Auto) 0.0, Basophils # (Auto) 0.0, Immature Granulocyte # (Auto) 0.0, Sodium Level 142, Potassium Level 3.4L, Chloride Level 92L, Carbon Dioxide Level 22, Anion Gap 28H, Blood Urea Nitrogen 8, Creatinine 0.78, Estimat Glomerular Filtration Rate 96, BUN/Creatinine Ratio 10, Glucose Level 97, Calcium Level 10.1, Corrected Calcium 10.1, Magnesium Level 1.5L, Total Bilirubin 0.6, Aspartate Amino Transf (AST/SGOT) 208H, Alanine Aminotransferase (ALT/SGPT) 65H, Alkaline Phosphatase 109, C-Reactive Protein High Sensitivity 0.22, Total Protein 9.1H, Albumin 4.0, Lipase 183H, Salicylates Level < 5.0L, Acetaminophen Level < 10L, Serum Alcohol 262H 01/24/23 13:53: Serum Test, Qualitative NEGATIVE 01/24/23 15:09: Urine Color YELLOW, Urine Clarity CLEAR, Urine pH 7.0, Urine Specific [place] 1.010L, Urine Protein 1+H, Urine Glucose (UA) NEGATIVE, Urine Ketones 1+H, Urine Nitrite NEGATIVE, Urine Bilirubin NEGATIVE, Urine Urobilinogen 1.0, Urine Leukocyte Esterase NEGATIVE, Urine RBC (Auto) NEGATIVE, Urine RBC RARE, Urine WBC RARE, Urine Squamous Epithelial Cells TNTCH, Urine Crystals PRESENTH, Urine Amorphous Sediment LARGE AVIVA PHOSPHATEH, Urine Bacteria FEWH, Urine Casts PRESENT, Urine Hyaline Casts 0-2H, Urine Mucus MODERATEH, Urine Culture Indicated NO, Urine Opiates Screen NEGATIVE, Urine Oxycodone Screen NEGATIVE, Urine Methadone Screen NEGATIVE, Urine Propoxyphene Screen NEGATIVE, Urine Barbiturates Screen NEGATIVE, Ur Tricyclic Antidepressants Screen NEGATIVE, Urine Phencyclidine Screen NEGATIVE, Urine Amphetamines Screen NEGATIVE, Urine Methamphetamines Screen NEGATIVE, Urine Benzodiazepines Screen NEGATIVE, Urine Cocaine Screen NEGATIVE, Urine Cannabinoids Screen POSITIVEH 01/25/23 04:16: White Blood Count 5.7, Red Blood Count 3.09L, Hemoglobin 9.4L, Hematocrit 28L, Mean Corpuscular Volume 91, Mean Corpuscular Hemoglobin 30, Mean Corpuscular Hemoglobin Concent 34, Red Cell Distribution Width 20.4H, Platelet Count 203, Mean Platelet Volume 10.7, Sodium Level 135, Potassium Level 3.3L, Chloride Level 92L, Carbon Dioxide Level 27, Anion Gap 16H, Blood Urea Nitrogen 7, Creatinine 0.80, Estimat Glomerular Filtration Rate 93, BUN/Creatinine Ratio 9, Glucose Level 100, Calcium Level 8.4L, Corrected Calcium 9.0, Total Bilirubin 0 .9, Aspartate Amino Transf (AST/SGOT) 111H, Alanine Aminotransferase (ALT/SGPT) 43, Alkaline Phosphatase 89, Total Protein 7.0, Albumin 3.3 SEBAS ANAYA MD January 25, 2023 08:52
--- NOTE | 2023-01-25 09:20 | History & Physical-Hospitalist ---
History of Present Illness HPI/Chief Complaint PT AMBULATORY TO ROOM WITH PT SISTER. PT STATES SHE HAS BEEN DETOXING ETOH AT HOME STARTING 1-2 WEEKS AGO. STATES SHE HAS HAD EXTREME NAUSEA AND VOMITING SINCE THEN. STATES SHE HAS ABDOMINAL PAIN AND TENDERNESS. STATES SHE WAS SOBER APPROX 1 WEEK UNTIL LAST NIGHT. PT STATES SHE IS SEEKING LOCAL DETOX TREATMENT. Upon my arrival the patient was complaining about her IV burning and asked 20 mill equivalents potassium and she had ordered the nurse to stop it which had been done. As she was requesting ice chips. She reports her pain and nausea were not as bad as they were last night. She reports right upper quadrant abdominal discomfort no radiation no chills or fever. It should be noted that she had a similar admission earlier this month she was discharged on the ninth return to the emergency room with abdominal pain reporting that she had not been drinking however her alcohol level was over 200 without overt evidence for inebriation indicative of tolerance from longstanding alcohol use disorder. She last underwent inpatient rehab a little over a year ago reportedly in [place]. Date Seen 01/25/23 Time Seen by a Provider: 07:00 Attending Physician [place] PCP Admitting Physician: Dipesh Angelo MD Attending Physician: Dipesh Angelo MD Referring Physician Date of Admission January 24, 2023 at 16:36 Home Medications & Allergies Home Medications Reviewed patient Home Medication Reconciliation performed by pharmacy medication reconciliations biomedical engineering technician and/or nursing. Patients Allergies have been reviewed. Allergies Allergies Coded Allergies No Known Drug Allergies (Unverified04/28/21) Past Vhqnocv-Cihood-Ankmtz Hx Patient Social History Tobacco Use?: No Smoking Status: Never a Smoker Use of E-Cig and/or Vaping dev: No Substance use?: Yes Substance type: Marijuana Substance frequency: Daily Alcohol Use?: Yes Alcohol type: Hard Liquor Alcohol Frequency: Daily Pt feels they are or have been: No Immunizations Up To Date First/Initial COVID19 Vaccinat: X2 Second COVID19 Vaccination Ramakrishna: MARCH 2021 Tetanus Booster (TDap): Unknown Hepatitis A: No Hepatitis B: No Current Status status: No Advance Directives: No Communicates: Verbally Primary Language: Northern Irish Preferred Spoken Language: Northern Irish Is interpretation needed?: No Sensory deficits: Vision impairment Implanted or Applied Medical D: None Past Medical History Surgeries: Tubal Ligation Hypertension Bladder Infection Liver Disease/Jaundice Anxiety PMHx: HTN GERD Alcohol Use Disorder Tobaccoism SurgHx: Denies Family Medical History No Pertinent Family Hx Review of Systems Constitutional: see HPI Physical Exam Physical Exam Vital Signs Vital Signs - First Documented 01/24/23 01/24/23 13:10 17:00 Temp 36.4 Pulse 110 Resp 24 B/P (MAP) 108/95 (99) Pulse Ox 98 O2 Delivery Room Air Capillary Refill : Height, Weight, BMI Height: '" Weight: lbs. oz. kg; 23.75 BMI Method: General Appearance: Mild Distress HEENT: Pale Conjunctivae (L), Pale Conjunctivae (R), Other (No scleral icterus) Respiratory: Chest Non Tender, Lungs Clear, Normal Breath Sounds, No Accessory Muscle Use, No Respiratory Distress Cardiovascular: Regular Rate, Rhythm, No Edema, No Gallop, No JVD, No Murmur, Normal Peripheral Pulses Gastrointestinal: Normal Bowel Sounds, Soft, Hepatomegaly, Tenderness ( in the right upper quadrant of the abdomen predominantly with guarding no rebound) Extremity: Normal Inspection, Normal Range of Motion, Non Tender, No Calf Tenderness, No Pedal Edema Neurologic/Psychiatric: Alert, Oriented x3, Other ( no evidence for agitation) Results Results/Procedures Labs Laboratory Tests 01/24/23 13:28 01/25/23 04:16 Patient resulted labs reviewed. Assessment/Plan Admission Diagnosis Primary Impression: Questionable pancreatitis in the past patient has had low-level lipase elevation similar to the today's around 100. Suspect alcohol-related gastritis and alcohol related hepatitis considering mild hepatomegaly which is tender. We will continue to monitor for withdrawal not apparent as of yet although it is early considering her alcohol level was over 200 yesterday. Discussed there is likely progression to cirrhosis and even if this is not the case it is likely to occur in the future. Discussed that this point continue drinking was going to bring on hepatitis and gastritis leading to continued frequent bouts of abdominal pain nausea vomiting and resultant poor quality of life as well as significantly shortened. Strongly advocated undergoing formal rehabilitation again. Will initiate clear liquids she likes Pedialyte we will try potassium later today as long as she is tolerating liquids and continue to monitor. Alcohol dependence Qualified Codes: F10.29 - Alcohol dependence with unspecified alcohol- induced disorder Hypomagnesemia Nausea & vomiting Qualified Codes: R11.2 - Nausea with vomiting, unspecified Upper abdominal pain. Admission Status: Inpatient Order (span 2 midnights) Reason for Inpatient Admission: See admission diagnosis DIPESH ANGELO MD January 25, 2023 09:20
[2023-01-25] MEDS: ENOXAPARIN 40 MG/0.4 ML (LOVENOX) SYR SC SCH (12:25)
[2023-01-25] MEDS: fentaNYL INJ 100 MCG/2 ML AMP IV PRN (23:21)
[2023-01-26] MEDS: D5 1/2 NS W/KCL 20 MEQ/L 1,000 ML IV SCH ×4 (01:44→19:49)
[2023-01-26] MEDS: PANTOPRAZOLE 40 MG (PROTONIX) VIAL IV SCH ×2 (01:44→15:07)
[2023-01-26 05:05] LABS: HEMATOCRIT 30 % (35-52); HEMOGLOBIN 9.7 g/dL (11.5-16.0); MEAN CORPUSCULAR HEMOGLOBIN 31 pg (25-34); MEAN CORPUSCULAR HGB CONC 32 g/dL (32-36); MEAN CORPUSCULAR VOLUME 95 fL (80-99); MEAN PLATELET VOLUME 11.1 fL (9.0-12.2); PLATELET COUNT 148 10^3/uL (130-400); WHITE BLOOD COUNT 4.6 10^3/uL (4.3-11.0)
[2023-01-26 05:18] LABS: ALBUMIN 3.3 GM/DL (3.2-4.5)
[2023-01-26 05:19] LABS: POTASSIUM 3.5 MMOL/L (3.6-5.0)
[2023-01-26 05:20] LABS: CALCIUM 8.3 MG/DL (8.5-10.1)
[2023-01-26 05:21] LABS: TOTAL PROTEIN 6.9 GM/DL (6.4-8.2)
[2023-01-26 05:23] LABS: BILIRUBIN,TOTAL 0.6 MG/DL (0.1-1.0)
[2023-01-26 05:25] LABS: CREATININE SERUM 0.68 MG/DL (0.60-1.30)
[2023-01-26] MEDS: fentaNYL INJ 100 MCG/2 ML AMP IV PRN ×3 (05:42→22:00)
[2023-01-26] MEDS: LORazepam INJ 2 MG/ML (ATIVAN) VIAL IV PRN (05:43)
[2023-01-26] MEDS ORDERED: KCL 20 MEQ TAB (K-DUR) PO ONE (07:30)
[2023-01-26] MEDS: LORazepam 1 MG (ATIVAN) TAB PO PRN ×4 (08:29→19:54)
[2023-01-26] MEDS: ENOXAPARIN 40 MG/0.4 ML (LOVENOX) SYR SC SCH (08:30)
[2023-01-26] MEDS ORDERED: POTA-51 PO (09:37)
[2023-01-26] MEDS: THIAMINE INJECTION 100 MG, FOLIC ACID INJECTION 1 MG, MAGNESIUM SULFATE 2 GM, VITAMIN M... IV SCH ×5 (09:44)
--- NOTE | 2023-01-26 15:46 | Progress Note ---
Subjective Subjective/Events-last exam Pt seen at 0930. She is wanting to go home. Unfortunately, the last time she was in the hospital she did not have a good experience. She also feels lonely. Her family is all busy currently, but at least one is at home doing tests. She says she has given 30 day notice at her current residence and is moving out at the end of the month to move to [place] near other family due to her chronic medical problems, and they are working on moving some of her stuff now. She says she would prefer to go to outpatient treatment because when she did inpatient treatment before, it went well but was like "a vacation" and when she went home she struggled, so she feels she needs to figure it out while at home. She is tolerating liquid in general, but coffee makes her pain worse and she still doesn't feel like trying solid foods. Objective Exam Last Set of Vital Signs Vital Signs Date Time Temp Pulse Resp B/P (MAP) Pulse Ox O2 Delivery O2 Flow Rate FiO2 01/26/23 12:14 107 01/26/23 12:00 36.7 20 134/122 (126) 100 Room Air Capillary Refill : I&O Intake and Output 01/26/23 00:00 Intake Total 1750 ml Balance 1750 ml Intake Oral 1750 ml # Voids 14 General: Alert, No Acute Distress Lungs: Clear to Auscultation, Normal Air Movement Heart: Regular Rate, No Murmurs Abdomen: Normal Bowel Sounds, Soft Neuro: Normal Speech Psych/Mental Status: Mood NL Results/Procedures Lab Laboratory Tests 01/26/23 04:39: White Blood Count 4.6, Red Blood Count 3.17L, Hemoglobin 9.7L, Hematocrit 30L, Mean Corpuscular Volume 95, Mean Corpuscular Hemoglobin 31, Mean Corpuscular Hemoglobin Concent 32, Red Cell Distribution Width 20.1H, Platelet Count 148, Mean Platelet Volume 11.1, Sodium Level 137, Potassium Level 3.5L, Chloride Level 105, Carbon Dioxide Level 22, Anion Gap 10, Blood Urea Nitrogen 2L, Creatinine 0.68, Estimat Glomerular Filtration Rate 110, BUN/Creatinine Ratio 3, Glucose Level 100, Calcium Level 8.3L, Corrected Calcium 8.9, Total Bilirubin 0.6, Aspartate Amino Transf (AST/SGOT) 95H, Alanine Aminotransferase (ALT/SGPT) 35, Alkaline Phosphatase 84, Total Protein 6.9, Albumin 3.3, Lipase 115H Assessment/Plan Assessment/Plan (1) Alcohol use disorder Status: Chronic Assessment & Plan: Required 11 mg IV lorazepam last 24 hours, would not recommend going home. Discussed with [facility] outpatient team and they are hesitant to try to do outpatient lorazepam taper given her requirements and the challenges with outpatient treatment and risk. She is able to get in on Thu at 9 am to discuss treatment for maintenance, and when I discussed this with her, she is willing to stay inpatient until then. Continue CIWAS and lorazepam per score. SS consulted and plan for outpatient treatment after d/c. (2) Pancreatitis Status: Acute Assessment & Plan: Possible mild, has slight elevation in enzyme, no acute CT findings. Pain control and CLD. Qualifiers: Qualified Codes: K85.20 - Alcohol induced acute pancreatitis without necrosis or infection (3) Nausea and vomiting Status: Acute Assessment & Plan: Supportive care, improving. (4) Alcoholic liver disease Status: Chronic (5) Upper abdominal pain Status: Acute (6) DVT prophylaxis Status: Acute Assessment & Plan: Enoxaparin LIT GOOD MD January 26, 2023 15:46
[2023-01-26] MEDS: amLODIPine 10 MG (NORVASC) TAB PO SCH (16:48)
[2023-01-26] MEDS ORDERED: amLODIPine 10 MG (NORVASC) TAB PO SCH (21:00)
[2023-01-27] MEDS: PANTOPRAZOLE 40 MG (PROTONIX) VIAL IV SCH ×2 (01:07→14:09)
[2023-01-27] MEDS: D5 1/2 NS W/KCL 20 MEQ/L 1,000 ML IV SCH ×4 (02:14→22:41)
[2023-01-27 04:08] LABS: HEMOGLOBIN 9.4 g/dL (11.5-16.0); MEAN PLATELET VOLUME 11.4 fL (9.0-12.2)
[2023-01-27 04:09] LABS: WHITE BLOOD COUNT 4.6 10^3/uL (4.3-11.0)
[2023-01-27 04:32] LABS: ALANINE AMINOTRANSFERASE 33 U/L (0-55); ALBUMIN 3.3 GM/DL (3.2-4.5); ALKALINE PHOSPHATASE 80 U/L (40-136); BILIRUBIN,TOTAL 0.4 MG/DL (0.1-1.0); BUN/CREATININE RATIO 3; CALCIUM 8.3 MG/DL (8.5-10.1); CARBON DIOXIDE 21 MMOL/L (21-32); CHLORIDE 109 MMOL/L (98-107); CREATININE SERUM 0.66 MG/DL (0.60-1.30); GFR ESTIMATED 111; GLUCOSE 98 MG/DL (70-105); POTASSIUM 3.6 MMOL/L (3.6-5.0); SODIUM 137 MMOL/L (135-145)
[2023-01-27] MEDS: ENOXAPARIN 40 MG/0.4 ML (LOVENOX) SYR SC SCH (08:36)
[2023-01-27] MEDS: LORazepam INJ 2 MG/ML (ATIVAN) VIAL IV PRN ×2 (08:37→15:42)
[2023-01-27] MEDS: THIAMINE INJECTION 100 MG, FOLIC ACID INJECTION 1 MG, MAGNESIUM SULFATE 2 GM, VITAMIN M... IV SCH ×5 (08:37)
[2023-01-27] MEDS: fentaNYL INJ 100 MCG/2 ML AMP IV PRN ×4 (08:49→21:38)
--- NOTE | 2023-01-27 09:31 | Progress Note ---
Subjective Subjective/Events-last exam States she is feeling better, she would like to try food. No vomiting or diarrhea. Mild persistent abdominal pain on right. Required 5 mg lorazepam last 24 hours. Objective Exam Last Set of Vital Signs Vital Signs Date Time Temp Pulse Resp B/P (MAP) Pulse Ox O2 Delivery O2 Flow Rate FiO2 01/27/23 08:00 36.3 94 12 145/102 (116) 99 Room Air Capillary Refill : I&O Intake and Output 01/27/23 00:00 Intake Total 2165.2 ml Output Total 1200 ml Balance 965.2 ml Intake Oral 150 ml IV Total 2015.2 ml Output Urine Total 1200 ml # Voids 2 General: Alert, No Acute Distress Lungs: Clear to Auscultation, Normal Air Movement Heart: Regular Rate, No Murmurs Abdomen: Normal Bowel Sounds, Soft, Other (diffuse mild ttp) Extremities: No Edema Psych/Mental Status: Mood NL Results/Procedures Lab Laboratory Tests 01/27/23 03:53: White Blood Count 4.6, Red Blood Count 3.09L, Hemoglobin 9.4L, Hematocrit 29L, Mean Corpuscular Volume 95, Mean Corpuscular Hemoglobin 30, Mean Corpuscular Hemoglobin Concent 32, Red Cell Distribution Width 19.9H, Platelet Count 128L, M diana Platelet Volume 11.4, Percent Immature Platelet Fraction 7.8H, Sodium Level 137, Potassium Level 3.6, Chloride Level 109H, Carbon Dioxide Level 21, Anion Gap 7, Blood Urea Nitrogen < 2L, Creatinine 0.66, Estimat Glomerular Filtration Rate 111, BUN/Creatinine Ratio 3, Glucose Level 98, Calcium Level 8.3L, Corrected Calcium 8.9, Total Bilirubin 0.4, Aspartate Amino Transf (AST/SGOT) 115H, Alanine Aminotransferase (ALT/SGPT) 33, Alkaline Phosphatase 80, Total Protein 7.0, Albumin 3.3 Assessment/Plan Assessment/Plan (1) Alcohol use disorder Status: Chronic Assessment & Plan: 01/26/23 Required 11 mg IV lorazepam last 24 hours, would not recommend going home. Discussed with [facility] outpatient team and they are hesitant to try to do outpatient lorazepam taper given her requirements and the challenges with outpatient treatment and risk. She is able to get in on Wed at 9 am to discuss treatment for maintenance, and when I discussed this with her, she is willing to stay inpatient until then. Continue CIWAS and lorazepam per score. SS consulted and plan for outpatient treatment after d/c. 01/27/23 decreased lorazepam need and improved GI symptoms, plan to d/c in the am and go straight to outpatient appointment. (2) Pancreatitis Status: Acute Assessment & Plan: Possible mild, has slight elevation in enzyme, no acute CT findings. Pain control and CLD. 01/27 advance diet as tolerated Qualifiers: Qualified Codes: K85.20 - Alcohol induced acute pancreatitis without necrosis or infection (3) Nausea and vomiting Status: Acute Assessment & Plan: Supportive care, improving. (4) Alcoholic liver disease Status: Chronic (5) Upper abdominal pain Status: Acute (6) DVT prophylaxis Status: Acute Assessment & Plan: Enoxaparin LIT GOOD MD January 27, 2023 09:31
[2023-01-27] MEDS: ONDANSETRON 4 MG/2 ML (SDV) Z0FRAN IV PRN (14:10)
[2023-01-27] MEDS ORDERED: AMLO-251 PO (15:48)
[2023-01-27] MEDS ORDERED: PANT40TA52 PO (15:48)
[2023-01-27] MEDS ORDERED: ONDA4TAB11 SL (15:48)
[2023-01-27] MEDS: amLODIPine 10 MG (NORVASC) TAB PO SCH (21:30)
[2023-01-28] MEDS: PANTOPRAZOLE 40 MG (PROTONIX) VIAL IV SCH (01:50)
[2023-01-28 05:05] LABS: HEMOGLOBIN 8.9 g/dL (11.5-16.0); MEAN PLATELET VOLUME 11.5 fL (9.0-12.2); WHITE BLOOD COUNT 4.3 10^3/uL (4.3-11.0)
[2023-01-28 05:26] LABS: ALANINE AMINOTRANSFERASE 35 U/L (0-55); ALBUMIN 3.1 GM/DL (3.2-4.5); ALKALINE PHOSPHATASE 71 U/L (40-136); BILIRUBIN,TOTAL 0.5 MG/DL (0.1-1.0); BUN/CREATININE RATIO 3; CALCIUM 8.2 MG/DL (8.5-10.1); CARBON DIOXIDE 19 MMOL/L (21-32); CHLORIDE 110 MMOL/L (98-107); CREATININE SERUM 0.65 MG/DL (0.60-1.30); GFR ESTIMATED 111; GLUCOSE 95 MG/DL (70-105); POTASSIUM 3.8 MMOL/L (3.6-5.0); SODIUM 137 MMOL/L (135-145); TOTAL PROTEIN 6.7 GM/DL (6.4-8.2)
[2023-01-28] MEDS ORDERED: ACHD5005 PO (08:21)
[2023-01-28 08:35] VITALS: BP 138/107
== END 2023-01-28 08:35 | disposition home or self-care (01) | DRG 896 ==
LOC: EDUNIT# 12:25 → ER 12:27 → ICU 16:36 → OBSVTOIN 16:36 → CSD 01-25 19:04
PROVIDERS: ADMIT Internal Medicine; ATTEND Family Medicine
DX: F10.229 Alcohol dependence with intoxication, unspecified (principal); K85.90 Acute pancreatitis without necrosis or infection, unspecified; F10.288 Alcohol dependence with other alcohol-induced disorder; K70.10 Alcoholic hepatitis without ascites; K29.20 Alcoholic gastritis without bleeding; E83.42 Hypomagnesemia; Y90.8 Blood alcohol level of 240 mg/100 ml or more; I10 Essential (primary) hypertension; F41.9 Anxiety disorder, unspecified; K21.9 Gastro-esophageal reflux disease without esophagitis; H54.7 Unspecified visual loss; Z79.899 Other long term (current) drug therapy
CPT/HCPCS: 36415; 80053; 80306; 80320; 80329; 81000; 83690; 83735; 84703; 85025; 85027; 86141

== ENCOUNTER 2023-02-04 18:18 | Inpatient (IN) | payer MEDICAID ==
[~2023-02-04] VITALS: Ht 170.1 cm; Wt 69.0 kg
[~2023-02-04 18:18] MED LIST changes: +ONDA4TAB11 SL; +POTA-330 PO; -POTA-51 PO
--- NOTE | 2023-02-04 18:44 | ED Psychosocial ---
General Chief Complaint: Substance Abuse Stated Complaint: ALCOHOL INTOXICATION Nursing Triage Note: STATES SHE IS WITHDRAWING AND WANTS TO STOP DRINKING. STATES SHE HAS HAD MULTIPLE EPISODES OF VOMITING TODAY Source: patient Exam Limitations: no limitations History of Present Illness Date Seen by Provider: February 04, 2023 Time Seen by Provider: 18:20 Initial Comments 42-year-old female presents to the ER for concerns of alcohol withdrawal. She states her last drink was yesterday. She states she normally drinks a pint a day of f[place]. She states that she has been vomiting all day long, states there has been too many to count. She denies history of withdrawal seizures. Denies headache, chest pain, shortness of air, abdominal pain. She was recently admitted on 01/24/2023 for alcoholic pancreatitis. Patient is tearful during exam, keeps trying to hug staff. Patient then got upset with her son, yelled at him told him to get out, because she is embarrassed. Patient smells like alcohol and ketones are noted on her breath. Allergies and Home Medications Allergies Coded Allergies: No Known Drug Allergies (Unverified , 02/04/23) Patient Home Medication List Home Medication List Reviewed: Yes Amlodipine Besylate (Amlodipine Besylate) 10 Mg Tablet, 10 MG PO HS Prescribed by: LIT GOOD on 01/27/23 1548 Hydrocodone/Acetaminophen (Hydrocodone-Acetamin 5-325 mg) 5 Mg-325 Mg Tablet, 1 TAB PO Q4H PRN for PAIN-MODERATE (5-7) Prescribed by: LIT GOOD on 01/28/23 0822 Magnesium Oxide (Magnesium) 400 Mg Magnesium Tablet, 400 MG PO DAILY, (Reported) Entered as Reported by: IRMA MOORE on 01/12/23 0947 Ondansetron (Ondansetron Odt) 4 Mg Tab.rapdis, 4 MG SL Q4H PRN for NAUSEA/VOMITING-1ST LINE Prescribed by: LIT GOOD on 01/27/23 1548 Pantoprazole Sodium (Pantoprazole Sodium) 40 Mg Tablet.dr, 40 MG PO DAILY Prescribed by: LIT GOOD on 01/27/23 1548 Potassium Chloride (Potassium Chloride) 20 Meq Tablet.er, 40 MEQ PO DAILY, (Reported) Entered as Reported by: IRMA MOORE on 01/26/23 0937 Potassium Chloride (Potassium Chloride) 20 Meq Tablet.er, 40 MEQ PO DAILY Prescribed by: Pauline Maldonado on 02/04/232111 Review of Systems Constitutional: see HPI Past Fylrdun-Xvtyeu-Wreeyk Hx Patient Social History Tobacco Use?: Yes Tobacco type used: Cigarettes Use of E-Cig and/or Vaping dev: No Substance use?: No Alcohol Use?: Yes Alcohol type: Hard Liquor Alcohol Frequency: Daily Pt feels they are or have been: No Immunizations Up To Date First/Initial COVID19 Vaccinat: X2 Second COVID19 Vaccination Ramakrishna: X2 Past Medical History Surgery/Hospitalization HX: TUBAL, HTN, LIVER DISEASE, ALCOHOL ABUSE, JAUNDICE, ANXIETY, GERD Surgeries: Yes (tubal ligation) Tubal Ligation Respiratory: No Cardiac: Yes Hypertension Neurological: No Genitourinary: Yes Bladder Infection Gastrointestinal: Yes (ALCOHOLIC LIVER DISEASE) Liver Disease/Jaundice Musculoskeletal: No Endocrine: No HEENT: No Cancer: No Psychosocial: Yes (Alcohol dependence) Anxiety Integumentary: No Family Medical History No Pertinent Family Hx Physical Exam Vital Signs - First Documented 02/04/23 18:25 Temp 35.8 Pulse 140 Resp 20 B/P (MAP) 140/118 (125) Pulse Ox 98 O2 Delivery Room Air Capillary Refill : Less Than 3 Seconds Height, Weight, BMI Height: '" Weight: lbs. oz. kg; 22.00 BMI Method: General Appearance: WD/WN, other (Tearful) Neck: supple, normal inspection Respiratory: lungs clear, normal breath sounds, no respiratory distress, no accessory muscle use Cardiovascular: regular rate, rhythm Neurologic/Psychiatric: alert Behavior/Eye Contact: cooperative Thoughts/Hallucinations: no apparent hallucination Skin: normal color, warm/dry Progress/Results/Core Measures Results/Orders Lab Results Laboratory Tests Test 02/04/23 18:38 02/04/23 19:20 Range/Units White Blood Count 7.1 4.3-11.0 10^3/uL Red Blood Count 3.92 3.80-5.11 10^6/uL Hemoglobin 11.8 11.5-16.0 g/dL Hematocrit 35 35-52 % Mean Corpuscular Volume 90 80-99 fL Mean Corpuscular Hemoglobin 30 25-34 pg Mean Corpuscular Hemoglobin Concent 33 32-36 g/dL Red Cell Distribution Width 20.1 H 10.0-14.5 % Platelet Count 342 130-400 10^3/uL Mean Platelet Volume 9.7 9.0-12.2 fL Immature Granulocyte % (Auto) 0 % Neutrophils (%) (Auto) 34 L 42-75 % Lymphocytes (%) (Auto) 55 H 12-44 % Monocytes (%) (Auto) 10 0-12 % Eosinophils (%) (Auto) 0 0-10 % Basophils (%) (Auto) 1 0-10 % Neutrophils # (Auto) 2.4 1.8-7.8 10^3/uL Lymphocytes # (Auto) 3.9 1.0-4.0 10^3/uL Monocytes # (Auto) 0.7 0.0-1.0 10^3/uL Eosinophils # (Auto) 0.0 0.0-0.3 10^3/uL Basophils # (Auto) 0.0 0.0-0.1 10^3/uL Immature Granulocyte # (Auto) 0.0 0.0-0.1 10^3/uL Sodium Level 144 135-145 MMOL/L Potassium Level 2.9 L 3.6-5.0 MMOL/L Chloride Level 101 98-107 MMOL/L Carbon Dioxide Level 21 21-32 MMOL/L Anion Gap 22 H 5-14 MMOL/L Blood Urea Nitrogen 7 7-18 MG/DL Creatinine 0.71 0.60-1.30 MG/DL Estimat Glomerular Filtration Rate 107 BUN/Creatinine Ratio 10 Glucose Level 93 70-105 MG/DL Calcium Level 8.7 8.5-10.1 MG/DL Corrected Calcium 8.7 8.5-10.1 MG/DL Magnesium Level 1.6 1.6-2.4 MG/DL Total Bilirubin 0.5 0.1-1.0 MG/DL Aspartate Amino Transf (AST/SGOT) 177 H 5-34 U/L Alanine Aminotransferase (ALT/SGPT) 60 H 0-55 U/L Alkaline Phosphatase 121 40-136 U/L Total Protein 8.4 H 6.4-8.2 GM/DL Albumin 4.0 3.2-4.5 GM/DL Serum Alcohol 465 *H <10 MG/DL Urine Color YELLOW Urine Clarity CLEAR Urine pH 7.0 5-9 Urine Specific [place] 1.020 1.016-1.022 Urine Protein 2+ H NEGATIVE Urine Glucose (UA) NEGATIVE NEGATIVE Urine Ketones 2+ H NEGATIVE Urine Nitrite NEGATIVE NEGATIVE Urine Bilirubin 1+ H NEGATIVE Urine Urobilinogen 1.0 < = 1.0 MG/DL Urine Leukocyte Esterase NEGATIVE NEGATIVE Urine RBC (Auto) NEGATIVE NEGATIVE Urine RBC NONE /HPF Urine WBC RARE /HPF Urine Squamous Epithelial Cells >50 H /HPF Urine Crystals NONE /LPF Urine Bacteria LARGE H /HPF Urine Casts NONE /LPF Urine Mucus SMALL H /LPF Urine Culture Indicated YES My Orders Orders - PAULINE MALDONADO APRN Cbc With Automated Diff (02/04/23 18:35) Comprehensive Metabolic Panel (02/04/23 18:35) Magnesium (02/04/23 18:35) Alcohol (02/04/23 18:35) Ua Culture If Indicated (02/04/23 18:35) Ed Iv/Invasive Line Start (02/04/23 18:35) Ns Iv 1000 Ml (Sodium Chloride 0.9%) (02/04/23 18:45) Pantoprazole Injection (Protonix Injecti (02/04/23 18:45) Ondansetron Injection (Zofran Injectio (02/04/23 18:45) Diazepam Injection (Valium Injection) (02/04/23 18:45) Potassium Cl 10meq/50ml Ivpb (Kcl 10 Meq (02/04/23 19:30) Potassium Chloride (Tablet) (K Dur Table (02/04/23 19:30) Magnesium 1 Gm/100 Ml Ivpb (Magnesium Martin (02/04/23 19:30) Ns Iv 1000 Ml (Sodium Chloride 0.9%) (02/04/23 19:45) Urine Culture (02/04/23 19:20) Ns Iv 1000 Ml (Sodium Chloride 0.9%) (02/04/23 20:45) Ns (Ivpb) (Sodium Chloride 0.9%) (02/04/23 21:45) Ondansetron Injection (Zofran Injectio (02/04/23 21:45) Ed Admission (Communication) (02/04/23 21:42) Medications Given in ED Current Medications Medications Dose Ordered Sig/Beti Route Start Time Stop Time Status Last Admin Dose Admin Diazepam 10 mg ONCE ONCE IVP 02/04/23 18:45 02/04/23 18:46 DC 02/04/23 18:53 10 MG Magnesium Sulfate/ Dextrose 100 ml @ 100 mls/hr ONCE ONCE IV 02/04/23 19:30 02/04/23 20:29 DC 02/04/23 19:46 100 MLS/HR Ondansetron HCl 4 mg ONCE ONCE IVP 02/04/23 18:45 02/04/23 18:46 DC 02/04/23 18:47 4 MG Pantoprazole 40 mg ONCE ONCE IV 02/04/23 18:45 02/04/23 18:46 DC 02/04/23 18:47 40 MG Potassium Chloride 60 meq ONCE ONCE PO 02/04/23 19:30 02/04/23 19:31 DC 02/04/23 19:46 60 MEQ Vital Signs/I&O 02/04/23 18:25 Temp 35.8 Pulse 140 Resp 20 B/P (MAP) 140/118 (125) Pulse Ox 98 O2 Delivery Room Air Blood Pressure Mean: 125 Progress Progress Note : Progress Note Patient seen and evaluated, resting in bed, no acute distress, tearful during exam, patient keeps trying to hug staff. Based on exam and symptoms, concern for alcohol withdrawal or alcohol intoxication. Vital signs suggest alcohol withdrawal, but alcohol can be smelled from patient. Ketones also smelled on patient's breath, likely from vomiting. Work-up initiated including CBC, CMP, magnesium, alcohol, UA. IV fluids, Protonix, Zofran, and Valium ordered. Patient's oxygen saturation dropped to the 60s shortly after Valium was administered. Placed on nonrebreather, and oxygen improved. Shortly after, patient did not require oxygen. 1927 Labs reviewed.CBC. CMP shows decreased potassium 2.9. Elevated anion gap 22. Elevated AST 177, elevated ALT 60. AST and ALT are higher than the day she was discharged from the hospital on 01/28/2023. Alcohol level critically high at 465. Oral and IV potassium as well as IV magnesium ordered. Second liter of normal saline ordered for continued although improved tachycardia. Upon record review, it was noted that patient is often tachycardic in the low 100s. Heart rate was 140 upon arrival, currently 120 after a liter of fluid. Waiting for urinalysis. 2000 Urinalysis shows 2+ protein, 2+ ketones, 1+ bilirubin, rare WBCs, greater than 50 squamous epithelial cells, large bacteria. This is likely a contaminated specimen. 2046 heart rate has improved further after second bag of fluid. Third bag of fluids ordered to run with potassium. Plan will be to discharge patient after potassium replacement. Will send patient home with prescription for oral potassium. 2143 patient is awake. Results discussed with patient. Patient requesting nausea medication. Heart rate was in the upper 90s while patient was sleeping, it is now up to 120 while awake. Patient began retching, heart rate up to 135. More Zofran ordered. I am concerned that patient cannot go home at this time due to continued nausea and vomiting. Spoke with Dr. Carey, [facility] hospitalist, regarding admission. She agrees to admit. She has placed acute orders. She would like patient admitted inpatient to ICU. Departure Impression Primary Impression: Alcohol intoxication Additional Impressions: Intractable vomiting Hypokalemia Disposition: ADMITTED INPATIENT Condition: Stable/Unchanged Admissions Decision to Admit Reason: Admit from ER (General) Decision to Admit/Date: February 04, 2023 Time/Decision to Admit Time: 21:47 Departure-Patient Inst. Referrals: [facility] (PCP/Family) Primary Care Physician Patient Instructions: ALCOHOL AND SUBSTANCE ABUSE Scripts Potassium Chloride (Potassium Chloride) 20 Meq Tablet.er 40 MEQ PO DAILY for 7 Days, #14 TAB 0 Refills Prov: PAULINE MALDONADO APRN 02/04/23 PAULINE MALDONADO APRN February 04, 2023 18:43
[2023-02-04] MEDS ORDERED: NS IV 1000 ML 1,000 ML IV SCH ×3 (18:45→20:45)
[2023-02-04] MEDS ORDERED: ONDANSETRON 4 MG/2 ML (SDV) Z0FRAN IVP ONE ×2 (18:45→21:45)
[2023-02-04] MEDS ORDERED: PANTOPRAZOLE 40 MG (PROTONIX) VIAL IV ONE (18:45)
[2023-02-04 18:53] LABS: BASOPHILS % (AUTO) 1 % (0-10); EOSINOPHILS % (AUTO) 0 % (0-10); HEMATOCRIT 35 % (35-52); HEMOGLOBIN 11.8 g/dL (11.5-16.0); LYMPHOCYTES # (AUTO) 3.9 10^3/uL (1.0-4.0); LYMPHOCYTES % (AUTO) 55 % (12-44); MEAN CORPUSCULAR HEMOGLOBIN 30 pg (25-34); MEAN CORPUSCULAR HGB CONC 33 g/dL (32-36); MEAN CORPUSCULAR VOLUME 90 fL (80-99); MEAN PLATELET VOLUME 9.7 fL (9.0-12.2); MONOCYTES # (AUTO) 0.7 10^3/uL (0.0-1.0); MONOCYTES % (AUTO) 10 % (0-12); NEUTROPHILS # (AUTO) 2.4 10^3/uL (1.8-7.8); NEUTROPHILS % (AUTO) 34 % (42-75); PLATELET COUNT 342 10^3/uL (130-400); WHITE BLOOD COUNT 7.1 10^3/uL (4.3-11.0)
[2023-02-04 19:08] LABS: POTASSIUM 2.9 MMOL/L (3.6-5.0)
[2023-02-04 19:09] LABS: CALCIUM 8.7 MG/DL (8.5-10.1)
[2023-02-04 19:11] LABS: TOTAL PROTEIN 8.4 GM/DL (6.4-8.2)
[2023-02-04 19:12] LABS: BILIRUBIN,TOTAL 0.5 MG/DL (0.1-1.0)
[2023-02-04 19:14] LABS: CREATININE SERUM 0.71 MG/DL (0.60-1.30)
[2023-02-04 19:17] LABS: MAGNESIUM 1.6 MG/DL (1.6-2.4)
[2023-02-04] MEDS ORDERED: KCL 20 MEQ TAB (K-DUR) PO ONE (19:30)
[2023-02-04] MEDS ORDERED: MAGNESIUM 1 GM/100 ML IVPB 100 ML IV ONE (19:30)
[2023-02-04 19:35] LABS: CLARITY,URINE CLEAR; COLOR,URINE YELLOW; GLUCOSE, URINE (UA) NEGATIVE (NEGATIVE); KETONES,URINE 2+ (NEGATIVE); LEUKOCYTE ESTERASE ,URINE NEGATIVE (NEGATIVE); NITRITE,URINE NEGATIVE (NEGATIVE); PROTEIN,URINE 2+ (NEGATIVE)
[2023-02-04] MEDS: POTASSIUM CL 10MEQ/50ML IVPB 50 ML IV SCH ×2 (19:46→20:48)
[2023-02-04 19:57] LABS: SQUAMOUS EPITHELIAL CELL,UR >50 /HPF
[2023-02-04 19:58] LABS: BACTERIA,URINE LARGE /HPF; WBC,URINE RARE /HPF
[2023-02-04 19:59] LABS: BILIRUBIN,URINE 1+ (NEGATIVE)
[2023-02-04] MEDS ORDERED: POTA-330 PO (21:12)
[2023-02-04] MEDS ORDERED: NS (IVPB) 250 ML IV ONE (21:45)
[2023-02-04] MEDS ORDERED: LIDOCAINE UROJET 2% GEL 10 ML PKG TOP ONE (22:45)
[2023-02-04] MEDS ORDERED: ONDANSETRON 4 MG (ZOFRAN) ORAL DISSOLVE TAB PO PRN (22:45)
[2023-02-04] MEDS ORDERED: LACTULOSE SYRUP 10GM/15ML (ENULOSE) 30ML UDC PO PRN (22:45)
[2023-02-04] MEDS ORDERED: NS IV 500 ML 500 ML IV PRN (22:45)
[2023-02-04] MEDS ORDERED: diphenhydrAMINE 25 MG TAB (BENADRYL) PO PRN (22:45)
[2023-02-04] MEDS ORDERED: BISACODYL 10 MG SUPP (DULCOLAX) PR PRN (22:45)
[2023-02-04] MEDS ORDERED: LORazepam INJ 2 MG/ML (ATIVAN) VIAL IM/IV PRN (22:45)
[2023-02-04] MEDS ORDERED: MELATONIN 3 MG TABLET PO PRN (22:45)
[2023-02-04] MEDS ORDERED: 1/2 NS IV SOLUTION 1,000 ML IV PRN (22:45)
[2023-02-04] MEDS ORDERED: ONDANSETRON 4 MG/2 ML (SDV) Z0FRAN IV PRN (22:45)
[2023-02-04] MEDS ORDERED: ANTACID SUSP 30 ML UDC (MYLANTA) PO PRN (22:45)
[2023-02-04] MEDS ORDERED: polyethylene glycoL POWDER 17 GM (MIRALAX) PACK PO PRN (22:45)
[2023-02-04] MEDS ORDERED: HYDROmorphone 2 MG/ML VIAL (DILAUDID) IV PRN (22:45)
[2023-02-04] MEDS ORDERED: SENNA W/DOCUSATE (SENOKOT S) TABLET PO PRN (22:45)
[2023-02-04] MEDS ORDERED: ACETAMINOPHEN 325 MG TABLET PO PRN (22:45)
[2023-02-04] MEDS ORDERED: D5 1/2 NS 1000 ML IV SOLUTION 1,000 ML IV PRN (22:45)
[2023-02-04] MEDS ORDERED: MILK OF MAGNESIA 400 MG/5 ML 30 ML UDC PO PRN (22:45)
[2023-02-04] MEDS ORDERED: ONDANSETRON 4 MG (ZOFRAN) ORAL DISSOLVE TAB SL PRN (22:45)
[2023-02-04] MEDS ORDERED: diphenhydrAMINE 50 MG/ML INJ (BENADRYL) IVP PRN (22:45)
[2023-02-04] MEDS: ENOXAPARIN 40 MG/0.4 ML (LOVENOX) SYR SC SCH (23:24)
[2023-02-05 00:18] VITALS: BP 140/118
[2023-02-05] MEDS: ONDANSETRON 4 MG/2 ML (SDV) Z0FRAN IV PRN ×2 (00:18→05:39)
[2023-02-05] MEDS ORDERED: RT-ALBUTEROL SULF 2.5 MG/3 ML PRE-MIX VIAL INH PRN (00:30)
[2023-02-05 04:36] LABS: BASOPHILS % (AUTO) 1 % (0-10); EOSINOPHILS % (AUTO) 0 % (0-10); HEMATOCRIT 29 % (35-52); HEMOGLOBIN 9.1 g/dL (11.5-16.0); LYMPHOCYTES # (AUTO) 2.1 10^3/uL (1.0-4.0); LYMPHOCYTES % (AUTO) 30 % (12-44); MEAN CORPUSCULAR HEMOGLOBIN 30 pg (25-34); MEAN CORPUSCULAR HGB CONC 32 g/dL (32-36); MEAN CORPUSCULAR VOLUME 93 fL (80-99); MEAN PLATELET VOLUME 10.7 fL (9.0-12.2); MONOCYTES # (AUTO) 0.6 10^3/uL (0.0-1.0); MONOCYTES % (AUTO) 9 % (0-12); NEUTROPHILS # (AUTO) 4.1 10^3/uL (1.8-7.8); NEUTROPHILS % (AUTO) 60 % (42-75); PLATELET COUNT 258 10^3/uL (130-400); WHITE BLOOD COUNT 6.9 10^3/uL (4.3-11.0)
[2023-02-05 04:47] LABS: ALBUMIN 3.1 GM/DL (3.2-4.5); POTASSIUM 3.2 MMOL/L (3.6-5.0)
[2023-02-05 04:50] LABS: TOTAL PROTEIN 6.8 GM/DL (6.4-8.2)
[2023-02-05 04:51] LABS: BILIRUBIN,TOTAL 0.5 MG/DL (0.1-1.0)
[2023-02-05 04:53] LABS: CREATININE SERUM 0.66 MG/DL (0.60-1.30); PHOSPHORUS 2.3 MG/DL (2.3-4.7)
[2023-02-05 04:56] LABS: MAGNESIUM 1.5 MG/DL (1.6-2.4)
[2023-02-05] MEDS: POTASSIUM CL 10MEQ/50ML IVPB 50 ML IV SCH (05:13)
[2023-02-05] MEDS: KCL 20 MEQ TAB (K-DUR) PO SCH (05:13)
[2023-02-05] MEDS: MAGNESIUM 1 GM/100 ML IVPB 100 ML IV SCH ×4 (05:13→07:55)
--- NOTE | 2023-02-05 05:21 | History & Physical-Hospitalist ---
History of Present Illness HPI/Chief Complaint Chief complaint: Acute alcohol intoxication with refractory nausea and vomiting and tachycardia HPI: This is a 42-year-old -[place] female of [facility] who has a past medical history of severe alcoholism who presented to the ER with severe nausea and vomiting found to have an elevated alcohol level of 0.45 with severe abdominal pain. Patient was given antiemetics along with IV fluids and due to severe alcohol withdrawal predicted she was admitted to the ICU for close monitoring due to aspiration risk. Currently she is doing much better we will add scopolamine patch and Phenergan IM. Source: patient Exam Limitations: clinical condition Date Seen 02/05/23 Time Seen by a Provider: 11:00 Attending Physician [facility] PCP Admitting Physician: Siri Carey DO Attending Physician: Siri Carey DO Referring Physician Date of Admission February 04, 2023 at 22:19 Home Medications & Allergies Home Medications Reviewed patient Home Medication Reconciliation performed by pharmacy medication reconciliations autocad technician and/or nursing. Patients Allergies have been reviewed. Allergies Allergies Coded Allergies No Known Drug Allergies (Unverified02/04/23) Past Mpdpubs-Lhihbm-Gjkhvo Hx Patient Social History Marrital Status: single Employed/Student: unemployed Tobacco Use?: Yes Tobacco type used: Cigarettes Smoking Status: Current Everyday Smoker Use of E-Cig and/or Vaping dev: No Substance use?: No Substance type: Nicotine Alcohol Use?: Yes Alcohol type: Hard Liquor Alcohol Frequency: Daily Pt feels they are or have been: No Immunizations Up To Date First/Initial COVID19 Vaccinat: X2 Second COVID19 Vaccination Ramakrishna: X2 Tetanus Booster (TDap): Unknown Hepatitis A: No Hepatitis B: No Current Status status: No status: No Advance Directives: No Communicates: Verbally Primary Language: South Korean Preferred Spoken Language: South Korean Is interpretation needed?: No Sensory deficits: Vision impairment Implanted or Applied Medical D: None Past Medical History Surgeries: Tubal Ligation Hypertension Bladder Infection Liver Disease/Jaundice Anxiety PMHx: HTN GERD Alcohol Use Disorder Tobaccoism SurgHx: Denies Family Medical History No Pertinent Family Hx Review of Systems ROS-Unable to Obtain: Sedated Constitutional: see HPI Physical Exam Physical Exam Vital Signs Vital Signs - First Documented 02/04/23 02/05/23 18:25 00:18 Temp 35.8 Pulse 140 Resp 20 B/P (MAP) 140/118 (125) Pulse Ox 98 O2 Delivery Room Air FiO2 21 Capillary Refill : Less Than 3 Seconds Height, Weight, BMI Height: '" Weight: lbs. oz. kg; 22.74 BMI Method: General Appearance: No Apparent Distress, Chronically ill Respiratory: Lungs Clear, Normal Breath Sounds Cardiovascular: Regular Rate, Rhythm Neurologic/Psychiatric: Alert, Oriented x3, Depressed Affect Results Results/Procedures Labs Laboratory Tests 02/04/23 18:38 02/05/23 04:07 Patient resulted labs reviewed. Assessment/Plan Admission Diagnosis Assessment: Intoxication Refractory nausea and vomiting Alcoholic hepatitis Plan: ICU Precedex Ativan IV fluids Vitamin supplementation Admission Status: Inpatient Order (span 2 midnights) Reason for Inpatient Admission: Severe alcohol withdrawal SIRI CAREY DO Feb 05, 2023 05:21
[2023-02-05] MEDS: MULTIVIT W/MINERALS TAB (THERAGRAN M) PO SCH (05:37)
[2023-02-05] MEDS: THIAMINE 100 MG (VITAMIN B-1) TAB PO SCH (05:37)
[2023-02-05] MEDS ORDERED: KCL 20 MEQ TAB (K-DUR) PO ONE ×2 (06:00→08:00)
[2023-02-05] MEDS: FOLIC ACID 1 MG TAB PO SCH (08:06)
[2023-02-05] MEDS: LORazepam INJ 2 MG/ML (ATIVAN) VIAL IV PRN ×5 (08:06→22:17)
[2023-02-05] MEDS: MAGNESIUM OXIDE (MAG-OX)400 MG TAB PO SCH ×2 (08:06→21:08)
[2023-02-05] MEDS: DOCUSATE SODIUM 100 MG (COLACE) CAP PO SCH ×2 (08:08→21:04)
[2023-02-05] MEDS: SENNOSIDES 8.6 MG (SENOKOT) TAB PO SCH ×2 (08:08→21:05)
[2023-02-05] MEDS: THIAMINE INJECTION 100 MG, FOLIC ACID INJECTION 1 MG, MAGNESIUM SULFATE 2 GM, VITAMIN M... IV SCH ×5 (09:05)
--- NOTE | 2023-02-05 09:40 | Tele-ICU Progress Note ---
Subjective Date Seen by a Provider: Feb 05, 2023 Subjective/Events-last exam This virtual visit was conducted using real time audio/video. Thank you for asking us to see this patient for critical care services due to alc. intoxication, nausea and vomiting. PE: Appears comfortable. VSS. O2 sat 98% on RA. HEENT: No obvious masses, adenopathy or JVD. Chest: clear to auscultation. CV: RRR S1 S2 No murmur or added sounds. Abd: Non-tender. Bowel sounds Y. : Unremarkable. [place] [employer]. BUNKER WORKER/psychiatric: Grossly intact. No obvious focal findings. Extremities: No edema. Capillary refill < 3 seconds. Skin: unremarkable. Results: Decreased Hb 9.1, K 3.2. CXR: Clear, hyperinflated.. Available chart/ vitals / labs / images reviewed. Video assessment done using teleICU camera, rest of exam as per RN. A/P: Critical Care: critically ill patient. Cont. CIWA, Jaylon. consider lower level of care soon. Discussed with RN Blanquita. Asked RN to reach out to eICU if any questions or concerns later. Time spent with patient/coordination of care with other health professionals (mins): 22 Sepsis Event Evaluation Height, Weight, BMI Height: '" Weight: lbs. oz. kg; 24.78 BMI Method: Exam Exam Patient acknowledged, consented, and participated in this virtual visit which was conducted using real time audio/video Vital Signs Date Time Temp Pulse Resp B/P (MAP) Pulse Ox O2 Delivery O2 Flow Rate FiO2 02/05/23 09:00 121 32 134/96 (109) 99 Room Air 02/05/23 08:00 112 14 130/82 (98) 98 Room Air 02/05/23 08:00 96 Room Air 02/05/23 07:53 36.3 02/05/23 07:27 85 02/05/23 07:00 91 17 128/93 (105) 97 Room Air 02/05/23 06:00 109 12 150/91 (110) 98 Room Air 02/05/23 05:00 95 15 117/81 (93) 97 Room Air 02/05/23 04:00 36.1 02/05/23 04:00 36.1 02/05/23 04:00 107 14 140/116 (124) 96 Room Air 02/05/23 03:40 96 Room Air 02/05/23 03:00 124 15 109/72 (84) 96 Room Air 02/05/23 02:00 104 17 120/83 (95) 95 Room Air 02/05/23 01:00 102 02/05/23 01:00 99 17 118/79 (92) 93 Room Air 02/05/23 00:30 140 14 126/88 (101) 97 Room Air 02/05/23 00:18 35.8 140 98 21 02/05/23 00:00 104 110/100 (103) 97 Room Air 02/04/23 23:55 36.6 02/04/23 23:45 100 35 111/79 (90) 96 Room Air 02/04/23 23:15 20 120/80 (93) 99 Room Air 02/04/23 23:10 94 Room Air 02/04/23 23:05 108 02/04/23 22:58 36.7 117 24 117/88 (98) 96 Room Air 02/04/23 22:42 101 18 118/85 97 Room Air 02/04/23 18:25 35.8 140 20 140/118 (125) 98 Room Air I & O 02/05/23 07:00 Intake Total 3645 ml Output Total 1050 ml Balance 2595 ml Height & Weight Height: '" Weight: lbs. oz. kg; 24.78 BMI Method: General Appearance: No Apparent Distress Respiratory: Lungs Clear Cardiovascular: Regular Rate, Rhythm, No Edema (See free text.) Capillary Refill: Less Than 3 Seconds Peripheral Pulses: 1+ Dorsalis Pedis (R), 1+ Left Dors-Pedis (L) Results Lab Laboratory Tests 02/04/23 18:38 02/05/23 04:07 Assessment/Plan Assessment/Plan See free text. Critical Care: Critically Ill Patient SUJATA HERNANDEZ MD Feb 05, 2023 09:40
--- NOTE | 2023-02-05 09:49 | Diagnostic Imaging Report ---
INDICATION: Detox care management Portable chest 5:53 AM Heart size and pulmonary vascularity are normal. Lungs are clear. There are no effusions or pneumothoraces. IMPRESSION: No acute abnormalities in the chest. Dictated by: Dictated on workstation # [id number]
[2023-02-05] MEDS ORDERED: CALCIUM CARBONATE 500 MG (TUMS) TAB.CHEW PO PRN (10:30)
[2023-02-05] MEDS ORDERED: SCOPOLAMINE 1.5 MG (TRANSDERM-SCOP) PATCH TD ONE (10:30)
[2023-02-05] MEDS: PANTOPRAZOLE 40 MG (PROTONIX) TAB PO SCH (10:44)
[2023-02-05] MEDS ORDERED: AMLO-251 PO (14:22)
[2023-02-05] MEDS ORDERED: POTA-330 PO (14:22)
[2023-02-05] MEDS ORDERED: PANT40TA52 PO (14:22)
[2023-02-05] MEDS: ENOXAPARIN 40 MG/0.4 ML (LOVENOX) SYR SC SCH (22:17)
[2023-02-06] MEDS: LORazepam 1 MG (ATIVAN) TAB PO PRN (05:28)
[2023-02-06] MEDS: THIAMINE 100 MG (VITAMIN B-1) TAB PO SCH (05:28)
[2023-02-06] MEDS: MULTIVIT W/MINERALS TAB (THERAGRAN M) PO SCH (05:28)
[2023-02-06 05:36] LABS: BASOPHILS % (AUTO) 0 % (0-10); EOSINOPHILS % (AUTO) 1 % (0-10); HEMATOCRIT 28 % (35-52); HEMOGLOBIN 9.2 g/dL (11.5-16.0); LYMPHOCYTES # (AUTO) 2.8 10^3/uL (1.0-4.0); LYMPHOCYTES % (AUTO) 43 % (12-44); MEAN CORPUSCULAR HEMOGLOBIN 30 pg (25-34); MEAN CORPUSCULAR HGB CONC 33 g/dL (32-36); MEAN CORPUSCULAR VOLUME 92 fL (80-99); MEAN PLATELET VOLUME 10.7 fL (9.0-12.2); MONOCYTES # (AUTO) 0.3 10^3/uL (0.0-1.0); MONOCYTES % (AUTO) 4 % (0-12); NEUTROPHILS # (AUTO) 3.3 10^3/uL (1.8-7.8); NEUTROPHILS % (AUTO) 51 % (42-75); PLATELET COUNT 156 10^3/uL (130-400); WHITE BLOOD COUNT 6.3 10^3/uL (4.3-11.0)
[2023-02-06 05:53] LABS: ALBUMIN 3.1 GM/DL (3.2-4.5); POTASSIUM 2.9 MMOL/L (3.6-5.0)
[2023-02-06 05:54] LABS: CALCIUM 7.7 MG/DL (8.5-10.1)
[2023-02-06 05:56] LABS: TOTAL PROTEIN 6.3 GM/DL (6.4-8.2)
[2023-02-06 05:57] LABS: BILIRUBIN,TOTAL 0.9 MG/DL (0.1-1.0)
[2023-02-06 05:59] LABS: CREATININE SERUM 0.65 MG/DL (0.60-1.30); PHOSPHORUS 1.7 MG/DL (2.3-4.7)
[2023-02-06 06:02] LABS: MAGNESIUM 1.8 MG/DL (1.6-2.4)
[2023-02-06] MEDS: MAGNESIUM 1 GM/100 ML IVPB 100 ML IV SCH ×2 (06:05→06:22)
[2023-02-06] MEDS: KCL 20 MEQ TAB (K-DUR) PO SCH (06:05)
[2023-02-06] MEDS: POTASSIUM CL 10MEQ/50ML IVPB 50 ML IV SCH ×8 (06:05→12:37)
[2023-02-06] MEDS: LORazepam INJ 2 MG/ML (ATIVAN) VIAL IV PRN ×3 (06:19→11:56)
[2023-02-06] MEDS: ONDANSETRON 4 MG/2 ML (SDV) Z0FRAN IV PRN (06:19)
[2023-02-06] MEDS: SENNOSIDES 8.6 MG (SENOKOT) TAB PO SCH ×2 (08:06→21:47)
[2023-02-06] MEDS: DOCUSATE SODIUM 100 MG (COLACE) CAP PO SCH ×2 (08:06→21:47)
--- NOTE | 2023-02-06 08:38 | Progress Note - Hospitalist ---
Subjective HPI/CC On Admission Date Seen by Provider: Feb 06, 2023 Time Seen by Provider: 11:00 Chief complaint: Acute alcohol intoxication with refractory nausea and vomiting and tachycardia HPI: This is a 42-year-old -[place] female of [facility] who has a past medical history of severe alcoholism who presented to the ER with severe nausea and vomiting found to have an elevated alcohol level of 0.45 with severe abdominal pain. Patient was given antiemetics along with IV fluids and due to severe alcohol withdrawal predicted she was admitted to the ICU for close monitoring due to aspiration risk. Currently she is doing much better we will add scopolamine patch and Phenergan IM. Subjective/Events-last exam No changes Severe withdrawal Supportive care continues Review of Systems General: Fatigue, Malaise Objective Exam Vital Signs Vital Signs Date Time Temp Pulse Resp B/P (MAP) Pulse Ox O2 Delivery O2 Flow Rate FiO2 02/07/23 05:00 71 17 133/94 (107) 98 Room Air 02/07/23 00:16 35.8 02/05/23 00:18 21 Capillary Refill : Less Than 3 Seconds General Appearance: No Apparent Distress, WD/WN, Chronically ill Respiratory: Lungs Clear, Normal Breath Sounds Cardiovascular: Regular Rate, Rhythm Neurologic/Psychiatric: Alert, Oriented x3, Depressed Affect Results/Procedures Lab Laboratory Tests 02/07/23 04:00 Patient resulted labs reviewed. Assessment/Plan Assessment and Plan Assess & Plan/Chief Complaint Assessment: Intoxication Refractory nausea and vomiting Alcoholic hepatitis Plan: ICU Precedex Ativan IV fluids Vitamin supplementation Critical Care Critically Ill Patient KARLI GIRARD DO Feb 06, 2023 08:38
[2023-02-06] MEDS: PROMETHAZINE INJ 25 MG/ML (PHENERGAN) AMP IM PRN (08:47)
[2023-02-06] MEDS: THIAMINE INJECTION 100 MG, FOLIC ACID INJECTION 1 MG, MAGNESIUM SULFATE 2 GM, VITAMIN M... IV SCH ×5 (08:47)
[2023-02-06] MEDS: MAGNESIUM OXIDE (MAG-OX)400 MG TAB PO SCH ×2 (08:48→21:47)
[2023-02-06] MEDS: FOLIC ACID 1 MG TAB PO SCH (08:48)
[2023-02-06] MEDS: PANTOPRAZOLE 40 MG (PROTONIX) TAB PO SCH (08:48)
--- NOTE | 2023-02-06 09:55 | Tele-ICU Progress Note ---
Subjective Date Seen by a Provider: Feb 06, 2023 Subjective/Events-last exam This virtual visit was conducted using real time audio/video. Thank you for asking us to see this patient for critical care services due to alc. intoxication, nausea and vomiting. PE: Appears comfortable. VSS. O2 sat 99% on RA. HEENT: No obvious masses, adenopathy or JVD. Chest: clear to auscultation. CV: RRR S1 S2 No murmur or added sounds. Abd: Non-tender. Bowel sounds Y. : Unremarkable. [place]. DYE RANGE OPERATOR/psychiatric: Grossly intact. No obvious focal findings. Extremities: No edema. Capillary refill < 3 seconds. Skin: unremarkable. Results: Decreased Hb 9.2, K 2.9, PO4 1.7. CXR: Clear, hyperinflated.. Available chart/ vitals / labs / images reviewed. Video assessment done using teleICU camera, rest of exam as per RN. A/P: Critical Care: critically ill patient. Cont. CIWA, Jaylon. consider lower level of care soon. Ordered Lynette watts. Discussed with RN Blanquita. Asked RN to reach out to eICU if any questions or concerns later. Time spent with patient/coordination of care with other health professionals (mins): 15 Sepsis Event Evaluation Height, Weight, BMI Height: '" Weight: lbs. oz. kg; 24.74 BMI Method: Exam Exam Patient acknowledged, consented, and participated in this virtual visit which was conducted using real time audio/video Vital Signs Date Time Temp Pulse Resp B/P (MAP) Pulse Ox O2 Delivery O2 Flow Rate FiO2 02/06/23 09:00 106 37 121/89 (100) 97 Room Air 02/06/23 08:00 36.3 02/06/23 08:00 98 Room Air 02/06/23 08:00 96 19 120/92 (101) 96 Room Air 02/06/23 07:00 98 02/06/23 07:00 96 17 114/87 (96) 100 Room Air 02/06/23 06:00 101 120/94 (103) 99 Room Air 02/06/23 05:00 102 17 122/90 (101) 97 Room Air 02/06/23 04:00 101 18 104/71 (82) 97 Room Air 02/06/23 03:20 98 Room Air 02/06/23 03:20 36.4 107 16 127/93 (104) 98 Room Air 02/06/23 03:00 101 15 127/93 (104) 97 Room Air 02/06/23 02:00 105 25 105/76 (86) 98 Room Air 02/06/23 01:00 95 17 125/87 (100) 98 Room Air 02/06/23 01:00 108 02/06/23 00:00 112 22 112/81 (91) 97 Room Air 02/05/23 23:55 36.9 117 20 100 Room Air 02/05/23 23:50 100 Room Air 02/05/23 23:00 110 17 131/85 (100) 96 Room Air 02/05/23 22:00 115 17 131/89 (103) 98 Room Air 02/05/23 21:00 114 26 117/86 (96) 97 Room Air 02/05/23 20:00 37.0 121 18 121/88 (99) 98 Room Air 02/05/23 20:00 97 Room Air 02/05/23 19:00 123 02/05/23 19:00 124 22 113/71 (85) 98 Room Air 02/05/23 16:00 123 15 139/103 (115) 99 Room Air 02/05/23 16:00 96 Room Air 02/05/23 15:00 112 19 125/88 (100) 98 Room Air 02/05/23 14:00 113 20 133/92 (106) 97 Room Air 02/05/23 13:22 106 02/05/23 13:00 105 21 137/96 (110) 98 Room Air 02/05/23 12:00 96 Room Air 02/05/23 12:00 114 43 119/81 (94) 94 Room Air 02/05/23 11:28 36.3 02/05/23 11:00 109 32 124/98 (107) 96 Room Air 02/05/23 10:00 116 17 126/74 (91) 96 Room Air I & O 02/06/23 07:00 Intake Total 2780.2 ml Output Total 1850 ml Balance 930.2 ml Height & Weight Height: '" Weight: lbs. oz. kg; 24.74 BMI Method: General Appearance: No Apparent Distress, Chronically ill Respiratory: Lungs Clear, Normal Breath Sounds Cardiovascular: Regular Rate, Rhythm Capillary Refill: Less Than 3 Seconds Peripheral Pulses: 1+ Dorsalis Pedis (R), 1+ Left Dors-Pedis (L) Neurologic/Psychiatric: Alert, Oriented x3, Depressed Affect Results Lab Laboratory Tests 02/04/23 18:38 02/05/23 04:07 02/06/23 05:16 Assessment/Plan Assessment/Plan See free text Critical Care: Critically Ill Patient SUJATA HERNANDEZ MD Feb 06, 2023 09:55
[2023-02-06] MEDS ORDERED: POTASSIUM PHOSPHATE INJ 30 MM in NS (IVPB) 250 ML IV NR (10:17)
[2023-02-06] MEDS: DexMEDEtomidine 250 ML DRIP 250 ML IV SCH (12:29)
[2023-02-07] MEDS: ENOXAPARIN 40 MG/0.4 ML (LOVENOX) SYR SC SCH (00:08)
[2023-02-07] MEDS: DexMEDEtomidine 250 ML DRIP 250 ML IV SCH ×2 (02:40→16:24)
[2023-02-07 04:17] LABS: BASOPHILS % (AUTO) 1 % (0-10); EOSINOPHILS # (AUTO) 0.1 10^3/uL (0.0-0.3); EOSINOPHILS % (AUTO) 1 % (0-10); HEMATOCRIT 33 % (35-52); HEMOGLOBIN 10.3 g/dL (11.5-16.0); LYMPHOCYTES # (AUTO) 1.9 10^3/uL (1.0-4.0); LYMPHOCYTES % (AUTO) 30 % (12-44); MEAN CORPUSCULAR HEMOGLOBIN 30 pg (25-34); MEAN CORPUSCULAR HGB CONC 32 g/dL (32-36); MEAN CORPUSCULAR VOLUME 94 fL (80-99); MEAN PLATELET VOLUME 11.2 fL (9.0-12.2); MONOCYTES # (AUTO) 0.2 10^3/uL (0.0-1.0); MONOCYTES % (AUTO) 4 % (0-12); NEUTROPHILS # (AUTO) 4.1 10^3/uL (1.8-7.8); NEUTROPHILS % (AUTO) 64 % (42-75); PLATELET COUNT 128 10^3/uL (130-400); WHITE BLOOD COUNT 6.3 10^3/uL (4.3-11.0)
[2023-02-07 04:32] LABS: ALBUMIN 3.2 GM/DL (3.2-4.5)
[2023-02-07 04:33] LABS: CALCIUM 8.5 MG/DL (8.5-10.1)
[2023-02-07 04:35] LABS: TOTAL PROTEIN 6.8 GM/DL (6.4-8.2)
[2023-02-07 04:36] LABS: BILIRUBIN,TOTAL 0.8 MG/DL (0.1-1.0)
[2023-02-07] MEDS: POTASSIUM CL 10MEQ/50ML IVPB 50 ML IV SCH (04:36)
[2023-02-07] MEDS: MAGNESIUM 1 GM/100 ML IVPB 100 ML IV SCH ×3 (04:37→10:00)
[2023-02-07] MEDS: KCL 20 MEQ TAB (K-DUR) PO SCH (04:37)
[2023-02-07 04:38] LABS: CREATININE SERUM 0.69 MG/DL (0.60-1.30); PHOSPHORUS 2.6 MG/DL (2.3-4.7)
[2023-02-07 04:41] LABS: MAGNESIUM 1.8 MG/DL (1.6-2.4)
--- NOTE | 2023-02-07 06:29 | Progress Note - Hospitalist ---
Subjective HPI/CC On Admission Date Seen by Provider: Feb 07, 2023 Time Seen by Provider: 11:00 Chief complaint: Acute alcohol intoxication with refractory nausea and vomiting and tachycardia HPI: This is a 42-year-old -[place] female of [facility] who has a past medical history of severe alcoholism who presented to the ER with severe nausea and vomiting found to have an elevated alcohol level of 0.45 with severe abdominal pain. Patient was given antiemetics along with IV fluids and due to severe alcohol withdrawal predicted she was admitted to the ICU for close monitoring due to aspiration risk. Currently she is doing much better we will add scopolamine patch and Phenergan IM. Subjective/Events-last exam Patient remains in ICU Hallucinations from alcohol withdrawal requiring Precedex Reviewed labs Objective Exam Vital Signs Vital Signs Date Time Temp Pulse Resp B/P (MAP) Pulse Ox O2 Delivery O2 Flow Rate FiO2 02/07/23 14:00 80 15 148/111 (128) 99 Room Air 02/07/23 00:16 35.8 02/05/23 00:18 21 Capillary Refill : Less Than 3 Seconds General Appearance: No Apparent Distress, WD/WN, Chronically ill Respiratory: Lungs Clear, Normal Breath Sounds Cardiovascular: Regular Rate, Rhythm Results/Procedures Lab Laboratory Tests 02/07/23 04:00 Patient resulted labs reviewed. Assessment/Plan Assessment and Plan Assess & Plan/Chief Complaint Assessment: Intoxication Refractory nausea and vomiting Alcoholic hepatitis Plan: ICU Precedex Ativan IV fluids Vitamin supplementation Critical Care Critically Ill Patient SHAJIKARLI LOTT Feb 07, 2023 06:29
[2023-02-07] MEDS: SENNOSIDES 8.6 MG (SENOKOT) TAB PO SCH ×2 (07:54→20:01)
[2023-02-07] MEDS: DOCUSATE SODIUM 100 MG (COLACE) CAP PO SCH ×2 (07:54→20:01)
--- NOTE | 2023-02-07 08:49 | Tele-ICU Progress Note ---
Subjective Date Seen by a Provider: Feb 07, 2023 Time Seen by a Provider: 08:49 Subjective/Events-last exam she admitted with alcohol intoxication followed by alcohol withdrwal. now she is confused and disoriented on precedex. Sepsis Event Evaluation Height, Weight, BMI Height: '" Weight: lbs. oz. kg; 24.74 BMI Method: Exam Exam Patient acknowledged, consented, and participated in this virtual visit which was conducted using real time audio/video Vital Signs Date Time Temp Pulse Resp B/P (MAP) Pulse Ox O2 Delivery O2 Flow Rate FiO2 02/07/23 08:00 70 17 152/109 (130) 99 Room Air 02/07/23 07:00 83 02/07/23 07:00 83 24 134/106 (117) 98 Room Air 02/07/23 06:40 79 124/82 02/07/23 06:00 79 13 124/82 (96) 100 Room Air 02/07/23 05:00 71 17 133/94 (107) 98 Room Air 02/07/23 04:00 81 14 132/102 (112) 98 Room Air 02/07/23 04:00 95 Room Air 02/07/23 03:00 85 21 123/91 (102) 99 Room Air 02/07/23 02:40 80 139/102 02/07/23 02:00 82 17 124/97 (106) 99 Room Air 02/07/23 01:00 79 20 129/101 (110) 99 Room Air 02/07/23 01:00 80 02/07/23 00:16 35.8 02/07/23 00:00 77 27 139/102 (114) 98 Room Air 02/06/23 23:59 95 Room Air 02/06/23 23:00 77 136/97 (110) 98 Room Air 02/06/23 22:00 77 17 129/99 (109) 98 Room Air 02/06/23 21:00 77 17 127/98 (108) 98 Room Air 02/06/23 20:00 36.0 02/06/23 20:00 99 Room Air 02/06/23 20:00 76 18 123/93 (103) 99 Room Air 02/06/23 19:00 77 17 118/91 (100) Room Air 02/06/23 19:00 75 02/06/23 18:41 Room Air 02/06/23 18:00 77 116/92 (100) Room Air 02/06/23 17:00 78 107/97 (100) Room Air 02/06/23 16:32 78 107/80 02/06/23 16:00 79 101/82 (88) Room Air 02/06/23 16:00 98 Room Air 02/06/23 15:40 36.1 02/06/23 15:00 78 107/80 (89) 100 Room Air 02/06/23 14:00 81 94/72 (79) 100 Room Air 02/06/23 13:00 93 02/06/23 13:00 94 105/83 (90) 100 Room Air 02/06/23 12:29 108 148/111 02/06/23 12:00 98 Room Air 02/06/23 12:00 100 115/77 (90) 100 Room Air 02/06/23 12:00 37.2 02/06/23 11:00 108 148/111 (123) 93 Room Air 02/06/23 10:00 105 131/95 (107) 97 Room Air 02/06/23 09:00 106 37 121/89 (100) 97 Room Air I & O 02/07/23 07:00 Intake Total 3025 ml Output Total 1400 ml Balance 1625 ml Height & Weight Height: '" Weight: lbs. oz. kg; 24.74 BMI Method: General Appearance: No Apparent Distress, WD/WN, Chronically ill Respiratory: Lungs Clear, Normal Breath Sounds Cardiovascular: Regular Rate, Rhythm Capillary Refill: Less Than 3 Seconds Peripheral Pulses: 1+ Dorsalis Pedis (R), 1+ Left Dors-Pedis (L) Neurologic/Psychiatric: Alert, Oriented x3, Depressed Affect Results Lab Laboratory Tests 02/06/23 05:16 02/07/23 04:00 Assessment/Plan Assessment/Plan Alcohol withdrwal syndrome. will start on phenobarbitol bolus followed by q6hrs doses for 2 days and try to wean precedex. will add gabapentin if she can take po. Multivitamins and thiamine DVT prophylaxis Critical Care: Critically Ill Patient Time spent with patient (mins): 25 CARMEL BRUNO MD Feb 07, 2023 08:49
[2023-02-07] MEDS: THIAMINE 100 MG (VITAMIN B-1) TAB PO SCH (10:00)
[2023-02-07] MEDS: MULTIVIT W/MINERALS TAB (THERAGRAN M) PO SCH (10:00)
[2023-02-07] MEDS: MAGNESIUM OXIDE (MAG-OX)400 MG TAB PO SCH ×2 (11:42→20:01)
[2023-02-07] MEDS: FOLIC ACID 1 MG TAB PO SCH (11:42)
[2023-02-07] MEDS: PANTOPRAZOLE 40 MG (PROTONIX) TAB PO SCH (11:42)
[2023-02-07] MEDS: THIAMINE INJECTION 100 MG, FOLIC ACID INJECTION 1 MG, MAGNESIUM SULFATE 2 GM, VITAMIN M... IV SCH ×5 (11:51)
[2023-02-07] MEDS ORDERED: THIAMINE 100 MG/ML 2 ML (VITAMIN B-1) VIAL IV NR (12:00)
[2023-02-07] MEDS: amLODIPine 10 MG (NORVASC) TAB PO SCH (20:01)
[2023-02-07] MEDS ORDERED: GABAPENTIN 100 MG (NEURONTIN) CAP PO SCH (21:00)
[2023-02-08] MEDS: ENOXAPARIN 40 MG/0.4 ML (LOVENOX) SYR SC SCH ×2 (00:09→23:19)
[2023-02-08 04:39] LABS: BASOPHILS % (AUTO) 0 % (0-10); LYMPHOCYTES % (AUTO) 40 % (12-44)
[2023-02-08 04:41] LABS: EOSINOPHILS # (AUTO) 0.1 10^3/uL (0.0-0.3); EOSINOPHILS % (AUTO) 1 % (0-10); HEMATOCRIT 32 % (35-52); HEMOGLOBIN 10.4 g/dL (11.5-16.0); LYMPHOCYTES # (AUTO) 2.4 10^3/uL (1.0-4.0); MEAN CORPUSCULAR HEMOGLOBIN 30 pg (25-34); MEAN CORPUSCULAR HGB CONC 33 g/dL (32-36); MEAN CORPUSCULAR VOLUME 93 fL (80-99); MEAN PLATELET VOLUME 11.7 fL (9.0-12.2); MONOCYTES # (AUTO) 0.3 10^3/uL (0.0-1.0); MONOCYTES % (AUTO) 4 % (0-12); NEUTROPHILS # (AUTO) 3.1 10^3/uL (1.8-7.8); NEUTROPHILS % (AUTO) 53 % (42-75); PLATELET COUNT 95 10^3/uL (130-400); WHITE BLOOD COUNT 5.9 10^3/uL (4.3-11.0)
[2023-02-08 04:51] LABS: ALBUMIN 3.2 GM/DL (3.2-4.5); POTASSIUM 3.5 MMOL/L (3.6-5.0)
[2023-02-08 04:52] LABS: CALCIUM 8.8 MG/DL (8.5-10.1)
[2023-02-08 04:55] LABS: BILIRUBIN,TOTAL 0.6 MG/DL (0.1-1.0)
[2023-02-08 04:57] LABS: CREATININE SERUM 0.65 MG/DL (0.60-1.30); PHOSPHORUS 3.4 MG/DL (2.3-4.7)
[2023-02-08 05:00] LABS: MAGNESIUM 1.5 MG/DL (1.6-2.4)
[2023-02-08] MEDS: KCL 20 MEQ TAB (K-DUR) PO SCH (05:40)
[2023-02-08] MEDS: MAGNESIUM 1 GM/100 ML IVPB 100 ML IV SCH ×3 (05:40→09:17)
[2023-02-08] MEDS: POTASSIUM CL 10MEQ/50ML IVPB 50 ML IV SCH (05:40)
--- NOTE | 2023-02-08 06:14 | Progress Note - Hospitalist ---
Subjective HPI/CC On Admission Date Seen by Provider: Feb 08, 2023 Time Seen by Provider: 11:00 Chief complaint: Acute alcohol intoxication with refractory nausea and vomiting and tachycardia HPI: This is a 42-year-old -[place] female of [facility] who has a past medical history of severe alcoholism who presented to the ER with severe nausea and vomiting found to have an elevated alcohol level of 0.45 with severe abdominal pain. Patient was given antiemetics along with IV fluids and due to severe alcohol withdrawal predicted she was admitted to the ICU for close monitoring due to aspiration risk. Currently she is doing much better we will add scopolamine patch and Phenergan IM. Subjective/Events-last exam Improved Still on Precedex No pain now after meds PPI ordered Review of Systems General: Fatigue, Malaise Objective Exam Vital Signs Vital Signs Date Time Temp Pulse Resp B/P (MAP) Pulse Ox O2 Delivery O2 Flow Rate FiO2 02/08/23 14:00 93 26 95/71 (80) Room Air 02/08/23 13:00 99 02/08/23 11:41 36.3 02/05/23 00:18 21 Capillary Refill : Less Than 3 Seconds General Appearance: No Apparent Distress, WD/WN, Chronically ill Respiratory: Lungs Clear, Normal Breath Sounds Cardiovascular: Regular Rate, Rhythm Neurologic/Psychiatric: Alert Results/Procedures Lab Laboratory Tests 02/08/23 04:31 Patient resulted labs reviewed. Assessment/Plan Assessment and Plan Assess & Plan/Chief Complaint Assessment: Intoxication Refractory nausea and vomiting Alcoholic hepatitis Plan: ICU Precedex wean Ativan IV fluids Vitamin supplementation Critical Care Critically Ill Patient KARLI GIRARD DO Feb 08, 2023 06:14
[2023-02-08] MEDS: MULTIVIT W/MINERALS TAB (THERAGRAN M) PO SCH (06:41)
[2023-02-08] MEDS ORDERED: KCL 20 MEQ TAB (K-DUR) PO ONE (08:00)
--- NOTE | 2023-02-08 08:58 | Tele-ICU Progress Note ---
Subjective Date Seen by a Provider: Feb 08, 2023 Time Seen by a Provider: 08:55 Subjective/Events-last exam she is a heavy alcohol abuser admitted with withdrawel symptoms. yester day added phenobarbitol and gabapentin. today she is feeling better and precedex decreased to 0.6 mcg. still has occasional vomiting. Sepsis Event Evaluation Height, Weight, BMI Height: '" Weight: lbs. oz. kg; 24.74 BMI Method: Exam Exam Patient acknowledged, consented, and participated in this virtual visit which was conducted using real time audio/video Vital Signs Date Time Temp Pulse Resp B/P (MAP) Pulse Ox O2 Delivery O2 Flow Rate FiO2 02/08/23 08:00 80 86/55 (75) 98 Room Air 02/08/23 07:44 36.2 02/08/23 07:00 78 108/87 (92) 98 Room Air 02/08/23 07:00 78 02/08/23 06:15 80 122/101 (108) 99 Room Air 02/08/23 06:00 81 121/103 (109) 100 Room Air 02/08/23 05:00 82 23 112/93 (99) 98 Room Air 02/08/23 04:00 81 23 122/97 (105) 99 Room Air 02/08/23 04:00 97 Room Air 02/08/23 03:00 81 22 129/104 (112) 97 Room Air 02/08/23 02:00 82 23 106/90 (95) 97 Room Air 02/08/23 01:46 36.1 02/08/23 01:00 82 22 120/94 (103) 98 Room Air 02/08/23 00:45 36.2 02/08/23 00:31 82 02/08/23 00:00 80 22 129/100 (110) 99 Room Air 02/07/23 23:59 97 Room Air 02/07/23 23:53 36.0 02/07/23 23:00 81 22 116/91 (99) 99 Room Air 02/07/23 22:15 36.1 02/07/23 22:00 79 22 127/106 (113) 100 Room Air 02/07/23 21:00 82 22 113/92 (99) 100 Room Air 02/07/23 20:24 82 113/92 02/07/23 20:00 67 22 94/72 (79) 100 Room Air 02/07/23 20:00 99 Room Air 02/07/23 19:29 35.8 02/07/23 19:00 76 19 113/78 (90) 100 Room Air 02/07/23 18:42 81 02/07/23 18:40 81 149/118 02/07/23 18:00 81 14 141/105 (116) 99 Room Air 02/07/23 17:00 83 27 116/89 (97) 98 Room Air 02/07/23 16:24 80 157/116 02/07/23 16:00 98 Room Air 02/07/23 16:00 78 16 152/117 (130) 98 Room Air 02/07/23 15:28 35.9 02/07/23 15:00 80 19 129/99 (108) 99 Room Air 02/07/23 14:00 80 15 148/111 (128) 99 Room Air 02/07/23 13:00 78 19 126/103 (115) 98 Room Air 02/07/23 13:00 76 02/07/23 12:00 95 Room Air 02/07/23 12:00 79 18 141/111 (124) 100 Room Air 02/07/23 11:00 79 13 144/108 (120) 100 Room Air 02/07/23 10:00 80 19 145/101 (118) 99 Room Air 02/07/23 09:00 75 16 149/113 (125) 99 Room Air I & O 02/08/23 07:00 Intake Total 2590.2 ml Output Total 2725 ml Balance -134.8 ml Height & Weight Height: '" Weight: lbs. oz. kg; 24.74 BMI Method: General Appearance: No Apparent Distress, WD/WN, Chronically ill Respiratory: Lungs Clear, Normal Breath Sounds Cardiovascular: Regular Rate, Rhythm Capillary Refill: Less Than 3 Seconds Peripheral Pulses: 1+ Dorsalis Pedis (R), 1+ Left Dors-Pedis (L) Neurologic/Psychiatric: Alert, Oriented x3, Depressed Affect Results Lab Laboratory Tests 02/07/23 04:00 02/08/23 04:31 Assessment/Plan Assessment/Plan Alcohol withdrwal syndrome. will continue phenobarbitol bolus followed by q6hrs doses for 2 days and try to wean precedex. will increase gabapentin to 300mg po TID and add Baclofen 10 mg po tid . Multivitamins and thiamine DVT prophylaxis Critical Care: Critically Ill Patient Time spent with patient (mins): 25 CARMEL BRUNO MD Feb 08, 2023 08:58
[2023-02-08] MEDS: ONDANSETRON 4 MG/2 ML (SDV) Z0FRAN IV PRN (09:13)
[2023-02-08] MEDS: DexMEDEtomidine 250 ML DRIP 250 ML IV SCH (09:13)
[2023-02-08] MEDS: LORazepam INJ 2 MG/ML (ATIVAN) VIAL IV PRN (09:27)
[2023-02-08] MEDS: SENNOSIDES 8.6 MG (SENOKOT) TAB PO SCH ×2 (10:00→19:46)
[2023-02-08] MEDS: PANTOPRAZOLE 40 MG (PROTONIX) TAB PO SCH (10:00)
[2023-02-08] MEDS: FOLIC ACID 1 MG TAB PO SCH (10:00)
[2023-02-08] MEDS: BACLOFEN 10 MG (LIORESAL) TAB PO SCH ×3 (10:44→20:34)
[2023-02-08] MEDS: DOCUSATE SODIUM 100 MG (COLACE) CAP PO SCH ×2 (13:19→19:46)
[2023-02-08] MEDS: PROMETHAZINE INJ 25 MG/ML (PHENERGAN) AMP IM PRN (13:24)
[2023-02-08] MEDS: LORazepam 1 MG (ATIVAN) TAB PO PRN (19:50)
[2023-02-08] MEDS: GABAPENTIN 100 MG (NEURONTIN) CAP PO SCH (20:34)
[2023-02-08] MEDS: amLODIPine 10 MG (NORVASC) TAB PO SCH (20:34)
[2023-02-09 04:32] LABS: BASOPHILS % (AUTO) 0 % (0-10); EOSINOPHILS % (AUTO) 0 % (0-10); HEMATOCRIT 30 % (35-52); HEMOGLOBIN 9.9 g/dL (11.5-16.0); LYMPHOCYTES # (AUTO) 2.4 10^3/uL (1.0-4.0); LYMPHOCYTES % (AUTO) 43 % (12-44); MEAN CORPUSCULAR HEMOGLOBIN 30 pg (25-34); MEAN CORPUSCULAR HGB CONC 33 g/dL (32-36); MEAN CORPUSCULAR VOLUME 92 fL (80-99); MEAN PLATELET VOLUME 12.5 fL (9.0-12.2); MONOCYTES # (AUTO) 0.3 10^3/uL (0.0-1.0); MONOCYTES % (AUTO) 5 % (0-12); NEUTROPHILS # (AUTO) 2.9 10^3/uL (1.8-7.8); NEUTROPHILS % (AUTO) 51 % (42-75); PLATELET COUNT 84 10^3/uL (130-400); WHITE BLOOD COUNT 5.6 10^3/uL (4.3-11.0)
[2023-02-09 04:42] LABS: ALBUMIN 3.2 GM/DL (3.2-4.5); POTASSIUM 3.4 MMOL/L (3.6-5.0)
[2023-02-09 04:43] LABS: CALCIUM 8.9 MG/DL (8.5-10.1)
[2023-02-09 04:46] LABS: BILIRUBIN,TOTAL 0.5 MG/DL (0.1-1.0)
[2023-02-09 04:48] LABS: CREATININE SERUM 0.67 MG/DL (0.60-1.30)
[2023-02-09 04:51] LABS: MAGNESIUM 1.5 MG/DL (1.6-2.4)
[2023-02-09] MEDS: POTASSIUM CL 10MEQ/50ML IVPB 50 ML IV SCH (04:59)
[2023-02-09] MEDS: KCL 20 MEQ TAB (K-DUR) PO SCH (04:59)
[2023-02-09] MEDS: MAGNESIUM 1 GM/100 ML IVPB 100 ML IV SCH ×4 (04:59→08:27)
[2023-02-09] MEDS: MULTIVIT W/MINERALS TAB (THERAGRAN M) PO SCH (06:35)
[2023-02-09] MEDS ORDERED: KCL 20 MEQ TAB (K-DUR) PO ONE (07:00)
[2023-02-09] MEDS: SENNOSIDES 8.6 MG (SENOKOT) TAB PO SCH ×2 (07:48→21:36)
[2023-02-09] MEDS: DOCUSATE SODIUM 100 MG (COLACE) CAP PO SCH ×2 (07:48→21:36)
[2023-02-09 08:01] VITALS: BP 98/76
[2023-02-09] MEDS: PANTOPRAZOLE 40 MG (PROTONIX) TAB PO SCH (08:27)
[2023-02-09] MEDS: GABAPENTIN 100 MG (NEURONTIN) CAP PO SCH ×2 (08:27→21:35)
[2023-02-09] MEDS: FOLIC ACID 1 MG TAB PO SCH (08:28)
[2023-02-09] MEDS: BACLOFEN 10 MG (LIORESAL) TAB PO SCH ×3 (08:28→21:36)
[2023-02-09] MEDS: LORazepam INJ 2 MG/ML (ATIVAN) VIAL IV PRN (12:10)
[2023-02-09] MEDS: ONDANSETRON 4 MG/2 ML (SDV) Z0FRAN IV PRN (12:10)
[2023-02-09] MEDS: ANTACID SUSP 30 ML UDC (MYLANTA) PO PRN (13:16)
[2023-02-09] MEDS: LORazepam 1 MG (ATIVAN) TAB PO PRN ×4 (13:27→21:36)
[2023-02-09 15:29] VITALS: BP 144/98
--- NOTE | 2023-02-09 15:38 | Progress Note ---
Subjective Subjective/Events-last exam Patient states that she is feeling better this AM. Having diarrhea and asking for something to help. Tolerating PO diet and ambulation to [facility]. Review of Systems General: Malaise Pulmonary: No Dyspnea, No Cough Cardiovascular: No: Chest Pain, Palpitations, Edema Gastrointestinal: Nausea, Abdominal Pain, Diarrhea; No: Vomiting Neurological: Weakness, Incoordination Objective Exam Last Set of Vital Signs Vital Signs Date Time Temp Pulse Resp B/P (MAP) Pulse Ox O2 Delivery O2 Flow Rate FiO2 02/09/23 11:58 37.2 02/09/23 09:00 147 37 97 Room Air 02/09/23 08:01 21 02/09/23 07:47 0.00 Capillary Refill : Less Than 3 Seconds I&O Intake and Output 02/09/23 00:00 Intake Total 2625 ml Output Total 1275 ml Balance 1350 ml Intake Oral 2225 ml IV Total 400 ml Output Urine Total 1275 ml # Bowel Movements 8 General: Alert, Oriented X3, No Acute Distress Lungs: Clear to Auscultation, Normal Air Movement Heart: Regular Rate, No Murmurs Abdomen: Normal Bowel Sounds, Soft, Other (mild epigastric pain) Extremities: No Edema, No Tenderness/Swelling Neuro: Normal Speech Results/Procedures Lab Laboratory Tests 02/08/23 17:50: Glucometer 89 02/09/23 00:13: Glucometer 127H 02/09/23 04:24: White Blood Count 5.6, Red Blood Count 3.27L, Hemoglobin 9.9L, Hematocrit 30L, Mean Corpuscular Volume 92, Mean Corpuscular Hemoglobin 30, Mean Corpuscular Hemoglobin Concent 33, Red Cell Distribution Width 20.5H, Platelet Count 84L, Mean Platelet Volume 12.5H, Immature Granulocyte % (Auto) 1, Neutrophils (%) (Auto) 51, Lymphocytes (%) (Auto) 43, Monocytes (%) (Auto) 5, Eosinophils (%) (Auto) 0, Basophils (%) (Auto) 0, Neutrophils # (Auto) 2.9, Lymphocytes # (Auto) 2.4, Monocytes # (Auto) 0.3, Eosinophils # (Auto) 0.0, Basophils # (Auto) 0.0, Immature Granulocyte # (Auto) 0.0, Sodium Level 137, Potassium Level 3.4L, Chloride Level 106, Carbon Dioxide Level 21, Anion Gap 10, Blood Urea Nitrogen 6L, Creatinine 0.67, Estimat Glomerular Filtration Rate 110, BUN/Creatinine Ratio 9, Glucose Level 107H, Calcium Level 8.9, Corrected Calcium 9.5, Phosphorus Level 4.0, Magnesium Level 1.5L, Total Bilirubin 0.5, Aspartate Amino Transf (AST/SGOT) 133H, Alanine Aminotransferase (ALT/SGPT) 52, Alkaline Phosphatase 115, Total Protein 7.0, Albumin 3.2 02/09/23 11:39: Glucometer 99 Microbiology 02/04/23 MRSA Screen - Final, Complete MRSA not isolated 02/04/23 Urine Culture - Final, Complete 3 or more isolates Strep agalactiae Group B See Comments Assessment/Plan Assessment/Plan (1) Alcohol abuse with withdrawal Status: Acute Assessment & Plan: 02/09: Discussed goals of care with patient today, discussed recommendation of inpt treatment and she is not sure, she would prefer outpatient but I reminded her that we have set that up her last 2 admissions (2) Alcoholic liver disease Status: Chronic Assessment & Plan: 02/09: Discussed the need for cessation (3) Nausea & vomiting Status: Resolved (4) Normocytic anemia Status: Chronic Assessment & Plan: 02/09: no signs of acute bleeding, will continue to monitor (5) Hypokalemia Status: Acute (6) DVT prophylaxis Status: Acute Assessment & Plan: - KURTIS Mora MD Feb 09, 2023 15:38
[2023-02-09 19:32] VITALS: BP 165/108
[2023-02-09] MEDS ORDERED: LOPERAMIDE 2 MG (IMODIUM) TABLET ONE (21:28)
[2023-02-09] MEDS ORDERED: LOPERAMIDE 2 MG (IMODIUM) TABLET PO PRN (21:30)
[2023-02-09] MEDS: ENOXAPARIN 40 MG/0.4 ML (LOVENOX) SYR SC SCH (21:35)
[2023-02-09] MEDS: amLODIPine 10 MG (NORVASC) TAB PO SCH (21:35)
[2023-02-09] MEDS: CALCIUM CARBONATE 500 MG (TUMS) TAB.CHEW PO PRN (21:36)
[2023-02-09 23:18] VITALS: BP 140/107
[2023-02-10] MEDS: LORazepam 1 MG (ATIVAN) TAB PO PRN ×4 (00:19→08:01)
[2023-02-10 03:38] VITALS: BP 116/76
[2023-02-10 05:05] LABS: EOSINOPHILS # (AUTO) 0.1 10^3/uL (0.0-0.3); EOSINOPHILS % (AUTO) 1 % (0-10); HEMOGLOBIN 9.3 g/dL (11.5-16.0); MEAN CORPUSCULAR VOLUME 93 fL (80-99)
[2023-02-10 05:07] LABS: BASOPHILS % (AUTO) 0 % (0-10); HEMATOCRIT 29 % (35-52); LYMPHOCYTES # (AUTO) 2.3 10^3/uL (1.0-4.0); LYMPHOCYTES % (AUTO) 38 % (12-44); MEAN CORPUSCULAR HEMOGLOBIN 30 pg (25-34); MEAN CORPUSCULAR HGB CONC 32 g/dL (32-36); MEAN PLATELET VOLUME 12.4 fL (9.0-12.2); MONOCYTES # (AUTO) 0.5 10^3/uL (0.0-1.0); MONOCYTES % (AUTO) 9 % (0-12); NEUTROPHILS # (AUTO) 3.1 10^3/uL (1.8-7.8); NEUTROPHILS % (AUTO) 51 % (42-75); PLATELET COUNT 108 10^3/uL (130-400); WHITE BLOOD COUNT 6.1 10^3/uL (4.3-11.0)
[2023-02-10 05:15] LABS: ALBUMIN 3.4 GM/DL (3.2-4.5); POTASSIUM 3.1 MMOL/L (3.6-5.0)
[2023-02-10 05:17] LABS: TOTAL PROTEIN 7.1 GM/DL (6.4-8.2)
[2023-02-10 05:19] LABS: BILIRUBIN,TOTAL 0.3 MG/DL (0.1-1.0)
[2023-02-10 05:20] LABS: PHOSPHORUS 3.7 MG/DL (2.3-4.7)
[2023-02-10 05:21] LABS: CREATININE SERUM 0.66 MG/DL (0.60-1.30)
[2023-02-10 05:23] LABS: MAGNESIUM 1.5 MG/DL (1.6-2.4)
[2023-02-10] MEDS: POTASSIUM CL 10MEQ/50ML IVPB 50 ML IV SCH (05:51)
[2023-02-10] MEDS: KCL 20 MEQ TAB (K-DUR) PO SCH (05:51)
[2023-02-10] MEDS: MAGNESIUM 1 GM/100 ML IVPB 100 ML IV SCH ×7 (05:51→10:39)
[2023-02-10] MEDS ORDERED: KCL 20 MEQ TAB (K-DUR) PO ONE ×3 (06:00→09:00)
[2023-02-10] MEDS: MULTIVIT W/MINERALS TAB (THERAGRAN M) PO SCH (06:32)
[2023-02-10] MEDS: ANTACID SUSP 30 ML UDC (MYLANTA) PO PRN ×3 (07:12→17:49)
[2023-02-10 07:34] VITALS: BP 136/92
[2023-02-10] MEDS: DOCUSATE SODIUM 100 MG (COLACE) CAP PO SCH ×2 (08:00→21:35)
[2023-02-10] MEDS: PANTOPRAZOLE 40 MG (PROTONIX) TAB PO SCH (08:01)
[2023-02-10] MEDS: GABAPENTIN 100 MG (NEURONTIN) CAP PO SCH ×2 (08:01→20:56)
[2023-02-10] MEDS: SENNOSIDES 8.6 MG (SENOKOT) TAB PO SCH ×2 (08:01→21:35)
[2023-02-10] MEDS: BACLOFEN 10 MG (LIORESAL) TAB PO SCH ×3 (08:01→20:56)
[2023-02-10] MEDS: FOLIC ACID 1 MG TAB PO SCH (08:01)
[2023-02-10] MEDS ORDERED: KETOROLAC 30 MG/ML VIAL IVP NR (10:00)
[2023-02-10 11:11] LABS: POTASSIUM 3.8 MMOL/L (3.6-5.0)
[2023-02-10 11:12] LABS: CALCIUM 8.6 MG/DL (8.5-10.1)
[2023-02-10 11:17] LABS: CREATININE SERUM 0.62 MG/DL (0.60-1.30)
[2023-02-10 12:26] VITALS: BP 141/97
[2023-02-10] MEDS: LORazepam 1 MG (ATIVAN) TAB PO SCH ×2 (13:06→19:54)
--- NOTE | 2023-02-10 13:36 | Progress Note ---
Subjective Subjective/Events-last exam Patient much improved this AM. States that she would like the tele sitter removed from the room. Tolerating PO diet. Feeling better when walking. Review of Systems General: Fatigue Pulmonary: No Dyspnea, No Cough Cardiovascular: No: Chest Pain, Palpitations, Edema Gastrointestinal: Abdominal Pain, Diarrhea; No: Nausea, Vomiting Neurological: Weakness, Incoordination Objective Exam Last Set of Vital Signs Vital Signs Date Time Temp Pulse Resp B/P (MAP) Pulse Ox O2 Delivery O2 Flow Rate FiO2 02/10/23 12:26 36.4 95 18 141/97 (112) 100 Room Air 02/10/23 07:57 0.00 02/09/23 21:13 21 Capillary Refill : Less Than 3 Seconds I&O Intake and Output 02/10/23 00:00 Intake Total 2085 ml Output Total 1000 ml Balance 1085 ml Intake Oral 2085 ml Output Urine Total 1000 ml # Voids 10 # Bowel Movements 7 General: Alert, Oriented X3, No Acute Distress Lungs: Clear to Auscultation, Normal Air Movement Heart: Regular Rate, No Murmurs Abdomen: Normal Bowel Sounds, Soft, No Tenderness, No Masses Extremities: No Edema, No Tenderness/Swelling Neuro: Normal Speech, Cranial Nerves 3-12 NL Psych/Mental Status: Mental Status NL, Mood NL Results/Procedures Lab Laboratory Tests 02/09/23 18:06: Glucometer 103 02/09/23 23:21: Glucometer 119H 02/10/23 04:44: Glucometer 107 02/10/23 04:45: White Blood Count 6.1, Red Blood Count 3.09L, Hemoglobin 9.3L, Hematocrit 29L, Mean Corpuscular Volume 93, Mean Corpuscular Hemoglobin 30, Mean Corpuscular Hemoglobin Concent 32, Red Cell Distribution Width 20.7H, Platelet Count 108L, Mean Platelet Volume 12.4H, Immature Granulocyte % (Auto) 1, Neutrophils (%) (Auto) 51, Lymphocytes (%) (Auto) 38, Monocytes (%) (Auto) 9, Eosinophils (%) (Auto) 1, Basophils (%) (Auto) 0, Neutrophils # (Auto) 3.1, Lymphocytes # (Auto) 2.3, Monocytes # (Auto) 0.5, Eosinophils # (Auto) 0.1, Basophils # (Auto) 0.0, Immature Granulocyte # (Auto) 0.0, Percent Immature Platelet Fraction 11.3H, Sodium Level 136, Potassium Level 3.1L, Chloride Level 103, Carbon Dioxide Level 22, Anion Gap 11, Blood Urea Nitrogen 3L, Creatinine 0.66, Estimat Glomerular Filtration Rate 111, BUN/Creatinine Ratio 5, Glucose Level 105, Calcium Level 9.0, Corrected Calcium 9.5, Phosphorus Level 3.7, Magnesium Level 1.5L, Total Bilirubin 0.3, Aspartate Amino Transf (AST/SGOT) 137H, Alanine Aminotransferase (ALT/SGPT) 66H, Alkaline Phosphatase 106, Total Protein 7.1, Albumin 3.4 02/10/23 10:53: Sodium Level 134L, Potassium Level 3.8, Chloride Level 101, Carbon Dioxide Level 25, Anion Gap 8, Blood Urea Nitrogen 2L, Creatinine 0.62, Estimat Glomerular Filtration Rate 113, BUN/Creatinine Ratio 3, Glucose Level 105, Calcium Level 8.6 02/10/23 12:30: Glucometer 111H Microbiology 02/04/23 MRSA Screen - Final, Complete MRSA not isolated 02/04/23 Urine Culture - Final, Complete 3 or more isolates Strep agalactiae Group B See Comments Assessment/Plan Assessment/Plan (1) Alcohol abuse with withdrawal Status: Acute Assessment & Plan: 02/09: Discussed goals of care with patient today, discussed recommendation of inpt treatment and she is not sure, she would prefer outpatient but I reminded her that we have set that up her last 2 admissions 02/10: She declines inpt and would like us to help set up outpatient treatment (2) Alcoholic liver disease Status: Chronic Assessment & Plan: 02/09: Discussed the need for cessation (3) Nausea & vomiting Status: Resolved (4) Normocytic anemia Status: Chronic Assessment & Plan: 02/09: no signs of acute bleeding, will continue to monitor (5) Hypokalemia Status: Acute (6) DVT prophylaxis Status: Acute Assessment & Plan: - KURTIS Mora MD Feb 10, 2023 13:36
[2023-02-10 15:38] VITALS: BP 125/86
[2023-02-10] MEDS: CALCIUM CARBONATE 500 MG (TUMS) TAB.CHEW PO PRN (17:14)
[2023-02-10 19:32] VITALS: BP 147/73
[2023-02-10] MEDS: amLODIPine 10 MG (NORVASC) TAB PO SCH (20:56)
[2023-02-10] MEDS: ENOXAPARIN 40 MG/0.4 ML (LOVENOX) SYR SC SCH (22:27)
[2023-02-10 23:42] VITALS: BP 147/102
[2023-02-11 03:38] VITALS: BP 144/101
[2023-02-11 05:41] LABS: BASOPHILS % (AUTO) 0 % (0-10); EOSINOPHILS # (AUTO) 0.1 10^3/uL (0.0-0.3); EOSINOPHILS % (AUTO) 1 % (0-10); HEMATOCRIT 29 % (35-52); HEMOGLOBIN 9.2 g/dL (11.5-16.0); LYMPHOCYTES # (AUTO) 2.6 10^3/uL (1.0-4.0); LYMPHOCYTES % (AUTO) 40 % (12-44); MEAN CORPUSCULAR HEMOGLOBIN 30 pg (25-34); MEAN CORPUSCULAR HGB CONC 32 g/dL (32-36); MEAN CORPUSCULAR VOLUME 96 fL (80-99); MEAN PLATELET VOLUME 11.8 fL (9.0-12.2); MONOCYTES # (AUTO) 0.8 10^3/uL (0.0-1.0); MONOCYTES % (AUTO) 12 % (0-12); NEUTROPHILS # (AUTO) 3.1 10^3/uL (1.8-7.8); NEUTROPHILS % (AUTO) 47 % (42-75); PLATELET COUNT 156 10^3/uL (130-400); WHITE BLOOD COUNT 6.6 10^3/uL (4.3-11.0)
[2023-02-11 06:17] LABS: ALBUMIN 3.4 GM/DL (3.2-4.5); POTASSIUM 3.9 MMOL/L (3.6-5.0)
[2023-02-11 06:18] LABS: CALCIUM 8.8 MG/DL (8.5-10.1)
[2023-02-11 06:19] LABS: TOTAL PROTEIN 7.1 GM/DL (6.4-8.2)
[2023-02-11] MEDS: POTASSIUM CL 10MEQ/50ML IVPB 50 ML IV SCH (06:19)
[2023-02-11 06:21] LABS: BILIRUBIN,TOTAL 0.3 MG/DL (0.1-1.0)
[2023-02-11 06:22] LABS: PHOSPHORUS 2.3 MG/DL (2.3-4.7)
[2023-02-11 06:23] LABS: CREATININE SERUM 0.65 MG/DL (0.60-1.30)
[2023-02-11 06:25] LABS: MAGNESIUM 1.9 MG/DL (1.6-2.4)
[2023-02-11] MEDS: KCL 20 MEQ TAB (K-DUR) PO SCH (06:25)
[2023-02-11] MEDS ORDERED: MAGNESIUM 1 GM/100 ML IVPB 200 ML IV ONE (06:28)
[2023-02-11] MEDS ORDERED: KCL 20 MEQ TAB (K-DUR) PO ONE (06:30)
[2023-02-11] MEDS: MULTIVIT W/MINERALS TAB (THERAGRAN M) PO SCH (06:45)
[2023-02-11] MEDS: MAGNESIUM 1 GM/100 ML IVPB 100 ML IV SCH ×3 (06:45→08:12)
[2023-02-11] MEDS: FOLIC ACID 1 MG TAB PO SCH (08:12)
[2023-02-11] MEDS: LORazepam 1 MG (ATIVAN) TAB PO SCH ×2 (08:12→12:45)
[2023-02-11] MEDS: GABAPENTIN 100 MG (NEURONTIN) CAP PO SCH (08:12)
[2023-02-11] MEDS: SENNOSIDES 8.6 MG (SENOKOT) TAB PO SCH (08:13)
[2023-02-11] MEDS: PANTOPRAZOLE 40 MG (PROTONIX) TAB PO SCH (08:13)
[2023-02-11] MEDS: DOCUSATE SODIUM 100 MG (COLACE) CAP PO SCH (08:13)
[2023-02-11] MEDS: BACLOFEN 10 MG (LIORESAL) TAB PO SCH ×2 (08:13→12:45)
[2023-02-11 08:14] VITALS: BP 138/89
--- NOTE | 2023-02-11 10:52 | Discharge Summary ---
Diagnosis/Chief Complaint Date of Admission February 04, 2023 at 22:19 Date of Discharge Discharge Diagnosis Problems/Diagnosis: (1) Alcohol abuse with withdrawal Assessment & Plan: 02/09: Discussed goals of care with patient today, discussed recommendation of inpt treatment and she is not sure, she would prefer outpatient but I reminded her that we have set that up her last 2 admissions 02/10: She declines inpt and would like us to help set up outpatient treatment Status: Acute (2) Alcoholic liver disease Assessment & Plan: 02/09: Discussed the need for cessation Status: Chronic (3) Nausea & vomiting Status: Resolved Resolution Date/Time: 02/09/23 @ 15:37 (4) Normocytic anemia Assessment & Plan: 02/09: no signs of acute bleeding, will continue to monitor Status: Chronic (5) Hypokalemia Status: Acute (6) DVT prophylaxis Assessment & Plan: - Lovenox Status: Acute Discharge Summary-Simple/Stand Consultations Discharge Physical Examination Allergies: Coded Allergies: No Known Drug Allergies (Unverified , 02/04/23) Vitals & I&Os Vital Sign - Last 12Hours Date Time Temp Pulse Resp B/P (MAP) Pulse Ox O2 Delivery O2 Flow Rate FiO2 02/11/23 08:14 36.5 110 16 138/89 (105) 99 Room Air 02/10/23 07:57 0.00 02/09/23 21:13 21 Intake and Output 02/11/23 00:00 Intake Total 1710 ml Balance 1710 ml Hospital Course See final discharge diagnosis. Discharge Instructions to patient/family Please see electronic discharge instructions given to patient. Discharge Medications Reviewed and agree with Discharge Medication list on patient's Discharge Instruction sheet KURTIS ASHTON MD Feb 11, 2023 10:52
[2023-02-11] MEDS ORDERED: MULT-1137 PO (10:57)
[2023-02-11] MEDS ORDERED: BACL10TA PO (10:57)
[2023-02-11] MEDS ORDERED: GABA-486 PO (10:57)
--- NOTE | 2023-02-11 10:58 | Discharge Summary ---
Discharge [facility] Reconcile Patient Problems Problems Reviewed?: Yes Discharge Medications New, Converted or Re-Newed RX: Transmitted to Pharmacy New Medications: Baclofen (Baclofen) 10 Mg Tablet 10 MG PO TID, #30 TAB Gabapentin (Gabapentin) 100 Mg Capsule 300 MG PO BID, #30 CAP Multivitamin/Iron/Folic Acid (Tab-A-Fabio Multivit with Iron) 18 Mg Iron-400 Mcg Tablet 1 EA PO DAILY@0700, #30 TAB Continued Medications: Amlodipine Besylate (Amlodipine Besylate) 10 Mg Tablet 10 MG PO HS, TAB Pantoprazole Sodium (Pantoprazole Sodium) 40 Mg Tablet.dr 40 MG PO DAILY, TAB Potassium Chloride (Potassium Chloride) 20 Meq Tablet.er 20 MEQ PO DAILY, TAB Patient Instructions Goal/Follow Up Appt: Make sure you keep your appt tomorrow with the addiction treatment team Activity & Diet Discharge Diet: No Restrictions KURTIS ASHTON MD Feb 11, 2023 10:58
[2023-02-11 12:20] VITALS: BP 133/96
== END 2023-02-11 15:04 | disposition home or self-care (01) | DRG 897 ==
LOC: EDUNIT# 18:18 → ER 18:19 → ICU 22:19 → 4TH 02-09 12:21
PROVIDERS: ADMIT Internal Medicine; ATTEND Family Medicine
DX: F10.229 Alcohol dependence with intoxication, unspecified (principal); F10.232 Alcohol dependence with withdrawal with perceptual disturbance; R11.10 Vomiting, unspecified; E87.6 Hypokalemia; Y90.8 Blood alcohol level of 240 mg/100 ml or more; K70.10 Alcoholic hepatitis without ascites; I10 Essential (primary) hypertension; F41.9 Anxiety disorder, unspecified; H54.7 Unspecified visual loss; F17.210 Nicotine dependence, cigarettes, uncomplicated; K21.9 Gastro-esophageal reflux disease without esophagitis; D64.9 Anemia, unspecified; Z79.899 Other long term (current) drug therapy
CPT/HCPCS: 36415; 71045; 80048; 80053; 80320; 81000; 82947; 83735; 84100; 85025; 87077; 87081; 87088; 94760; 96361; 96365; 96375; 96376